=== PATIENT | female | born 1960 | race Caucasian/White ===

== ENCOUNTER 2017-01-17 21:57 | Inpatient (IN) | payer SELFPAY ==
[~2017-01-17] VITALS: Ht 152.4 cm; Wt 58.6 kg
[~2017-01-17 21:57] MED LIST: ANTIVERT PO; CARAFATE1 GM PO; K-TAB20 MEQ PO; MUSCLE RELAXANT; NAPROXEN250 MG PO; OMEPRAZOLE20 M2 PO; ONDANSETRON4 MG PO; PERCOCET 5/325M1 TAB PO; REMERON SOLTAB15 MG PO; SEROQUEL25 MG PO; ZOFRAN ODT4 MG PO
[2017-01-17 23:32] LABS: HEMATOCRIT 41.2 % (37.0-47.0); IMMATURE GRANULOCYTES 0.4 % (0.0-1.0); MEAN CORPUSCULAR HGB 27.8 pG CALC (26.0-32.0); MEAN CORPUSCULAR HGB CONC 31.6 g/L CALC (32.0-36.0); NEUT# 6.9 thou/uL (2.00-7.15); RED BLOOD COUNT 4.68 mill/uL (4.20-5.60); RED CELL DISTRI WIDTH 17.8 % (11.5-15.5)
[2017-01-17 23:33] LABS: URINE BLOOD DIPSTICK MODERATE (NEGATIVE); URINE CLARITY SLIGHT CLOUDY; URINE COLOR YELLOW; URINE GLUCOSE - DIPSTICK NEGATIVE (NEGATIVE); URINE KETONE 15 mg/dL (NEGATIVE); URINE NITRITE - DIPSTICK NEGATIVE (Negative); URINE PH 5.5 (4.5-8.0); URINE PROTEIN - DIPSTICK TRACE mg/dL (NEG-TRACE); URINE SPECIFIC GRAVITY >=1.030; URINE UROBILINOGEN - DIPSTICK 0.2 E.U./dL (0.2)
[2017-01-17 23:40] LABS: URINE BILIRUBIN - DIPSTICK NEGATIVE (NEGATIVE); URINE LEUK ESTERASE SMALL (NEGATIVE)
[2017-01-17 23:49] LABS: URINE BACTERIA FEW hpf; URINE SQUAMOUS EPITHELIAL CELL RARE EPI/hpf (0-FEW); URINE WBC 50-100 WBC/hpf (0-5)
[2017-01-17 23:51] LABS: ALKALINE PHOSPHATASE 116 u/l (38-126); AMYLASE 128 u/l (30-110); ANION GAP 32 (6-22 (CALC)); BILIRUBIN, TOTAL 0.4 mg/dL (0.0-1.4); BUN 21 mg/dL (7-17); BUN/CREATININE RATIO 24 (12-20 (CALC)); CALCIUM 9.2 mg/dL (8.4-10.2); CARBON DIOXIDE 18 mmol/l (22-30); CHLORIDE 98 mmol/l (95-108); CREATININE 0.9 mg/dL (0.5-1.0); GFR > 60 ML/MIN (>=60 (CALC)); GFR FOR AFR.AMER. > 60 ML/MIN (>=60 (CALC)); GLUCOSE 76 mg/dL (65-105); LIPASE 86 u/l (23-300); POTASSIUM 4.2 mmol/l (3.5-5.1); SGOT/AST 94 u/l (14-36); SGPT/ALT 46 u/l (9-52); SODIUM 144 mmol/l (137-146); TOTAL PROTEIN 8.2 g/dL (6.3-8.2)
[2017-01-18 04:46] LABS: BARBITURATES NEGATIVE (NEGATIVE); COCAINE NEGATIVE (NEGATIVE); METHADONE NEGATIVE (NEGATIVE); OXCYCODONE NEGATIVE (NEGATIVE); TETRAHYDROCANNABIONOL NEGATIVE (NEGATIVE); TRICYLIC ANTIDEPRESSANTS NEGATIVE (NEGATIVE)
[2017-01-18 05:41] LABS: MYOGLOBIN 284 ng/mL (0 - 62)
[2017-01-18 06:30] VITALS: BP 125/53
[2017-01-18 09:26] VITALS: BP 113/58
[2017-01-18 13:30] VITALS: BP 102/55
[2017-01-18 16:20] VITALS: BP 108/66
[2017-01-18 22:06] VITALS: BP 117/75
[2017-01-19] VITALS (7 sets, daily range): BP systolic 105–119; BP diastolic 64–81
[2017-01-19 05:50] LABS: HEMATOCRIT 31.6 % (37.0-47.0); HEMOGLOBIN 9.8 g/dl (12.0-16.0); IMMATURE GRANULOCYTES 0.2 % (0.0-1.0); MEAN CELL VOLUME 91.3 fL CALC (80.0-100.0); MEAN CORPUSCULAR HGB 28.3 pG CALC (26.0-32.0); NEUT# 2.96 thou/uL (2.00-7.15); RED BLOOD COUNT 3.46 mill/uL (4.20-5.60); RED CELL DISTRI WIDTH 18.4 % (11.5-15.5)
[2017-01-19 06:05] LABS: ALBUMIN 3.2 g/dL (3.2-5.0); ALKALINE PHOSPHATASE 68 u/l (38-126); ANION GAP 17 (6-22 (CALC)); BILIRUBIN, TOTAL 0.6 mg/dL (0.0-1.4); BUN 6 mg/dL (7-17); BUN/CREATININE RATIO 10 (12-20 (CALC)); CALCIUM 7.5 mg/dL (8.4-10.2); CARBON DIOXIDE 20 mmol/l (22-30); CHLORIDE 105 mmol/l (95-108); CREATININE 0.6 mg/dL (0.5-1.0); GFR > 60 ML/MIN (>=60 (CALC)); GFR FOR AFR.AMER. > 60 ML/MIN (>=60 (CALC)); GLUCOSE 64 mg/dL (65-105); POTASSIUM 3.3 mmol/l (3.5-5.1); SGOT/AST 60 u/l (14-36); SGPT/ALT 34 u/l (9-52); SODIUM 139 mmol/l (137-146); TOTAL PROTEIN 5.8 g/dL (6.3-8.2)
[2017-01-19] MEDS ORDERED: LIBRIUM25 M1 PO (12:32)
[2017-01-19] MEDS ORDERED: KEFLEX500 MG PO (12:32)
[2017-01-19 14:50] LABS: C. DIFFICILE TOXIN A&B NEGATIVE (NEGATIVE)
[2017-01-20] VITALS (7 sets, daily range): BP systolic 113–130; BP diastolic 48–86
[2017-01-20 05:49] LABS: HEMATOCRIT 32.5 % (37.0-47.0); HEMOGLOBIN 10.2 g/dl (12.0-16.0); IMMATURE GRANULOCYTES 0.3 % (0.0-1.0); MEAN CELL VOLUME 90.5 fL CALC (80.0-100.0); MEAN CORPUSCULAR HGB 28.4 pG CALC (26.0-32.0); MEAN CORPUSCULAR HGB CONC 31.4 g/L CALC (32.0-36.0); NEUT# 4.08 thou/uL (2.00-7.15); RED BLOOD COUNT 3.59 mill/uL (4.20-5.60); RED CELL DISTRI WIDTH 17.4 % (11.5-15.5)
[2017-01-20 06:08] LABS: ALBUMIN 3.5 g/dL (3.2-5.0); ALKALINE PHOSPHATASE 76 u/l (38-126); ANION GAP 14 (6-22 (CALC)); BILIRUBIN, TOTAL 0.4 mg/dL (0.0-1.4); BUN 2 mg/dL (7-17); BUN/CREATININE RATIO 5 (12-20 (CALC)); CALCIUM 8.6 mg/dL (8.4-10.2); CARBON DIOXIDE 23 mmol/l (22-30); CHLORIDE 106 mmol/l (95-108); CREATININE 0.5 mg/dL (0.5-1.0); GFR > 60 ML/MIN (>=60 (CALC)); GFR FOR AFR.AMER. > 60 ML/MIN (>=60 (CALC)); GLUCOSE 86 mg/dL (65-105); MAGNESIUM 1.5 mg/dL (1.6-2.3); POTASSIUM 3.7 mmol/l (3.5-5.1); SGOT/AST 63 u/l (14-36); SGPT/ALT 39 u/l (9-52); SODIUM 140 mmol/l (137-146); TOTAL PROTEIN 6.3 g/dL (6.3-8.2)
[2017-01-21 00:11] VITALS: BP 113/73
[2017-01-21 04:23] VITALS: BP 119/81
[2017-01-21 07:23] LABS: HEMOGLOBIN 10.9 g/dl (12.0-16.0); IMMATURE GRANULOCYTES 0.2 % (0.0-1.0); MEAN CELL VOLUME 90.7 fL CALC (80.0-100.0); MEAN CORPUSCULAR HGB 28.2 pG CALC (26.0-32.0); MEAN CORPUSCULAR HGB CONC 31.1 g/L CALC (32.0-36.0); NEUT# 2.62 thou/uL (2.00-7.15); RED BLOOD COUNT 3.86 mill/uL (4.20-5.60); RED CELL DISTRI WIDTH 17.1 % (11.5-15.5)
[2017-01-21 07:46] LABS: ANION GAP 12 (6-22 (CALC)); BUN < 2 mg/dL (7-17); CARBON DIOXIDE 26 mmol/l (22-30); CHLORIDE 106 mmol/l (95-108); CREATININE 0.5 mg/dL (0.5-1.0); GFR > 60 ML/MIN (>=60 (CALC)); GFR FOR AFR.AMER. > 60 ML/MIN (>=60 (CALC)); GLUCOSE 78 mg/dL (65-105); POTASSIUM 2.8 mmol/l (3.5-5.1); SODIUM 141 mmol/l (137-146)
[2017-01-21 08:54] VITALS: BP 120/73
[2017-01-21 11:35] VITALS: BP 102/67
[2017-01-21 15:34] VITALS: BP 114/60
[2017-01-21 20:11] VITALS: BP 90/58
[2017-01-22] VITALS (7 sets, daily range): BP systolic 104–117; BP diastolic 64–78
[2017-01-22 05:57] LABS: HEMATOCRIT 33.2 % (37.0-47.0); HEMOGLOBIN 10.3 g/dl (12.0-16.0); IMMATURE GRANULOCYTES 0.2 % (0.0-1.0); MEAN CORPUSCULAR HGB 28.2 pG CALC (26.0-32.0); NEUT# 1.59 thou/uL (2.00-7.15); RED BLOOD COUNT 3.65 mill/uL (4.20-5.60); RED CELL DISTRI WIDTH 17.2 % (11.5-15.5)
[2017-01-22 06:10] LABS: ANION GAP 10 (6-22 (CALC)); BUN < 2 mg/dL (7-17); CALCIUM 7.8 mg/dL (8.4-10.2); CARBON DIOXIDE 25 mmol/l (22-30); CHLORIDE 109 mmol/l (95-108); CREATININE 0.5 mg/dL (0.5-1.0); GFR > 60 ML/MIN (>=60 (CALC)); GFR FOR AFR.AMER. > 60 ML/MIN (>=60 (CALC)); GLUCOSE 88 mg/dL (65-105); MAGNESIUM 1.9 mg/dL (1.6-2.3); POTASSIUM 2.9 mmol/l (3.5-5.1); SODIUM 141 mmol/l (137-146)
[2017-01-23 04:40] VITALS: BP 112/77
[2017-01-23 07:25] VITALS: BP 118/76
[2017-01-23 08:31] LABS: HEMATOCRIT 34.5 % (37.0-47.0); HEMOGLOBIN 10.7 g/dl (12.0-16.0); IMMATURE GRANULOCYTES 0.6 % (0.0-1.0); MEAN CELL VOLUME 93.2 fL CALC (80.0-100.0); MEAN CORPUSCULAR HGB 28.9 pG CALC (26.0-32.0); NEUT# 1.76 thou/uL (2.00-7.15); RED BLOOD COUNT 3.7 mill/uL (4.20-5.60); RED CELL DISTRI WIDTH 17.2 % (11.5-15.5)
[2017-01-23 09:14] LABS: ALBUMIN 3.2 g/dL (3.2-5.0); ALKALINE PHOSPHATASE 48 u/l (38-126); ANION GAP 13 (6-22 (CALC)); BILIRUBIN, TOTAL 0.2 mg/dL (0.0-1.4); BUN 2 mg/dL (7-17); BUN/CREATININE RATIO 4 (12-20 (CALC)); CALCIUM 8.7 mg/dL (8.4-10.2); CARBON DIOXIDE 23 mmol/l (22-30); CHLORIDE 109 mmol/l (95-108); CREATININE 0.5 mg/dL (0.5-1.0); GFR > 60 ML/MIN (>=60 (CALC)); GFR FOR AFR.AMER. > 60 ML/MIN (>=60 (CALC)); GLUCOSE 135 mg/dL (65-105); POTASSIUM 4.2 mmol/l (3.5-5.1); SGOT/AST 41 u/l (14-36); SGPT/ALT 32 u/l (9-52); SODIUM 140 mmol/l (137-146); TOTAL PROTEIN 5.9 g/dL (6.3-8.2)
[2017-01-23] MEDS ORDERED: ESCITALOPRAM OX10 MG PO (11:05)
[2017-01-23 11:16] VITALS: BP 108/78
== END 2017-01-23 12:02 | disposition home or self-care (01) | DRG 897 ==
LOC: ENPENDDIS → ED 21:57 → ED-I 01-18 05:46 → ED 01-18 06:01 → MS2 01-18 06:02
PROVIDERS: Emergency Medicine; Internal Medicine; ADMIT Internal Medicine; ATTEND Internal Medicine
DX: F10.232 Alcohol dependence with withdrawal with perceptual disturbance (principal); F10.231 Alcohol dependence with withdrawal delirium; N39.0 Urinary tract infection, site not specified; K70.0 Alcoholic fatty liver; Y90.7 Blood alcohol level of 200-239 mg/100 ml; E86.0 Dehydration; B96.20 Unspecified Escherichia coli [E. coli] as the cause of diseases classified elsewhere; E87.6 Hypokalemia; F32.9 Major depressive disorder, single episode, unspecified
CPT/HCPCS: J2060

== ENCOUNTER 2017-03-25 09:52 | Emergency (ER) | payer SELFPAY ==
[~2017-03-25] VITALS: Ht 152.4 cm; Wt 69.0 kg
[~2017-03-25 09:52] MED LIST changes: +ESCITALOPRAM OX10 MG PO; +KEFLEX500 MG PO; +LIBRIUM25 M1 PO
[2017-03-25 10:37] LABS: HEMATOCRIT 38.5 % (37.0-47.0); HEMOGLOBIN 12.3 g/dl (12.0-16.0); IMMATURE GRANULOCYTES 0.3 % (0.0-1.0); MEAN CELL VOLUME 89.3 fL CALC (80.0-100.0); MEAN CORPUSCULAR HGB 28.5 pG CALC (26.0-32.0); MEAN CORPUSCULAR HGB CONC 31.9 g/L CALC (32.0-36.0); NEUT# 7.39 thou/uL (2.00-7.15); RED BLOOD COUNT 4.31 mill/uL (4.20-5.60); RED CELL DISTRI WIDTH 14.8 % (11.5-15.5)
[2017-03-25] MEDS ORDERED: DULOXETINE HCL30 MG (10:42)
[2017-03-25] MEDS ORDERED: GABAPENTIN100 MG PO (10:44)
[2017-03-25] MEDS ORDERED: MIRTAZAPINE15 MG PO (10:44)
[2017-03-25 10:57] LABS: ALBUMIN 4.2 g/dL (3.2-5.0); ALKALINE PHOSPHATASE 96 u/l (38-126); AMYLASE 92 u/l (30-110); ANION GAP 22 (6-22 (CALC)); BILIRUBIN, TOTAL 0.6 mg/dL (0.0-1.4); BUN 10 mg/dL (7-17); BUN/CREATININE RATIO 16 (12-20 (CALC)); CALCIUM 8.7 mg/dL (8.4-10.2); CARBON DIOXIDE 20 mmol/l (22-30); CHLORIDE 105 mmol/l (95-108); CREATININE 0.6 mg/dL (0.5-1.0); ETHYL ALCOHOL 27 mg/dl (0-30); GFR > 60 ML/MIN (>=60 (CALC)); GFR FOR AFR.AMER. > 60 ML/MIN (>=60 (CALC)); GLUCOSE 99 mg/dL (65-105); LIPASE 49 u/l (23-300); POTASSIUM 3.5 mmol/l (3.5-5.1); SGOT/AST 36 u/l (14-36); SGPT/ALT 31 u/l (9-52); SODIUM 143 mmol/l (137-146); TOTAL PROTEIN 7.6 g/dL (6.3-8.2)
[2017-03-25 11:09] LABS: MYOGLOBIN 27 ng/mL (0 - 62)
[2017-03-25 11:12] LABS: URINE BILIRUBIN - DIPSTICK NEGATIVE (NEGATIVE); URINE BLOOD DIPSTICK SMALL (NEGATIVE); URINE COLOR YELLOW; URINE GLUCOSE - DIPSTICK NEGATIVE (NEGATIVE); URINE KETONE 15 mg/dL (NEGATIVE); URINE LEUK ESTERASE SMALL (NEGATIVE); URINE NITRITE - DIPSTICK NEGATIVE (Negative); URINE PROTEIN - DIPSTICK TRACE mg/dL (NEG-TRACE); URINE SPECIFIC GRAVITY >=1.030; URINE UROBILINOGEN - DIPSTICK 0.2 E.U./dL (0.2)
[2017-03-25 11:13] LABS: URINE CLARITY CLOUDY
[2017-03-25 11:15] LABS: BARBITURATES NEGATIVE (NEGATIVE); COCAINE NEGATIVE (NEGATIVE); METHADONE NEGATIVE (NEGATIVE); OXCYCODONE NEGATIVE (NEGATIVE); TETRAHYDROCANNABIONOL NEGATIVE (NEGATIVE); TRICYLIC ANTIDEPRESSANTS NEGATIVE (NEGATIVE)
[2017-03-25 11:23] LABS: URINE BACTERIA MODERATE hpf; URINE SQUAMOUS EPITHELIAL CELL FEW EPI/hpf (0-FEW)
[2017-03-25 11:27] LABS: TSH, 3RD GENERATION 0.99 uIU/mL (0.47 - 4.68)
[2017-03-25] MEDS ORDERED: CEPHALEXIN500 MG PO (12:24)
[2017-03-25] MEDS ORDERED: LIBRIUM25 M1 PO (12:24)
[2017-03-25 12:54] VITALS: BP 117/64
== END 2017-03-25 13:18 | disposition home or self-care (01) | DRG 309 ==
LOC: ED 09:52
PROVIDERS: Emergency Medicine
DX: R00.2 Palpitations (principal); N39.0 Urinary tract infection, site not specified; F10.10 Alcohol abuse, uncomplicated; B96.20 Unspecified Escherichia coli [E. coli] as the cause of diseases classified elsewhere; F41.9 Anxiety disorder, unspecified; Z90.49 Acquired absence of other specified parts of digestive tract
CPT/HCPCS: J2060

== ENCOUNTER 2017-04-22 12:37 | Observation (INO) | payer SELFPAY ==
[~2017-04-22] VITALS: Ht 152.4 cm; Wt 53.1 kg
[~2017-04-22 12:37] MED LIST changes: +CEPHALEXIN500 MG PO; +DULOXETINE HCL30 MG; +GABAPENTIN100 MG PO; +MIRTAZAPINE15 MG PO
[2017-04-22 14:34] LABS: HEMATOCRIT 40.7 % (37.0-47.0); HEMOGLOBIN 13.1 g/dl (12.0-16.0); IMMATURE GRANULOCYTES 0.5 % (0.0-1.0); MEAN CELL VOLUME 92.1 fL CALC (80.0-100.0); MEAN CORPUSCULAR HGB 29.6 pG CALC (26.0-32.0); MEAN CORPUSCULAR HGB CONC 32.2 g/L CALC (32.0-36.0); NEUT# 11.58 thou/uL (2.00-7.15); RED BLOOD COUNT 4.42 mill/uL (4.20-5.60); RED CELL DISTRI WIDTH 17.9 % (11.5-15.5)
[2017-04-22 14:35] LABS: URINE BLOOD DIPSTICK MODERATE (NEGATIVE); URINE COLOR YELLOW; URINE GLUCOSE - DIPSTICK NEGATIVE (NEGATIVE); URINE KETONE >=80 mg/dL (NEGATIVE); URINE LEUK ESTERASE NEGATIVE (NEGATIVE); URINE NITRITE - DIPSTICK NEGATIVE (Negative); URINE PH 5.5 (4.5-8.0); URINE PROTEIN - DIPSTICK 30 mg/dL (NEG-TRACE); URINE SPECIFIC GRAVITY >=1.030; URINE UROBILINOGEN - DIPSTICK 0.2 E.U./dL (0.2)
[2017-04-22 14:40] LABS: URINE BILIRUBIN - DIPSTICK MODERATE (NEGATIVE)
[2017-04-22 14:41] LABS: URINE CLARITY TURBID
[2017-04-22 14:48] LABS: ALBUMIN 5.2 g/dL (3.2-5.0); ALKALINE PHOSPHATASE 115 u/l (38-126); ANION GAP 38 (6-22 (CALC)); BILIRUBIN, TOTAL 1.3 mg/dL (0.0-1.4); BUN 13 mg/dL (7-17); BUN/CREATININE RATIO 13 (12-20 (CALC)); CARBON DIOXIDE 10 mmol/l (22-30); CHLORIDE 96 mmol/l (95-108); GFR 58 ML/MIN (>=60 (CALC)); GFR FOR AFR.AMER. > 60 ML/MIN (>=60 (CALC)); GLUCOSE 139 mg/dL (65-105); LIPASE 127 u/l (23-300); POTASSIUM 4.2 mmol/l (3.5-5.1); SGOT/AST 103 u/l (14-36); SGPT/ALT 54 u/l (9-52); SODIUM 140 mmol/l (137-146); TOTAL PROTEIN 8.9 g/dL (6.3-8.2); URINE AMORPH SEDIMENT MODERATE hpf (NONE-FEW); URINE SQUAMOUS EPITHELIAL CELL FEW EPI/hpf (0-FEW)
[2017-04-22 19:40] VITALS: BP 121/63
[2017-04-23 04:30] VITALS: BP 115/48
[2017-04-23 07:10] VITALS: BP 121/58
[2017-04-23 11:11] LABS: HEMATOCRIT 30.8 % (37.0-47.0); HEMOGLOBIN 10.2 g/dl (12.0-16.0); IMMATURE GRANULOCYTES 0.3 % (0.0-1.0); MEAN CELL VOLUME 90.6 fL CALC (80.0-100.0); MEAN CORPUSCULAR HGB CONC 33.1 g/L CALC (32.0-36.0); RED CELL DISTRI WIDTH 18.2 % (11.5-15.5)
[2017-04-23 11:31] LABS: MANUAL DIFFERENTIAL YES; PLATELET COUNT 170 thou/uL (130-400)
[2017-04-23 11:32] LABS: BAND 11 % (0-8)
[2017-04-23 11:47] LABS: ALBUMIN 3.4 g/dL (3.2-5.0); ALKALINE PHOSPHATASE 76 u/l (38-126); BILIRUBIN, TOTAL 0.8 mg/dL (0.0-1.4); BUN 6 mg/dL (7-17); BUN/CREATININE RATIO 11 (12-20 (CALC)); CALCIUM 7.9 mg/dL (8.4-10.2); CARBON DIOXIDE 17 mmol/l (22-30); CREATININE 0.5 mg/dL (0.5-1.0); GFR > 60 ML/MIN (>=60 (CALC)); GFR FOR AFR.AMER. > 60 ML/MIN (>=60 (CALC)); GLUCOSE 82 mg/dL (65-105); POTASSIUM 3.4 mmol/l (3.5-5.1); SGOT/AST 55 u/l (14-36); SGPT/ALT 42 u/l (9-52); SODIUM 141 mmol/l (137-146); TOTAL PROTEIN 6.4 g/dL (6.3-8.2)
[2017-04-23 11:52] LABS: ANION GAP 21 (6-22 (CALC)); CHLORIDE 106 mmol/l (95-108)
[2017-04-23] MEDS ORDERED: KEFLEX500 M1 PO (12:20)
[2017-04-23] MEDS ORDERED: CHLORASEPTIC SO1 LOZ MT (12:21)
[2017-04-23] MEDS ORDERED: ROBITUSSIN200 MG/10 PO (12:21)
[2017-04-23] MEDS ORDERED: ZOFRAN ODT4 MG PO (12:28)
[2017-04-23] MEDS ORDERED: OMEPRAZOLE20 M2 PO (12:28)
[2017-04-23] MEDS ORDERED: METRONIDAZOL500 MG PO (12:36)
== END 2017-04-23 13:50 | disposition home or self-care (01) | DRG 392 ==
LOC: ED 12:37 → ED-I 18:34 → ED 18:47 → MS2 18:48
PROVIDERS: Family Medicine; ADMIT Internal Medicine; ATTEND Internal Medicine
DX: R11.2 Nausea with vomiting, unspecified (principal); N17.9 Acute kidney failure, unspecified; E87.2 Acidosis; N39.0 Urinary tract infection, site not specified; E86.0 Dehydration; E87.6 Hypokalemia; F10.20 Alcohol dependence, uncomplicated
CPT/HCPCS: G0378; S0164

== ENCOUNTER 2017-06-16 04:42 | Inpatient (IN) | payer SELFPAY ==
[~2017-06-16] VITALS: Ht 152.4 cm; Wt 53.1 kg
[~2017-06-16 04:42] MED LIST changes: +CHLORASEPTIC SO1 LOZ MT; +KEFLEX500 M1 PO; +METRONIDAZOL500 MG PO; +ROBITUSSIN200 MG/10 PO
[2017-06-16 05:31] LABS: HEMATOCRIT 42.3 % (37.0-47.0); IMMATURE GRANULOCYTES 0.4 % (0.0-1.0); MEAN CELL VOLUME 94.6 fL CALC (80.0-100.0); MEAN CORPUSCULAR HGB 31.3 pG CALC (26.0-32.0); MEAN CORPUSCULAR HGB CONC 33.1 g/L CALC (32.0-36.0); NEUT# 5.69 thou/uL (2.00-7.15); RED BLOOD COUNT 4.47 mill/uL (4.20-5.60); RED CELL DISTRI WIDTH 15.8 % (11.5-15.5)
[2017-06-16 06:32] LABS: ALBUMIN 4.7 g/dL (3.2-5.0); ALKALINE PHOSPHATASE 84 u/l (38-126); ANION GAP 37 (6-22 (CALC)); BILIRUBIN, TOTAL 0.6 mg/dL (0.0-1.4); BUN 11 mg/dL (7-17); BUN/CREATININE RATIO 14 (12-20 (CALC)); CALCIUM 8.8 mg/dL (8.4-10.2); CHLORIDE 102 mmol/l (95-108); CREATININE 0.8 mg/dL (0.5-1.0); GFR > 60 ML/MIN (>=60 (CALC)); GFR FOR AFR.AMER. > 60 ML/MIN (>=60 (CALC)); GLUCOSE 67 mg/dL (65-105); POTASSIUM 3.9 mmol/l (3.5-5.1); SGOT/AST 101 u/l (14-36); SGPT/ALT 50 u/l (9-52); SODIUM 143 mmol/l (137-146)
[2017-06-16 06:35] LABS: ACT PARTIAL THROMBO TIME 24.7 SECONDS (20.0-32.5); INTERNATIONAL NORMALIZED RATIO 0.9 RATIO (0.7-1.3); PROTHROMBIN TIME 10.2 SECONDS (9.0-12.5)
[2017-06-16 06:37] LABS: CARBON DIOXIDE 8 mmol/l (22-30)
[2017-06-16 06:45] LABS: MYOGLOBIN 291 ng/mL (0 - 62)
[2017-06-16 07:01] LABS: ETHYL ALCOHOL 124 mg/dl (0-30)
[2017-06-16 09:54] LABS: URINE BILIRUBIN - DIPSTICK NEGATIVE (NEGATIVE); URINE BLOOD DIPSTICK LARGE (NEGATIVE); URINE COLOR YELLOW; URINE GLUCOSE - DIPSTICK NEGATIVE (NEGATIVE); URINE KETONE >=80 mg/dL (NEGATIVE); URINE LEUK ESTERASE TRACE (NEGATIVE); URINE NITRITE - DIPSTICK NEGATIVE (Negative); URINE PROTEIN - DIPSTICK TRACE mg/dL (NEG-TRACE); URINE SPECIFIC GRAVITY >=1.030; URINE UROBILINOGEN - DIPSTICK 0.2 E.U./dL (0.2)
[2017-06-16 09:58] VITALS: BP 139/84
[2017-06-16 10:00] LABS: URINE CLARITY SL CLOUDY
[2017-06-16 10:01] LABS: URINE BACTERIA FEW hpf; URINE EPITHELIAL CELLS MODERATE EPI/hpf (0-FEW); URINE WBC 0-2 WBC/hpf (0-5)
[2017-06-16 10:02] LABS: BARBITURATES NEGATIVE (NEGATIVE); COCAINE NEGATIVE (NEGATIVE); METHADONE NEGATIVE (NEGATIVE); TETRAHYDROCANNABIONOL NEGATIVE (NEGATIVE); TRICYLIC ANTIDEPRESSANTS NEGATIVE (NEGATIVE)
[2017-06-16 10:03] LABS: OXCYCODONE NEGATIVE (NEGATIVE)
[2017-06-16 15:12] VITALS: BP 125/66
[2017-06-16 20:01] VITALS: BP 120/70
[2017-06-17 00:35] VITALS: BP 102/66
[2017-06-17 05:20] VITALS: BP 117/75
[2017-06-17 06:28] LABS: ANION GAP 12 (6-22 (CALC)); BUN 6 mg/dL (7-17); BUN/CREATININE RATIO 11 (12-20 (CALC)); CALCIUM 7.9 mg/dL (8.4-10.2); CARBON DIOXIDE 25 mmol/l (22-30); CHLORIDE 104 mmol/l (95-108); CREATININE 0.6 mg/dL (0.5-1.0); GFR > 60 ML/MIN (>=60 (CALC)); GFR FOR AFR.AMER. > 60 ML/MIN (>=60 (CALC)); GLUCOSE 114 mg/dL (65-105); MAGNESIUM 2.1 mg/dL (1.6-2.3); POTASSIUM 3.7 mmol/l (3.5-5.1); SODIUM 137 mmol/l (137-146)
[2017-06-17 07:50] VITALS: BP 139/84
[2017-06-17 12:00] VITALS: BP 137/81
[2017-06-17] MEDS ORDERED: ANTABUSE500 MG PO (12:20)
[2017-06-17] MEDS ORDERED: LIBRIUM25 M1 PO (12:26)
== END 2017-06-17 13:23 | disposition home or self-care (01) | DRG 897 ==
LOC: ED 04:42 → ED-I 08:12 → ED 08:25 → MS2 08:26
PROVIDERS: Emergency Medicine; Internal Medicine; ADMIT Internal Medicine; ATTEND Internal Medicine
DX: F10.232 Alcohol dependence with withdrawal with perceptual disturbance (principal); F10.229 Alcohol dependence with intoxication, unspecified; E87.2 Acidosis; E83.42 Hypomagnesemia; E86.0 Dehydration; Y90.6 Blood alcohol level of 120-199 mg/100 ml; F32.9 Major depressive disorder, single episode, unspecified; F41.9 Anxiety disorder, unspecified; Z90.49 Acquired absence of other specified parts of digestive tract
CPT/HCPCS: J2060; S0164

== ENCOUNTER 2017-12-12 09:47 | Emergency (ER) | payer OTHER ==
[~2017-12-12] VITALS: Ht 152.4 cm; Wt 68.0 kg
[~2017-12-12 09:47] MED LIST changes: +ANTABUSE500 MG PO; -DULOXETINE HCL30 MG; +DULOXETINE HCL30 MG PO
[2017-12-12 10:24] LABS: IMMATURE GRANULOCYTES 0.2 % (0.0-1.0); MEAN CELL VOLUME 91.4 fL CALC (80.0-100.0); MEAN CORPUSCULAR HGB 30.1 pG CALC (26.0-32.0); MEAN CORPUSCULAR HGB CONC 32.9 g/L CALC (32.0-36.0); NEUT# 7.2 thou/uL (2.00-7.15); RED BLOOD COUNT 3.96 mill/uL (4.20-5.60); RED CELL DISTRI WIDTH 13.7 % (11.5-15.5)
[2017-12-12 10:29] LABS: HEMATOCRIT 36.2 % (37.0-47.0); HEMOGLOBIN 11.9 g/dl (12.0-16.0)
[2017-12-12 10:43] LABS: ANION GAP 19 (6-22 (CALC)); BUN 11 mg/dL (7-17); BUN/CREATININE RATIO 21 (12-20 (CALC)); CARBON DIOXIDE 20 mmol/l (22-30); CHLORIDE 104 mmol/l (95-108); CPK 116 u/l (30-165); CREATININE 0.5 mg/dL (0.5-1.0); ETHYL ALCOHOL 28 mg/dl (0-30); GFR > 60 ML/MIN (>=60 (CALC)); GFR FOR AFR.AMER. > 60 ML/MIN (>=60 (CALC)); LIPASE 90 u/l (23-300); POTASSIUM 3.8 mmol/l (3.5-5.1); SODIUM 139 mmol/l (137-146)
[2017-12-12 11:20] LABS: BARBITURATES NEGATIVE (NEGATIVE); COCAINE NEGATIVE (NEGATIVE); METHADONE NEGATIVE (NEGATIVE); OXCYCODONE NEGATIVE (NEGATIVE); TETRAHYDROCANNABIONOL NEGATIVE (NEGATIVE); TRICYLIC ANTIDEPRESSANTS NEGATIVE (NEGATIVE)
[2017-12-12] MEDS ORDERED: VISTARIL 50MG C50 M1 PO (12:46)
[2017-12-12 13:01] VITALS: BP 104/67
== END 2017-12-12 13:14 | disposition home or self-care (01) | DRG 880 ==
LOC: ED 09:47
PROVIDERS: Family Medicine
DX: F41.9 Anxiety disorder, unspecified (principal); F32.9 Major depressive disorder, single episode, unspecified; R11.0 Nausea; R06.02 Shortness of breath; R53.1 Weakness
CPT/HCPCS: J2060; Q9967

== ENCOUNTER 2018-01-14 18:06 | Inpatient (IN) | payer OTHER ==
[~2018-01-14] VITALS: Ht 152.4 cm; Wt 52.0 kg
[2018-01-14] VITALS (7 sets, daily range): BP systolic 130–141; BP diastolic 60–80
[~2018-01-14 18:06] MED LIST changes: +VISTARIL 50MG C50 M1 PO
--- NOTE | 2018-01-14 18:15 | NUR ---
PT IMMEDIATELY TO TX ROOM. C/O NAUSEA, NO ACTIVE VOMITING
--- NOTE | 2018-01-14 19:10 | NUR ---
PT C/O VOMING 100+ TIMES TODAY. STATES SHE FELL OVER HER DOG YESTERDAY WHILE DRINKING AND HIT HER HEAD. STATES SHE CANT KEEP ANYTHING DOWN TODAY, INCLUDING ALCOHOL & HER ANXIETY MEDS. ABD SOFT & TENDER. PT DRY-HEAVING INTO EMESIS BAG. AMBULATED TO BATHROOM FOR UA SAMPLE. 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 EYES PERRLA @4. PULSES STRONG. NO EDEMA. NO NUERO ABNORMALITIY. UNABLE TO ESTABLISH IV. CHARGE NURSE TRYING.
[2018-01-14 19:38] LABS: HEMATOCRIT 38.2 % (37.0-47.0); HEMOGLOBIN 12.6 g/dl (12.0-16.0); IMMATURE GRANULOCYTES 0.3 % (0.0-1.0); MEAN CELL VOLUME 92.5 fL CALC (80.0-100.0); MEAN CORPUSCULAR HGB 30.5 pG CALC (26.0-32.0); NEUT# 6.8 thou/uL (2.00-7.15); RED BLOOD COUNT 4.13 mill/uL (4.20-5.60); RED CELL DISTRI WIDTH 14.9 % (11.5-15.5)
[2018-01-14 19:42] LABS: URINE BILIRUBIN - DIPSTICK NEGATIVE (NEGATIVE); URINE BLOOD DIPSTICK MODERATE (NEGATIVE); URINE COLOR YELLOW; URINE GLUCOSE - DIPSTICK NEGATIVE (NEGATIVE); URINE KETONE >=80 mg/dL (NEGATIVE); URINE LEUK ESTERASE NEGATIVE (NEGATIVE); URINE PROTEIN - DIPSTICK 100 mg/dL (NEG-TRACE); URINE SPECIFIC GRAVITY >=1.030; URINE UROBILINOGEN - DIPSTICK 0.2 E.U./dL (0.2)
[2018-01-14 19:46] LABS: BARBITURATES NEGATIVE (NEGATIVE); COCAINE NEGATIVE (NEGATIVE); METHADONE NEGATIVE (NEGATIVE); TETRAHYDROCANNABIONOL NEGATIVE (NEGATIVE); TRICYLIC ANTIDEPRESSANTS NEGATIVE (NEGATIVE)
[2018-01-14 19:47] LABS: OXCYCODONE NEGATIVE (NEGATIVE)
[2018-01-14 19:57] LABS: URINE CLARITY CLEAR
[2018-01-14 19:58] LABS: URINE BACTERIA MANY hpf; URINE NITRITE - DIPSTICK POSITIVE (Negative); URINE RBC 0-2 RBC/hpf (0-5); URINE SQUAMOUS EPITHELIAL CELL FEW EPI/hpf (0-FEW)
--- NOTE | 2018-01-14 20:05 | NUR ---
CALLED TO ROOM BC PT "MADE A MESS". SHEETS CHANGED AFTER PT SPILT SOME VOMIT ON BED. PT VERY SHAKY
[2018-01-14 20:10] LABS: ALBUMIN 4.5 g/dL (3.2-5.0); ALKALINE PHOSPHATASE 95 u/l (38-126); ANION GAP 31 (6-22 (CALC)); BILIRUBIN, TOTAL 0.5 mg/dL (0.0-1.4); BUN 16 mg/dL (7-17); BUN/CREATININE RATIO 24 (12-20 (CALC)); CARBON DIOXIDE 14 mmol/l (22-30); CHLORIDE 104 mmol/l (95-108); CREATININE 0.7 mg/dL (0.5-1.0); ETHYL ALCOHOL 111 mg/dl (0-30); GFR > 60 ML/MIN (>=60 (CALC)); GFR FOR AFR.AMER. > 60 ML/MIN (>=60 (CALC)); LIPASE 57 u/l (23-300); POTASSIUM 3.7 mmol/l (3.5-5.1); SGOT/AST 81 u/l (14-36); SGPT/ALT 43 u/l (9-52); SODIUM 145 mmol/l (137-146); TOTAL PROTEIN 7.8 g/dL (6.3-8.2)
[2018-01-14] MEDS ORDERED: MELOXICAM15 MG PO (20:39)
[2018-01-14] MEDS ORDERED: GABAPENTIN300 M2 (20:39)
--- NOTE | 2018-01-14 21:04 | NUR ---
BOYFRIEND WEARING A HOSPITAL AUXILLARY BADGE, CONTINUES TO BADGE HIMSELF INTO ER WITHOUT GOING THROUGH REGISTRATION. PT RESTING IN BED. PT STILL DRY HEAVING & SHAKING. PT ON MONITORS.
--- NOTE | 2018-01-14 21:43 | NUR ---
PTS "BASICALLY BOYFRIEND" STEPPED OUT INTO THE [facility] TO ASK ME QUESTIONS ABOUT THE PTS REASONS FOR ADMISSION BC HE IS WORRIED ABOUT HAVING A SEXUALLY TRANSMITTED DISEASE. BOYFRIEND IS A HOSPITAL VOLUNTEER. EXPLAINED TO BOYFRIEND THAT WE CAN NOT DISCUSS PTS VISIT UNLESS PT GIVES US PERMISSION. BOYFRIEND STATES HE DOESNT WANT TO LET PT KNOW HE IS ASKING. CHARGE NURSE CALLED OVER TO HELP EXPLAIN HIPAA TO HOSPITAL AUXILLARY MEMBER.
--- NOTE | 2018-01-14 22:04 | NUR ---
Admission Note Report Given to: CHERYL Transported by: Wheelchair X Stretcher Transported with: X Nurse Transporter X Patent IV O2 X Windows Infrastructure Engineer ER CHARGE NURSE WILL GET MAG FROM [facility] TO TAKE TO ICU. NO MAG IN ER OR ICU PYXIS.
--- NOTE | 2018-01-14 22:16 | NUR ---
BOYFRIEND FOLLOWED ME OUT TO [facility] AFTER LEAVING PTS ROOM TO INFORM ME THAT HE IS WORRIED THAT SHE IS GOING TO BC SHE IS A REALLY HEAVY DRINKER.
--- NOTE | 2018-01-14 22:23 | NUR ---
PT TRANSFERED TO ICU BY STRETCHER WITH IVF & TELE IN STABLE CONDITION.
--- NOTE | 2018-01-14 22:25 | NUR ---
PT. ARRIVES FROM ER VIA STRETCHER. PT. HIGHLY UNSTEADY AND TREMULOUS. 2 NURSE ASSIST FROM ER STRETCHER TO ICU BED #1. AWAKE, ALERT, ORIENTED X 3. SKIN WARM AND DRY. LISET. AFEBRILE AT 99.3. UPON ARRIVAL, PT. ASSISTED TO BEDSIDE COMMODE. PT. WITH APPROX 200 CC URINE AND SMALL BM OUT AT THIS TIME. ASSISTED BACK TO BED AND GOWN CHANGED AT THIS TIME. PT. PLACED ON MONITOR AT THIS TIME. BP SLIGHTLY ELEVATED AT 141/60. NAUSEATED WITH SCANT LIQUID EMESIS AT THIS TIME. CLEAR/FROTHY. REPOSITIONED FOR COMFORT. RESPS EVEN, TACHYPNEIC. SPO2 STABLE AT 98% ON RA. CALL LIGHT WITHIN REACH AND EXPLAINED ON USE. IV FLUIDS AT BOLUS INFUSING AND BANANA BAG INFUSING ORDERED. WILL CONTINUE TO MONITOR.
--- NOTE | 2018-01-14 23:52 | NUR ---
PT. REMAINS WITH INTERMITTENT NAUSEA AND DRY HEAVES. BANANA BAG AND MAGNESIUM SULFATE DRIP INFUSING ORDERED. WILL CONTINUE TO MONITOR AND MEDICATE NEEDED.
[2018-01-15] VITALS (16 sets, daily range): BP systolic 116–133; BP diastolic 63–98
--- NOTE | 2018-01-15 00:44 | NUR ---
PT. RESTFUL AT THIS TIME. STATED WITH IMPROVEMENT IN NAUSEA. MAGNESIUM SULF DRIP CONTINUES TO INFUSE ALONG WITH BANANA BAG. REMAINS SINUS TACH. BP STABLE. REMAINS AFEBRILE.
--- NOTE | 2018-01-15 01:20 | NUR ---
PT. CONTINUES TO REST WITH EYES CLOSED IN NO DISTRESS. REMAINS TACHYCARDIC AT THIS TIME SINUS AT 112. BP AND RESPS STABLE. CALL LIGHT REMAINS WITHIN REACH. IV FLUIDS CONTINUE TO INFUSE.
--- NOTE | 2018-01-15 02:30 | NUR ---
PT. ASSISTED TO BSC. REMAINS HIGHLY TREMULOUS AND UNSTEADY. PT. INCONTINENT OF STOOL AT THIS TIME. ASSISTED TO BSC. GOWN AND LINENS CHANGED AT THIS TIME. ASSISTED BACK TO BED.
--- NOTE | 2018-01-15 03:18 | NUR ---
PT. BACK TO BSC. REMAINS VERY TREMULOUS. AGAIN INCONTINENT OF STOOL AT THIS TIME. GREEN DIARRHEA MIXED WITH URINE OUT AT THIS TIME.
--- NOTE | 2018-01-15 04:50 | NUR ---
PT. RESTING IN BED WITH EYES CLOSED. NO DISTRESS. RESPS EVEN AND UNLABORED. CALL LIGHT REMAINS WITHIN REACH. WILL CONTINUE TO MONITOR.
--- NOTE | 2018-01-15 06:07 | NUR ---
PT. MEDICATED FOR TREMORS AND NAUSEA A THIS TIME. IV FLUIDS CONTINUED. RESTING IN BED. REMAINS AWAKE. REMAINS SINUS TACH AT THIS TIME. RESPS EVEN AND UNLABORED. BP STABLE. CONTINUES TO TAKE SMALL AMOUNTS OF ICE CHIPS. WILL CONTINUE TO MONITOR.
[2018-01-15 06:51] LABS: IMMATURE GRANULOCYTES 0.2 % (0.0-1.0); MEAN CELL VOLUME 92.8 fL CALC (80.0-100.0); MEAN CORPUSCULAR HGB 30.8 pG CALC (26.0-32.0); MEAN CORPUSCULAR HGB CONC 33.2 g/L CALC (32.0-36.0); NEUT# 4.19 thou/uL (2.00-7.15); RED BLOOD COUNT 3.21 mill/uL (4.20-5.60); RED CELL DISTRI WIDTH 15.1 % (11.5-15.5)
[2018-01-15 06:52] LABS: HEMATOCRIT 29.8 % (37.0-47.0); HEMOGLOBIN 9.9 g/dl (12.0-16.0)
--- NOTE | 2018-01-15 07:25 | NUR ---
pt awake in bed; no distress noted; assessment completed at this time; pt alert and oriented; admits to pain to upper abd rating 5/10; no n/v noted; resp even and unlabored; lungs clear bilat; skin color wnl; ra; hr reg; strong pulses; no edema noted; st on monitor; bilat knee high serafin hose intact; abd soft/tender on palpation with bs present; pt admits to freq loose stools/ last bm this am; admits to voiding without pain or burning; no urine to inspect at this time; bsc; #22 in rh patent with ivf infusing without complication; no redness or edema noted at site; general bruising noted throughout body; pt noted with tremors and appears very anxious; pt admits to "withdraw" feeling when questioned per fha underwriter; prn meds/ plan of care explained; call light within reach; will continue to monitor
--- NOTE | 2018-01-15 08:15 | NUR ---
awake in bed; no distress noted; tremors continue; iv patent; fluids infusing without complication; no redness or edema noted at site; st on monitor; offers no complaints of pain at this time; call light within reach; will continue to monitor
--- NOTE | 2018-01-15 08:40 | NUR ---
Dr Trimble at bedside to assess pt and discuss plan of care
--- NOTE | 2018-01-15 09:00 | NUR ---
awake; medication explained and administered; pt offers no complaints; call light within reach; will continue to monitor
--- NOTE | 2018-01-15 10:04 | NUR ---
resting in bed with eyes closed; no distress noted; st on monitor; iv patent; no redness or edema noted at site; call light within reach; will continue to monitor
--- NOTE | 2018-01-15 12:04 | NUR ---
awake in bed eating lunch; no distress noted; pt offers no complaits; resp even and unlabored; generalized tremors noted; prev medicated with ativan; iv patent; no redness or edema noted at site; st on monitor; call light within reach; will continue to monitor
--- NOTE | 2018-01-15 14:00 | NUR ---
pt "significant other" at nursing station inquiring about pt status/ condition; visitor excorted to pt's room where permission was obtained to speak to s/o about information/labs/condition; pt agree; s/o updated on admission diagnosis and current condition; s/o has asked serval times about labs results and infection; with pt permission, s/o informed of UTI; s/o follows this ticket writer out to nursing station to inquire about sexual transmitted diseases and AIDS; s/o informed of HIPPA law; will continue to monitor pt closely
--- NOTE | 2018-01-15 16:10 | NUR ---
resting in bed with eyes closed but appears very restless; iv patent; fluids infusing without complication; no redness or edema noted at site; st on monitor; call light within reach; will continue to monitor
--- NOTE | 2018-01-15 18:08 | NUR ---
awake in bed; offers no complaints; denies pain; iv patent; fluids infusing without complication; no redness or edema noted at site; st on monitor; continue with generalized tremors; bed in lowest position; side rails elevated; call light within reach
--- NOTE | 2018-01-15 18:50 | NUR ---
REPORT FROM Keara CORNELIUS RN. ASSUMED PT. CARE.
--- NOTE | 2018-01-15 19:15 | NUR ---
PT. FOUND AWAKE, ALERT, WATCHING TELEVISION AT THIS TIME. PT. PROVIDED WITH HER PURSE AT THIS TIME PER HER REQUEST TO OBTAIN HER PHONE. PT. APPEARS CALM. MILD-MODERATE TREMORS REMAIN AT THIS TIME. PT. INTERMITTENT WILL TALK OUT WHEN NO ONE IS IN THE ROOM. RESPS EVEN AND UNLABORED. REMAINS SINUS TACH AT THIS TIME IN THE 110-120 RANGE. BP/HR STABLE. BANANA BAG INFUSING AT THIS TIME PER ORDERS. PT. OFFERED ATIVAN AT THIS TIME AND STATES SHE DOES BELIEVE SHE NEEDS IT. REMAINS ORIENTED X 3. CHANG. LISET. AFEBRILE. CALL LIGHT REMAINS WITHIN REACH. WILL CONTINUE TO MONITOR.
--- NOTE | 2018-01-15 21:00 | NUR ---
PT. TO BEDSIDE COMMODE AT THIS TIME. URINE AND DIARRHEAL BM OUT AT THIS TIME. PT. WEARING SUNGLASSES IN THE ROOM WITH LIGHTS OFF AT THIS TIME. TREMORS APPEAR LESS AT THIS TIME. CALL LIGHT REMAINS WITHIN REACH. WILL CONTINUE TO ASSESS.
--- NOTE | 2018-01-15 21:24 | NUR ---
BACK TO BEDSIDE COMMODE AT THIS TIME. REMAINS IN SUNGLASSES.
--- NOTE | 2018-01-15 21:57 | NUR ---
PT. CALLED ON LIGHT, STATING "I GUESS HES NOT GOING TO PICK ME UP". ASSEMBLY LINE WORKER REORIENTED PATIENT TO SITUATION AND TIME.
--- NOTE | 2018-01-15 23:30 | NUR ---
PT. FOUND UP TO BEDSIDE COMMODE. STOOL NOTED ALL OVER THE TOILET SEAT AND PT. HANDS. CLEANSED OF STOOL ALL LINENS CHANGED AT THIS TIME. ALL TELEMETRY LEADS REPLACED. PT. HALLUCINATING AT THIS TIME. STATING "THE DOGS CAN COME INSIDE".
[2018-01-16] VITALS (49 sets, daily range): BP systolic 73–141; BP diastolic 58–84
--- NOTE | 2018-01-16 00:06 | NUR ---
MD MADE AWARE OF INCREASING HALLUCINATION AND ANXIOUS BEHAVIOR PULLING OFF LEADS AND AT LINES. WILL CONTINUE TO CLOSELY MONITOR. NEW ORDERS RECEIVED. WILL MEDICATE.
--- NOTE | 2018-01-16 00:30 | NUR ---
PT. ORIENTED TO PERSON AND PLACE. STATES JFJanis IS THE PRESIDENT. ATTEMPTS TO REORIENT PATIENT TO SITUATION ARE UNSUCCESSFUL.
--- NOTE | 2018-01-16 00:30 | NUR ---
PT. CONTINUALLY ATTEMPTING TO CLIMB OUT OF BED. PULLING AT LINES/TUBES. MADE AWARE. NEW ORDERS RECEIVED FOR RESTRAINTS AND ADMINISTRATION OF ATIVAN. WILL MEDICATE ORDERED WHEN CARDINAL VERIFIES ORDER.
--- NOTE | 2018-01-16 01:25 | NUR ---
ALL LINENS CHANGED AND PERICARE PROVIDED PT. INCONTINENT OF URINE AND STOOL.
--- NOTE | 2018-01-16 02:40 | NUR ---
PT. INCONTINENT OF STOOL. PT. CLEANSED AND LINENS CHANGED. REMAINS HALLUCINATING AND PULLING AT LINES/TUBES. WILL CONTINUE TO MONITOR. IV FLUIDS CONTINUE TO INFUSE WITHOUT SX OF INFILTRATION.
--- NOTE | 2018-01-16 03:56 | NUR ---
PT. ORIENTED TO PERSON ONLY AT THIS TIME. REMAINS AGGITATED ATTEMPTING TO CLIMB OUT OF BED AND PULLING AT LINES. WHEN ASKED IF SHE KNOWS WHERE SHE IS AT SHE STATES "I THINK I AM IN [facility]". PT. STATES SHE DOES NOT KNOW THE YEAR. REORIENTED TO SITUATION AND SHE ASKS "IS IT 2 10'S AND 2 20'S FOR A SODA FROM THE VENDING MACHINE RIGHT THERE?" PT. INFORMED THERE IS NO VENDING MACHINE AND THAT SHE IS HALLUCINATING FROM ALCOHOL WITHDRAWL.
--- NOTE | 2018-01-16 04:31 | NUR ---
PT. REPOSITIONED AT THIS TIME. PLACED ON BEDPAN SHE STATES SHE NEEDED TO HAVE A BM, BUT NO BM AT THIS TIME. REMAINS ORIENTED TO PERSON ONLY. CONTINUES TO HALLUCINATE AND TALK TO PEOPLE IN THE ROOM THAT ARENT THERE. PT. IS INSISTING THAT BIB CRUISE IS AT THE END OF THE BED. UPDATED AND ATTEMPT TO REORIENT PATIENT REMAINS UNSUCCESSFUL. REMAINS SINUS TACH ON THE MONITOR.
[2018-01-16 05:34] LABS: HEMATOCRIT 31.3 % (37.0-47.0); HEMOGLOBIN 10.4 g/dl (12.0-16.0); MEAN CELL VOLUME 92.6 fL CALC (80.0-100.0); MEAN CORPUSCULAR HGB 30.8 pG CALC (26.0-32.0); MEAN CORPUSCULAR HGB CONC 33.2 g/L CALC (32.0-36.0); RED BLOOD COUNT 3.38 mill/uL (4.20-5.60); RED CELL DISTRI WIDTH 14.9 % (11.5-15.5)
[2018-01-16 05:49] LABS: BUN 3 mg/dL (7-17); BUN/CREATININE RATIO 6 (12-20 (CALC)); CHLORIDE 107 mmol/l (95-108); CREATININE 0.5 mg/dL (0.5-1.0); GFR > 60 ML/MIN (>=60 (CALC)); GFR FOR AFR.AMER. > 60 ML/MIN (>=60 (CALC)); POTASSIUM 3.3 mmol/l (3.5-5.1); SODIUM 140 mmol/l (137-146)
--- NOTE | 2018-01-16 05:51 | NUR ---
REMAINS RESTLESS, HALLUCINATING. CONTINUALLY ATTEMPTING TO CLIMB OUT OF BED. REMAINS RESTRAINED AT THIS TIME. IV FLUIDS CONTINUE TO INFUSE WITHOUT SX OF INFILTRATION OR EXTRAVASATION.
[2018-01-16 06:04] LABS: ANION GAP 11 (6-22 (CALC)); CARBON DIOXIDE 25 mmol/l (22-30); MAGNESIUM 1.4 mg/dL (1.6-2.3)
--- NOTE | 2018-01-16 07:45 | NUR ---
pt awake in bed; severely anxious/agitated; assessment completed at this time; pt alert to person, month and year; denies pain; no n/v noted; generalized tremors noted throughout body; diaphoresis noted; resp even and unlabored; lungs clear throughout; skin color wnl; ra; hr reg; strong pulses; no edema noted; st 140s-150s with agitation; abd soft with bs present; no bm noted per contract writer; magaña to gravity draining clear yellow urine; cath monique device intact; #22 in lat rfa patent with ivf infusing without complication; no redness or edema noted at site; bruising noted to knees; side rails padded at this time/seizure precautions; visual and auditory hallucinations noted; restraints released for nursing care/ repositioning/rom/breakfast; pt continue to state "the floor is slippery"; states we are on an ice skating rank; staff at bedside for pt safety; call light within reach; will continue to monitor
--- NOTE | 2018-01-16 08:30 | NUR ---
Dr Trimble present at bedside; pt severely anxious/agitated; previously medicated with atiivan and ineffective; o2 per nc applied; resp labored/ tachypneic d/t agitation; st 140-160s on monitor; multiple staff at beside for pt safety; will continue to monitor
--- NOTE | 2018-01-16 08:44 | NUR ---
verbal order received from Dr Trimble for additional 2mg ativan ivp stat; given; order to be placed
--- NOTE | 2018-01-16 09:00 | NUR ---
pt continues with anxiety/agitation/hallucinations; restraints intact; staff at bedside; iv patent; fluids infusing without complication; no redness noted edema noted at site; diaphoresis and generalized tremors noted throughout; reorientation unsuccessful; #20 started in rh x1 attempt per Fab Leung RN; Dr Trimble and ronnell Castillo at bedside; side rails padded for seizure precautions; will continue to monitor closely
--- NOTE | 2018-01-16 09:05 | NUR ---
Kwame Castillo, anesth and Dr Trimble at bedside; versed 4mg ivp given as per orders; iv patent; st on monitor; o2 per nc; remains in restraints; magaña to gravity; staff remains at bedside; will continue to monitor
--- NOTE | 2018-01-16 10:05 | NUR ---
ativan gtt placed on hold (ineffective); preparing pt for intubation; multiple staff including MD remains at bedside
--- NOTE | 2018-01-16 10:10 | NUR ---
Dr Trimble and Kwame Castillo, anesth at bedside; pt remains severely anxious/ agitiated; st 160s on monitor; resp labored/tachypneic; pt unable to follow instructions; calming methods/ medications ineffective; pt intubated by Kwame Castillo with 7.0 Fr ETT, secured at the 22cm lip line; xray at bedside to comfim placement; RT at bedside for vent settings/management; st on monitor; will continue to monitor closely
--- NOTE | 2018-01-16 10:26 | NUR ---
16 Fr OG tube placed per Fab stinson RN; placement confirmed by residential mortgage underwriter via air insertion/ascultation; oral suction for large amount of sputum; og to lis; will continue to monitor
--- NOTE | 2018-01-16 11:00 | NUR ---
sbp 80s; ns bolus initiated at this time; st on monitor; diprivan gtt continues as per protocol
--- NOTE | 2018-01-16 11:35 | NUR ---
resting with eyes closed; continues with agitation/anxious; restraints released and reapplied for nursing care/ repositioning; iv patent; propofol gtt per protocol; ivf/bolus infusing; continues with tremors to upper extremites; magaña to gtavity; st on monitor; sbp 108; oral care/ suctioning per staff; will continue to monitor closely
--- NOTE | 2018-01-16 12:00 | NUR ---
resting with eyes closed/sedated; no distress noted; vent maintained; iv patent; no redness or edema noted at site; diprivan gtt at 45mcg/kg/min; sr 90s on monitor; og intact; repositioned for comfort; magaña to gravity; iv bolus completed; sbp 116; will continue to monitor closely
--- NOTE | 2018-01-16 12:06 | NUR ---
Dr Trimble at bedside to assess pt
--- NOTE | 2018-01-16 12:29 | NUR ---
RT at bedside for abg
--- NOTE | 2018-01-16 13:05 | NUR ---
visitor/boyfriend at bedside; visitor encouraged to NOT use auxiliary badge to let himself in when visiting pt; updated on pt care; boyfriend requesting engineering writer to call sister in [place] and explained situation; HIPPA explained to boyfriend; boyfriend requesting staff get together to tell pt her sevice dog was killed last night after "getting out looking for her"; sedation explained to boyfriend; pt noted agitation/anxious when speaking in room; engineering writer request for visitor to visit only for a short period; boyfriend departed;
--- NOTE | 2018-01-16 13:11 | NUR ---
restless/anxious; tremors noted to upper extremities; eyes open when spoken to; st on monitor; vent alarming; diprivan gtt titrated to 50mcg/kg/min; restraints continue; oral suctioning; repositioned; will continue to monitor
--- NOTE | 2018-01-16 14:01 | NUR ---
resting in bed with eyes closed; continues with restlessness and intermittent tremors/anxiety; sr on monitor; vent maintained with 35% FiO2; magaña to gravity; repositioned; oral care; diprivan gtt at 60 mcg/kg/min; will continue to monitor
--- NOTE | 2018-01-16 15:00 | NUR ---
complete bed bath given; small incontinence of loose brown stool; catheter care given; repositioned to right side; restraints released and reapplied for nursing care/ repositioning; sr-st on monitor; vent maintained; iv patent; no redness or edema noted at site; diprivan gtt continues at 60mcg/kg/min; oral care given; lip balm applied; feel elevated; scd's applied; will continue to monitor
--- NOTE | 2018-01-16 16:04 | NUR ---
resting calmly at this time; resp even and unlabored; vent maintained with 35% FiO2; st on monitor; magaña to gravity; will continue to monitor closely
--- NOTE | 2018-01-16 16:54 | NUR ---
sign other Eric at bedside; Eric observed with pt's cell phone; admits to looking for Darlyn's (sister) phone number; upon leaving, cell phone is not in pt's room;
--- NOTE | 2018-01-16 17:14 | NUR ---
donet removed from room and sent to safe
--- NOTE | 2018-01-16 17:24 | NUR ---
s/o Eric Himelright called per Fab Khan LPN; s/o admits to taking cell phone with him;
--- NOTE | 2018-01-16 17:48 | NUR ---
resting in bed with eyes closed; no distress noted; resp even and unlabored; iv patent; diprivan gtt infusing at 60 mcg/kg/min; no redness or edema noted at sites; sr on monitor; repositioned; magaña to gravity; vent maintained and patent with 35% FiO2; bed in lowest position; side rails elevated; bilat wrist restraints continue;
--- NOTE | 2018-01-16 18:05 | NUR ---
cell phone returned to unit and sent to safe
--- NOTE | 2018-01-16 19:30 | NUR ---
ORAL CARE AND SUCTIONING PROVIDED AT THIS TIME. PT. AGGITATED WITH ORAL CARE. BEOMES TACHYCARDIC TO 130. FIGHTING VENT AND NOW ATTEMPTING TO PULL AT LINES/TUBES. MD MADE AWARE OF AGGITATION AND ASKS THAT ATIVAN DRIP BE INITIATED. BP STABLE. PROPOFOL DRIP INCREASED TO 65 MCG/KG/MIN AT THIS TIME.
--- NOTE | 2018-01-16 21:16 | NUR ---
NS INFUSING AT 125 CC/HR. ATIVAN DRIP INFUSING AT 0.5 MG/HR, PROPOFOL DRIP CONTINUES AT 65 MCG/KG/MIN FOR SEDATION. PT. STABLE ON THE VENT. LESS AGGITATION AT THIS TIME. CALL LIGHT REMAINS WITHIN REACH. WILL CONTINUE TO ASSESS.
--- NOTE | 2018-01-16 22:35 | NUR ---
ATIVAN DRIP INFUSING AT 1 MG/HR AT THIS TIME. PROPOFOL DRIP DECREASED TO 65 MCG/KG/MIN AT THIS TIME. BP AND HR STABLE. CALL LIGHT REMAINS WITHIN REACH. STABLE ON THE VENT. SOFT WRIST RESTRAINTS REMAIN IN PLACE AT THIS TIME.
[2018-01-17] VITALS (16 sets, daily range): BP systolic 82–121; BP diastolic 53–80
--- NOTE | 2018-01-17 00:10 | NUR ---
PT. TOLERATED TURNING AND ORAL CARE MUCH BETTER THIS TIME. REMAINS ON PROPOFOL DRIP AT 65 MCG/KG/MIN, ATIVAN DRIP AT 1 MG/HR, AND IV FLUIDS INFUSING AT 125 CC/HR. HR REMAINS STABLE/SINUS AT 90 AT THIS TIME. CALL LIGHT REMAINS WITHIN REACH. REPOSITIONED FOR COMFORT. VENT SETTINGS REMAIN UNCHANGED.
--- NOTE | 2018-01-17 02:05 | NUR ---
PT. REMAINS ROUSABLE TO TOUCH. WITHDRAWS FROM PAINFUL STIMULI. PT. DOES BECOME AGGITATED WITH ORAL CARE AND SUCTIONING. PT. REPOSITIONED AT THIS TIME. VSS. REMAINS SINUS ON THE MONITOR. IN THE 80-90'S. REMAINS AFEBRILE. BP STABLE. PROPOFOL DRIP CONTINUES TO INFUSE AT 65 MCG/KG/MIN, ATIVAN DRIP INFUSING AT 1 MG/HR, AND IV FLUIDS INFUSING AT 125CC/HR. NO INFILTRATION, OR EXTRAVASATION NOTED. REMAINS WITH SOFT WRIST RESTRAINS AT THIS TIME. WILL CONTINUE TO CLOSELY MONITOR.
--- NOTE | 2018-01-17 03:15 | NUR ---
PT. RESTING COMFORTABLY WITH EYES CLOSED. REMAINS STABLE ON THE VENT. BP/HR STABLE. REMAINS RESTRAINED. WILL CONTINUE TO MONITOR.
--- NOTE | 2018-01-17 04:15 | NUR ---
PARTIAL BED BATH AND JASEN-CARE GIVEN. LINENS AND GOWN CHANGED AT THIS TIME. PT. TOELRATED WELL. REMAINS RESTRAINED. STABLE ON THE VENT. BP/HR/SPO2 STABLE.
--- NOTE | 2018-01-17 04:55 | NUR ---
LAB AT BEDSIDE TO DRAW PT.
--- NOTE | 2018-01-17 05:11 | NUR ---
RT AT BEDSIDE TO PERFOR ABG.
--- NOTE | 2018-01-17 05:13 | NUR ---
PT. SITTING UP AT THIS TIME. REMAINS RESTRAINED. ORIENTED TO SITUATION. PROPOFOL DRIP INCREASED TO 70 MCG/KG/MIN. ATIVAN DRIP INCREASED TO 2 MG/HR. WILL CONTINUE TO ASSESS FOR SATISFACTORY SEDATION.
--- NOTE | 2018-01-17 05:20 | NUR ---
PROPOROL DRIP INCREASED TO 75 MCG/KG/MIN. ATIVAN DRIP INCREASED TO 3 MG/HR. PT. REMAINS AWAKE, EYES OPEN. WILL CONTINUE TO ASSESS FOR SEDATION. HR REMAINS SLIGHTLY ELEVATED AT 115. CALL LIGHT REMAINS WITHIN REACH.
[2018-01-17 05:25] LABS: HEMATOCRIT 34.8 % (37.0-47.0); HEMOGLOBIN 11.5 g/dl (12.0-16.0); MEAN CELL VOLUME 91.8 fL CALC (80.0-100.0); MEAN CORPUSCULAR HGB 30.3 pG CALC (26.0-32.0); RED BLOOD COUNT 3.79 mill/uL (4.20-5.60); RED CELL DISTRI WIDTH 14.6 % (11.5-15.5)
[2018-01-17 05:41] LABS: ALBUMIN 3.2 g/dL (3.2-5.0); ALKALINE PHOSPHATASE 74 u/l (38-126); ANION GAP 11 (6-22 (CALC)); BILIRUBIN, TOTAL 0.5 mg/dL (0.0-1.4); CARBON DIOXIDE 25 mmol/l (22-30); CHLORIDE 108 mmol/l (95-108); CREATININE 0.4 mg/dL (0.5-1.0); GFR > 60 ML/MIN (>=60 (CALC)); GFR FOR AFR.AMER. > 60 ML/MIN (>=60 (CALC)); MAGNESIUM 1.7 mg/dL (1.6-2.3); POTASSIUM 2.8 mmol/l (3.5-5.1); SGOT/AST 52 u/l (14-36); SGPT/ALT 36 u/l (9-52); SODIUM 141 mmol/l (137-146)
[2018-01-17 05:46] LABS: BUN < 2 mg/dL (7-17); BUN/CREATININE RATIO < 5 (12-20 (CALC))
--- NOTE | 2018-01-17 09:00 | NUR ---
PT SEEN INTUBATED, SEDATED, RESTING QUIETLY IN THE BED. PT IS ON DIPRIVAN DRIP AND ATIVAN DRIP, WELL IVF AND ELECTROLYTES. LUNGS CLEAR. NO AGITATION NOTED. CONDITION STABLE.
--- NOTE | 2018-01-17 12:02 | NUR ---
PT CONTINUES BEFORE, TURNED TO ALTERNATE SIDE EVERY 2 HOURS. NO EVIDENCE OF DISTRESS, NO VITAL SIGN INSTABILITY.
--- NOTE | 2018-01-17 15:11 | NUR ---
DIPRIVAN AT 75 MCG/KG/MIN WEANED DOWN TO 70. ATIVAN HAS BEEN WEANED DOWN FROM 3 MG HOUR TO 2 MG HOUR AT NOON. PT REMAINS SEDATED, VERY SLIGHT MUSCLE MOVEMENT OCCASIONALLY. SKIN INTACT. RESTRAINTS RELEASED FOR RANGE OF MOTION, RETIED.
--- NOTE | 2018-01-17 18:12 | NUR ---
PT TURNED TO LEFT SIDE AT THIS TIME, LOTION APPLIED TO BACK. PT CONTINUES UNRESPONSIVE TO THAT STIMULUS. DIPRIVAN DOWN TO 60 MCG/KG/MIN AND ATIVAN CONTINUES AT 2 MG/HR. NO DISTRESS, VSS.
--- NOTE | 2018-01-17 18:50 | NUR ---
REPORT FROM MELO LOVE. ASSUMED PT. CARE.
--- NOTE | 2018-01-17 19:54 | NUR ---
PT. REMAINS RESTRAINED AT THIS TIME. OG TUBE CHANGED. REPLACED WITH 16 F OG. PRIOR TUBE WAS PLACED IN OPEN AREA OF COMMERCIAL TUBE SECURE DEVICE, SO IT WAS CHANGED. + GASTRIC SOUNDS UPON AIR INJECTION FOR TUBE PLACEMENT. IV FLUIDS INFUSING @ 125 CC/HR. PROPOFOL DRIP INFUSING AT 60 MCG/KG/MIN. ATIVAN DRIP INFUSING AT 2 MG/HR. SATISFACTORY SEDATION NOTED AT THIS TIME. BROWNISH DRAINAGE NOTED FROM 0G TUBE AT THIS TIME. MD MADE AWARE, NEW ORDERS RECEIVED FOR PROTONIX. WILL MEDICATE ORDERED. LISET. GOOD BOWEL SOUNDS THROUGHTOUT. PT. REPOSITIONED FOR COMFORT. LUNGS CTA. NO LOWER EXT EDEMA NOTED. GOOD DISTIL CAP REFILL AND DISTIL PULSES INTACT. SCD IN PLACE AT THIS TIME. EXTENSIVE ORAL CARE PERFORMED AT THIS TIME. TEETH BRUSHED WHILE ET TUBE SECURED BY Xiao GOEL RN. 7.0 ET TUBE REMAINS IN PLACE, 22 CM AT THE LIP LINE. LIP CONDITIIONER APPLIED AT THIS TIME. PT. REMAINS STABLE SPO2 100 ON THE VENT. SEE VENT SETTINGS IN ASSESSMENT. GOLDBERG CATHETER PATENT AND INTACT. GREEN URINE NOTED TO GOLDBERG BAG AT THIS TIME.
--- NOTE | 2018-01-17 20:52 | NUR ---
PT. RESTING ON VENT WITH EYES CLOSED IN NO DISTRESS. CALL LIGHT REMAINS WITHIN REACH. STABLE AT THIS TIME. VSS. REMAINS SINUS ON THE MONITOR. PT. SATISFACTORILY SEDATED AT THIS TIME. WILL CONTINUE TO ASSESS CLOSELY.
--- NOTE | 2018-01-17 22:02 | NUR ---
PROPOFOL DRIP DECREASED TO 55 MCG/KG/MIN AT THIS TIME. PT. REMAINS WITH STATISFACTORY SEDATION AT THIS TIME. WILL CONTINUE TO ASSESS AND TITRATE NEEDED.
--- NOTE | 2018-01-17 22:05 | NUR ---
PT. REPOSITIONED TO SUPIN AT THIS TIME. ORAL CARE PROVIDED. WILL CONTINUE TO ASSESS.
--- NOTE | 2018-01-17 22:31 | NUR ---
ATIVAN DRIP DECREASED TO 1.5 MG/HR AT THIS TIME. BP SLIGHTLY LOW. PT. REMAINS SATISFACTORILY SEDATED. BP 81/57.
--- NOTE | 2018-01-17 23:50 | NUR ---
PT. REPOSITIONED FOR COMFORT. ORAL CARE, TRACHEAL AND DEEP SUCTIONING PERFORMED AT THIS TIME. IV FLUIDS, PROPOFOL AND ATIVAN DRIPS CONTINUE TO INFUSE. BP IMPROVING AT THIS TIME. PT. HR REMAINS SINUS IN THE 70'S. FACIAL GRIMMACE NOTED WITH ORAL CARE AND SUCTINING. TOLERATED WELL.
[2018-01-18] VITALS (17 sets, daily range): BP systolic 95–154; BP diastolic 59–88
--- NOTE | 2018-01-18 01:30 | NUR ---
PT. REMAINS STABLE ON THE MONITOR. VSS. BP SLIGHTLY LOW BUT STABLE. IV FLUIDS, PROPOFOL, AND ATIVAN INFUSING AT THIS TIME WITHOUT SX OF INFILTRATION OR EXTRAVASATION. CALL LIGHT REMAINS WITHIN REACH. REMAINS AFEBRILE. SINUS RHYTHM. WILL CONTINUE TO ASSESS.
--- NOTE | 2018-01-18 03:35 | NUR ---
NO CHANGE TO PATIENT STATUS. BP/HR/SPO2 REMAIN STABLE. PT. REMAINS WITH SATISFACTORY SEDATION AT THIS TIME. PROPOFOL DRIP DECREASED TO 50 MCG/KG/MIN. WILL CONTINUE TO ASSESS.
--- NOTE | 2018-01-18 04:45 | NUR ---
LAB AT BEDSIDE TO DRAW PT.
--- NOTE | 2018-01-18 05:12 | NUR ---
RT AT BEDSIDE TO PERFORM ABG.
[2018-01-18 05:13] LABS: HEMATOCRIT 31.8 % (37.0-47.0); HEMOGLOBIN 10.5 g/dl (12.0-16.0); MEAN CELL VOLUME 93.8 fL CALC (80.0-100.0); RED BLOOD COUNT 3.39 mill/uL (4.20-5.60); RED CELL DISTRI WIDTH 14.8 % (11.5-15.5)
[2018-01-18 05:14] LABS: ALBUMIN 2.6 g/dL (3.2-5.0); ALKALINE PHOSPHATASE 67 u/l (38-126); ANION GAP 10 (6-22 (CALC)); BILIRUBIN, TOTAL 0.3 mg/dL (0.0-1.4); BUN 4 mg/dL (7-17); BUN/CREATININE RATIO 10 (12-20 (CALC)); CARBON DIOXIDE 20 mmol/l (22-30); CHLORIDE 116 mmol/l (95-108); CREATININE 0.4 mg/dL (0.5-1.0); GFR > 60 ML/MIN (>=60 (CALC)); GFR FOR AFR.AMER. > 60 ML/MIN (>=60 (CALC)); MAGNESIUM 1.8 mg/dL (1.6-2.3); SGOT/AST 31 u/l (14-36); SGPT/ALT 31 u/l (9-52); SODIUM 142 mmol/l (137-146); TOTAL PROTEIN 5.3 g/dL (6.3-8.2)
--- NOTE | 2018-01-18 05:54 | NUR ---
PT. TOLERATED BED BATH AND LINEN CHANGE WELL. PROPOFOL DRIP DECREASED TO 45 MCG/KG/MIN AT THIS TIME. JASEN AND ORAL CARE PROVIDED AT THIS TIME. REPOSITIONED TO RT. SIDE FOR COMFORT. BP/HR REMAINS STABLE AT THIS TIME. VENT SETTINGS REMAIN UNCHANGED.
--- NOTE | 2018-01-18 06:20 | NUR ---
PT. REMAINS SATISFACTORILY SEDATED. PROPOFOL DRIP DECREASED TO 40 MCG/KG/MIN.
--- NOTE | 2018-01-18 06:33 | NUR ---
PORTABLE CHEST IN PROGRESS AT THIS TIME.
--- NOTE | 2018-01-18 07:00 | NUR ---
RECIEVED REPORT FROM MELO LUNA. ASSUMED PT CARE.
--- NOTE | 2018-01-18 07:30 | NUR ---
PT REMAIN RESTRAINED, DISTAL PULSES + AND CAP REFILL<3 SEC. 16FR OG TUBE INTACT,PLACEMENT VERIFIED VIA AUSCULTATION WITH BROWNISH DRAINAGE NOTED. 20G LH HAS NS INFUSING @125ML/HR & PROPOFOL INFUSING @ 35MCG/KG/MIN, 22G TO RFA ATIVAN INFUSING 1.5MG/HR, 22G TO ADAM IS SL. ALL SITES HAVE NO S/S OF REDNESS OR INFILTRATION NOTED AT THIS TIME. PT REMAINS SATISFACTORILY SEDATED. PERRL, NO SEIZURE ACTIVITY OR TREMORS NOTED, BS X4 ACTIVE, LS CLEAR THROUGHOUT, 70 ET TUBE REMAINS, 22CM AT LIPS. ORAL CARE PROVIDED.SEE RT VENT SETTINGS.16FR GOLDBERG CATHETER IN PLACE WITH BSD, GREENISH/YELLOW URINE NOTED. SCD'S TO BLE IN PLACE. PT REPOSITIONED FOR COMFORT AND GOLDBERG CARE PROVIDED. NO S/S OF PAIN OR DISTRESS NOTED AT THIS TIME. WILL MONITOR.
--- NOTE | 2018-01-18 08:00 | NUR ---
PHARMACY NOTIFIED FOR K+ AND BANANA BAG TO BE DELIVERED
--- NOTE | 2018-01-18 08:20 | NUR ---
PHARMACY DELIVERED MEDS
--- NOTE | 2018-01-18 09:20 | NUR ---
TITRATED PROPOFOL FROM 35MCG/KG/MIN TO 30MCG/KG/MIN. WILL MONITOR.
--- NOTE | 2018-01-18 09:40 | NUR ---
TITRATED PROPOFOL FROM 30MCG/KG/MIN TO 25 MCG/KG/MIN PT TOLERATING WELL. WILL MONITOR.
--- NOTE | 2018-01-18 09:46 | NUR ---
TITRATED ATIVAN FROM 1.5MG/HR TO 1.0 MG/HR, UNABLE TO FOLLOW VERBAL COMMANDS, WITH MONITOR.
--- NOTE | 2018-01-18 09:50 | NUR ---
ANTHONY VERA AT BEDSIDE FOR ASSESSMENT AND TO GO OVER PLAN OF CARE. PT SUCTIONED, MOUTH CARE GIVEN, GEL PLACED ON LIPS, PT TOLERATED WELL, NO DRAINAGE FROM SUCTIONING. PT REPOSTIONED FOR COMFORT, RH CONTINUES WITH SOME DEPENDENT EDEMA, ELEVATED ON PILLOW. BILAT WRIST RESTRAINTS INTACT, DISTAL PULSES STRONG WITH CAP REFILL <3SEC. NO SEIZURE ACTIVITY OR TREMORS NOTED AT THIS TIME. WILL MONITOR.
--- NOTE | 2018-01-18 09:55 | NUR ---
TITRATED PROPOFOL FROM 25MCG/KG/MIN TO 20MCG/KG/MIN, WILL MONITOR
--- NOTE | 2018-01-18 10:20 | NUR ---
TITRATED PROPOFOL FROM 20MCG/KG/IMN TO 15MCG/KG/MIN. PT ABLE TO BRIEFLY OPEN EYES AND OPEN HANDS, DOES NOT HOLD OUT 2 FINGERS LIKE INSTRUCTED. PT TOLERATING TITRATION WELL. WILL CONTINUE TO MONITOR.
--- NOTE | 2018-01-18 11:00 | NUR ---
DR. LINDER AT BEDSIDE WITH ANTHONY VERA FOR BEDSIDE ASSESSMENT AND TO DISCUSS PLAN OF CARE. PT ABLE TO OPEN EYES AND FOLLOW SIMPLE COMMANDS. WILL MONITOR.
--- NOTE | 2018-01-18 11:51 | NUR ---
PT REMAINS VENTED AND IN BILAT SOFT WRIST RESTRAINTS. PT AROUSES TO VERBAL STIMULI, ABLE TO FOLLOW COMMANDS. MOUTH CARE GIVEN, SUCTIONING PERFORMED, NO DRAINAGE NOTED. PT REPOSITIONED FOR COMFORT, DISTAL PULSES STRONG, CAP REFILL <3SEC. NO SEIZURE ACTIVITY OR TREMORS NOTED AT THIS TIME. WILL MONITOR.
--- NOTE | 2018-01-18 12:20 | NUR ---
PT FRIEND DONALD AT BS, UPDATE GIVEN AFTER CODE PROVIDED.
--- NOTE | 2018-01-18 12:30 | NUR ---
PT SISTER JONATHON CALLED, UPDATE GIVEN AFTER CODE RECIEVED.
--- NOTE | 2018-01-18 12:32 | NUR ---
RT AT BEDSIDE FOR CPAP TRIAL TEST. TITRATED PROPOFOL FROM 15MCG/KG/MIN TO 10MCG/KG/MIN. PT CONTINUES TO RESPOND/FOLLOW COMMANDS. PT TOLERATING WELL, WILL MONITOR.
--- NOTE | 2018-01-18 12:38 | NUR ---
PT FRIEND STEPHANIA AT BEDSIDE FOR VISIT.
--- NOTE | 2018-01-18 12:40 | NUR ---
TITRATED PROPOFOL FROM 10MCG/KG/MIN TO 5 MCG/KG/MIN. RT CONTINUES AT THE BEDSIDE MONITORING PROGRESS. PT TOLERATING WELL, WILL MONITOR
--- NOTE | 2018-01-18 12:45 | NUR ---
TITRATED PROPOFOL FROM 5MCG/KG/MNI TO 0MCG/KG/MIN. RT CONTINUES AT BEDSIDE. WILL MONITOR.
--- NOTE | 2018-01-18 13:06 | NUR ---
PT. EXTUBATED AND PLACED ON 2L NC
--- NOTE | 2018-01-18 13:06 | NUR ---
PT EXTUBATED BY RT, DR. LINDER AT BEDSIDE. PT PLACED ON 02@2LPM VIA NC. OJ TUBE DISCONTINUED. PT TOLERATED WELL, MOUTH CARE & LIP CARE PROVIDED. PT ABLE TO FOLLOW VERBAL COMMANDS. SA02 96%. WILL CONTINUE TO MONITOR.
--- NOTE | 2018-01-18 13:45 | NUR ---
PT FRIEND DONALD HERE FOR VISIT.
--- NOTE | 2018-01-18 14:20 | NUR ---
PT REPOSITIONED, MOUTHCARE GIVEN. PT TOLERATED WELL. NO SEIZURE ACTIVITY OR TREMORS NOTED AT THIS TIME. WILL MONITOR.
--- NOTE | 2018-01-18 14:40 | NUR ---
NOTIFIED DR. LINDER, PT STATES PAIN "10" ON 1-10 SCALE AT NECK. N.O RECIEVED.
--- NOTE | 2018-01-18 16:05 | NUR ---
PT REPOSITIONED, MOUTH CARE GIVEN. PT FRIEND DONALD AT BEDSIDE. PT RESTING WITH EYES CLOSED, NO SEIZURE ACTIVITY OR TREMORS NOTED AT THIS TIME. RESTRAINT OFF FOR TRIAL. PT REMAINS CALM AT THIS TIME. ATIVAN 1MG/HR CONTINUES INFUSING, BANANA BAG 100ML/HR CONTINUES AND NS @ 25ML/HR CONTINUES. ALL SITES CDI, NO S/S OF REDNESS OR INFILTRATION NOTED AT THIS TIME. BED IN LOWEST POSITION. WILL MONITOR.
--- NOTE | 2018-01-18 16:45 | NUR ---
TESTED PT FOR GAG REFLEX. PT HAS NONE AT THIS TIME. ANTHONY VERA NOTIFIED. WILL TRY TITRATING ATIVAN THEN TEST GAG REFLEX AGAIN. PT TOLERATED WELL. MOUTHCARE/LIP CARE DONE. WILL MONITOR.
--- NOTE | 2018-01-18 17:43 | NUR ---
TITRATED ATIVAN FROM 0.75MG/HR TO 0.50MG/HR. PT RESTING WITH EYES CLOSED. NO SEIZURE ACTIVITY NOTED. RESTRAINTS REMAIN OF FOR TRIAL PERIOD, PT OCCASIONALL REACHING FOR NC, REDIRECTS EASY. PT DENIES SOB, OR DISTRESS AT THIS TIME. DR. LINDER AT BEDSIDE FOR ASSESSMENT. GOLDBERG PATENT DRAIN DARK YELLOW URINE TO BSD. WILL MONITOR.
--- NOTE | 2018-01-18 18:21 | NUR ---
MOUTH CARE/LIP CARE GIVEN, PT REPOSITIONED FOR COMFORT. NO COMPLAINTS OF DISTRESS AT THIS TIME. WILL MONITOR.
--- NOTE | 2018-01-18 18:55 | NUR ---
REPORT FROM Kris CARUSO RN. ASSUMED PT. CARE.
--- NOTE | 2018-01-18 19:35 | NUR ---
PT. FOUND RESTING WITH EYES CLOSED. AROUSABLE TO LIGHT VERBAL/TACTILE STIMULI. PT. CONFUSED. ORIENTED TO PERSON. WHEN ASKING PATIENT QUESTIONS SHE MERELY REPEATEDLY ANSWERS "YES". WHEN ASKED IF SHE KNOWS WHERE SHE IS SHE STATES "YES", WHEN ASKED WHERE WE ARE SHE ALSO STATES "YES". RESPS ARE EVEN AND UNLABORED. FOLLOWS COMMANDS. SINUS TACH ON THE MONITOR IN THE 110'S. LUNGS CLEAR AND EQUAL TO AUSC. SKIN WARM AND DRY. AFEBRILE. LISET. CHANG. RESTRAINS OFF AT THIS TIME PT. FOLLOWING COMMANDS AND CALM/RESTFUL. IV SCANT EDEMA (NON-PITTING) NOTED TO RT. ARM, NO OTHER AREAS OF EDEMA NOTED. SCD'S IN PLACE. DISTIL PULSES INTACT. BOWEL SOUNDS ACTIVE. PT. STATES THAT SHE HAD A BM TODAY. IV FLUIDS INFUSING AT 125 CC/HR AT THIS TIME ORDERED. GOLDBERG REMAINS IN PLACE AND DRAINING. URINE DARK YELLOW AT THIS TIME. ATIVAN DRIP TURNED OFF AT THIS TIME TO ASSESS FOR LATER IMPROVEMENT IN ORIENTATION. CALL LIGHT REMAINS WITHIN REACH. WILL CONTINUE TO CLOSELY MONITOR.
--- NOTE | 2018-01-18 21:16 | NUR ---
PT. REMAINS ROUSABLE TO LIGHT VERBAL STIMULI. ORIENTED TO PESON ONLY. REORIENTED TO SITUATION. VSS. CALL LIGHT REMAINS WITHIN REACH. INSTRUCTED TO CALL FOR ANY ASSISTANCE. SWALLOWED HS PILLS WITH NO PROBLEMS. REMAINS DROWSY. COMPLAINS OF SOME THROAT PAIN.
--- NOTE | 2018-01-18 22:35 | NUR ---
PT. RESTING IN BED WITH EYES CLOSED. PROVIDED WITH WATER PER HER REQUEST. PT. GIVEN CHLORASEPTIC DROP PER MD ORDERS. WILL CONTINUE TO ASSESS FOR SORENESS TO THROAT. RESPS REMAIN EVEN AND UNLABORED.
[2018-01-19] VITALS (12 sets, daily range): BP systolic 110–147; BP diastolic 56–93
--- NOTE | 2018-01-19 00:12 | NUR ---
PT AWAKE. RESPOSITIONS ON OWN. GIVEN SIP OF WATER. LIGHTS DIMMED.
--- NOTE | 2018-01-19 00:14 | NUR ---
PT PULLED OFF LEADS/REPLACED AND PT RE-ORIENTED TO SITUATION.
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
--- NOTE | 2018-01-19 02:46 | NUR ---
PT ATTEMPTED TO DEFECATE ON BEDPAN WITHOUT RESULTS. PT REPOSITIONED WITH ASSIST TO LEFT SIDE.
--- NOTE | 2018-01-19 04:19 | NUR ---
PT. SITTING UP IN BED DRINKING WATER FROM HER PITCHER AT THIS TIME. HR SINUS RHYTHM. LESS AGGITATED AT THIS TIME. VSS. CALL LIGHT REMAINS WITHIN REACH. ORIENTED TO PERSON AND PLACE AT THIS TIME. WILL CONTINUE TO REORIENT NEEDED.
--- NOTE | 2018-01-19 04:52 | NUR ---
PT RESTING AT INTERVALS. CONTINUES TO SIT UP TALKING QUIETLY NOW LIES BACK DOWN AND RESTS. APPEARS TO BE SLEEP TALKING.
--- NOTE | 2018-01-19 05:32 | NUR ---
PT ON BEDPAN WITHOUT RESULTS. GOLDBERG PATENT. EMPTIES GOLDBERG FOR 1200. PT REPOSTIONED. WANTS PURSE TO MAKE PHONE CALLS. ADVISED IT IS IN THE MIDDLE OF THE NIGHT.
[2018-01-19 05:57] LABS: HEMATOCRIT 33.1 % (37.0-47.0); HEMOGLOBIN 11.2 g/dl (12.0-16.0); IMMATURE GRANULOCYTES 0.4 % (0.0-5.0); MEAN CELL VOLUME 92.5 fL CALC (80.0-100.0); MEAN CORPUSCULAR HGB 31.3 pG CALC (26.0-32.0); MEAN CORPUSCULAR HGB CONC 33.8 g/L CALC (32.0-36.0); NEUT# 3.31 thou/uL (2.00-7.15); RED BLOOD COUNT 3.58 mill/uL (4.20-5.60); RED CELL DISTRI WIDTH 14.7 % (11.5-15.5)
--- NOTE | 2018-01-19 06:12 | NUR ---
PT UP TO BSC. ONE STOOL-BROWN. ASSISTED BACK TO BED. PT UNSTEADY. PT ORIENTED TO PERSON/PLACE. WANTS BELONGINGS OUT OF SAFE...BECAUSE THEY ARE HER'S.
[2018-01-19 06:20] LABS: ALKALINE PHOSPHATASE 77 u/l (38-126); ANION GAP 13 (6-22 (CALC)); BILIRUBIN, TOTAL 0.6 mg/dL (0.0-1.4); CARBON DIOXIDE 21 mmol/l (22-30); CHLORIDE 110 mmol/l (95-108); CREATININE 0.4 mg/dL (0.5-1.0); GFR > 60 ML/MIN (>=60 (CALC)); GFR FOR AFR.AMER. > 60 ML/MIN (>=60 (CALC)); POTASSIUM 3.3 mmol/l (3.5-5.1); SGOT/AST 36 u/l (14-36); SGPT/ALT 33 u/l (9-52); SODIUM 141 mmol/l (137-146); TOTAL PROTEIN 6.3 g/dL (6.3-8.2)
[2018-01-19 06:23] LABS: ALBUMIN 3.2 g/dL (3.2-5.0); BUN < 2 mg/dL (7-17); BUN/CREATININE RATIO < 5 (12-20 (CALC))
--- NOTE | 2018-01-19 06:45 | NUR ---
RECEIVED REPORT FROM MELO LUNA. ASSUMED CARE OF PT.
--- NOTE | 2018-01-19 07:15 | NUR ---
PT ALERT & ORIENTED X3 WITH BOUTS OF CONFUSION/PARANOIA. REDIRECTS EASILY. PT SR ON TELEMETRY, HR 88. LS CLEAR THROUGHOUT, SA02 97% ON RA. PT REPORTS BM 18, BS X 4 ACTIVE, ABDOMEN NON-TENDER. PERRL . 16FR GOLDBERG REMAINS PATENT, DRAINING CLEAR YELLOW URINE TO BSD. SKIN IS CDI WITH SOME GENERALIZED BRUISING NOTED ON BLE. DEPENDENT EDEMA, NON- PITTING NOTED AT R HAND, HAVE ELEVATED ON PILLOW. SCD'S BLE INTACT. PT ABLE TO MAKE NEEDS KNOWN. PT CONTIMNUES WITH 22G TO ADAM/SL & 22G TO RFA/SL,BOTH FLUSHED WITHOUT RESISTANCE. 20G TO RH WITH NS INFUSING @125ML/HR. NO S/S OF INFILTRATION OR INFECTION NOTED AT THIS TIME. CALL WILHELM IN REACH, WILL MONITOR.
--- NOTE | 2018-01-19 07:30 | NUR ---
PT REQUESTED TO CALL FRIENDDONALD. REQUEST GRANTED.
--- NOTE | 2018-01-19 08:00 | NUR ---
DR. LINDER AT BEDSIDE FOR ASSESSMENT AND TO DISCUSS PLAN OF CARE. NEW ORDERS RECIEVED.
--- NOTE | 2018-01-19 08:30 | NUR ---
DIETARY ON UNIT WITH FULL LIQUID DIET
--- NOTE | 2018-01-19 09:30 | NUR ---
PT ASSISTED TO BSC, LG LOOSE BM, GOLDBERG CARE AND JASEN CARE PROVIDED.
--- NOTE | 2018-01-19 10:00 | NUR ---
COMPLETE BED BATH, MOUTH CARE AND FULL LINEN CHANGE. PT TOLERATED WELL.
--- NOTE | 2018-01-19 11:01 | NUR ---
PT NOTED WITH EXPLOSIVE INCONTINENT LG LOOSE BM. PARTIAL BED BATH, JASEN-CARE, AND GOLDBERG CARE GIVEN. GOWN CHANGE AND LINEN CHANGE DONE. NO SEIZURE ACTIVITY OR TREMORS NOTED. PT ASSIST X 1 WITH WEAKNESS NOTED. CALL BED IN REACH, WILL MONITOR.
--- NOTE | 2018-01-19 11:47 | NUR ---
PT WITH SEVERAL ATTEMPTS TO GET OUT OF BED TO GET A PHONE, CHECK ON HER DOG OR HAVE A BM. PT ASSISTED TO BSC X 2 WITH X2 LOOSE BM'S . PT CONTINUES WITH IV BANANA BAG INFUSING AT 100ML/HR, & MS INFUSING AT 10ML/HR ORDERED. NO S/S OF INFILTRATION OR IRRITATION NOTED AT SITE. CALL LIGHT IN REACH, WILL MONITOR.
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
--- NOTE | 2018-01-19 13:00 | NUR ---
RADIOLOGY AT BEDSIDE FOR 1V CXR.
--- NOTE | 2018-01-19 14:16 | NUR ---
DEVONTE FROM AT BEDSIDE TO DISCLOSE THE STATUS OF PT'S DOG THONG, THE PT DOG. PT UPSET, BUT CONSOLABLE. WILL CONTINUE TO MONITOR.
--- NOTE | 2018-01-19 14:45 | NUR ---
PT FRIEND DONALD AT BEDSIDE. PT RESTING WITH EYES CLOSED.
--- NOTE | 2018-01-19 15:10 | NUR ---
PT FRIEND DONALD LEFT UNIT, PT CONTINUES RESTING WITH EYES CLOSED.
--- NOTE | 2018-01-19 16:08 | NUR ---
PT RESTING IN BED WITH EYES CLOSED, AFEBRILE. IV INFUSING BANANA BAG @ 100ML/HR TO ADAM, NO S/S OF INFILTRATION AT SITE, NS INFUSING @10ML/HR TO RH, NO S/S OF INFILTRATION AT SITE. GOLDBERG REMAINS PATENT, DRAINING CLEAR YELLOW URINE TO BSD. SCD'S REMAIN ON BLE. PT OFFERS NO COMPLAINTS AT THIS TIME, NO SEIZURE ACTIVITY OR TREMORS NOTED. CALL LIGHT IN REACH, WILL MONITOR.
--- NOTE | 2018-01-19 18:00 | NUR ---
PT RESTING IN BED, OFFERS NO COMPLAINTS AT THIS TIME. SR ON TELEMETRY.AFEBRILE. WILL MONITOR.
--- NOTE | 2018-01-19 18:50 | NUR ---
REPORT FROM Kris CARUSO RN. ASSUMED PT. CARE.
--- NOTE | 2018-01-19 19:15 | NUR ---
PT. FOUND AWAKE, ALERT, ORIENTED X 3. MAE. HUTCHINS. ASSISTED TO BSC AT THIS TIME FOR POSSIBLE BM. SCANT MUCOUSY DIARRHEAL STOOL NOTED. PT. ASSISTED TO CLEANSE SHE IS STILL UNSTEADY ON HER FEET. RESPS EVEN AND UNLABORED. SKIN WARM AND DRY. VSS. AT REST, PT. SINUS TACH AT 105. BANANA BAG INFUSING AT THIS TIME. DENIES COMPLAINTS OF PAIN. SCANT EDEMA NOTED TO RT. ARM, NON PITTING. DENIES HALLUCINATIONS AT THIS TIME. PT. SPEECH IS CLEAR AND PT. SEEMS MILDLY ANXIOUS. SHE TELLS ME SHE JUST FOUND OUT THAT HER DOG HAS THIS AFTERNOON. CALL LIGHT PLACED WITHIN REACH. WILL CONTINUE TO MONITOR.
--- NOTE | 2018-01-19 21:00 | NUR ---
PT. ASSISTED BACK TO BSC FOR REPORTED NEED FOR BM. UNSUCCESSFUL BM AT THIS TIME. PT. CONCERNED FOR HER BOWELS. INFORMED THAT SHE HAS NOT HAD SUBSTANTIVE FOOD FOR ABOUT 6 DAYS AND HAS HAD MODERATE AMOUNT OF DIARRHEA, LIKELY HAS LITTLE STOOL TO PASS. PROVIDED WITH 3 JUICES AT THIS TIME. NO DISTRESS. MEDICATED PER PHYSICIAN ORDERS. WILL CONTINUE TO ASSESS.
--- NOTE | 2018-01-19 22:24 | NUR ---
PT. RESTING WITH EYES CLOSED AT HTIS TIME. CALL LIGHT PLACED WITHIN REACH. CONTINUES SINUS/SINUS TACH. NO DISTRESS. VSS OTHER THAN SLIGHTLY ELEVATED HR.
--- NOTE | 2018-01-19 23:11 | NUR ---
PT. ASSISTED BACK TO BSC. SCANT LOOSE BROWN STOOL OUT.
[2018-01-20] VITALS (13 sets, daily range): BP systolic 107–129; BP diastolic 53–82
--- NOTE | 2018-01-20 01:00 | NUR ---
PT. RESTING IN BED IN NO DISTRESS. EYES CLOSED. RESPS EVEN AND UNLABORED. SKIN WARM AND DRY. VSS. SR AT 96. CALL LIGHT REMAINS WITHIN REACH. WILL CONTINUE TO ASSESS.
--- NOTE | 2018-01-20 02:59 | NUR ---
PT. CONTINUES TO REST WITH EYES CLOSED IN NO DISTRESS. VSS. WILL CONTINUE TO MONITOR.
--- NOTE | 2018-01-20 03:20 | NUR ---
PT. SLOPE RUNNER LIGHT. REPORTS 10/10 LOWER BACK PAIN. WILL MEDICATE ORDERED.
--- NOTE | 2018-01-20 03:43 | NUR ---
LAB AT BEDSIDE AT THIS TIME. PT. REPORTS COMPLETE RESOLVE OF LOWER BACK PAIN. WILL CONTINUE TO MONITOR.
--- NOTE | 2018-01-20 04:05 | NUR ---
PT. FOUND SITTING UP IN BED ATTEMPTING TO MAKE PHONE CALL WITH HER CELL PHONE. INQUIRED TO WHAT SHE WAS DOING AND PT. STATES "I NEED TO MAKE A PHONE CALL". PT. ORIENTED TO THE TIME BEING 0400 AND SHE STATES "OH, THANKS FOR LETTING ME KNOW" AND PLACED PHONE BACK ON BEDSIDE TRAY TABLE AND LAID BACK DOWN.
--- NOTE | 2018-01-20 05:30 | NUR ---
PT. RESTING WITH SNORING RESPIRATIONS AT THIS TIME. NO DISTRESS. VSS. REMAINS SINUS ON THE MONITOR. CALL LIGHT REMAINS WITHIN REACH. WILL CONTINUE TO MONITOR.
[2018-01-20 06:28] LABS: HEMATOCRIT 34.3 % (37.0-47.0); HEMOGLOBIN 11.2 g/dl (12.0-16.0); IMMATURE GRANULOCYTES 0.2 % (0.0-5.0); MEAN CELL VOLUME 93.7 fL CALC (80.0-100.0); MEAN CORPUSCULAR HGB 30.6 pG CALC (26.0-32.0); MEAN CORPUSCULAR HGB CONC 32.7 g/L CALC (32.0-36.0); NEUT# 2.25 thou/uL (2.00-7.15); RED BLOOD COUNT 3.66 mill/uL (4.20-5.60); RED CELL DISTRI WIDTH 14.9 % (11.5-15.5)
[2018-01-20 06:37] LABS: ALBUMIN 3.2 g/dL (3.2-5.0); ALKALINE PHOSPHATASE 66 u/l (38-126); ANION GAP 12 (6-22 (CALC)); BILIRUBIN, TOTAL 0.5 mg/dL (0.0-1.4); BUN 4 mg/dL (7-17); BUN/CREATININE RATIO 11 (12-20 (CALC)); CARBON DIOXIDE 28 mmol/l (22-30); CHLORIDE 107 mmol/l (95-108); CREATININE 0.4 mg/dL (0.5-1.0); GFR > 60 ML/MIN (>=60 (CALC)); GFR FOR AFR.AMER. > 60 ML/MIN (>=60 (CALC)); POTASSIUM 3.4 mmol/l (3.5-5.1); SGOT/AST 27 u/l (14-36); SGPT/ALT 31 u/l (9-52); SODIUM 144 mmol/l (137-146); TOTAL PROTEIN 6.4 g/dL (6.3-8.2)
--- NOTE | 2018-01-20 06:45 | NUR ---
RECIEVED REPORT FROM EMLO LUNA. ASSUMED PT CARE.
--- NOTE | 2018-01-20 07:25 | NUR ---
PT A&O X3, ABLE TO MAKE NEEDS KNOWN. SR ON TELEMETRY AT THIS TIME, HR 92. SA02@99% ON 02/2LPM VIA NC. PERRL, B/P 114/81, RR 15, T 98.1*. LS CLEAR THROUGHOUT. BSX4 ACTIVE. GOLDBERG REMAINS PATENT, DRAINING CLEAR YELLOW URINE TO BSD. NABIL'S TO BLE IN PLACE, SKIN CDI WITH RESIDUAL BRUISING NOTED AT BLE. PT CONTINUES TO BE ASSISTX1 WITH WEAKNESS NOTED. NO SEIZURE ACTIVITY OR TREMORS NOTED. 22G AT ADAM/SL & 22G AT RFA/SL FLUSHES WITHOUT RESISTANCE NOTED, NO S/S OF INFILTRATION AT THIS TIME. 20G AT RH INFUSING NS @ 20ML/HR, NO S/S OF INFILTRATION OR INFECTION AT THIS TIME. BED IN LOWEST POSITION, WILL CONTINUE TO MONITOR.
--- NOTE | 2018-01-20 07:32 | NUR ---
DIETARY ON UNIT
--- NOTE | 2018-01-20 07:35 | NUR ---
NEW ORDERS RECIEVED
--- NOTE | 2018-01-20 08:45 | NUR ---
IV site discontinued TO ADAM & RFA, cath intact. No edema , no redness, voices no discomfort.
--- NOTE | 2018-01-20 08:45 | NUR ---
BRENDA IN PHARMACY NOTIFIED TO CONFIRM IF BANANA BAG AND MG+ ARE COMPATIBLE. PHARMACY CONFIRMED IT IS.
--- NOTE | 2018-01-20 09:30 | NUR ---
ANTHONY VERA AT BEDSIDE FOR ASSESSMENT AND TO DISCUSS PLAN OF CARE.
--- NOTE | 2018-01-20 10:20 | NUR ---
PT FRIEND DONALD ARRIVED AT UNIT.
--- NOTE | 2018-01-20 11:00 | NUR ---
DR. LINDER AT BEDSIDE FOR ASSESSMENT AND TO DISCUSS PLAN OF CARE. NEW ORDERS RECIEVED. PT FRIEND DONALD CONTINUES AT BEDSIDE. PT OFFERS NO COMPLAINTS AT THIS TIME, NO SEIZURE ACTIVITY OR TREMORS NOTED AT THIS TIME. BANANA BAG & MAGNESIUM IV CONTINUES INFUSING ORDERED, NO S/S OF INFILTRATION OR INFECTION NOTED AT THIS SITE OR AT THIS TIME. CALL LIGHT IN REACH, WILL MONITOR.
--- NOTE | 2018-01-20 12:03 | NUR ---
PT RESTING IN BED WITH EYES CLOSED, AFEBRILE. ST ON TELEMETRY. NO SEIZURE ACTIVITY OR TREMORS NOTED AT THIS TIME. PT TOLERATED REGULAR DIET, ATE 25%. CALL LIGHT IN REACH, WILL MONITOR.
--- NOTE | 2018-01-20 12:30 | NUR ---
PT FRIEND STEPHANIA AT BEDSIDE TO VISIT
--- NOTE | 2018-01-20 14:00 | NUR ---
pt resting with eyes closed, sr on telemetry. afebrile. infusing banana bag as ordered, no s/s of infiltration noted at site.no seizure activity or tremors noted at this time. call light in reach, will monitor.
--- NOTE | 2018-01-20 16:00 | NUR ---
pt sitting up in bed, pt friend giselle at bedside for visit. pt offers not complaints at this time. will monitor.
--- NOTE | 2018-01-20 18:09 | NUR ---
ASSISTED PT TO BSC. PT AFEBRILE, ST ON TELEMETRY. NO SEIZURE ACTIVITY OR TREMORS NOTED AT THIS TIME. CONTINUES INFUSING BANANA BAG ORDERED, NO S/S OF INFILTRATION NOTED AT SITE. NEW ORDERS RECEIVED. PT APPETITE INCREASING AND MORE STEADY GAIT WITH TRANSFERS. CALL LIGHT IN REACH, WILL MONITOR.
--- NOTE | 2018-01-20 18:45 | NUR ---
REPORT FROM Kris CARUSO RN. ASSUMED PT. CARE.
--- NOTE | 2018-01-20 19:30 | NUR ---
PT. FOUND AWAKE, ALERT, ORIENTED X 3. SKIN WARM AND DRY. SPEECH MUCH MORE CLEAR AND FLUENT THIS EVENING. PT. DENIES COMPLAINTS OF PAIN AT THIS TIME. RESPS EVEN AND UNLABORED. MAE. HUTCHINS. PT. AFEBRILE. IV BANANA BAG COMPLETE AT THIS TIME. IV FLUIDS AT KVO PER ORDERS. LUNGS CTA. NO EDEMA NOTED. SWELLING TO RT. LOWER ARM IS IMPOROVED. BOWEL SOUNDS ACTIVE THROUGHOUT. DISTIL PULSES INTACT. PT. PROVIDED WITH COLA AT THIS TIME PER HER REQUEST.
--- NOTE | 2018-01-20 20:00 | NUR ---
PT. AMBULATORY WITH MINIMUM ASSIST TO RESTROOM AT THIS TIME FOR REPORTED NEED FOR BM. NO BM NOTED. AMBULATORY BACK TO BED WITH MINIMUM NURSE ASSIST. PLACED BACK ON MONITOR AND CALL LIGHT PLACED BACK WITHIN REACH. WILL CONTINUE TO ASSESS.
--- NOTE | 2018-01-20 21:20 | NUR ---
PT. AGAIN ASSISTED TO RESTROOM. AMBULATORY WITH MINIMUM ASSIST. NO DISTRESS.
--- NOTE | 2018-01-20 22:50 | NUR ---
PT. MEDICATED FOR REPORTED 10/10 LOWER BACK PAIN. APPEARS IN MILD DISCOMFORT. WILL CONTINUE TO MONITOR FOR PAIN RELIEF. NO DISTRESS. REMAINS SINUS TACH WITH VSS.
--- NOTE | 2018-01-20 23:45 | NUR ---
PT. RESTING IN BED WITH EYES CLOSED. RESPS EVEN AND UNLABORED. SKIN WARM AND DRY. REMAINS STABLE. VSS. WILL CONTINUE TO MONITOR.
[2018-01-21] VITALS (8 sets, daily range): BP systolic 115–134; BP diastolic 76–86
--- NOTE | 2018-01-21 01:55 | NUR ---
PT. REMAINS RESTING IN BED WITH EYES CLOSED IN ON DISTRESS. REMAINS SINUS ON THE MONITOR. CALL LIGHT REMAINS WITHIN REACH.
--- NOTE | 2018-01-21 03:45 | NUR ---
PT. RESTING IN BED WITH EYES CLOSED. RESPS REMAIN EVEN AND UNLABORED. PT. REMAINS SINUS RHYTHM IN NO DISTRESS. CALL LIGHT REMAINS WITHIN REACH. WILL CONTINUE TO ASSESS.
--- NOTE | 2018-01-21 05:20 | NUR ---
LAB AT BEDSIDE AT THIS TIME. PT. EASILY AROUSABLE TO LIGHT VERBAL STIMULI. REMAINS ORIENTED X 3. CHANG. BLOOD SAMPLES OBTINED. GOLDBERG DRAINED OF 750 CC URINE AT THIS TIME. GOLDBERG CATHETER DISCONTINUED AT THIS TIME. PT. TOLERATED WITHOUT ISSUE. PT. DENIES COMPLAINT OR NEED AT THIS TIME. WILL CONTINUE TO MONITOR.
[2018-01-21 05:29] LABS: ANION GAP 10 (6-22 (CALC)); BUN 6 mg/dL (7-17); BUN/CREATININE RATIO 15 (12-20 (CALC)); CARBON DIOXIDE 31 mmol/l (22-30); CHLORIDE 104 mmol/l (95-108); CREATININE 0.4 mg/dL (0.5-1.0); GFR > 60 ML/MIN (>=60 (CALC)); GFR FOR AFR.AMER. > 60 ML/MIN (>=60 (CALC)); SODIUM 141 mmol/l (137-146)
[2018-01-21 05:34] LABS: HEMATOCRIT 34.6 % (37.0-47.0); HEMOGLOBIN 11.3 g/dl (12.0-16.0); IMMATURE GRANULOCYTES 0.7 % (0.0-5.0); MEAN CELL VOLUME 93.5 fL CALC (80.0-100.0); MEAN CORPUSCULAR HGB 30.5 pG CALC (26.0-32.0); MEAN CORPUSCULAR HGB CONC 32.7 g/L CALC (32.0-36.0); NEUT# 1.81 thou/uL (2.00-7.15); POTASSIUM 4.2 mmol/l (3.5-5.1); RED BLOOD COUNT 3.7 mill/uL (4.20-5.60); RED CELL DISTRI WIDTH 14.6 % (11.5-15.5)
--- NOTE | 2018-01-21 06:09 | NUR ---
PT. CONTINUES TO REST WITH EYES CLOSED AT THIS TIME. VSS. SINUS TACH 100
--- NOTE | 2018-01-21 06:45 | NUR ---
RECIEVED REPORT FROM MELO LUNA. ASSUMED PT CARE.
--- NOTE | 2018-01-21 07:05 | NUR ---
PT A&0X3, ABLE TO MAKE NEEDS KNOWN. PERRL, ST ON TELEMETRY, SA02@97% ON RA. LS CLEAR THROUGHOUT, BSX4 ACTIVE. PT CONTINENT ON B&B, NABIL'S BLE INTACT, PT IS ASSISTX1. 20G TO RH/SL, FLUSHES WITHOUT DIFFICULTY NOTED. PT SITTING IN BED, CALL LIGHT IN REACH, WILL MONITOR.
--- NOTE | 2018-01-21 07:20 | NUR ---
ASSISTED PT WITH SBA TO BATHROOM, PT VOIDED 300 CLEAR YELLOW URINE. PT ASSISTED BACK TO BED, CALL LIGHT IN REACH.
--- NOTE | 2018-01-21 07:21 | NUR ---
PT REPORT ACHING LOWER BACK PAIN "8" ON 1-10 SCALE, MEDICATED WITH PRN ORDERED. PT REPOSITIONED. CALL LIGHT IN REACH, WILL MONITOR.
--- NOTE | 2018-01-21 07:30 | NUR ---
DIETARY ON UNIT, BREAKFAST TRAY SET UP
--- NOTE | 2018-01-21 07:45 | NUR ---
PHARMACY ON UNIT WITH MEDS ORDERED.
--- NOTE | 2018-01-21 09:15 | NUR ---
ASSISTED PT TO BATHROOM, SLOW STEADY GAIT WITH SBA. PT VOIDED CLEAR YELLOW URINE OP:250ML . PT ASSISTED BACK TO BED, CALL LIGHT IN REACH.
--- NOTE | 2018-01-21 10:15 | NUR ---
DR. LINDER AT BEDSIDE FOR ASSESSMENT AND TO DISCUSS PLAN OF CARE.
[2018-01-21] MEDS ORDERED: FOLIC ACID1 M1 PO (10:29)
[2018-01-21] MEDS ORDERED: THIAMINE HCL100 MG PO (10:29)
[2018-01-21] MEDS ORDERED: MAG OXIDE400 MG PO (10:32)
--- NOTE | 2018-01-21 10:46 | NUR ---
ASSISTED PT TO BATHROOM, THEN BACK TO BED, CALL LIGHT IN REACH. VOIDED 150ML CLEAR PALE URINE, CALL LIGHT IN REACH. WILL MONITOR.
--- NOTE | 2018-01-21 11:23 | NUR ---
DIETARY ON UNIT, LUNCH TRAY SET UP.
--- NOTE | 2018-01-21 12:00 | NUR ---
PT RESTING IN BED, ST ON TELEMETRY, AFEBRILE. NO SEIZURE ACTIVITY OR TREMORS AT THIS TIME. PT OFFERS NO COMPLAINTS AT THIS TIME. CALL LIGHT IN REACH.
--- NOTE | 2018-01-21 13:15 | NUR ---
SBA TO BATHROOM, PT VOIDED 200ML CLEAR/YELLOW URINE. CALL LIGHT IN REACH, WILL MONITOR.
--- NOTE | 2018-01-21 14:02 | NUR ---
PT OFFERS NO COMPLAINTS AT THIS TIME. AFEBRILE. ST ON TELEMETRY. CALL LIGHT IN REACH. WILL MONITOR.
--- NOTE | 2018-01-21 14:05 | NUR ---
IV site TO RH discontinued, cath intact. No edema , no redness, voices no discomfort.
--- NOTE | 2018-01-21 14:40 | NUR ---
Discharge instructions given. Patient verbalizes understanding of same. Discharged in stable condition via Wheelchair to Home with friend. All belongings sent with pt.PAPER PRESCRIPTIONS FOR FOLIC ACID, MAGNESIUM OXIDE, AND THIAMINE WERE SENT HOME WITH PT.
== END 2018-01-21 14:40 | disposition home or self-care (01) | DRG 641 ==
LOC: ED 18:06 → ED-I 20:00 → ED 21:15 → ICU 21:16
PROVIDERS: Emergency Medicine; Internal Medicine; Nurse Practitioner Family; ADMIT Internal Medicine; ATTEND Internal Medicine
PROC: 0BH17EZ Insertion of Endotracheal Airway into Trachea, Via Natural or Artificial Opening (ICD-10-PCS; principal; 2018-01-16)
PROC: 5A1945Z Respiratory Ventilation, 24-96 Consecutive Hours (ICD-10-PCS; 2018-01-16)
PROC: 0T9B70Z Drainage of Bladder with Drainage Device, Via Natural or Artificial Opening (ICD-10-PCS; 2018-01-16)
DX: E87.2 Acidosis (principal); N39.0 Urinary tract infection, site not specified; F10.231 Alcohol dependence with withdrawal delirium; F10.229 Alcohol dependence with intoxication, unspecified; F32.9 Major depressive disorder, single episode, unspecified; F41.9 Anxiety disorder, unspecified; E83.42 Hypomagnesemia; E87.6 Hypokalemia; R26.89 Other abnormalities of gait and mobility; B96.20 Unspecified Escherichia coli [E. coli] as the cause of diseases classified elsewhere; Y90.5 Blood alcohol level of 100-119 mg/100 ml; Z78.1 Physical restraint status
CPT/HCPCS: J2060; J3475; S0164

== ENCOUNTER 2018-04-04 19:45 | Inpatient (IN) | payer OTHER ==
[~2018-04-04] VITALS: Ht 152.4 cm; Wt 51.8 kg
[~2018-04-04 19:45] MED LIST changes: +CIPROFLOXACN500 MG PO; +COLACE100 MG PO; +DICLOFENAC SODI75 MG PO; +FOLIC ACID1 M1 PO; +GABAPENTIN300 M2; +MAG OXIDE400 MG PO; +MAGNESIUM OXID400 M1 PO; +MELOXICAM15 MG PO; +THIAMINE HCL100 MG PO; +VISTARIL25 MG PO; +VITAMIN B-1100 M1 PO; +VITAMIN B-625 MG PO
--- NOTE | 2018-04-04 19:56 | NUR ---
IMMEDIATELY TO ROOM 10 VIA W/C
--- NOTE | 2018-04-04 20:33 | NUR ---
MEDS AND IV FLUIDS PROVIDED. SITE HEALTHY. COMFORT MEASURES PROVIDED.
[2018-04-04 20:39] LABS: HEMATOCRIT 35.5 % (37.0-47.0); IMMATURE GRANULOCYTES 0.2 % (0.0-5.0); MEAN CORPUSCULAR HGB 31.1 pG CALC (26.0-32.0); MEAN CORPUSCULAR HGB CONC 33.8 g/L CALC (32.0-36.0); NEUT# 2.64 thou/uL (2.00-7.15); RED BLOOD COUNT 3.86 mill/uL (4.20-5.60); RED CELL DISTRI WIDTH 14.3 % (11.5-15.5)
[2018-04-04 20:49] LABS: ALBUMIN 4.3 g/dL (3.2-5.0); ALKALINE PHOSPHATASE 98 u/l (38-126); ANION GAP 18 (6-22 (CALC)); BILIRUBIN, TOTAL 0.7 mg/dL (0.0-1.4); BUN 3 mg/dL (7-17); BUN/CREATININE RATIO 5 (12-20 (CALC)); CARBON DIOXIDE 26 mmol/l (22-30); CHLORIDE 98 mmol/l (95-108); CREATININE 0.6 mg/dL (0.5-1.0); ETHYL ALCOHOL 0 mg/dl (0-30); GFR > 60 ML/MIN (>=60 (CALC)); GFR FOR AFR.AMER. > 60 ML/MIN (>=60 (CALC)); MAGNESIUM 1.7 mg/dL (1.6-2.3); POTASSIUM 3.2 mmol/l (3.5-5.1); SGOT/AST 41 u/l (14-36); SODIUM 139 mmol/l (137-146); TOTAL PROTEIN 7.9 g/dL (6.3-8.2)
[2018-04-04 21:00] LABS: MYOGLOBIN 35 ng/mL (0 - 62)
--- NOTE | 2018-04-04 21:33 | NUR ---
PT RESTING ON STRETCHER W/EYES CLOSED. APPEARS CALM, NO LONGER SHAKING.SPOUSE AT BEDSIDE.
--- NOTE | 2018-04-04 22:44 | NUR ---
REPORT CALLED TO DIONICIO NURSE IN ICU
--- NOTE | 2018-04-04 23:15 | NUR ---
PT VOIDED 650 CC ON BEDPAN. OVERFLOWED ONTO STRETCHER. SHEETS CHANGED. PT TO ICU VIA STRETCHER WITH MONITOR AND PUMP. . S.O. HOME. JAYDENBLES BAGGED AND WITH PT. NAD. RAI WATSON
--- NOTE | 2018-04-04 23:17 | NUR ---
57 yr old white female admitted icu8 per stretcher from er. awake & alert. admits she "quit drinking 2 days ago." slight tremors. transferred self to bed. bed weight obtained. compliance monitor shows sinus tach hr 101. #22 lt hand. ns bolus conts. history obtained per pt & er record. oriented to room. fall precautions cont.
[2018-04-04 23:30] VITALS: BP 119/76
[2018-04-04 23:45] VITALS: BP 112/67
[2018-04-05] VITALS (15 sets, daily range): BP systolic 107–137; BP diastolic 50–91
--- NOTE | 2018-04-05 01:14 | NUR ---
up to [facility]. voided well. urine clear yellow. urine spec sent to lab.
[2018-04-05 01:29] LABS: BARBITURATES NEGATIVE (NEGATIVE); COCAINE NEGATIVE (NEGATIVE); METHADONE NEGATIVE (NEGATIVE); OXCYCODONE NEGATIVE (NEGATIVE); TETRAHYDROCANNABIONOL NEGATIVE (NEGATIVE); TRICYLIC ANTIDEPRESSANTS NEGATIVE (NEGATIVE)
--- NOTE | 2018-04-05 01:50 | NUR ---
c/o "upset stomach." zofran 4mg ivp given.
--- NOTE | 2018-04-05 04:15 | NUR ---
up to [facility]. voided well. kalpana well.
--- NOTE | 2018-04-05 05:00 | NUR ---
slight tremors cont. c/o h/a. ativan 1mg ivp given.
--- NOTE | 2018-04-05 05:15 | NUR ---
eyes closed. no distress.
--- NOTE | 2018-04-05 06:45 | NUR ---
RECIEVED REPORT FROM ERROL GREENBERG. ASSUMED PT CARE.
--- NOTE | 2018-04-05 07:30 | NUR ---
PT A&OX3 ABLE TO MAKE NEEDS KNOWN. 3MM,PERRL. PT WITH GENERALIZED TREMORS AT REST. SR ON TELEMETRY, HR 92, B/P-119/74, T-97.6, RR-11, SA02@99%RA. PT DENIES CHEST PAIN, SOB, OR DISTRESS AT THIS TIME. PT DENIES TACTILE, AUDITORY, OR VISUAL HALLUCINATIONS. LS CLEAR THROUGHOUT, RESPIRATION EVEN/UNLABORED. ABDOMEN SOFT/NON-TENDER. BS X4 ACTIVE. PT ASSISTED UP TO BSC, 450OP ON YELLOW CLEAR URINE & LG BROWN BM. PT ASSISTED BACK TO BED. PT TOLERATED TRANSFER OK, TREMORS INCREASING WITH MOVEMENT.22G TO L HAND, INFUSING NS @125ML/HR, NO S/S OF INFILTRATION NOTED. BED IN LOWEST POSITION. CALL LIGHT IN REACH, WILL MONITOR.
--- NOTE | 2018-04-05 07:55 | NUR ---
DR. LINDER NOTIFIED, IN REGARDS TO INCREASED TREMORS. NEW ORDERS RECIEVED.
--- NOTE | 2018-04-05 08:00 | NUR ---
DIETARY ON UNIT, BREAKFAST TRAY SET UP
--- NOTE | 2018-04-05 09:00 | NUR ---
PT HAD EXPLOSIVE DIARRHEA, COMPLETE BATH, LINEN CHANGE AND PERICARE.
[2018-04-05 10:00] LABS: HEMATOCRIT 34.7 % (37.0-47.0); HEMOGLOBIN 11.2 g/dl (12.0-16.0); MEAN CELL VOLUME 94.6 fL CALC (80.0-100.0); MEAN CORPUSCULAR HGB 30.5 pG CALC (26.0-32.0); MEAN CORPUSCULAR HGB CONC 32.3 g/L CALC (32.0-36.0); RED BLOOD COUNT 3.67 mill/uL (4.20-5.60); RED CELL DISTRI WIDTH 14.4 % (11.5-15.5)
--- NOTE | 2018-04-05 10:00 | NUR ---
ANTHONY VERA AT BEDSIDE FOR ASSESSMENT AND TO DISCUSS PLAN OF CARE, NEW ORDERS RECIEVED.
[2018-04-05 10:34] LABS: ANION GAP 9 (6-22 (CALC)); BUN 3 mg/dL (7-17); BUN/CREATININE RATIO 4 (12-20 (CALC)); CARBON DIOXIDE 26 mmol/l (22-30); CHLORIDE 109 mmol/l (95-108); CREATININE 0.6 mg/dL (0.5-1.0); GFR > 60 ML/MIN (>=60 (CALC)); GFR FOR AFR.AMER. > 60 ML/MIN (>=60 (CALC)); POTASSIUM 3.5 mmol/l (3.5-5.1); SODIUM 141 mmol/l (137-146)
--- NOTE | 2018-04-05 11:30 | NUR ---
DIETARY ON UNIT, LUNCH TRAY SET UP.
--- NOTE | 2018-04-05 12:00 | NUR ---
PT ASSISTED TO BSC, VOID 450 OF CLEAR YELLOW URINE. ASSISTED BACK TO BED, CALL LIGHT IN REACH.
--- NOTE | 2018-04-05 12:53 | NUR ---
PT NOTED WITH INCREASED TREMORS, NO SEIZURE ACTIVITY NOTED. PT DENIES ANY HALLUCINATIONS. MEDICATED WITH LIBRIUM AND ATIVAN PER ORDERS, BED IN LOWEST POSITION, CALL LIGHT IN REACH. WILL MONITOR.
--- NOTE | 2018-04-05 13:45 | NUR ---
IV site discontinued, cath intact. No edema , no redness, voices no discomfort.
--- NOTE | 2018-04-05 13:50 | NUR ---
Peripheral IV started. IV access obtained with #22 AutoGuard at Left Forearm with 1 IV stick attempts. Flushes easily with good blood return.
--- NOTE | 2018-04-05 14:30 | NUR ---
PT RESTING IN BED WITH EYES CLOSED, TREMORS AT REST. NO SEIZURE ACTIVITY NOTED. IV TO LFA CONTINUES INFUSING AT 100ML/HR, NO INFILTRATION NOTED AT THIS TIME. CALL LIGHT IN REACH, WILL MONITOR.
--- NOTE | 2018-04-05 15:40 | NUR ---
PT ASSISTED TO BSC, SM BM LOOSE/LIQUID. PERICARE PROVIDED. PT ASSISTED BACK TO BED. CALL LIGHT IN REACH. NO SEIZURE ACTIVITY, AFEBRILE. WILL MONITOR.
--- NOTE | 2018-04-05 16:27 | NUR ---
PT ASSISTED TO BSC, VOIDED 350 CLEAR YELLOW URINE. ASSISTED BACK TO BED, TREMORS AT REST CONTINUES, NO SEIZURE ACTIVITY NOTED. CALL LIGHT IN REACH, WILL MONITOR.
--- NOTE | 2018-04-05 17:00 | NUR ---
PT CONTINUES WITH TREMORS AT REST, INCREASING ANXIETY. PT MEDICATED WITH PRN LIBRIUM AND ATIVAN PER ORDERS. NO SEIZURE ACTIVITY NOTED. BANANA BAG CONTINUES INFUSING TO LFA, NO S/S OF INFILTRATION NOTED AT SITE. CALL LIGHT IN REACH, WILL MONITOR.
--- NOTE | 2018-04-05 18:00 | NUR ---
pt resting in bed, offers no complaints. pt friend at bedside for visit. call light in reach, will monitor.
--- NOTE | 2018-04-05 19:00 | NUR ---
awake. oriented to name only. tremors cont. giselle(male friend) @ bedside. hall monitor shows sinus tach. #22 lfa ns infusing @ 125cchr. po fluids taken well. eating yogurt @ present. voids per bsc. siezure & fall precautions cont.
--- NOTE | 2018-04-05 20:00 | NUR ---
bed alarm activated.
--- NOTE | 2018-04-05 20:15 | NUR ---
bed alarm sounding. pt standing @ side of bed yelling out "where's gwen." instructed pt gwen wasn't here. pt disoriented. unable to reorient. pt admits "i'm not in the hospital. i'm not in dt's." assisted back to bed. bed alarm activated.
--- NOTE | 2018-04-05 20:30 | NUR ---
out of bed multiple times. ativan 1mg iv given. pt refused libruim.
--- NOTE | 2018-04-05 20:45 | NUR ---
giselle here. asked this medical writer "was there an incident that happened?" admitted pt called him. instructed giselle about confusion, alcohol withdrawal & dt's. giselle admitted "watch gwen if he comes. he may bring alcohol in here." giselle visited pt for short while then left.
[2018-04-05 20:46] LABS: URINE BILIRUBIN - DIPSTICK NEGATIVE (NEGATIVE); URINE BLOOD DIPSTICK NEGATIVE (NEGATIVE); URINE COLOR YELLOW; URINE GLUCOSE - DIPSTICK NEGATIVE (NEGATIVE); URINE KETONE NEGATIVE (NEGATIVE); URINE LEUK ESTERASE TRACE (NEGATIVE); URINE NITRITE - DIPSTICK NEGATIVE (Negative); URINE PROTEIN - DIPSTICK NEGATIVE (NEG-TRACE); URINE UROBILINOGEN - DIPSTICK 0.2 E.U./dL (0.2)
[2018-04-05 20:47] LABS: URINE CLARITY CLEAR
--- NOTE | 2018-04-05 22:15 | NUR ---
#22 restarted rt hand x1 attempt. ivf resumed. librium 50mg po given. bed alarm cont.
--- NOTE | 2018-04-05 22:15 | NUR ---
pt sitting on side of bed. remains confused but cooperative. iv out. blood on gown, bed linen & floor. linens changed.
--- NOTE | 2018-04-05 23:00 | NUR ---
pt pulled iv out. #22 restarted rt thumb x1 attempt.
--- NOTE | 2018-04-05 23:40 | NUR ---
remains very confused. uncoop. out of bed numerous times. requires constant supervision. tremors cont. ativan 1mg iv given.
[2018-04-06] VITALS (13 sets, daily range): BP systolic 103–140; BP diastolic 65–95
--- NOTE | 2018-04-06 00:10 | NUR ---
bed alarm sounding. pt out of. remains confused & uncoop. admits "want to go to the [facility] dr linares notified. orders rec'd. bilat soft wrist restraints applied.
--- NOTE | 2018-04-06 00:50 | NUR ---
pt bite j loop in half. blood on bed & floor. j loop replaced. ivf resumed.
--- NOTE | 2018-04-06 02:00 | NUR ---
eyes closed. no distress.
--- NOTE | 2018-04-06 03:00 | NUR ---
awake. tremors & cunfusion conts.
--- NOTE | 2018-04-06 03:30 | NUR ---
remains anxious & restless. ativan 1mg ivp & libruim 50mg po given.
--- NOTE | 2018-04-06 04:00 | NUR ---
awake. remains confused. telemetry monitor shoes sinus tach.
--- NOTE | 2018-04-06 05:00 | NUR ---
bath & linen change per lace sewer. kalpana well.
--- NOTE | 2018-04-06 05:38 | NUR ---
lab here. blood drawn.
--- NOTE | 2018-04-06 06:00 | NUR ---
remains confused. tremors cont. no seizure activity this shift. bed alarm conts.
[2018-04-06 06:23] LABS: HEMATOCRIT 32.6 % (37.0-47.0); HEMOGLOBIN 10.6 g/dl (12.0-16.0); IMMATURE GRANULOCYTES 0.2 % (0.0-5.0); MEAN CELL VOLUME 94.2 fL CALC (80.0-100.0); MEAN CORPUSCULAR HGB 30.6 pG CALC (26.0-32.0); MEAN CORPUSCULAR HGB CONC 32.5 g/L CALC (32.0-36.0); NEUT# 2.83 thou/uL (2.00-7.15); RED BLOOD COUNT 3.46 mill/uL (4.20-5.60)
[2018-04-06 07:08] LABS: ANION GAP 13 (6-22 (CALC)); BUN 4 mg/dL (7-17); BUN/CREATININE RATIO 6 (12-20 (CALC)); CARBON DIOXIDE 24 mmol/l (22-30); CHLORIDE 110 mmol/l (95-108); CREATININE 0.6 mg/dL (0.5-1.0); GFR > 60 ML/MIN (>=60 (CALC)); GFR FOR AFR.AMER. > 60 ML/MIN (>=60 (CALC)); POTASSIUM 4.1 mmol/l (3.5-5.1); SODIUM 142 mmol/l (137-146)
--- NOTE | 2018-04-06 07:25 | NUR ---
PT ALERT ORIENT X2; RESP EVEN & UNLABORED; PUPILS REACTIVE; LUNGS ARE CLEARED; ABD SOFT NON DISTENED; RADIAL AND PEDAL PULSES STRONG; NO TREMORS NOTED; REMAIN SOMEWHAT CONFUSED; BILAT HANDS REMAIN RESTRAINED, R HAND IN A MITTEN TO PEVENT REMOVING IV; #22 IN RA PATENT, NS INFUSING @125ML/HR; BED RAILES PADDED FOR SEIZURE PRECAUTION; BED ALARM IN ACTIVE; BED IN LOW LOCKED POSITION. CALL LIGHT IN REACH. WILL CONTINUE TO MONITOR.
--- NOTE | 2018-04-06 08:31 | NUR ---
DR LOCKHART & ANTHONY VERA AT BED SIDE TO KIMBERLEE LOO.
--- NOTE | 2018-04-06 09:27 | NUR ---
pt more anxious/very anxious; tremors noted to bue; pt continues to sould bed alarm/ attempting to climb out of bed; medicated with librium and ativan as per orders
--- NOTE | 2018-04-06 10:00 | NUR ---
PT UP TO BSC WITH ASSIST, NEW IV #22 ADAM, INFUSING WELL; RESP EVEN AND UNLABORED; TREMORS NOTED, RESTRAINS IN PLACE, BED ALARM ACTIVE; WILL CONTINUE TO MONITOR.
--- NOTE | 2018-04-06 11:41 | NUR ---
ASSISTED PT TO BSC AND BACK TO BED, PT TRF WITH UNSTEADY GAIT, PT VOIDED WITH 200CC CLEAR, YELLOW URINE. PT NOW SITTING UP IN BED EATING LUNCH; RESP EVEN AND UNLABORED. WILL CONTINUE TO MONITOR.
--- NOTE | 2018-04-06 13:49 | NUR ---
PT SITTING UP IN BED VISITING WITH A MALE VISITOR; RESP EVEN AND UNLABORED; IV INFUSING WELL; BED ALARM ACTIVE, BED IN LOW LOCKED POSITION; WILL CONTINUE TO MONITOR.
--- NOTE | 2018-04-06 15:52 | NUR ---
PT RESTING IN SEMI FOWLERS POSITION WITH EYES CLOSED, RESP EVEN & UNLABORED; NO SS OF DISTRESS NOTED; IV PATENT, BANANA BAG INFUSING 100ML/HR; BED ALARM IN ACTIVE; WILL CONTINUE TO MONITOR.
--- NOTE | 2018-04-06 18:03 | NUR ---
PT TRIED SEVERAL TIMES TO GET OUT OF BED; MILD TREMORS; REMAIN CONFUSED BUT COOPERATIVE; MEDICATED WITH LIBRIUM & ATIVAN @1728; IV PATENT; BED ALARM ACTIVE; CALL WILHELM IN PLACE, WILL CONTINUE TO MONITOR.
--- NOTE | 2018-04-06 19:00 | NUR ---
awake. remains confused. tremors cont. quality assurance monitor body shows sinus tach. #22 manisha banana bag infusing @ 100cchr. po fluids taken well. fall & siezure precautions cont. bed alarm on.
--- NOTE | 2018-04-06 19:30 | NUR ---
confused. tremors cont. has papers in her hand she took out of her purse. admits she needs them in order to "have my surgery today." instructed pt reason for her admission to this hosp & that she's not having surgery today. pt yells out "i'm not in dt's." pt reassured.
--- NOTE | 2018-04-06 20:00 | NUR ---
awake. remains confused. using cell phone when giselle arrived. no acute distress.
--- NOTE | 2018-04-06 20:15 | NUR ---
giselle(male friend) @ bedside. requests to "stay the night." request permitted.
--- NOTE | 2018-04-06 22:00 | NUR ---
awake. confused. has been assisted back to bed multiple times this shift. libruim 50mg po & ativan 2mg ivp given. giselle @ bedside in recliner.
--- NOTE | 2018-04-06 22:10 | NUR ---
awake. dry heaving. very dramatic. admits "i'm gonna ." zofran 4mg ivp given. staff & giselle reassured pt." instructed not to get or drink anything.
[2018-04-07] VITALS (14 sets, daily range): BP systolic 94–131; BP diastolic 54–83
--- NOTE | 2018-04-07 00:05 | NUR ---
awake. confused but coop. restraints removed.
--- NOTE | 2018-04-07 00:20 | NUR ---
awake. iv pulled out. #22 restarted lt hand x1 attempt. ivf resumed. bed alarm cont. giselle in recliner @ bedside.
--- NOTE | 2018-04-07 01:00 | NUR ---
awake. eating jolly ranchers. no distress. giselle asleep in recliner @ bedside.
--- NOTE | 2018-04-07 02:00 | NUR ---
eyes closed. no distress. cardiac technician shows sinus rhythm.
--- NOTE | 2018-04-07 04:00 | NUR ---
resting quietly. resps even & unlabored. no apparent distress.
--- NOTE | 2018-04-07 05:00 | NUR ---
lab here. blood drawn.
[2018-04-07 05:22] LABS: HEMATOCRIT 31.3 % (37.0-47.0); HEMOGLOBIN 10.2 g/dl (12.0-16.0); MEAN CELL VOLUME 93.7 fL CALC (80.0-100.0); MEAN CORPUSCULAR HGB 30.5 pG CALC (26.0-32.0); MEAN CORPUSCULAR HGB CONC 32.6 g/L CALC (32.0-36.0); RED BLOOD COUNT 3.34 mill/uL (4.20-5.60); RED CELL DISTRI WIDTH 13.6 % (11.5-15.5)
[2018-04-07 05:44] LABS: ANION GAP 12 (6-22 (CALC)); BUN 3 mg/dL (7-17); BUN/CREATININE RATIO 5 (12-20 (CALC)); CARBON DIOXIDE 24 mmol/l (22-30); CHLORIDE 109 mmol/l (95-108); CREATININE 0.5 mg/dL (0.5-1.0); GFR > 60 ML/MIN (>=60 (CALC)); GFR FOR AFR.AMER. > 60 ML/MIN (>=60 (CALC)); POTASSIUM 3.3 mmol/l (3.5-5.1); SODIUM 141 mmol/l (137-146)
--- NOTE | 2018-04-07 06:00 | NUR ---
eyes closed. no distress. no siezure activity. giselle @ bedside.
--- NOTE | 2018-04-07 07:44 | NUR ---
PT SEEN AWAKE, INTERACTIVE, TREMULOUS, IMPULSIVE. PT ASSISTED TO BSC, HAVING LOOSE STOOLS. LUNGS CLEAR, RA. NO RESTRAINTS NEEDED AT THIS TIME. VISITOR HAS GONE HOME.
--- NOTE | 2018-04-07 10:19 | NUR ---
PT SEEN BY DR WILKINS THIS MORNING, SEEN ABLE TO EXPRESS HERSELF WELL. PT ASSISTED OOB TO CHAIR. PT BEING ASSISTED TO BATHE AT THIS TIME.
--- NOTE | 2018-04-07 12:45 | NUR ---
PT REMAINS PLEASANT BUT CONFUSED, NO TRYING TO GET OOB ON HER OWN. PT DID CALL 911 THINKING THAT SHE WAS BEING HELD AGAINST HER WILL. PT IS ASKING APPROPRIATE QUESTIONS ABOUT HOW SHE GOT HERE AND WHY PHONE CALLS ARE NOT BEING ANSWERED BY YULIA.
--- NOTE | 2018-04-07 12:50 | NUR ---
PT PROVIDED LIBRIUM AT THIS TIME. PT HAS DENIED NEED FOR LIBRIUM OR ATIVAN TO THIS POINT. PT PROVIDED VERBAL REASSURANCE THAT SHE IS SAFE, HOW SHE ARRIVED HERE, ANTICIPATED DISPOSITION.
--- NOTE | 2018-04-07 14:14 | NUR ---
VISITOR PRISCILA AT BEDSIDE NOW, AIDS IN REORIENTATION. PT REMAINS CALM WITH SLIGHT TREMORS, APPEARS CONFUSED AT TIMES.
--- NOTE | 2018-04-07 17:28 | NUR ---
PT OOB TO CHAIR FOR SUPPER, SEEN BY ACCESS LIAISON AT THIS TIME. PT AND VISITOR AWARE OF NEED TO STAY ANOTHER NIGHT. PT REMAINS SLIGHTLY CONFUSED, TREMULOUS.
--- NOTE | 2018-04-07 19:00 | NUR ---
PT USING CALL LIGHT FOR ASSISTANCE, OOB TO BSC WITH MINIMAL ASSISTANCE, UNSTEADY GAIT, VOIDING CLEAR YELLOW URINE THEN BACK TO BED. A/O X3, RESPIRATIONS EVEN AND UNLABORED ON RA. NS INFUSING TO LH AT 125CC/HR. SLIGHT TREMORS NOTICED TO HANDS, DENIES HALLUCINATIONS, DENIES ANXIETY. BED RAILS PADDED DUE TO SEIZURE PRECAUTIONS. PO FLUIDS IN REACH. SR 90'S ON HEART MONITOR. CALL LIGHT IN REACH.
--- NOTE | 2018-04-07 20:57 | NUR ---
ATIVAN 1MG IV PROVIDED PER MAR PER PT REQUEST, ADMITS TO FEELING "A LITTLE ANXIOUS" AND WANTS TO SLEEPT. SR 95, B/P 118/81. CALL LIGHT IN REACH.
--- NOTE | 2018-04-07 23:12 | NUR ---
USING CALL LIGHT FOR ASSISTNACE, OOB TO BSC WITH DILEEP CARRINGTONNACE, WEAK GAIT. VOIDING 600ML OF CLEAR YELLOW URINE, THEN BACK TO BED, PT THEN HAD AN INCONTINENCE OF SMALL AMOUNT LOOSE BROWN BM, BACK TO BSC, ASSISTED WITH WASHING UP, CLEAN GOWN AND CHUCKS PROVIDED, BACK TO BED, PT IS A/O TO SELF, PLACE AND TIME, LIBRIUM PROVIDED AT THIS TIME PER PT REQUEST. CALL LIGHT IN REACH. WILL CONTINUE TO MONITOR.
[2018-04-08] VITALS (10 sets, daily range): BP systolic 96–120; BP diastolic 58–89
--- NOTE | 2018-04-08 01:05 | NUR ---
PT RESTING WITH EYES CLOSED, RESPIRATIONS EVEN AND UNLABORED ON RA. PT TALKING IN HER SLEEP. B/P 96/58, HR 80'S. CALL LIGHT IN REACH.
--- NOTE | 2018-04-08 01:50 | NUR ---
OOB TO BSC VOIDING 400ML OF CLEAR YELLOW URINE AND SCANT AMOUNT LOOSE LIGHT BROWN BM, PROVIDING OWN JASEN CARE, BACK TO BED. CALL LIGHT IN REACH.
--- NOTE | 2018-04-08 03:50 | NUR ---
USING CALL LIGHT FOR ASSISTANCE, OOB TO BSC, WAS NOT ABLE TO MAKE IT, INCONTINENT OF MODERATE AMOUNT LOOSE BROWN BM, ASSISTED WITH COMPLET BATH AT THIS TIME, CLEAN LINEN AND CLEAN GOWN PROVIDED, BACK TO BED. CALL LIGHT IN REACH.
--- NOTE | 2018-04-08 04:07 | NUR ---
PT CALLING FOR ASSISTNACE, INCONTINENT OF SCANT AMOUNT LOOSE LIGHT BROWN BM, PROVIND OWN JASEN CARE, ADULT BREAF APPLIED PER PT REQUEST, CLEAN GOWN AND GINA PROVIDED. LIBRIUM ALSO PROVIDED AT THIS TIME PER PT REQUEST. CALL LIGHT IN REACH, PO FLUIDS AT BED SIDE. IV FLUIDS INFUSING TO LH WITH NO COMPLICATIONS.
--- NOTE | 2018-04-08 05:00 | NUR ---
MORNING LABS DRAWN BY MARKETING CO OP, TOLERATED WELL.
[2018-04-08 05:24] LABS: HEMOGLOBIN 11.7 g/dl (12.0-16.0); IMMATURE GRANULOCYTES 0.2 % (0.0-5.0); MEAN CELL VOLUME 95.9 fL CALC (80.0-100.0); MEAN CORPUSCULAR HGB 30.3 pG CALC (26.0-32.0); MEAN CORPUSCULAR HGB CONC 31.6 g/L CALC (32.0-36.0); NEUT# 2.01 thou/uL (2.00-7.15); RED BLOOD COUNT 3.86 mill/uL (4.20-5.60); RED CELL DISTRI WIDTH 13.6 % (11.5-15.5)
[2018-04-08 05:44] LABS: BUN 3 mg/dL (7-17); BUN/CREATININE RATIO 5 (12-20 (CALC)); CARBON DIOXIDE 21 mmol/l (22-30); CHLORIDE 115 mmol/l (95-108); CREATININE 0.5 mg/dL (0.5-1.0); GFR > 60 ML/MIN (>=60 (CALC)); GFR FOR AFR.AMER. > 60 ML/MIN (>=60 (CALC)); SODIUM 142 mmol/l (137-146)
[2018-04-08 05:45] LABS: ANION GAP 10 (6-22 (CALC)); POTASSIUM 4.2 mmol/l (3.5-5.1)
--- NOTE | 2018-04-08 08:15 | NUR ---
PT SEEN AWAKE, ALERT, ORIENTED X 3 THIS MORNING. TREMORS ARE MINIMAL, PT IS MORE AWAKE THAN YESTERDAY, INTERACTIVE. NO SEIZURE ACTIVITY. PT HOPES FOR DISCHARGE TO HOME TODAY.
--- NOTE | 2018-04-08 10:03 | NUR ---
PT CALLED APPROPRIATELY TO USE BSC, PROVIDED STANDBY ASSIST. PT USING ADULT DIAPERS, SEEN TO HAVE CHRONIC WATERY STOOL, STATES THAT SHE NORMALLY TAKES AN IMODIUM EVERY DAY.
--- NOTE | 2018-04-08 12:14 | NUR ---
PT SEEN BY DR WILKINS AND CHUY CRUZ, PROBABLE DISCHARGE HOME TODAY. PT CONTINUES TO USE BSC FOR WATERY STOOLS, CALLS WHEN HELP IS NEEDED. VISITOR PRISCILA HAS BEEN AT BEDSIDE, NOW AT LUNCH.
[2018-04-08] MEDS ORDERED: LIBRIUM25 M1 PO (12:19)
--- NOTE | 2018-04-08 12:41 | NUR ---
DISCHARGE ORDERS RECEIVED, WAITING FOR PRISCILA TO RETURN.
--- NOTE | 2018-04-08 13:12 | NUR ---
PT VERBALIZED UNDERSTANDING OF DC INSTRUCTIONS, TAKEN BY WHEELCHAIR TO VEHICLE.
== END 2018-04-08 13:05 | disposition home or self-care (01) | DRG 897 ==
LOC: ED 19:45 → ED-I 21:30 → ED 22:39 → ICU 22:40
PROVIDERS: Emergency Medicine; Nurse Practitioner Family; ADMIT Internal Medicine; ATTEND Internal Medicine
DX: F10.231 Alcohol dependence with withdrawal delirium (principal); E87.6 Hypokalemia; E83.42 Hypomagnesemia; E56.9 Vitamin deficiency, unspecified; F32.9 Major depressive disorder, single episode, unspecified; F41.9 Anxiety disorder, unspecified; K62.3 Rectal prolapse; R15.9 Full incontinence of feces; Z78.1 Physical restraint status; Z90.49 Acquired absence of other specified parts of digestive tract
CPT/HCPCS: J2060; J3475

== ENCOUNTER 2018-05-11 14:41 | Emergency (ER) | payer OTHER ==
[~2018-05-11] VITALS: Ht 152.4 cm; Wt 53.0 kg
[2018-05-11 15:56] LABS: URINE BILIRUBIN - DIPSTICK NEGATIVE (NEGATIVE); URINE BLOOD DIPSTICK NEGATIVE (NEGATIVE); URINE COLOR YELLOW; URINE GLUCOSE - DIPSTICK NEGATIVE (NEGATIVE); URINE KETONE NEGATIVE (NEGATIVE); URINE LEUK ESTERASE TRACE (NEGATIVE); URINE NITRITE - DIPSTICK NEGATIVE (Negative); URINE PROTEIN - DIPSTICK NEGATIVE (NEG-TRACE); URINE SPECIFIC GRAVITY <=1.005; URINE UROBILINOGEN - DIPSTICK 0.2 E.U./dL (0.2)
[2018-05-11 16:04] LABS: URINE CLARITY CLEAR
[2018-05-11 16:05] LABS: HEMOGLOBIN 11.2 g/dl (12.0-16.0); IMMATURE GRANULOCYTES 0.1 % (0.0-5.0); MEAN CELL VOLUME 90.9 fL CALC (80.0-100.0); MEAN CORPUSCULAR HGB 29.9 pG CALC (26.0-32.0); MEAN CORPUSCULAR HGB CONC 32.9 g/L CALC (32.0-36.0); NEUT# 4.87 thou/uL (2.00-7.15); RED BLOOD COUNT 3.74 mill/uL (4.20-5.60); RED CELL DISTRI WIDTH 13.4 % (11.5-15.5)
[2018-05-11] MEDS ORDERED: IBUPROFEN200 MG PO (16:09)
[2018-05-11] MEDS ORDERED: ACAMPROSATE CA333 MG PO (16:11)
[2018-05-11 16:13] LABS: PROTHROMBIN TIME 10.2 SECONDS (9.0-12.5)
[2018-05-11 16:16] LABS: ALKALINE PHOSPHATASE 76 u/l (38-126); AMYLASE 60 u/l (30-110); BILIRUBIN, TOTAL 0.5 mg/dL (0.0-1.4); BUN 5 mg/dL (7-17); BUN/CREATININE RATIO 7 (12-20 (CALC)); CARBON DIOXIDE 25 mmol/l (22-30); CREATININE 0.7 mg/dL (0.5-1.0); GFR > 60 ML/MIN (>=60 (CALC)); GFR FOR AFR.AMER. > 60 ML/MIN (>=60 (CALC)); LIPASE 57 u/l (23-300); SGOT/AST 23 u/l (14-36); SODIUM 138 mmol/l (137-146); TOTAL PROTEIN 7.5 g/dL (6.3-8.2)
[2018-05-11 16:19] LABS: ANION GAP 16 (6-22 (CALC)); CHLORIDE 100 mmol/l (95-108); POTASSIUM 3.3 mmol/l (3.5-5.1)
[2018-05-11] MEDS ORDERED: PREVACID30 M3 PO (17:14)
[2018-05-11 18:10] VITALS: BP 132/71
== END 2018-05-11 18:10 | disposition home or self-care (01) ==
LOC: ED 14:41
PROVIDERS: Emergency Medicine
DX: R19.5 Other fecal abnormalities (principal); R10.9 Unspecified abdominal pain; F32.9 Major depressive disorder, single episode, unspecified; F41.9 Anxiety disorder, unspecified
CPT/HCPCS: Q9967; S0164

== ENCOUNTER 2018-09-06 09:26 | Emergency (ER) | payer OTHER ==
[~2018-09-06] VITALS: Ht 152.4 cm; Wt 50.0 kg
[~2018-09-06 09:26] MED LIST changes: +ACAMPROSATE CA333 MG PO; +IBUPROFEN200 MG PO; +PREVACID30 M3 PO
[2018-09-06 10:13] LABS: HEMATOCRIT 34.9 % (37.0-47.0); HEMOGLOBIN 11.5 g/dl (12.0-16.0); IMMATURE GRANULOCYTES 0.4 % (0.0-5.0); MEAN CELL VOLUME 96.1 fL CALC (80.0-100.0); MEAN CORPUSCULAR HGB 31.7 pG CALC (26.0-32.0); NEUT# 3.93 thou/uL (2.00-7.15); RED BLOOD COUNT 3.63 mill/uL (4.20-5.60); RED CELL DISTRI WIDTH 14.3 % (11.5-15.5)
[2018-09-06 10:38] LABS: ALKALINE PHOSPHATASE 91 u/l (38-126); ANION GAP 17 (6-22 (CALC)); BILIRUBIN, TOTAL 0.7 mg/dL (0.0-1.4); BUN 12 mg/dL (7-17); BUN/CREATININE RATIO 22 (12-20 (CALC)); CARBON DIOXIDE 20 mmol/l (22-30); CHLORIDE 109 mmol/l (95-108); CREATININE 0.6 mg/dL (0.5-1.0); ETHYL ALCOHOL 86 mg/dl (0-30); GFR > 60 ML/MIN (>=60 (CALC)); GFR FOR AFR.AMER. > 60 ML/MIN (>=60 (CALC)); LIPASE 79 u/l (23-300); POTASSIUM 3.8 mmol/l (3.5-5.1); SGOT/AST 81 u/l (14-36); SODIUM 142 mmol/l (137-146); TOTAL PROTEIN 7.6 g/dL (6.3-8.2)
[2018-09-06 13:02] VITALS: BP 112/61
[2018-09-06 14:07] LABS: BARBITURATES NEGATIVE (NEGATIVE); COCAINE NEGATIVE (NEGATIVE); METHADONE NEGATIVE (NEGATIVE); OXCYCODONE NEGATIVE (NEGATIVE); TETRAHYDROCANNABIONOL NEGATIVE (NEGATIVE); TRICYLIC ANTIDEPRESSANTS NEGATIVE (NEGATIVE)
[2018-09-06] MEDS ORDERED: DULOXETINE HCL30 MG PO (14:38)
[2018-09-06] MEDS ORDERED: VISTARIL25 MG PO (14:38)
[2018-09-06] MEDS ORDERED: GABAPENTIN100 MG PO (14:38)
[2018-09-06] MEDS ORDERED: MIRTAZAPINE ODT15 MG PO (14:38)
== END 2018-09-06 16:55 | disposition home or self-care (01) ==
LOC: ED 09:26
PROVIDERS: Emergency Medicine
DX: F41.9 Anxiety disorder, unspecified (principal); Z91.14 Patient's other noncompliance with medication regimen; R25.9 Unspecified abnormal involuntary movements; R11.2 Nausea with vomiting, unspecified
CPT/HCPCS: J2060

== ENCOUNTER 2019-03-13 21:55 | Observation (INO) | payer OTHER ==
[~2019-03-13] VITALS: Ht 152.4 cm; Wt 36.0 kg
[~2019-03-13 21:55] MED LIST changes: +MIRTAZAPINE ODT15 MG PO
[2019-03-13 22:17] LABS: IMMATURE GRANULOCYTES 0.5 % (0.0-5.0); MEAN CORPUSCULAR HGB 25.8 pG CALC (26.0-32.0); MEAN CORPUSCULAR HGB CONC 30.4 g/L CALC (32.0-36.0); NEUT# 4.57 thou/uL (2.00-7.15); RED BLOOD COUNT 3.26 mill/uL (4.20-5.60); RED CELL DISTRI WIDTH 17.3 % (11.5-15.5)
[2019-03-13 22:18] LABS: HEMATOCRIT 27.6 % (37.0-47.0); HEMOGLOBIN 8.4 g/dl (12.0-16.0); MEAN CELL VOLUME 84.7 fL CALC (80.0-100.0)
[2019-03-13 22:34] LABS: ALBUMIN 4.4 g/dL (3.2-5.0); ALKALINE PHOSPHATASE 77 u/l (38-126); ANION GAP 20 (6-22 (CALC)); BUN 26 mg/dL (7-17); BUN/CREATININE RATIO 23 (12-20 (CALC)); CARBON DIOXIDE 19 mmol/l (22-30); CHLORIDE 111 mmol/l (95-108); CREATININE 1.1 mg/dL (0.5-1.0); GFR 51 ML/MIN (>=60 (CALC)); GFR FOR AFR.AMER. > 60 ML/MIN (>=60 (CALC)); POTASSIUM 3.6 mmol/l (3.5-5.1); SGOT/AST 33 u/l (14-36); SODIUM 146 mmol/l (137-146); TOTAL PROTEIN 8.1 g/dL (6.3-8.2)
[2019-03-13 22:42] LABS: BILIRUBIN, TOTAL 0.2 mg/dL (0.0-1.4)
[2019-03-13 22:48] LABS: ETHYL ALCOHOL 307 mg/dl (0-30)
[2019-03-13 23:38] LABS: URINE BILIRUBIN - DIPSTICK NEGATIVE (NEGATIVE); URINE BLOOD DIPSTICK TRACE-LYSED (NEGATIVE); URINE COLOR YELLOW; URINE GLUCOSE - DIPSTICK NEGATIVE (NEGATIVE); URINE KETONE NEGATIVE (NEGATIVE); URINE LEUK ESTERASE TRACE (NEGATIVE); URINE NITRITE - DIPSTICK POSITIVE (Negative); URINE PH 6.5 (4.5-8.0); URINE PROTEIN - DIPSTICK TRACE mg/dL (NEG-TRACE); URINE UROBILINOGEN - DIPSTICK 0.2 E.U./dL (0.2)
[2019-03-13 23:40] LABS: BARBITURATES NEGATIVE (NEGATIVE); COCAINE NEGATIVE (NEGATIVE); METHADONE NEGATIVE (NEGATIVE); OXCYCODONE NEGATIVE (NEGATIVE); TETRAHYDROCANNABIONOL NEGATIVE (NEGATIVE); TRICYLIC ANTIDEPRESSANTS NEGATIVE (NEGATIVE)
[2019-03-13 23:57] LABS: URINE BACTERIA MANY hpf; URINE SQUAMOUS EPITHELIAL CELL FEW EPI/hpf (0-FEW)
[2019-03-14] VITALS (19 sets, daily range): BP systolic 97–133; BP diastolic 55–72
[2019-03-14 07:57] LABS: HEMATOCRIT 26.8 % (37.0-47.0); MEAN CELL VOLUME 86.7 fL CALC (80.0-100.0); MEAN CORPUSCULAR HGB 25.9 pG CALC (26.0-32.0); MEAN CORPUSCULAR HGB CONC 29.9 g/L CALC (32.0-36.0); RED BLOOD COUNT 3.09 mill/uL (4.20-5.60); RED CELL DISTRI WIDTH 17.5 % (11.5-15.5)
[2019-03-14 08:14] LABS: ANION GAP 15 (6-22 (CALC)); BUN 20 mg/dL (7-17); BUN/CREATININE RATIO 28 (12-20 (CALC)); CARBON DIOXIDE 20 mmol/l (22-30); CHLORIDE 115 mmol/l (95-108); CREATININE 0.7 mg/dL (0.5-1.0); GFR > 60 ML/MIN (>=60 (CALC)); GFR FOR AFR.AMER. > 60 ML/MIN (>=60 (CALC)); POTASSIUM 3.6 mmol/l (3.5-5.1); SODIUM 146 mmol/l (137-146)
[2019-03-14] MEDS ORDERED: REMERON15 MG PO (08:44)
[2019-03-14] MEDS ORDERED: CYMBALTA30 MG PO (08:44)
[2019-03-14] MEDS ORDERED: NEURONTIN100 MG PO (08:45)
[2019-03-14] MEDS ORDERED: VISTARIL25 MG PO (08:48)
[2019-03-14] MEDS ORDERED: FOLIC ACID1 M1 PO (08:49)
[2019-03-14] MEDS ORDERED: CALCIUM600 M1 PO (08:49)
[2019-03-14] MEDS ORDERED: MOTRIN800 MG PO (08:49)
[2019-03-14] MEDS ORDERED: MULTI FOR HER PO (08:50)
[2019-03-15 01:01] VITALS: BP 107/64
[2019-03-15 03:10] VITALS: BP 117/58
[2019-03-15 05:10] VITALS: BP 124/75
[2019-03-15 05:17] LABS: HEMATOCRIT 28.5 % (37.0-47.0); HEMOGLOBIN 8.3 g/dl (12.0-16.0); MEAN CELL VOLUME 88.5 fL CALC (80.0-100.0); MEAN CORPUSCULAR HGB 25.8 pG CALC (26.0-32.0); MEAN CORPUSCULAR HGB CONC 29.1 g/L CALC (32.0-36.0); RED BLOOD COUNT 3.22 mill/uL (4.20-5.60); RED CELL DISTRI WIDTH 17.6 % (11.5-15.5)
[2019-03-15 05:34] LABS: ANION GAP 13 (6-22 (CALC)); BUN 16 mg/dL (7-17); BUN/CREATININE RATIO 30 (12-20 (CALC)); CARBON DIOXIDE 17 mmol/l (22-30); CHLORIDE 115 mmol/l (95-108); CREATININE 0.5 mg/dL (0.5-1.0); GFR > 60 ML/MIN (>=60 (CALC)); GFR FOR AFR.AMER. > 60 ML/MIN (>=60 (CALC)); SODIUM 141 mmol/l (137-146)
[2019-03-15 07:44] VITALS: BP 114/56
[2019-03-15 12:00] VITALS: BP 113/84
[2019-03-15] MEDS ORDERED: LIBRIUM25 M1 PO (12:50)
[2019-03-15] MEDS ORDERED: LEVAQUIN750 MG PO (12:50)
[2019-03-15 13:00] VITALS: BP 118/68
== END 2019-03-15 13:45 | DRG 199 ==
LOC: ED 21:55 → ED-I 23:30 → ED 23:44 → ICU 23:45
PROVIDERS: Family Medicine; Internal Medicine; ADMIT Internal Medicine; ATTEND Internal Medicine
DX: S27.0XXA Traumatic pneumothorax, initial encounter (principal); J18.9 Pneumonia, unspecified organism; N17.9 Acute kidney failure, unspecified; F10.239 Alcohol dependence with withdrawal, unspecified; N39.0 Urinary tract infection, site not specified; F10.229 Alcohol dependence with intoxication, unspecified; S20.212A Contusion of left front wall of thorax, initial encounter; S20.211A Contusion of right front wall of thorax, initial encounter; D50.9 Iron deficiency anemia, unspecified; D63.8 Anemia in other chronic diseases classified elsewhere; F41.8 Other specified anxiety disorders; Y90.8 Blood alcohol level of 240 mg/100 ml or more; Y04.2XXA Assault by strike against or bumped into by another person, initial encounter; Y92.009 Unspecified place in unspecified non-institutional (private) residence as the place of occurrence of the external cause
CPT/HCPCS: J1650; J2060

== ENCOUNTER 2019-09-12 | Emergency (ER) | payer OTHER ==
[~2019-09-12] MED LIST changes: +CALCIUM600 M1 PO; +CYMBALTA30 MG PO; +LEVAQUIN750 MG PO; +MOTRIN800 MG PO; +MULTI FOR HER PO; +NEURONTIN100 MG PO; +REMERON15 MG PO
[2019-09-12 09:19] LABS: IMMATURE GRANULOCYTES 0.3 % (0.0-5.0); MEAN CELL VOLUME 86.8 fL CALC (80.0-100.0); MEAN CORPUSCULAR HGB CONC 32.2 g/L CALC (32.0-36.0); NEUT# 3.13 thou/uL (2.00-7.15); RED BLOOD COUNT 4.25 mill/uL (4.20-5.60); RED CELL DISTRI WIDTH 14.9 % (11.5-15.5)
[2019-09-12 09:30] LABS: HEMATOCRIT 36.9 % (37.0-47.0); HEMOGLOBIN 11.9 g/dl (12.0-16.0)
[2019-09-12 09:46] LABS: ALBUMIN 4.4 g/dL (3.2-5.0); ALKALINE PHOSPHATASE 93 u/l (38-126); BUN 9 mg/dL (7-17); BUN/CREATININE RATIO 15 (12-20 (CALC)); CHLORIDE 109 mmol/l (95-108); CREATININE 0.6 mg/dL (0.5-1.0); ETHYL ALCOHOL 299 mg/dl (0-30); GFR > 60 ML/MIN (>=60 (CALC)); GFR FOR AFR.AMER. > 60 ML/MIN (>=60 (CALC)); LIPASE 134 u/l (23-300); POTASSIUM 3.6 mmol/l (3.5-5.1); SGOT/AST 55 u/l (14-36); SODIUM 144 mmol/l (137-146); TOTAL PROTEIN 7.7 g/dL (6.3-8.2)
[2019-09-12 09:47] LABS: ANION GAP 18 (6-22 (CALC)); BILIRUBIN, TOTAL 0.6 mg/dL (0.0-1.4); CARBON DIOXIDE 21 mmol/l (22-30)
[2019-09-13] MEDS ORDERED: LIBRIUM25 M1 PO (14:07)
== END 2019-09-12 17:44 | disposition home or self-care (01) ==
PROVIDERS: Family Medicine
DX: F10.20 Alcohol dependence, uncomplicated (principal); Y90.8 Blood alcohol level of 240 mg/100 ml or more

== ENCOUNTER 2019-09-12 22:36 | Observation (INO) | payer OTHER ==
[~2019-09-12] VITALS: Ht 152.4 cm; Wt 49.0 kg
--- NOTE | 2019-09-12 22:37 | NUR ---
TO ROOM 9 VIA W/C
--- NOTE | 2019-09-12 23:05 | NUR ---
GINGER STARTED THU TO DRAW 8LOOD. LA8 IN.
[2019-09-12 23:25] LABS: URINE BILIRUBIN - DIPSTICK NEGATIVE (NEGATIVE); URINE BLOOD DIPSTICK TRACE-INTACT (NEGATIVE); URINE COLOR YELLOW; URINE GLUCOSE - DIPSTICK NEGATIVE (NEGATIVE); URINE KETONE 15 mg/dL (NEGATIVE); URINE PH 6.5 (4.5-8.0); URINE PROTEIN - DIPSTICK 30 mg/dL (NEG-TRACE)
[2019-09-12 23:26] LABS: HEMATOCRIT 32.4 % (37.0-47.0); HEMOGLOBIN 10.4 g/dl (12.0-16.0); IMMATURE GRANULOCYTES 0.2 % (0.0-5.0); MEAN CELL VOLUME 87.1 fL CALC (80.0-100.0); MEAN CORPUSCULAR HGB CONC 32.1 g/L CALC (32.0-36.0); NEUT# 5.72 thou/uL (2.00-7.15); RED BLOOD COUNT 3.72 mill/uL (4.20-5.60); RED CELL DISTRI WIDTH 14.6 % (11.5-15.5)
[2019-09-12 23:32] LABS: URINE LEUK ESTERASE MODERATE (NEGATIVE); URINE NITRITE - DIPSTICK POSITIVE (Negative)
[2019-09-12 23:40] LABS: BARBITURATES NEGATIVE (NEGATIVE); COCAINE NEGATIVE (NEGATIVE); METHADONE NEGATIVE (NEGATIVE); OXCYCODONE NEGATIVE (NEGATIVE); TETRAHYDROCANNABIONOL NEGATIVE (NEGATIVE); TRICYLIC ANTIDEPRESSANTS NEGATIVE (NEGATIVE)
[2019-09-12 23:43] LABS: URINE BACTERIA MANY hpf; URINE SQUAMOUS EPITHELIAL CELL FEW EPI/hpf (0-FEW); URINE WBC TNTC WBC/hpf (0-5)
[2019-09-12 23:45] LABS: ALBUMIN 3.8 g/dL (3.2-5.0); ALKALINE PHOSPHATASE 77 u/l (38-126); ANION GAP 13 (6-22 (CALC)); BUN 7 mg/dL (7-17); BUN/CREATININE RATIO 13 (12-20 (CALC)); CARBON DIOXIDE 23 mmol/l (22-30); CHLORIDE 105 mmol/l (95-108); CREATININE 0.6 mg/dL (0.5-1.0); ETHYL ALCOHOL 0 mg/dl (0-30); GFR > 60 ML/MIN (>=60 (CALC)); GFR FOR AFR.AMER. > 60 ML/MIN (>=60 (CALC)); POTASSIUM 3.1 mmol/l (3.5-5.1); SGOT/AST 43 u/l (14-36); SODIUM 137 mmol/l (137-146); TOTAL PROTEIN 6.9 g/dL (6.3-8.2)
[2019-09-12 23:48] LABS: BILIRUBIN, TOTAL 1.1 mg/dL (0.0-1.4)
[2019-09-12 23:56] LABS: MYOGLOBIN 74 ng/mL (0 - 62)
--- NOTE | 2019-09-13 | NUR ---
DR LUCIO IN TO GO OVER RESULTS AND POC
--- NOTE | 2019-09-13 00:14 | NUR ---
PT STATES NO PALPITATIONS AT THIS TIME, NO PAIN OR DISCOMFORT.
--- NOTE | 2019-09-13 00:40 | NUR ---
Admission Note Report Given to: MELO HOPE Transported by: X Wheelchair Stretcher Transported with: X Nurse Transporter X Patent IV O2 X Ux Developer Location: ICU X MS2 IV ROCEPHIN AND FLUIDS INFUSING. WENT OVER PT'S MED LIST AND PT STATES SHE HAS NOT TAKING MEDICATION FOR A FEW DAYS.
[2019-09-13 00:50] VITALS: BP 124/81
[2019-09-13 04:38] VITALS: BP 115/63
--- NOTE | 2019-09-13 04:58 | NUR ---
PT SLEEPING, APPEARS COMFORTABLE AND IN NO DISTRESS. RESP REG & UNLABORED. SITTER REMAINS AT BEDSIDE.
--- NOTE | 2019-09-13 07:15 | NUR ---
REPORT RECEIVED FROM MELO HOPE. PT RESTING IN BED WITH EYES CLOSED; AWAKENS SPONTANEOUSLY. SITS UP FOR ASSESSMENT; ALERT AND ORIENTED X 3. DENIES CHEST PAIN. RESPIRATIONS EVEN AND UNLABORED ON ROOM AIR. PLAN OF CARE REVIEWED. PT ENCOURAGED TO VERBALIZE CONCERNS. STATES UNDERSTANDING. SAFETY MEASURES IN PLACE. CALL LIGHT WITHIN REACH.
[2019-09-13 08:00] VITALS: BP 107/59
--- NOTE | 2019-09-13 08:54 | NUR ---
LIBRIUM GIVEN WITH MORNING MEDICATIONS. SLIGHT TREMOR NOTED AND PT SEEMS SLIGHTLY ANXIOUS.
[2019-09-13 12:00] VITALS: BP 105/60
[2019-09-13 12:43] LABS: HEMATOCRIT 33.8 % (37.0-47.0); HEMOGLOBIN 10.6 g/dl (12.0-16.0); MEAN CELL VOLUME 88.9 fL CALC (80.0-100.0); MEAN CORPUSCULAR HGB 27.9 pG CALC (26.0-32.0); MEAN CORPUSCULAR HGB CONC 31.4 g/L CALC (32.0-36.0); RED BLOOD COUNT 3.8 mill/uL (4.20-5.60); RED CELL DISTRI WIDTH 14.6 % (11.5-15.5)
[2019-09-13 12:51] LABS: ALBUMIN 3.7 g/dL (3.2-5.0); ALKALINE PHOSPHATASE 79 u/l (38-126); ANION GAP 11 (6-22 (CALC)); BILIRUBIN, TOTAL 1.1 mg/dL (0.0-1.4); BUN 5 mg/dL (7-17); BUN/CREATININE RATIO 9 (12-20 (CALC)); CARBON DIOXIDE 23 mmol/l (22-30); CHLORIDE 108 mmol/l (95-108); CREATININE 0.6 mg/dL (0.5-1.0); GFR > 60 ML/MIN (>=60 (CALC)); GFR FOR AFR.AMER. > 60 ML/MIN (>=60 (CALC)); MAGNESIUM 1.6 mg/dL (1.6-2.3); POTASSIUM 3.4 mmol/l (3.5-5.1); SGOT/AST 42 u/l (14-36); SODIUM 139 mmol/l (137-146); TOTAL PROTEIN 6.9 g/dL (6.3-8.2)
--- NOTE | 2019-09-13 13:02 | NUR ---
PT SITTING UP IN BED WATCHING TV WITH NO REQUESTS OR CONCERNS. FAMILY AT BEDSIDE. CALL LIGHT WITHIN REACH.
[2019-09-13] MEDS ORDERED: LIBRIUM25 M1 PO (14:07)
--- NOTE | 2019-09-13 15:10 | NUR ---
IV site discontinued, cath intact. No edema , no redness, voices no discomfort.
--- NOTE | 2019-09-13 16:06 | NUR ---
Discharge instructions given. Patient verbalizes understanding of same. Discharged in stable condition via Ambulatory to Home with spouse. All belongings sent with pt.
== END 2019-09-13 16:03 ==
LOC: ED 22:36 → ED-I 09-13 → ED 09-13 00:08 → MS2 09-13 00:09 → ED-I 09-13 00:09 → MS2 09-13 00:21
PROVIDERS: Emergency Medicine; Nurse Practitioner Family; ADMIT Internal Medicine; ATTEND Internal Medicine
DX: R07.9 Chest pain, unspecified (principal); R00.2 Palpitations; N39.0 Urinary tract infection, site not specified; F10.10 Alcohol abuse, uncomplicated; F41.9 Anxiety disorder, unspecified; F32.9 Major depressive disorder, single episode, unspecified; B96.20 Unspecified Escherichia coli [E. coli] as the cause of diseases classified elsewhere
CPT/HCPCS: G0378

== ENCOUNTER 2019-10-08 15:11 | Inpatient (IN) | payer OTHER ==
[~2019-10-08] VITALS: Ht 152.4 cm; Wt 49.2 kg
--- NOTE | 2019-10-08 15:12 | NUR ---
PT TO ROOM VIA EMS STRETCHER FOR BEDSIDE TRIAGE, COMPLAINS OF N/V AND SHORT OF BREATH BECAUSE OF N/V. ALSO COMPLAINS OF ABD PAIN RELATED TO VOMITING. STATES HAS BEEN DRINKING FOR LAST 4 DAYS (4 BOTTLES TOTAL) AND STOPPED YESTERDAY AFTERNOON AND STARTED VOMITING YESTERDAY EVENING.ASKED SIGNIFICANT OTHER TO CALL EMS TODAY RELATED TO ABOVE LISTED COMPLAINTS
--- NOTE | 2019-10-08 16:05 | NUR ---
PT RESTING WILL ATTEMPT IV ACCESS, AND COMPLETE EKG, CALL WILHELM WITHIN REACH CONTINUES TO HAVE INTERMITTENT BOUTS OF DRY HEAVING WITH SALIVE EMESIS
[2019-10-08 16:38] LABS: HEMATOCRIT 38.4 % (37.0-47.0); HEMOGLOBIN 11.7 g/dl (12.0-16.0); IMMATURE GRANULOCYTES 0.4 % (0.0-5.0); MEAN CELL VOLUME 88.5 fL CALC (80.0-100.0); MEAN CORPUSCULAR HGB CONC 30.5 g/dL CAL (32.0-36.0); NEUT# 14.82 thou/uL (2.00-7.15); RED BLOOD COUNT 4.34 mill/uL (4.20-5.60); RED CELL DISTRI WIDTH 15.2 % (11.5-15.5)
--- NOTE | 2019-10-08 16:39 | NUR ---
PT RESTING IV ACCESS OBTAINED LABS ROHITH, MEDICATED FOR N/V, IVF IFNUSING RODERED, SMALL SCRAPES AND SCABBED AREAS NOTED TO EXTREMETIES PT STATES THEY ARE FROM HITTING THINGS AT HOME, LIKE STUBBING TOE ON CURB, OR SCRATCHING LEG ON BRANDH OUTSIDE ETC... ICE SHIPS PROVIDED FOR COMFORT.
[2019-10-08 16:50] LABS: ALKALINE PHOSPHATASE 110 u/l (38-126); BILIRUBIN, TOTAL 1.1 mg/dL (0.0-1.4); BUN 14 mg/dL (7-17); BUN/CREATININE RATIO 12 (12-20 (CALC)); CHLORIDE 104 mmol/l (95-108); CREATININE 1.2 mg/dL (0.5-1.0); GFR 46 ML/MIN (>=60 (CALC)); GFR FOR AFR.AMER. 56 ML/MIN (>=60 (CALC)); LIPASE 188 u/l (23-300); SGOT/AST 68 u/l (14-36); SODIUM 143 mmol/l (137-146)
[2019-10-08 16:57] LABS: ALBUMIN 5.3 g/dL (3.2-5.0); ANION GAP 36 (6-22 (CALC)); TOTAL PROTEIN 9.8 g/dL (6.3-8.2)
[2019-10-08 16:58] LABS: CARBON DIOXIDE 7 mmol/l (22-30)
--- NOTE | 2019-10-08 17:20 | NUR ---
PT RESTING OFFERS NO NEW COMPLAINTS, CONTINUE TO COMPLAIN OF INTERMITTENT ABD PAIN MD AWARE
[2019-10-08 17:39] LABS: MAGNESIUM 1.9 mg/dL (1.6-2.3)
--- NOTE | 2019-10-08 18:41 | NUR ---
PT RESTING CONTINUES TO HAVE OCCASIONAL DRY HEAVES, AND COMPLAIN OF ABD PAIN, INTERMITTENTLY, CALL WILHELM WITHIN REACH, AND MD AWARE.
[2019-10-08 19:33] LABS: URINE BILIRUBIN - DIPSTICK NEGATIVE (NEGATIVE); URINE BLOOD DIPSTICK MODERATE (NEGATIVE); URINE COLOR YELLOW; URINE GLUCOSE - DIPSTICK NEGATIVE (NEGATIVE); URINE KETONE >=80 mg/dL (NEGATIVE); URINE LEUK ESTERASE NEGATIVE (NEGATIVE); URINE NITRITE - DIPSTICK NEGATIVE (Negative); URINE PH 6.5 (4.5-8.0); URINE PROTEIN - DIPSTICK 100 mg/dL (NEG-TRACE); URINE UROBILINOGEN - DIPSTICK 0.2 E.U./dL (0.2)
[2019-10-08 19:37] LABS: BARBITURATES NEGATIVE (NEGATIVE); COCAINE NEGATIVE (NEGATIVE); METHADONE NEGATIVE (NEGATIVE); OXCYCODONE NEGATIVE (NEGATIVE); TETRAHYDROCANNABIONOL NEGATIVE (NEGATIVE); TRICYLIC ANTIDEPRESSANTS NEGATIVE (NEGATIVE)
--- NOTE | 2019-10-08 19:42 | NUR ---
Admission Note Report Given to: PABLOANNY Transported by: Wheelchair X Stretcher Transported with: X Nurse Transporter X Patent IV O2 X Cigar Tobacco Processing Supervisor Location: X ICU MS2
--- NOTE | 2019-10-08 19:55 | NUR ---
TO FLOOR VIA STRETCHER
[2019-10-08 20:00] VITALS: BP 151/80
--- NOTE | 2019-10-08 20:00 | NUR ---
PATIENT ARRIVES VIA STRETCHER ACCOMPANIED BY NURSE JOSELITO, ON 3L/MIN NC, BANANA BAG AND IV FLUIDS CONNECTED. PATIENT IS ABLE TO WLK TO ICU BED 5 HAS AN UNSTEADY GAIT, HAS VISIBLE TREMORS, IS ANXIOUS, REPORTS SHE IS SOB AND REPORTS IT IS NOT NEW, HE BECOMES SOB WHEN ANXIOUS. PATIENT SATS 100% ON RA, LI PLACED HER ON 2 L/MIN NC. ST ON TELEMETRY. FEBRILE 100.4. ALERT AND ORIENTED X4. NURSING ASSESSMENT PERFORMED, SEE CHARTING DOCUMENTATION. MANDI REQUESTED TO DO PT INVENTORY SHEET LATER SHE DID NOT FEEL WELL ENOUGH TO FINISH ANSWERING ALL QUESTIONS OR SIGN PAPERWORK. "BOYFRIEND" DONALD CALLED PT HAD ARRIVED, PT WAS ASKED IF HE COULD BE GIVEN INFORMATION WELL PASSCODE, PATIENT CONSENTS, HE IS ALSO LISTED PERSON TO NOTIFY. CINDY 22 G IV INTACT. BED ZEROED BEFORE WEIGHT TAKEN. POC FOR TONIGHT DISCUSSED, PATIENT UNDERSTANDS AND AGREES. CALL LIGHT WITHIN REACH. CIWA PERFORMED, PATIENT REPORTS SHE BINGE DRINKS AT TIMES AND REPORTS SHE IS AN ALCOHOLIC.
[2019-10-08 20:15] VITALS: BP 152/83
[2019-10-08 20:30] VITALS: BP 165/83
--- NOTE | 2019-10-08 20:30 | NUR ---
PATIENT GIVEN TYLEMOL FOR FEVER AND LIBRIUM FOR HER ANXIETY.
[2019-10-08 20:45] VITALS: BP 158/84
--- NOTE | 2019-10-08 20:45 | NUR ---
YPT AG EQUIPMENT FIELD SERVICE TECHNICIAN LIGHT, ASSISTED TO BSC. VOIDS YELLOW AND CLEAR URINE, NO MAL ODOR. NOW BACK IN BED. CALL LIGHT WITHIN REACH.
[2019-10-08 21:00] VITALS: BP 148/81
--- NOTE | 2019-10-08 21:18 | NUR ---
DONALD, PATIENT'S SIGNIFICANT OTHER CALLED HERE, PROVIDED THE PASSCODE AND UPDATED HIM OF PATIENT'S CURRENT STATUS. DONALD REPORTS SHE DRANK IN TOTAL ABOUT "4 PINTS OF LIQUOR THIS PAST WEEKEND," AND "DRINKS ABOUT 1 PINT PER DAY IF SHE CAN GET A HOLD OF IT."
[2019-10-08 21:28] LABS: BUN 14 mg/dL (7-17); BUN/CREATININE RATIO 15 (12-20 (CALC)); CHLORIDE 108 mmol/l (95-108); GFR 57 ML/MIN (>=60 (CALC)); GFR FOR AFR.AMER. > 60 ML/MIN (>=60 (CALC)); POTASSIUM 3.6 mmol/l (3.5-5.1); SODIUM 143 mmol/l (137-146)
[2019-10-08 21:34] LABS: ANION GAP 30 (6-22 (CALC)); CARBON DIOXIDE 9 mmol/l (22-30)
--- NOTE | 2019-10-08 21:50 | NUR ---
PATIENT MANAGER ENVIRONMENTAL LIGHT, SHE SPILLED CONTENT FROM HER EMESIS BAG ON THE BED. WHOLE BED CHANGED. WASH CLOTH PROVIDED. LET HER KNOW IF SHE IS VOMITTING SHE CANNOT DRINK ANYMORE WATER AT THIS TIME. CALL LIGHT WITHIN REACH.
[2019-10-08 22:00] VITALS: BP 149/82
--- NOTE | 2019-10-08 23:09 | NUR ---
PATIENT SITS UP IN BED, WATCHES TV, ASKS WHAT HER CURRENT VS ARE, PROVIDED. NO COMPLAINTS OF NAUSEA, NO SOB NOTED. CALL LIGHT WITHIN REACH.
--- NOTE | 2019-10-08 23:56 | NUR ---
PATIENT CONTINUES TO VOMIT. ZOFRAN IV GIVEN. TEMP IS 99.9, WET WASH CLOTH AND ICE PROVIDED PER REQUEST. PT IS AWAKE, WATCHES TV, DENIES HEADCHE. CIWA PERFROMED.
[2019-10-09] VITALS (11 sets, daily range): BP systolic 104–151; BP diastolic 54–78
--- NOTE | 2019-10-09 01:23 | NUR ---
PT ASSISTED STANDBY TO BSC. NO VOMITING AT THIS TIME. NO ACUTE DISTRESS SHOWN. NOS LAYS BACK IN BED. CALL LIGHT WITHIN REACH.
--- NOTE | 2019-10-09 04:28 | NUR ---
PT CRYPTOGRAPHER LIGHT, REQUESTS ICE AND ANOTHER ICE PACK. PROVIDED. NO ACUTE DISTRESS SHOWN. IS AWAKE, ALERT AND ORIENTED X4. NO COMPLAINTS OF PAIN. DID VOMIT 150 ML. CALL LIGHT WITHIN EACH.
--- NOTE | 2019-10-09 05:45 | NUR ---
patient assisted to bsc. no acute distress shown. no vomiting at this time. sats 99%-100% on ra, however she requests to be on nc for comfort. requests waterm i have explained to her she has been vomiting and vomited after i gave her water last night, no water at this time since she is unable to retain. call light within reach.
[2019-10-09 05:49] LABS: IMMATURE GRANULOCYTES 0.4 % (0.0-5.0); MEAN CELL VOLUME 88.5 fL CALC (80.0-100.0); MEAN CORPUSCULAR HGB 27.9 pG CALC (26.0-32.0); MEAN CORPUSCULAR HGB CONC 31.5 g/dL CAL (32.0-36.0); NEUT# 9.58 thou/uL (2.00-7.15); RED BLOOD COUNT 3.58 mill/uL (4.20-5.60); RED CELL DISTRI WIDTH 15.1 % (11.5-15.5)
[2019-10-09 06:04] LABS: ANION GAP 21 (6-22 (CALC)); BUN 13 mg/dL (7-17); BUN/CREATININE RATIO 17 (12-20 (CALC)); CHLORIDE 113 mmol/l (95-108); CREATININE 0.8 mg/dL (0.5-1.0); GFR > 60 ML/MIN (>=60 (CALC)); GFR FOR AFR.AMER. > 60 ML/MIN (>=60 (CALC)); POTASSIUM 3.5 mmol/l (3.5-5.1); SODIUM 141 mmol/l (137-146)
[2019-10-09 06:05] LABS: HEMATOCRIT 31.7 % (37.0-47.0)
[2019-10-09 06:17] LABS: CARBON DIOXIDE 11 mmol/l (22-30)
--- NOTE | 2019-10-09 08:00 | NUR ---
PT SEEN AWAKE, ALERT, ORIENTED X 3. PT IS SLIGHTLY ANXIOUS, SLIGHTLY TREMULOUS PER ETOH WITHDRAWAL. LUNGS CLEAR, 2 LPM FOR PT COMFORT. ICE BAG FILLED, PT PLACES ON HEAD. PT ADMITS TO DRINKING THREE LARGE BOTTLES SINCE THE 1ST OF THE MONTH SINCE SHE RECEIVED HER CHECK AND RECENTLY HAD A BIRTHDAY.
--- NOTE | 2019-10-09 13:11 | NUR ---
PT REMAINS BEFORE, RESTS IN THE BED IN NO ACUTE DISTRESS. PT STILL WITH TREMORS, BUT NOT WORSENED SINCE EARLIER TODAY. PT WITHOUT NAUSEA, BUT DID NOT EAT MUCH OF NOON MEAL. PT TO BSC WITH STANDBY ASSIST.
--- NOTE | 2019-10-09 15:34 | NUR ---
PT WITH SLIGHT TREMORS, PROVIDED LIBRIUM FOR SAME. PT RESTS IN BED, NO DISTRESS.
--- NOTE | 2019-10-09 19:30 | NUR ---
PATIENT IS AWAKE, ALERT AND ORIENTED X4. ON RA, SATS 100%, NO SOB NOTED, NO COMPLAINTS OF SOB, PAIN, OR NAUSEA. NURSING ASSESSMENT PERFORMED. CIWA SCORE 4 FOR TREMORS WITH ARMS EXTENDED. CINDY 22 G IV INTACT, BANANA BAG INFUSING. SR ON TELEMETRY. ATE ABOUT 25% OF HER DINNER, DRANK ALL OF HER ICED TEA. POC FOR TONIGHT DISCUSSED, PATIENT UNDERSTANDS AND AGREES. PATIENT AGREED TO WASH UP. WAS ABLE TO WASH HERSELF, APPLIED DEODORANT AND LOTION. NO ACUTE DISTRESS SHOWN. NEW GOWN PLACED. NOW LAYS IN BED. SITS UP IN BED, WATCHES TV. CALL LIGHT WITHIN REACH.
--- NOTE | 2019-10-09 21:13 | NUR ---
PT SEARCH ADVERTISING STRATEGIST LIGHT, ASSISTED TO BSC. TEMP CHECKED.
--- NOTE | 2019-10-09 21:29 | NUR ---
SUPERVISOR CLEANING AND ANNEALING IN ROOM TO GET CHEST XRAY ORDERED BY DR LINDER.
[2019-10-10] VITALS (11 sets, daily range): BP systolic 101–137; BP diastolic 60–85
--- NOTE | 2019-10-10 00:35 | NUR ---
DR GONZALEZ AT ARRIVED AT BEDSIDE TO PERFORM CENTRAL LINE PLACEMENT.
--- NOTE | 2019-10-10 01:00 | NUR ---
PATIENT RESTS WITH EYES CLOSED, TEMP CHECKED. NO ACUTE DISTRES SHOWN. CIWA 0
--- NOTE | 2019-10-10 05:00 | NUR ---
pt assisted to bsc. temp 100.2. no acute distress shown. call light within reach.
[2019-10-10 05:07] LABS: HEMATOCRIT 27.9 % (37.0-47.0); MEAN CELL VOLUME 85.6 fL CALC (80.0-100.0); MEAN CORPUSCULAR HGB 27.6 pG CALC (26.0-32.0); MEAN CORPUSCULAR HGB CONC 32.3 g/dL CAL (32.0-36.0); RED BLOOD COUNT 3.26 mill/uL (4.20-5.60); RED CELL DISTRI WIDTH 14.9 % (11.5-15.5)
[2019-10-10 05:19] LABS: ALKALINE PHOSPHATASE 62 u/l (38-126); BILIRUBIN, TOTAL 0.9 mg/dL (0.0-1.4); BUN 7 mg/dL (7-17); BUN/CREATININE RATIO 11 (12-20 (CALC)); CHLORIDE 113 mmol/l (95-108); CREATININE 0.7 mg/dL (0.5-1.0); GFR > 60 ML/MIN (>=60 (CALC)); GFR FOR AFR.AMER. > 60 ML/MIN (>=60 (CALC)); POTASSIUM 2.8 mmol/l (3.5-5.1); SGOT/AST 57 u/l (14-36); SODIUM 139 mmol/l (137-146)
[2019-10-10 05:24] LABS: ANION GAP 13 (6-22 (CALC)); CARBON DIOXIDE 16 mmol/l (22-30); TOTAL PROTEIN 6.4 g/dL (6.3-8.2)
[2019-10-10 05:25] LABS: ALBUMIN 3.3 g/dL (3.2-5.0)
--- NOTE | 2019-10-10 05:35 | NUR ---
tylenol given for temp of 100.2. patient in no acute distress.
--- NOTE | 2019-10-10 08:47 | NUR ---
DR LINDER @BEDSIDE TO EVALUATE PT. DISCUSSED FEVERS & HEARTBURN. OBSERVED PT UP TO BSC FOR URINATION WITH STEADY GAIT. WILL TRANSFER PT TO MSU.
--- NOTE | 2019-10-10 11:49 | NUR ---
PT SLEEPING IN BED, LUNCH PLACED IN ROOM. BREATHING EVEN/UNLABORED. NO S/S OF DISTRESS AT THIS TIME. WILL CONTINUE TO MONITOR.
--- NOTE | 2019-10-10 15:23 | NUR ---
REPORT GIVEN TO ERROL KEARNEY FOR CONTINUATION OF CARE ON MSU 262
--- NOTE | 2019-10-10 15:40 | NUR ---
PT ARRIVED TO MS2 VIA WHEELCHAIR ACCOMPANIED BY ICU NURSE. PT ALERT AND ORIENTED X3, ORIENTED PT TO ROOM AND CALL LIGHT, DISCUSSED POC, PT AMBULATED TO BATHROOM, CALL LIGHT IN REACH,CONTINUE TO MONITOR.
--- NOTE | 2019-10-10 21:15 | NUR ---
PHYSICAL ASSEMENT COMPLETE. VS TAKEN BY LYDIA @ 1945 ASSESSED. PLAN OF CARE REVIEWED W/ PT, DENIES QUESTIONS, VERBALIZES UNDERSTANDING. DENIES NEEDS AT THIS TIME. CALL WILHELM WITHIN REACH, AGREES TO CALL PRN. BED LOCKED IN LOW POSITION W/ BEDRAILS UP X2, ITEMS WITHIN REACH.
[2019-10-11] VITALS: BP 93/65
--- NOTE | 2019-10-11 01:06 | NUR ---
VS TAKEN BY PREVENTIVE MAINTENANCE ENGINEER @ 0000 ASSESSED. PT APPEARS TO BE SLEEPING COMFORTABLY. NO APPARENT DISTRESS. RESPIRATIONS REGULAR AND UNLABORED.CALL WILHELM REMAINS WITHIN REACH. BED REMAINS LOCKED IN LOW POSITION W/ BEDRAILS UP X2, ITEMS REMAIN WITHIN REACH.
[2019-10-11 04:14] VITALS: BP 102/68
--- NOTE | 2019-10-11 05:00 | NUR ---
VS TAKEN BY DELIVERY ROUTE DRIVER @ [id number] ASSESSED. PHYSICAL ASSESMENT REMAINS UNCHANGED. PT RESTING IN BED, APPEARS COMFORTABLE. DENIES PAIN, DENIES NEEDS @ THIS TIME. BED REMAINS LOCKED IN LOW POSITION W/ BEDRAILS UP X2, ITEMS REMAIN WITHIN REACH.
[2019-10-11 05:38] LABS: HEMATOCRIT 31.6 % (37.0-47.0); HEMOGLOBIN 10.1 g/dl (12.0-16.0); MEAN CELL VOLUME 87.1 fL CALC (80.0-100.0); MEAN CORPUSCULAR HGB 27.8 pG CALC (26.0-32.0); RED BLOOD COUNT 3.63 mill/uL (4.20-5.60); RED CELL DISTRI WIDTH 15.1 % (11.5-15.5)
[2019-10-11 06:04] LABS: BUN 9 mg/dL (7-17); BUN/CREATININE RATIO 15 (12-20 (CALC)); CHLORIDE 113 mmol/l (95-108); CREATININE 0.6 mg/dL (0.5-1.0); GFR > 60 ML/MIN (>=60 (CALC)); GFR FOR AFR.AMER. > 60 ML/MIN (>=60 (CALC)); MAGNESIUM 1.8 mg/dL (1.6-2.3); SODIUM 140 mmol/l (137-146)
[2019-10-11 06:05] LABS: ANION GAP 11 (6-22 (CALC)); CARBON DIOXIDE 20 mmol/l (22-30); POTASSIUM 3.5 mmol/l (3.5-5.1)
[2019-10-11 10:12] VITALS: BP 114/73
--- NOTE | 2019-10-11 10:12 | NUR ---
PT SITTING IN BED. A&O X3. NO DISTRESS NOTED. PER PT SHE FEELS A LITTLE BETTER TODAY. DENIES ANY PAIN AT THIS TIME. NO OTHER NEEDS. ASSESSMENT COMPLETED. DISCUSSED POC. CALL LIGHT IN REACH. CONTINUE TO MONITOR.
[2019-10-11 11:23] VITALS: BP 105/65
[2019-10-11 15:10] VITALS: BP 120/65
--- NOTE | 2019-10-11 15:10 | NUR ---
PT TEMP 100.0, TYLENOL GIVEN, BLANKETS REMOVED AND AC TURNED ON IN ROOM. EXPLAINED REASONING BEHIND INTERVENTIONS. PT VERBALIZED UNDERSTANDING. WILL REASSESS.
[2019-10-11 20:23] VITALS: BP 107/69
--- NOTE | 2019-10-11 20:30 | NUR ---
PHYSICAL ASSEMENT COMPLETE. VS TAKEN BY YLDIA @ 2022 ASSESSED. PLAN OF CARE REVIEWED W/ PT, DENIES QUESTIONS, VERBALIZES UNDERSTANDING. DENIES NEEDS AT THIS TIME. CALL WILHELM WITHIN REACH, AGREES TO CALL PRN. BED LOCKED IN LOW POSITION W/ BEDRAILS UP X2, ITEMS WITHIN REACH.
[2019-10-12 00:29] VITALS: BP 103/66
--- NOTE | 2019-10-12 00:50 | NUR ---
VS TAKEN BY LYDIA @ 0029 ASSESSED. PT APPEARS TO BE SLEEPING COMFORTABLY. NO APPARENT DISTRESS. RESPIRATIONS REGULAR AND UNLABORED.CALL WILHELM REMAINS WITHIN REACH. BED REMAINS LOCKED IN LOW POSITION W/ BEDRAILS UP X2, ITEMS REMAIN WITHIN REACH.
[2019-10-12 03:38] VITALS: BP 113/74
[2019-10-12 05:00] VITALS: BP 113/74
--- NOTE | 2019-10-12 05:39 | NUR ---
VS TAKEN BY CHEMICAL STRENGTH TESTER @ 0500 ASSESSED. PHYSICAL ASSESMENT REMAINS UNCHANGED. PT RESTING IN BED, APPEARS COMFORTABLE. DENIES PAIN, DENIES NEEDS @ THIS TIME. BED REMAINS LOCKED IN LOW POSITION W/ BEDRAILS UP X2, ITEMS REMAIN WITHIN REACH. CALL WILHLEM REMAINS WITHIN REACH, AGREES TO CALL PRN.
[2019-10-12 07:47] VITALS: BP 113/73
--- NOTE | 2019-10-12 07:47 | NUR ---
PT SITTING IN BED. A&O X3. NO DISTRESS NOTED. PT REPORTS TO BE FEELING BETTER AND WOULD LIKE TO GO HOME. CIWA ASSESSMENT NEGATIVE. DENIES ANY N&V NO OTHER NEEDS AT THIS TIME. ASSESSMENT COMPLETED. DISCUSED POC. CALL LIGHT IN REACH. CONTINUE TO MONITOR.
[2019-10-12] MEDS ORDERED: AMOX/K CLAV875 M1 PO (09:57)
[2019-10-12] MEDS ORDERED: PANTOPRAZOLE SO40 M1 PO (09:58)
[2019-10-12] MEDS ORDERED: LIBRIUM25 M1 PO (09:58)
[2019-10-12 11:12] VITALS: BP 102/65
[2019-10-12 11:31] LABS: ANION GAP 11 (6-22 (CALC)); BUN 9 mg/dL (7-17); BUN/CREATININE RATIO 15 (12-20 (CALC)); CARBON DIOXIDE 20 mmol/l (22-30); CHLORIDE 112 mmol/l (95-108); CREATININE 0.6 mg/dL (0.5-1.0); GFR > 60 ML/MIN (>=60 (CALC)); GFR FOR AFR.AMER. > 60 ML/MIN (>=60 (CALC)); POTASSIUM 3.5 mmol/l (3.5-5.1); SODIUM 140 mmol/l (137-146)
--- NOTE | 2019-10-12 14:20 | NUR ---
PER PT WAITING FOR HER RIDE HOME TO BECOME AVAILABLE TO GO HOME.
--- NOTE | 2019-10-12 14:40 | NUR ---
D/C INSTRUCTIONS GIVEN TO PATIENT, PT VERBALIZED UNDERSTANDING. IV REMOVED, INTACT UPON REMOVAL. CURRENTLY WAITING FOR RIDE
--- NOTE | 2019-10-12 15:19 | NUR ---
Discharge instructions given. Patient verbalizes understanding of same. Discharged in stable condition via weelchair to home accompanied by Gadiel FREEMAN All belongings sent with pt.
== END 2019-10-12 15:19 | disposition home or self-care (01) | DRG 640 ==
LOC: ED 15:11 → ED-I 18:30 → ED 18:51 → ICU 18:52 → MS2 10-09 11:12 → ICU 10-09 11:12 → MS2 10-10 15:40
PROVIDERS: Family Medicine; ADMIT Internal Medicine; ATTEND Internal Medicine
DX: E87.2 Acidosis (principal); J69.0 Pneumonitis due to inhalation of food and vomit; N17.9 Acute kidney failure, unspecified; F10.10 Alcohol abuse, uncomplicated; F32.9 Major depressive disorder, single episode, unspecified; F41.9 Anxiety disorder, unspecified; G62.9 Polyneuropathy, unspecified; E87.1 Hypo-osmolality and hyponatremia; E83.41 Hypermagnesemia
CPT/HCPCS: J3475; Q9967

== ENCOUNTER 2019-11-19 08:54 | Emergency (ER) | payer OTHER ==
[~2019-11-19 08:54] MED LIST changes: +AMOX/K CLAV875 M1 PO; +PANTOPRAZOLE SO40 M1 PO
[2019-11-19 10:08] LABS: HEMATOCRIT 35.8 % (37.0-47.0); HEMOGLOBIN 11.6 g/dl (12.0-16.0); IMMATURE GRANULOCYTES 0.4 % (0.0-5.0); MEAN CORPUSCULAR HGB 26.4 pG CALC (26.0-32.0); MEAN CORPUSCULAR HGB CONC 32.4 g/dL CAL (32.0-36.0); NEUT# 16.22 thou/uL (2.00-7.15); RED BLOOD COUNT 4.4 mill/uL (4.20-5.60); RED CELL DISTRI WIDTH 16.1 % (11.5-15.5)
[2019-11-19 10:12] LABS: BILIRUBIN, TOTAL 1.1 mg/dL (0.0-1.4); BUN 24 mg/dL (7-17); BUN/CREATININE RATIO 24 (12-20 (CALC)); GFR 57 ML/MIN (>=60 (CALC)); GFR FOR AFR.AMER. > 60 ML/MIN (>=60 (CALC)); LIPASE 402 u/l (23-300); MEAN CELL VOLUME 81.4 fL CALC (80.0-100.0); POTASSIUM 2.8 mmol/l (3.5-5.1); SODIUM 136 mmol/l (137-146)
[2019-11-19 10:13] LABS: CHLORIDE 94 mmol/l (95-108)
[2019-11-19 10:14] LABS: ALKALINE PHOSPHATASE 132 u/l (38-126); ANION GAP 31 (6-22 (CALC)); CARBON DIOXIDE 14 mmol/l (22-30); SGOT/AST 102 u/l (14-36); TOTAL PROTEIN 9.1 g/dL (6.3-8.2)
[2019-11-19 11:56] LABS: PROTHROMBIN TIME 10.4 SECONDS (9.0-12.5)
[2019-11-19 12:00] LABS: URINE BLOOD DIPSTICK LARGE (NEGATIVE); URINE GLUCOSE - DIPSTICK NEGATIVE (NEGATIVE); URINE KETONE >=80 mg/dL (NEGATIVE); URINE LEUK ESTERASE TRACE (NEGATIVE); URINE NITRITE - DIPSTICK NEGATIVE (Negative); URINE PROTEIN - DIPSTICK 100 mg/dL (NEG-TRACE); URINE SPECIFIC GRAVITY 1.025; URINE UROBILINOGEN - DIPSTICK 0.2 E.U./dL (0.2)
[2019-11-19 12:07] LABS: BARBITURATES NEGATIVE (NEGATIVE); COCAINE NEGATIVE (NEGATIVE); METHADONE NEGATIVE (NEGATIVE); OXCYCODONE NEGATIVE (NEGATIVE); TETRAHYDROCANNABIONOL NEGATIVE (NEGATIVE); TRICYLIC ANTIDEPRESSANTS NEGATIVE (NEGATIVE)
[2019-11-19 12:09] LABS: HEMATOCRIT 28.8 % (37.0-47.0); HEMOGLOBIN 9.4 g/dl (12.0-16.0)
[2019-11-19 12:33] LABS: URINE BILIRUBIN - DIPSTICK SMALL (NEGATIVE); URINE COLOR YELLOW
[2019-11-19 12:37] LABS: URINE BACTERIA FEW hpf; URINE EPITHELIAL CELLS FEW EPI/hpf (0-FEW); URINE MUCUS FEW hpf (NONE-FEW)
[2019-11-19 14:12] LABS: HEMOGLOBIN 9.7 g/dl (12.0-16.0)
[2019-11-19 18:15] VITALS: BP 141/84
== END 2019-11-19 18:15 | disposition short-term general hospital (02) ==
LOC: ED 08:54
PROVIDERS: Family Medicine
DX: A41.9 Sepsis, unspecified organism (principal); R79.89 Other specified abnormal findings of blood chemistry; R10.84 Generalized abdominal pain; R11.2 Nausea with vomiting, unspecified; R53.1 Weakness; Z20.828 Contact with and (suspected) exposure to other viral communicable diseases
CPT/HCPCS: J3475; Q9967

== ENCOUNTER 2019-12-15 18:48 | Inpatient (IN) | payer OTHER ==
[~2019-12-15] VITALS: Ht 152.4 cm; Wt 48.3 kg
--- NOTE | 2019-12-15 18:48 | NUR ---
PT. ARRIVED EMS TO ROOM 6 AWAKE ALERT AND ORIENTED. PT. STES SHE HAS NOT HAD A DRINK SINCE LAST NIGHT AND NOW SHE IS HAVING CHEST PAIN.
--- NOTE | 2019-12-15 19:00 | NUR ---
PT HAVING A SEIZURE MD AWARE. O2 3 LIT. PER MD ORDER.
--- NOTE | 2019-12-15 19:08 | NUR ---
VERBAL ORDER FOR ATIVAN 1 MG ATTEMPTED TO GIVE AND MEDICATION LEAKED OUT OV IV ACCESS, WASTED IN PYXIS AND WILL REATTEMPT IV ACCESS FOR DOSE ORDERED.
--- NOTE | 2019-12-15 19:20 | NUR ---
DR GONZALEZ IN ROOM PT. THRASHING UPON BED. ORDERED 2 MG ATIVAN IVP. AND GIVEN.
--- NOTE | 2019-12-15 19:50 | NUR ---
PT. ST. CATHED FRO UA SAMPLE PT. TOLERATED WELL.
--- NOTE | 2019-12-15 20:07 | NUR ---
MVI IVF STARTED PER MD ORDER.
[2019-12-15 20:08] LABS: URINE BILIRUBIN - DIPSTICK NEGATIVE (NEGATIVE); URINE BLOOD DIPSTICK NEGATIVE (NEGATIVE); URINE COLOR YELLOW; URINE GLUCOSE - DIPSTICK NEGATIVE (NEGATIVE); URINE KETONE NEGATIVE (NEGATIVE); URINE LEUK ESTERASE NEGATIVE (NEGATIVE); URINE NITRITE - DIPSTICK NEGATIVE (Negative); URINE PROTEIN - DIPSTICK NEGATIVE (NEG-TRACE); URINE UROBILINOGEN - DIPSTICK 0.2 E.U./dL (0.2)
[2019-12-15 20:28] LABS: HEMATOCRIT 33.6 % (37.0-47.0); HEMOGLOBIN 10.2 g/dl (12.0-16.0); IMMATURE GRANULOCYTES 0.2 % (0.0-5.0); MEAN CELL VOLUME 85.5 fL CALC (80.0-100.0); MEAN CORPUSCULAR HGB CONC 30.4 g/dL CAL (32.0-36.0); NEUT# 3.08 thou/uL (2.00-7.15); RED BLOOD COUNT 3.93 mill/uL (4.20-5.60); RED CELL DISTRI WIDTH 18.6 % (11.5-15.5)
[2019-12-15 20:35] LABS: ACT PARTIAL THROMBO TIME 24.5 SECONDS (20.0-32.5); PROTHROMBIN TIME 10.2 SECONDS (9.0-12.5)
[2019-12-15 20:43] LABS: ALKALINE PHOSPHATASE 128 u/l (38-126); AMYLASE 98 u/l (30-110); BUN 7 mg/dL (7-17); BUN/CREATININE RATIO 9 (12-20 (CALC)); CREATININE 0.8 mg/dL (0.5-1.0); ETHYL ALCOHOL 46 mg/dl (0-30); GFR > 60 ML/MIN (>=60 (CALC)); GFR FOR AFR.AMER. > 60 ML/MIN (>=60 (CALC)); LIPASE 105 u/l (23-300); MAGNESIUM 2.1 mg/dL (1.6-2.3); PHENYTOIN (DILANTIN) < 3 ug/mL (10 - 20); SGOT/AST 44 u/l (14-36); SODIUM 137 mmol/l (137-146); TOTAL PROTEIN 7.7 g/dL (6.3-8.2)
[2019-12-15 20:53] LABS: ANION GAP 14 (6-22 (CALC)); BILIRUBIN, TOTAL 0.3 mg/dL (0.0-1.4); CARBON DIOXIDE 21 mmol/l (22-30); CHLORIDE 106 mmol/l (95-108); POTASSIUM 3.5 mmol/l (3.5-5.1)
[2019-12-15 20:55] LABS: MYOGLOBIN 58 ng/mL (0 - 62)
--- NOTE | 2019-12-15 21:08 | NUR ---
RESTING ON STRETCHER, WILL AWAKEN AND ANSWER QUSTIONS, THEN RETURNS TO SLEEP. NO ACUTE DISTRESS NOTED.
--- NOTE | 2019-12-15 22:07 | NUR ---
NITRO PASTE GIVEN PER MD ORDER.
--- NOTE | 2019-12-15 22:17 | NUR ---
ASA SUPP. GIVEN PER MD ORDER.
--- NOTE | 2019-12-15 23:29 | NUR ---
Admission Note Report Given to: SHEA ALEJO Transported by: Wheelchair X Stretcher Transported with: X Nurse Transporter X Patent IV X O2 X Commissioning Manager Location: X ICU MS2
--- NOTE | 2019-12-15 23:35 | NUR ---
PT. TAKEN TO [facility] VIA STRETCHER, NO C/O AT THIS TIME. V/S STABLE. PT. IS AWAKE AND ALERT ORIENTED X 3.
--- NOTE | 2019-12-15 23:40 | NUR ---
RECEIVED PT TO RM 8. TRANSFERRED TO BED WITHOUT INCIDENT. PT AWAKE AND ALERT.
[2019-12-15 23:45] VITALS: BP 131/81
[2019-12-16] VITALS (15 sets, daily range): BP systolic 99–141; BP diastolic 57–90
--- NOTE | 2019-12-16 00:15 | NUR ---
PT AWAKE AND ALERT. SPEECH PRESSURED, PT MOVEMENTS ARE JITTERY. REVIEWED ROOM SAFETY, VERBALIZED UNDERSTANDING. CALL WILHELM IN REACH.
--- NOTE | 2019-12-16 00:20 | NUR ---
PT STATED SHE HAS NKDA. SHE IS NOT ALLERGIC TO MORPHINE.
--- NOTE | 2019-12-16 02:00 | NUR ---
PT ANXIOUS, JITTERY. MEDICATED PER AUG.
--- NOTE | 2019-12-16 03:40 | NUR ---
PT WITH LIQUID BM. CLEANED PT AND CHANGED LINENS NEEDED.
--- NOTE | 2019-12-16 04:57 | NUR ---
ASSISTED PT TO BEDPAN, VOIDED 250CC DARK URINE. BLOOD DRAWN FOR AM CMP. WATER PROVIDED TO PT. CALL WILHELM IN REACH.
[2019-12-16 05:14] LABS: ALKALINE PHOSPHATASE 121 u/l (38-126); ANION GAP 7 (6-22 (CALC)); BUN 7 mg/dL (7-17); BUN/CREATININE RATIO 10 (12-20 (CALC)); CARBON DIOXIDE 24 mmol/l (22-30); CHLORIDE 109 mmol/l (95-108); CREATININE 0.6 mg/dL (0.5-1.0); GFR > 60 ML/MIN (>=60 (CALC)); GFR FOR AFR.AMER. > 60 ML/MIN (>=60 (CALC)); POTASSIUM 3.5 mmol/l (3.5-5.1); SGOT/AST 25 u/l (14-36); SODIUM 137 mmol/l (137-146); TOTAL PROTEIN 6.2 g/dL (6.3-8.2)
[2019-12-16 05:15] LABS: BILIRUBIN, TOTAL 0.6 mg/dL (0.0-1.4)
--- NOTE | 2019-12-16 06:00 | NUR ---
ASSISTED PT TO BEDPAN. 300CC LIQUID BROWN STOOL. PT CLEANED, LINEN CHANGED NEEDED. CALL WILHELM IN REACH.
--- NOTE | 2019-12-16 06:45 | NUR ---
REPORT FROM SHEA ALEJO. CARE ASSUMED.
--- NOTE | 2019-12-16 06:45 | NUR ---
REPORT TO ALFRED ALEJO.
--- NOTE | 2019-12-16 07:00 | NUR ---
PT AWAKE IN BED REQUESTING BED JIMENEZ. PT ASSISTED UP TO BSC. PT IS ALERT AND ORIENTED X3. SHIFT ASSESSMENT COMPLETED AT THIS TIME. IV PATENT X2. PT ASSISTED BACK TO BED. PT NOTED TO HAVE THE SHAKES. PT MEDICATED WITH ATIVAN PER AUG. CALL LIGHT IN REACH. WILL CONTINUE TO MONITOR.
--- NOTE | 2019-12-16 08:55 | NUR ---
IV site discontinued, cath intact. No edema , no redness, voices no discomfort.
--- NOTE | 2019-12-16 09:20 | NUR ---
DR LINDER AT BEDSIDE AT THIS TIME.
--- NOTE | 2019-12-16 09:45 | NUR ---
PT HAD LARGE STOOL INCONTINENCE. PT ASSISTED TO BSC. PT THEN CLEANSED AND LINENS CHANGED AND ASSISTED BACK TO BED.
--- NOTE | 2019-12-16 10:55 | NUR ---
TROPONIN OBTAINED AT THIS TIME.
--- NOTE | 2019-12-16 11:48 | NUR ---
PT SET UP FOR NOON MEAL AT THIS TIME.
--- NOTE | 2019-12-16 12:20 | NUR ---
PT ASSISTED UP TO BSC TO VOID. PT STATES THAT IV SITE IS PAINFUL. IV DC'D AT THIS TIME. #22 STARTED IN RIGHT WRIST. ATIVAN GIVEN PER AUG. TEMP CHECKED 100.4. Fab CHAU LICENSED PSYCHOLOGIST NOTIFIED. NEW ORDERS RECEIVED.
--- NOTE | 2019-12-16 14:00 | NUR ---
PT RESTING IN BED AWAKE. RESP ARE EVEN AND UNLABORED. NO DISTRESS NOTED. CALL LIGHT IN REACH. WILL CONTINUE TO MONITOR.
[2019-12-16] MEDS ORDERED: MOTRIN800 MG PO (15:11)
[2019-12-16] MEDS ORDERED: FAMOTIDINE20 M1 PO (15:12)
[2019-12-16] MEDS ORDERED: CYMBALTA60 MG PO (15:12)
[2019-12-16] MEDS ORDERED: LOPRESSOR25 MG PO (15:12)
[2019-12-16] MEDS ORDERED: FOLIC ACID1 MG PO (15:13)
[2019-12-16] MEDS ORDERED: NEURONTIN300 MG PO (15:14)
[2019-12-16] MEDS ORDERED: HYDROXYZ HCL50 MG PO (15:15)
[2019-12-16] MEDS ORDERED: MIRTAZAPINE30 M1 PO (15:16)
--- NOTE | 2019-12-16 17:43 | NUR ---
PT SET UP FOR PM MEAL. PT STATES THAT SHE IS READY TO BE DISCHARGED. EXPLAINED THAT THE DOCTOR HAD NOT DISCHARGED HER OF YET. PT VERBALIZED UNDERSTANDING.
--- NOTE | 2019-12-16 18:30 | NUR ---
pt up to bsc at this time. pt then back to bed. call light in reach. will continue to monitor.
--- NOTE | 2019-12-16 19:15 | NUR ---
awake. has obvious tremors. tie cutter shows sinus tach hr 120. #22 rt wrist banana bag infusing @ 125cchr. po fluids taken well. voids per bsc. gets oob without assist. instructed pt to call for assistance. fall precautions cont.
--- NOTE | 2019-12-16 20:00 | NUR ---
up per self to bsc. becomes tangled in iv tubing, school lunch monitor & bp cuff. instructed again to call for assistance.
--- NOTE | 2019-12-16 20:30 | NUR ---
librium 25mg po given for alcohol withdrawal.
--- NOTE | 2019-12-16 22:00 | NUR ---
awake. tremors cont. no sz activity.
[2019-12-17] VITALS (25 sets, daily range): BP systolic 91–189; BP diastolic 48–148
--- NOTE | 2019-12-17 01:00 | NUR ---
iv pulled out. #22 restarted lfa x1 attempt. ativan 2mg ivp given.
--- NOTE | 2019-12-17 01:30 | NUR ---
oob. dressed in street clothes. assisted into gown then back to bed. librium 25mg po given.
--- NOTE | 2019-12-17 01:30 | NUR ---
street clothes removed from room.
--- NOTE | 2019-12-17 02:00 | NUR ---
confused. walking around in room. pt removed cardiac technician, bp cuff, & pulse ox-replaced. after a few minutes pt has removed them again.
--- NOTE | 2019-12-17 04:00 | NUR ---
awake. confused. walking about in room. no acute distress.
--- NOTE | 2019-12-17 05:00 | NUR ---
in out. #22 restarted lfa x1 attempt. blood drawn & sent to lab. ativan 2mg ivp given.
[2019-12-17 05:52] LABS: HEMATOCRIT 29.1 % (37.0-47.0); HEMOGLOBIN 8.9 g/dl (12.0-16.0); MEAN CELL VOLUME 86.1 fL CALC (80.0-100.0); MEAN CORPUSCULAR HGB 26.3 pG CALC (26.0-32.0); MEAN CORPUSCULAR HGB CONC 30.6 g/dL CAL (32.0-36.0); RED BLOOD COUNT 3.38 mill/uL (4.20-5.60); RED CELL DISTRI WIDTH 18.8 % (11.5-15.5)
--- NOTE | 2019-12-17 06:00 | NUR ---
has been awake all night. confused. will not keep ekg monitor, pulse ox or bp cuff on.
[2019-12-17 06:19] LABS: ALBUMIN 3.1 g/dL (3.2-5.0); ALKALINE PHOSPHATASE 101 u/l (38-126); BILIRUBIN, TOTAL 0.8 mg/dL (0.0-1.4); BUN 6 mg/dL (7-17); BUN/CREATININE RATIO 10 (12-20 (CALC)); CARBON DIOXIDE 22 mmol/l (22-30); CHLORIDE 107 mmol/l (95-108); CREATININE 0.6 mg/dL (0.5-1.0); GFR > 60 ML/MIN (>=60 (CALC)); GFR FOR AFR.AMER. > 60 ML/MIN (>=60 (CALC)); SGOT/AST 42 u/l (14-36); SODIUM 132 mmol/l (137-146); TOTAL PROTEIN 6.4 g/dL (6.3-8.2)
[2019-12-17 06:20] LABS: ANION GAP 7 (6-22 (CALC))
[2019-12-17 06:22] LABS: POTASSIUM 4.4 mmol/l (3.5-5.1)
--- NOTE | 2019-12-17 06:45 | NUR ---
RECEIVED REPORT FROM DIONICIO NORTON. CARE ASSUMED.
--- NOTE | 2019-12-17 06:50 | NUR ---
PT NOTED TO BED PACING IN ROOM. PT TAKING SHEETS OFF OF BED. PT UNPLUGGING BED. PT MOVING BED AROUND IN ROOM. PT REMOVING PARTS OF BED. PT UNPLUGGING SOFT CRAB SHEDDER. THIS NURSE INTO ROOM. PT ORIENTED TO SELF ONLY. THIS NURSE NOTIFIED DR LINDER. ORDERS RECEIVED FOR ADDITIONAL DOSE OF ATIVAN 2MG IV.
--- NOTE | 2019-12-17 07:05 | NUR ---
THIS NURSE INTO ROOM TO GIVE ATIVAN ORDERED PT REFUSED. LINENS PLACED ON BED. PT REFUSED TO GET BACK IN BED. THEN ATTEMPTED TO STRIKE OUT AT NURSE. PT BEGAN CURSING AT NURSE. PT CONTINUES TO ERATICALLY PACE IN ROOM. ASKED ED ALEJO TO CALL DR LINDER FOR FURTHER ORDERS. ORDERS RECEIVED FOR BILATERAL SOFT WRIST RESTRAINTS. PT ASSISTED BACK TO BED BY THIS METAL FABRICATOR APPRENTICE JEAN. PT PLACED IN BILATERAL SOFT WRIST RESTRAINTS. PT THEN GIVEN ATIVAN PER MD ORDERS. REORIENTATION CONTINUES TO BE UNSUCCESSFUL. PT CONTINUES TO TALK ALOUD TO OTHERS SHE CLAIMS THAT ARE IN THE ROOM. ATTEMPTED TO REORIENT THAT DONALD (PT SIGNIFICANT OTHER) AND PTS DAUGHTER ARE NOT IN THE ROOM WITH US. PT CONTINUES TO ARGUE. PT PLACED BACK ON STUDIO COUCH FRAME BUILDER. CALL LIGHT IN REACH. WILL CONTINUE TO CLOSELY MONITOR.
--- NOTE | 2019-12-17 07:35 | NUR ---
BIOASSAYIST AND FAMILY MADE AWARE OF PATIENT BEING PLACED IN BILATERAL SOFT WRIST RESTRAINTS. FAMILY OK WITH RESTRAINTS FOR PT AND STAFF SAFETY.
--- NOTE | 2019-12-17 08:10 | NUR ---
PT STANDING UP ON SIDE OF BED WITH ONE ARM UNRESTRAINED AND ONE ARM RESTRAINED. PT ASSISTED BACK TO BED AND PLACED BACK ON KOSHER INSPECTOR. PT REMAINS CONFUSED. WILL CONTINUE TO MONITOR CLOSELY.
--- NOTE | 2019-12-17 09:01 | NUR ---
PT REFUSED TO TAKE PO MEDICATION WILL OFFER AGAIN LATER.
--- NOTE | 2019-12-17 09:36 | NUR ---
PT AT END OF BED WITH ARMS RESTRAINED. ATEEMPTED TO ASSIST PATIENT BACK UP TO BED. PATIENT BEGAN KICKING THIS NURSE AND SWEARING AT THIS NURSE. THIS NURSE ASSISTED PATIENT BACK UP TO HOB.
--- NOTE | 2019-12-17 09:55 | NUR ---
PT AT FOOT OF BED PULLING AT BILATERAL WRIST RESTRAINTS. THIS NURSE AND ED ALEJO ASSISTED PT BACK TO HOB. ZYPREXA GIVEN PER MD ORDERS. WILL CONTINUE TO CLOELY MONITOR.
--- NOTE | 2019-12-17 10:06 | NUR ---
DR LINDER AT BEDSIDE AT THIS TIME
--- NOTE | 2019-12-17 10:30 | NUR ---
PT HAD LARGE URINARY AND STOOL INCONTINENCE. PT CLEANSED. LINENS AND GOWN CHANGED. PT CONTINUES TO CURSE STAFF. WILL CONTINUE TO CLOSELY MONITOR
--- NOTE | 2019-12-17 11:36 | NUR ---
DR LINDER NOTIFIED OF CONTINUED AND INCREASED AGITATIONOF PATIENT.
--- NOTE | 2019-12-17 12:09 | NUR ---
THIS NURSE AT BEDSIDE TO GIVE ATIVAN ORDERED BY . PT STATES THAT SHE IS GOING TO BURY AN ANIMAL. PT KICKED THIS NURSE. PT INSTRUCTED TO NOT STRIKE STAFF. PT CONTINUES TO KICK AT STAFF. PT HAS LEGS OVER BED. ARMS RESTRAINED BILATERALLY WITH SOFT WRIST RESTRAINTS. WILL CONTINUE TO CLOSELY MONITOR.
--- NOTE | 2019-12-17 13:30 | NUR ---
PT CONMTINUES WITH HALLUCINATIONS AND TREMORS AND FIGHTING AND PULLING RESTRAINTS. PT REORIENTED. REORIENTATION UNSUCCESSFUL. PT GIVEN IV PHENOBARBITAL PER MD ORDERS.
--- NOTE | 2019-12-17 14:00 | NUR ---
PT CONTINUES TO BE ABLE TO FIGHT RESTRAINTS AND KICK FEET BUSINESS CONSULT J VEST ON ICU UNIT AND NOTIFIED. RECEIVED ORDERS FOR KATIANA VEST RESTRAINT FOR PATIENT SAFETY AND DUE TO SEVERAL UNSUCCESSFUL ATTEMPTS OF REORIENTING PATIENT. WILL CONTIENUT TO MONITOR.
--- NOTE | 2019-12-17 14:30 | NUR ---
KATIANA VEST PLACED ON PATIENT AT THIS TIME IN ADDITION TO BILATERAL SOFT WRIST RESTRAINTS. WILL CONTINUE TO CLOSELY MONITOR.
--- NOTE | 2019-12-17 15:20 | NUR ---
DR LINDER NOTIFIED OF CONTINUED AGITATION AND THAT PATIENT CONTINUES TO TRY AND GET OUT OF BED DESPITE RESTRAINTS. PT CONTINUES TO HALLUCINATE. PT CONTINUES TO STRIKE OUT AT STAFF WHEN STAFF IN ROOM. NEW ORDERS RECEIVED.
--- NOTE | 2019-12-17 15:45 | NUR ---
PT MEDICATED WITH ZYPREXA 10MG PER MD ORDERS AND MAR. PT HAD LARGE URINARY INCONTINENCE. PT CLENASED. LINENS CHANGED. PT REPOSITIONED IN BED. WILL CONTINUE TO CLOSELY MONITOR.
--- NOTE | 2019-12-17 16:46 | NUR ---
NEXT OF KIN DONALD PHONED FOR UPDATE AND QUESTIONING TO COME AND VISIT. EXPLAINED IN DETAIL THAT SHE WAS NOT ALLOWED VISITORS AT THIS TIME DUE TO ISOLATION PRECUATIONS. THEN QUESTIONED IF PATIENT HAD BEEN GIVEN SEDATIVES. EXPLAINED IN DETAIL ALL MEDICATIONS THAT HAD BEEN GIVEN. THEN DONALD QUESTIONED IF HE COULD TALK TO PATIENT ON PHONE IF SHE WAS COHEREENT. EXPLAINED THAT SHE WAS HAVING ERATIC BEHAVIORS AND HALLUCINATING.
--- NOTE | 2019-12-17 17:00 | NUR ---
DR LINDER NOTIFIED OF SUSTAINED HEART RATE 150-160 WITH CONTINUED AGITATION. ORDERS RECEIVED TO INTUBATE AND SEDATE.
--- NOTE | 2019-12-17 17:43 | NUR ---
DR WINKLER AT BEDSIDE, MARCI RT AT BEDSIDE, ED RN AT BEDSIDE FOR INTUBATION FOLLOWS 174- 20MG ETOMIDATE IVP AND 100MG SUCCINYCHOLINE IVP GIVEN BY DR WINKLER 174-INTUBATED 7.0 23 LIP LINE POSITIVE CO2 COLOR CHANGE AND VERIFIED WITH AUSCULTATION VENT SETTINGS AC 16 TV 450 PEEP 5.0 175- OG INSERTED LIS LIGHT BROWN. VERIFIED WITH AUSCULTATION 175- PROPOFOL STARTED AT 5MCG/KG AT 53KG 175- DR WINKLER PLACED A RIGHT FEMORAL TLC USING STERILE TECHNIQUE 175-VERSED 4MG IVP 180-RADIOLOGY AT BEDSIDE FOR VERIFICATION OF ALL TUBE PLACEMENTS 181- 16FR GOLDBERG PLACED USING STERILE TECHNIQUE WITH IMMEADIATE RETURN OF CLEAR YELLOW URINE. 182- NEXT OF KIN DONALD NOTIFIED OF INTUBATION
--- NOTE | 2019-12-17 18:12 | NUR ---
PT INTUBATED BY DR. WINKLER AT 15:45. ET TUBE 7.0 SECURED 23 @ LIP. PT PLACED ON ORDERED SETTINGS. TOLERATING WELL. MELO SIMON AT BEDSIDE.
--- NOTE | 2019-12-17 19:15 | NUR ---
sedated. vent cont assisted by pt. hob remains up. digital marketing lead shows sinus rhythm hr 88. banana bag infusing @ 125cchr, diprovan infusing @ 60mcg/kg/min per rt fem site. og in place. lis conts. magaña cath in place. urine clear yellow. bilat wrist restraints, scds & fall precautions cont. turned & repositioned.
--- NOTE | 2019-12-17 22:00 | NUR ---
eyes closed. no distress. surveillance system monitor shows sinus rhythm hr 76.
[2019-12-18] VITALS (13 sets, daily range): BP systolic 116–158; BP diastolic 57–94
--- NOTE | 2019-12-18 00:01 | NUR ---
melissa donald assisted by pt. nad. magaña draining well.
--- NOTE | 2019-12-18 02:00 | NUR ---
vent cont assisted by pt. hall monitor shows sinus rhythm hr 78.
--- NOTE | 2019-12-18 04:00 | NUR ---
vent cont assisted by pt. cardenas. nurse sitter shows sinus rhythm hr 80.
--- NOTE | 2019-12-18 05:00 | NUR ---
blood drawn & sent to lab.
--- NOTE | 2019-12-18 05:00 | NUR ---
bath & linen change x2 assist.
[2019-12-18 05:32] LABS: HEMATOCRIT 26.1 % (37.0-47.0); MEAN CELL VOLUME 85.9 fL CALC (80.0-100.0); MEAN CORPUSCULAR HGB 26.3 pG CALC (26.0-32.0); MEAN CORPUSCULAR HGB CONC 30.7 g/dL CAL (32.0-36.0); RED BLOOD COUNT 3.04 mill/uL (4.20-5.60); RED CELL DISTRI WIDTH 18.6 % (11.5-15.5)
[2019-12-18 05:50] LABS: ALBUMIN 2.5 g/dL (3.2-5.0); ALKALINE PHOSPHATASE 91 u/l (38-126); BUN 2 mg/dL (7-17); BUN/CREATININE RATIO 5 (12-20 (CALC)); CARBON DIOXIDE 19 mmol/l (22-30); CHLORIDE 113 mmol/l (95-108); CREATININE 0.5 mg/dL (0.5-1.0); GFR > 60 ML/MIN (>=60 (CALC)); GFR FOR AFR.AMER. > 60 ML/MIN (>=60 (CALC)); SGOT/AST 27 u/l (14-36); TOTAL PROTEIN 5.3 g/dL (6.3-8.2)
--- NOTE | 2019-12-18 05:50 | NUR ---
rt here. abgs drawn.
[2019-12-18 05:59] LABS: ANION GAP 10 (6-22 (CALC)); BILIRUBIN, TOTAL 0.4 mg/dL (0.0-1.4); POTASSIUM 3.2 mmol/l (3.5-5.1); SODIUM 139 mmol/l (137-146)
--- NOTE | 2019-12-18 08:00 | NUR ---
PT IS SEDATED, INTUBATED, RESTS IN THE BED IN NO DISTRESS. PT DOES MOVE SLIGHTLY WITH AM ASSESSMENT. WRIST RESTRAINTS IN PLACE FOR TUBE PROTECTION. PT WITH SLIGHT TREMORS NOTED OCCASIONALLY, NO OVERT SEIZURE ACTIVITY NOTED.
--- NOTE | 2019-12-18 11:48 | NUR ---
FIO2 DECREASED TO 30% PER PROTOCOL.
--- NOTE | 2019-12-18 16:39 | NUR ---
PT REPOSITIONED IN BED. PT SEEN TREMULOUS, PROVIDED ATIVAN ORDERED. OG TUBE ADVANCED 10 CM PER RADIOLOGY READING SUGGESTION.
--- NOTE | 2019-12-18 19:45 | NUR ---
PATIENT IS SEDATED AND ON VENTILATOR. -3 FOR RASS SCALE. PT DOES WITHDRAWAL WITH PAINFUL STIMULI. VENT SETTINGS AT THIS TIME: TIDAL VOLUME 450, FIO2 30%, PEEP 5, RATE 16. 21 CM AT THE LIP, ETT SIXE 7. SATS 98%-100%. NURSING ASSESSMENT PERFORMED. ETT AND MOUTH SUCTIONED, SCANT AMOUNT OF PHLEGM/SALIVA. OG TUBE INTACT, GREEN DRAINAGE NOTED, SCANT AMOUNT. REPOSITIONED, RESTRAINTS RELEASED AT THAT MOMENT. R- FEMORAL TRIPLE LUMEN INTACT, ALL LUMENS FLUSH, BLUE LUMEN DOES NOT RETURN BLOOD. IV FLUIDS INFUSING PROPERLY. SCD'S TAKEN OFF FOR ASSESSMENT, PLACED BACK ON. GOLDBERG CATHETER INTACT, DRAINS TO GRAVITY, GREEN/YELLOW URINE OBSERVED, CLEAR. HOB 30 DEGREES. SR ON TELEMETRY, BP 140'S SYTOLIC. LFA 22 G IV INTACT, FLUSHES PROPERLY, SALINE LOCKED. CALL LIGHT WITHIN REACH.
--- NOTE | 2019-12-18 21:07 | NUR ---
ATIVAN IV GIVEN AT THIS TIME, PT STARTS TO PULL ON THINGS, RESTLESS.
--- NOTE | 2019-12-18 22:00 | NUR ---
PATIENT REPOSITIONED. SUCTIONED ORAL CAVITY, ETT. CLEANED MOUTH.
[2019-12-19] VITALS (19 sets, daily range): BP systolic 105–171; BP diastolic 61–100
--- NOTE | 2019-12-19 | NUR ---
PATIENT REPOSITIONED, SUCTIONED. HEART RATE INCREASES TO 100 BPM WHEN REPOSITIONING. O2 SAT 100%, VENT SETTINGS UNCHANGED. AFEBRILE. BP 130'S SYSTOLIC.
--- NOTE | 2019-12-19 05:13 | NUR ---
PT'S O2 ROPPED TO 83%, PT TENSED UP, SHE WAS SHAKING AND HER HANDS CLENCHED INTO A PROJECT SURVEYOR. WHILE THIS WAS HAPPENNG HER BLOOD PRESSURE READ 171/85 MHG. THIS LASTED ABOUT 2 MINUTES. PT WAS JUST GIVEN ATIVAN IV. O2 NOW READS 100%, VENT SETTINGS UNCHANGED.
[2019-12-19 05:42] LABS: HEMATOCRIT 26.3 % (37.0-47.0); HEMOGLOBIN 8.1 g/dl (12.0-16.0); MEAN CELL VOLUME 85.4 fL CALC (80.0-100.0); MEAN CORPUSCULAR HGB 26.3 pG CALC (26.0-32.0); MEAN CORPUSCULAR HGB CONC 30.8 g/dL CAL (32.0-36.0); RED BLOOD COUNT 3.08 mill/uL (4.20-5.60); RED CELL DISTRI WIDTH 18.7 % (11.5-15.5)
[2019-12-19 06:06] LABS: ALBUMIN 2.2 g/dL (3.2-5.0); ALKALINE PHOSPHATASE 76 u/l (38-126); ANION GAP 10 (6-22 (CALC)); BUN < 2 mg/dL (7-17); CARBON DIOXIDE 17 mmol/l (22-30); CHLORIDE 113 mmol/l (95-108); CREATININE 0.5 mg/dL (0.5-1.0); GFR > 60 ML/MIN (>=60 (CALC)); GFR FOR AFR.AMER. > 60 ML/MIN (>=60 (CALC)); POTASSIUM 2.9 mmol/l (3.5-5.1); SGOT/AST 25 u/l (14-36); SODIUM 137 mmol/l (137-146)
[2019-12-19 06:13] LABS: BILIRUBIN, TOTAL 0.2 mg/dL (0.0-1.4); MAGNESIUM 1.2 mg/dL (1.6-2.3)
--- NOTE | 2019-12-19 07:55 | NUR ---
RESTRAINT ORDER RENEWED BY DR LINDER. HARD COPY IN PT CHART.
--- NOTE | 2019-12-19 08:00 | NUR ---
PT IN BED, INTUBATED AND SEDATED WITH TREMBLING UPON STIMULATION, SUCH TURNING AND SUCTIONING. DR LINDER NOTIFIED.
--- NOTE | 2019-12-19 10:00 | NUR ---
PT RESTING IN BED, BITE BLOCK IN PLACE DUE TO BITING AT ETT.
--- NOTE | 2019-12-19 10:49 | NUR ---
ATIVAN GTT STARTED AT 5ML HOUR/ 2MG HOUR PER DR KAILASH FIELDS.
--- NOTE | 2019-12-19 11:30 | NUR ---
PT ATIVAN GTT BAG SPIKED AND AT BEDSIDE, NOT STARTED DUE TO CALL FROM BED 7. WHEN I RETURNED TO ROOM, HALF OF BAG WAS ON THE FLOOR. VANGIE RN WITNESS TO SPILL, WELL CLEAN UP HELPER BANQUET AND PHARMACIST, SUSAN NOTIFIED.
--- NOTE | 2019-12-19 12:00 | NUR ---
PT IN BED INTUBATED AND SEDATED, SENSITIVE TO TOUCH AND REPOSITIONING WITH INCREASE IN BLOOD PRESSURE.
--- NOTE | 2019-12-19 14:00 | NUR ---
PT VENTED AND SEDATED, ATIVAN GTT INCREASED TO 10ML/HOUR DUE TO AGGITATION AND BITING AT ETT. ALL VSS, WILL CONTINUE TO MONITOR.
--- NOTE | 2019-12-19 16:54 | NUR ---
PT COMPLETE BED BATH. PT HAD A LOOSE BM, GOLDBERG CATHETER CLEANED WITH HIBICLENSE. PT TURNED AND REPOSITIONED.
--- NOTE | 2019-12-19 19:53 | NUR ---
PT VENTED AND SEDATED, NO CHANGE IN ASSESSMENT AT THIS TIME.
--- NOTE | 2019-12-19 20:33 | NUR ---
TITRATING PROPOFOL. VITALS Q5M. PATIENT DOES RESPOND TO PAINFUL STIMULI BY FACIAL EXPRESSIONS AND MOVING HER FEET.
[2019-12-20] VITALS (28 sets, daily range): BP systolic 120–156; BP diastolic 44–91
[2019-12-20 05:59] LABS: HEMATOCRIT 31.4 % (37.0-47.0); HEMOGLOBIN 9.5 g/dl (12.0-16.0); MEAN CELL VOLUME 87.2 fL CALC (80.0-100.0); MEAN CORPUSCULAR HGB 26.4 pG CALC (26.0-32.0); MEAN CORPUSCULAR HGB CONC 30.3 g/dL CAL (32.0-36.0); RED BLOOD COUNT 3.6 mill/uL (4.20-5.60); RED CELL DISTRI WIDTH 19.2 % (11.5-15.5)
[2019-12-20 06:11] LABS: ALBUMIN 2.7 g/dL (3.2-5.0); ALKALINE PHOSPHATASE 95 u/l (38-126); ANION GAP 17 (6-22 (CALC)); BILIRUBIN, TOTAL 0.3 mg/dL (0.0-1.4); BUN < 2 mg/dL (7-17); CARBON DIOXIDE 11 mmol/l (22-30); CHLORIDE 111 mmol/l (95-108); CREATININE 0.5 mg/dL (0.5-1.0); GFR > 60 ML/MIN (>=60 (CALC)); GFR FOR AFR.AMER. > 60 ML/MIN (>=60 (CALC)); MAGNESIUM 1.5 mg/dL (1.6-2.3); POTASSIUM 3.1 mmol/l (3.5-5.1); SGOT/AST 22 u/l (14-36); SODIUM 136 mmol/l (137-146); TOTAL PROTEIN 5.8 g/dL (6.3-8.2)
--- NOTE | 2019-12-20 06:34 | NUR ---
CALLED AND SPOKE TO DR WILKINS, REGARDING PATIENT'S ABG'S THIS AM. NEW ORDERS RECEIVED.
--- NOTE | 2019-12-20 06:45 | NUR ---
REPORT RECEIVED FROM SAADIA ALEJO. CARE ASSUMED AT THIS TIME.
--- NOTE | 2019-12-20 07:20 | NUR ---
PT RESTING IN BED INTUBATED AND SEDATED AT THIS TIME. VSS ON MONITOR. BICARB DRIP INFUSING. IVF INFUSING. ATIVAN GTT INFUSING. PROPOFOL GTT INFUSING. MAGNESIUM 2G STARTED. POTASSIUM 20MEQ STARTED. PT RESPOSITIONED. ORAL CARE PROVIDED. WILL CONTINUE TO CLOSELY MONITOR.
--- NOTE | 2019-12-20 08:20 | NUR ---
DR LINDER AT BEDSIDE
--- NOTE | 2019-12-20 09:32 | NUR ---
RT AT BEDSIDE FOR ABG
--- NOTE | 2019-12-20 09:55 | NUR ---
DR LINDER NOTIFIED OF ABG RESULTS AND INCREASE OF FIO2.
--- NOTE | 2019-12-20 11:30 | NUR ---
AWAKENING TRIAL STARTED AT THIS TIME. SEE TITRATION CHARTING INTERVENTIONS.
--- NOTE | 2019-12-20 12:15 | NUR ---
AWAKENING TRIAL COMPLETE. MEDICATIONS RESUMED. SEE TITRATION CHARTING. PT TOLERATED WELL.
--- NOTE | 2019-12-20 12:59 | NUR ---
RT AT BEDSIDE FOR ABG AT THIS TIME.
--- NOTE | 2019-12-20 13:23 | NUR ---
DR LINDER UPDATED ON ABG RESULTS AND DECREASE OF FIO2.
--- NOTE | 2019-12-20 14:30 | NUR ---
BED BATH AND LINEN CBE PROVIDED. SMALL LIQUID BM NOTED. PT TOLERATED WELL. CALL LIGHT IN REACH. WILL CONTINUE TO MONITOR.
--- NOTE | 2019-12-20 16:00 | NUR ---
PT RESTING IN BED INTUBATED AND SEDATED. VSS ON MONITOR. WILL CONTINUE TO MONITOR.
--- NOTE | 2019-12-20 18:00 | NUR ---
PT RESTING IN BED INTUBATED AND SEDATED. VSS ON MONITOR. WILL CONTINUE TO MONIOTR.
--- NOTE | 2019-12-20 19:00 | NUR ---
remains sedated. vent cont assisted by pt. og cont to lis draining green. typists supervisor shows sinus tach hr 117. banana bag infusing @ 125cchr, bicarb gtt infusing @ 75cchr, ativan gtt infusing @ 2mghr per rt fem tlc. magaña cath in place. urine clear yellow. bilat scds, bilat wrist restraints & fall precautions cont. turned & repositioned. requires total care for all needs.
--- NOTE | 2019-12-20 22:00 | NUR ---
vent cont assisted by pt. no distress. magaña draining well. no sz activity.
[2019-12-21] VITALS (32 sets, daily range): BP systolic 93–151; BP diastolic 58–89
--- NOTE | 2019-12-21 00:01 | NUR ---
eyes closed. no distress. hall monitor shows sinus rhythm hr 90.
--- NOTE | 2019-12-21 02:00 | NUR ---
resting quietly. no apparent distress. hob remains elevated.
--- NOTE | 2019-12-21 04:10 | NUR ---
blood drawn & ent to lab.
--- NOTE | 2019-12-21 05:06 | NUR ---
rt here. abgs drawn.
--- NOTE | 2019-12-21 05:26 | NUR ---
xray here. pcxr obtained. bath given. linen changed.
--- NOTE | 2019-12-21 06:45 | NUR ---
REPORT RECEIVED FROM DIONICIO NORTON. CARE ASSUMED.
--- NOTE | 2019-12-21 07:00 | NUR ---
PT RESTING IN BED INTUBATED AND SEDATED. SHIFT ASSESSMENT COMPLETED AT THIS TIME. DIPROVAN WEANING BEGUN FOR AWAKENING TRIAL. VSS ON MONITOR. WILL CONTINUE TO CLOSELY MONITOR.
--- NOTE | 2019-12-21 09:20 | NUR ---
DR WILKINS AT BEDSIDE AT THIS TIME. ORDERS RECEIVED TO ATTEMPT EXTUBATION.
[2019-12-21 09:31] LABS: HEMATOCRIT 28.4 % (37.0-47.0); HEMOGLOBIN 8.9 g/dl (12.0-16.0); MEAN CELL VOLUME 83.3 fL CALC (80.0-100.0); MEAN CORPUSCULAR HGB 26.1 pG CALC (26.0-32.0); MEAN CORPUSCULAR HGB CONC 31.3 g/dL CAL (32.0-36.0); RED BLOOD COUNT 3.41 mill/uL (4.20-5.60)
[2019-12-21 09:42] LABS: ALBUMIN 2.4 g/dL (3.2-5.0); ALKALINE PHOSPHATASE 84 u/l (38-126); BILIRUBIN, TOTAL 0.3 mg/dL (0.0-1.4); CHLORIDE 104 mmol/l (95-108); CREATININE 0.5 mg/dL (0.5-1.0); GFR > 60 ML/MIN (>=60 (CALC)); GFR FOR AFR.AMER. > 60 ML/MIN (>=60 (CALC)); MAGNESIUM 1.4 mg/dL (1.6-2.3); SGOT/AST 15 u/l (14-36); SODIUM 136 mmol/l (137-146); TOTAL PROTEIN 5.4 g/dL (6.3-8.2)
[2019-12-21 09:43] LABS: ANION GAP 13 (6-22 (CALC)); CARBON DIOXIDE 21 mmol/l (22-30); POTASSIUM 2.3 mmol/l (3.5-5.1)
[2019-12-21 09:44] LABS: BUN 2 mg/dL (7-17); BUN/CREATININE RATIO 4 (12-20 (CALC))
--- NOTE | 2019-12-21 10:15 | NUR ---
PT RESTING IN BED INTUBATED AND SEDATED. CONTINUING TO WEAN PER TITRATION CHARTING. RT AT BEDSIDE. WILL CONTINUE TO CLOSELY MONITOR.
--- NOTE | 2019-12-21 11:00 | NUR ---
PT CONTINUES TO SLOWLY WAKE UP FROM SEDATION. ABLE TO FOLLOW SIMPLE COMMANDS.
--- NOTE | 2019-12-21 11:15 | NUR ---
PT ABLE TO LIFT HEAD OFF OF PILLOW. EVER PREPARE FOR INTUBATION.
--- NOTE | 2019-12-21 11:30 | NUR ---
PT EXTUBATED AT THIS TIME AND PLACED ON O2 4L NC. PT TOLERATED EXTUBATION WELL. OG REMOVED AT THIS TIME WELL.
--- NOTE | 2019-12-21 12:04 | NUR ---
PT RESTING IN BED AWAKE. PT REMAINS NON VERBAL AT THIS TIME. PT A BIT COMBATIVE AND PULLS AWAY WITH NURSING CARE. REORIENTATION UNSUCCESSFUL. DR WILKINS NOTIFIED. CALL LIGHT IN REACH. WILL CONTINUE TO MONITOR.
--- NOTE | 2019-12-21 13:00 | NUR ---
PT RESTING IN BED AWAKE AT THIS TIME. PT TAKING SIPS OF WATER WITHOUT DIFFICULTY. PT FOLLOWS SIMPLE COMMANDS. WILL UNRESTRAIN ON HAND AT THIS TIME AND MONITOR. CALL LIGHT IN REACH. WILL CONTINUE TO MONITOR.
--- NOTE | 2019-12-21 14:00 | NUR ---
RESTRAINTS RELEASED AT THIS TIME. CALL LIGHT IN REACH. WILL CONTINUE TO MONITOR
--- NOTE | 2019-12-21 15:13 | NUR ---
DONALD CALLED FOR UPDATE. REQUESTED VISIT. UPDATE PROVIDED. DECLINED VISIT. EXPLAIEND THAT PATIENT NEEDED TO REST TODAY AND GAIN SOME STRENGTH BACK. DONALD AGREEABLE AND QUESTIONED TO COMING MONDAY INSTRUCTED TO CALL BEFORE COMING.
--- NOTE | 2019-12-21 15:35 | NUR ---
STOOL INCONTINENCE NOTED. PT CLEANSED. PT NOTED TO BE MORE EXCORIATED IN JASEN AREA AND BUTTOCKS. DR WILKINS NOTIFIED. ORDERS RECEIVED FOR PLACEMENT OF RECTAL TUBE.
--- NOTE | 2019-12-21 16:10 | NUR ---
RECTAL TUBE PLACED WITHOUT DIFFICULTY. PT TOLERATED WELL. RECTAL TUBE DRAINING LIQUID STOOL. WILL CONTINUE TO MONITOR.
--- NOTE | 2019-12-21 17:30 | NUR ---
PT SET UP AND ASSISTED WITH DINNER. PT ABLE TO TAKE SMALL SIPS OF CLEAR LIQUID DIET. WILL CONTINUE TO ENCOURAGE TO EAT.
--- NOTE | 2019-12-21 19:20 | NUR ---
drowsy when awakened then returns to sleep. speaks in low tones. admits to being in "[place]." o2 conts per nc. potline monitor shows sinus tach hr 110. rt fem tlc in place. banana bag infusing @ 125cchr. refuses po fluids. [place] cath in place. urine clear yellow. rectal tube in place draining dk green liquid. bilat scds & fall precautions cont.
--- NOTE | 2019-12-21 22:00 | NUR ---
drowsy when awake. no distress. oriented to name. no sz activity.
[2019-12-22] VITALS (11 sets, daily range): BP systolic 107–148; BP diastolic 61–92
--- NOTE | 2019-12-22 00:01 | NUR ---
eyes closed. no distress. secured entrance monitor shows sinus rhythm hr 88.
--- NOTE | 2019-12-22 02:00 | NUR ---
resting quietly. resps even & unlabored. no apparent distress.
--- NOTE | 2019-12-22 04:00 | NUR ---
blood drawn & sent to lab.
[2019-12-22 05:28] LABS: ANION GAP 10 (6-22 (CALC)); CARBON DIOXIDE 23 mmol/l (22-30); CHLORIDE 109 mmol/l (95-108); CREATININE 0.4 mg/dL (0.5-1.0); GFR > 60 ML/MIN (>=60 (CALC)); GFR FOR AFR.AMER. > 60 ML/MIN (>=60 (CALC)); SODIUM 139 mmol/l (137-146)
[2019-12-22 05:29] LABS: BUN 2 mg/dL (7-17); BUN/CREATININE RATIO 5 (12-20 (CALC)); POTASSIUM 3.2 mmol/l (3.5-5.1)
--- NOTE | 2019-12-22 06:00 | NUR ---
awake. confused. no distress. 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
--- NOTE | 2019-12-22 07:10 | NUR ---
PT THROWING HER LEGS OVER BED, REPOSITIONED AND REORIENTED PT TO SURROUNDINGS. PT CONFUSED AT THIS TIME, WILL CONTINUE TO MONITOR.
--- NOTE | 2019-12-22 07:40 | NUR ---
PT REORIENTED TO SELF AND SITUATION, INCREASED ATIVAN GTT TO 5ML/HR= 1MG/HR
--- NOTE | 2019-12-22 09:20 | NUR ---
PT FOUND ON THE FLOOR, RECTAL TUBE OUT, PT CONFUSED. MELO WARD AND LYDIA GONZALEZ, ASSISTED ME WITH GETTING PT BACK INTO BED, PT ABLE TO STAND AND GET BACK INTO BED. PT ASSESSED- SKIN INTACT, NO BLEEDING PRESENT, DENIES PAIN OR DISCOMFORT AT THIS TIME, PT REORIENTED TO SITUATION AND REMINDED NOT TO GET OUT OF BED.
--- NOTE | 2019-12-22 09:30 | NUR ---
LEASE ADMINISTRATOR AND DR WILKINS MADE AWARE OF PT FALL.
--- NOTE | 2019-12-22 10:15 | NUR ---
PT HAD A LOOSE STOOL, IS STILL CONFUSED, REORIENTED TO PLACE AND SITUATION. PT GIVEN FULL BATH/SHEETS CHANGED/ REPOSITIONED. PT IS RESTLESS AND CONTINUES TO THROW HER LEGS OVER BED, BED ALARM ON.
--- NOTE | 2019-12-22 10:16 | NUR ---
ATIVAN GTT INCREASED TO 15ML/HR=3MG/HR
--- NOTE | 2019-12-22 11:00 | NUR ---
ATIVAN GTT INCREASED TO 20ML/HR=4MG/HR
--- NOTE | 2019-12-22 11:10 | NUR ---
PT BM X1 LOOSE STOOL, RECTAL TUBE REAPPLIED TO PT. PARTIAL BATH AND REPOSITIONED IN BED.
--- NOTE | 2019-12-22 11:30 | NUR ---
ATIVAN GTT INCREASED TO 25ML/HR=5MG HR
--- NOTE | 2019-12-22 12:00 | NUR ---
PT IN BED, ANXIOUS/RESTLESS/CONFUSED, REORIENTED TO PLACE SITUATION. ATIVAN GTT AT 5MG/HR, PT ALERT, AFEBRILE, MOVES ALL EXTREMITIES. LYDIA GONZALEZ STATIONED BY DOOR TO MONITOR MORE CLOSELY. SEE PROCESS INTERVENTIONS FOR FULL ASSESSMENT.
--- NOTE | 2019-12-22 14:00 | NUR ---
PT RESTING IN BED, RESTLESS, STIVSN GTT AT 5MG/HR. ALL VSS PER MONITOR.
--- NOTE | 2019-12-22 16:00 | NUR ---
PT IN BED, PULLED RECTAL TUBE OUT. CLEANED PT, PARTIAL BATH, REAPPLIED RECTAL TUBE. PT CONFUSED, ATIVAN GTT AT 5MG/HR. PT RESTLESS/LEGS FLAILING IN THE AIR. REPOSITIONED IN BED. WILL CONTINUE TO MONITOR.
--- NOTE | 2019-12-22 18:00 | NUR ---
PT ATIVAN GTT BAG CHANGED, PT RESTING IN BED WITH EYES OPEN, DENIES PAIN OR DISCOMFORT AT THIS TIME.
--- NOTE | 2019-12-22 20:00 | NUR ---
PATIENT SEDATED ON ATIVAN GTT. AROUSES TO NAME AND TACTILE STIMULI. DROWSY AND CONFUSED. QUICKLY BACK TO SLEEP. RESP NON-LABORED. O2 ON AT 4 L NC. LUNGS CLEAR. DIGISHIELD IN PLACE DRAINING GREEN COLORED LIQUID STOOL. GOLDBERG DRAINS YELLOW URINE WITH GREEN-BLUE HUE. SCD'S ON. RFTLC IN PLACE DSG CDI. SHIFT ASSESSMENT COMPLETED. ATIVAN GTT DECREASED FROM 5 MG/HR TO 4 MG/HR. DAIRY FARM SUPERVISOR SHOWS SR. CALL WILHELM IN REACH. RECEVED ORDERS FRO DR WILKINS FOR POTASSIUM AND MAGNESIUM REPLACEMENT.
--- NOTE | 2019-12-22 21:05 | NUR ---
POTASSIUM 20 MEQ/100 ML NS STARTED AT 50 ML/HR AND MAGNESIUM 4 GM/100 ML NS STARTED AD 25 ML/HR PER ELECTROLYTE REPLACEMENT PROTOCOL FOR MG LEVEL OF 1.4 AND K LEVEL OF 3.2.
--- NOTE | 2019-12-22 21:58 | NUR ---
DIYA OUT, NONE AVAILABLE AT THIS TIME. INCONTINENT OF LIQUID STOOL. SKIN CARE PROVIDED. BARRIER OINTMENT APPLIED TO EXCORIATED JASEN-RECTAL AREA. CHUX AND TOP LINENS CHANGED. VSS. PATIENT COOPERATIVE WITH CARE.
[2019-12-23] VITALS (49 sets, daily range): BP systolic 93–161; BP diastolic 64–93
--- NOTE | 2019-12-23 00:05 | NUR ---
NO CHANGES TO REPORT. AROUSE TO NAME. HAS BEEN CALM AND COOPERATIVE REMAINS ON ATIVAN.
--- NOTE | 2019-12-23 02:00 | NUR ---
SLEEPS UNLESS DISTURBED. OPENS EYES TO NAME. VSS.
--- NOTE | 2019-12-23 04:00 | NUR ---
NO CHANGES TO REPORT. ATIVAN GTT AT 3 MG/HR. GOOD URINE OUTPUT PER GOLDBERG CATHETER. SR ON MONITOR. VSS.
[2019-12-23 05:12] LABS: ANION GAP 6 (6-22 (CALC)); CARBON DIOXIDE 27 mmol/l (22-30); CHLORIDE 108 mmol/l (95-108); CREATININE 0.4 mg/dL (0.5-1.0); GFR > 60 ML/MIN (>=60 (CALC)); GFR FOR AFR.AMER. > 60 ML/MIN (>=60 (CALC)); SODIUM 138 mmol/l (137-146)
[2019-12-23 05:16] LABS: BUN 2 mg/dL (7-17); BUN/CREATININE RATIO 5 (12-20 (CALC)); MAGNESIUM 2.2 mg/dL (1.6-2.3)
--- NOTE | 2019-12-23 06:45 | NUR ---
REPORT RECEIVED FROM JONATHON ALEJO. CARE ASSUMED.
--- NOTE | 2019-12-23 07:00 | NUR ---
PT RESTING IN BED WITH EYES CLOSED. PT AROUSES TO PAINFUL STIMULI. SPEECH IS GARBLED. UNABLE TO STATE NAME. ATIVAN DRIP TITRATED PER TITRATION CHARTING. SHIFT ASSESSMENT COMPLETED AT THIS TIME. IV PATENT X1. CALL LIGHT IN REACH. WILL CONTINUE TO MONITOR.
--- NOTE | 2019-12-23 07:30 | NUR ---
O2 DECREASED TO 2LNC. SATS REMAIN 97%
--- NOTE | 2019-12-23 09:34 | NUR ---
O2 DECREASED TO 1L NC O2 SATS 100%
--- NOTE | 2019-12-23 10:00 | NUR ---
PT AROUSABLE AT THIS TIME. PT ABLE TO STATE NAME. SPEECH IS GARBLED. CALL LIGHT IN REACH. BED ALARM SET FOR PT SAFETY. WILL CONTINUE TO MONITOR.
--- NOTE | 2019-12-23 10:15 | NUR ---
DR LINDER AT BEDSIDE AT THIS TIME.
--- NOTE | 2019-12-23 11:30 | NUR ---
RESERVOIR ENGINEER ASSISTED PT WITH CLEAR LIQUID DIET. PT ATE MINIMAL AT THIS TIME.
--- NOTE | 2019-12-23 12:00 | NUR ---
PT RESTING IN BED AWAKE. PT IS ALERT AND ORIENTED TO SELF ONLY. REORIENTATION UNSUCCESSFUL. BED ALARM CONTINUES TO BE IN PLACE FOR PATIENT SAFETY. CALL LIGHT IN REACH. WILL CONTINUE TO MONITOR.
--- NOTE | 2019-12-23 14:15 | NUR ---
PT CLEANSED OF BM. GOLDBERG CARE PROVIDED. ZINC OXIDE PASTE PROVIDED TO JASEN AREA AND BUTTOCKS PER MD ORDER. CALL LIGHT IN REACH. BED ALARM CONTINUES TO BE IN PLACE FOR PATIENT SAFETY. WILL CONTINUE TO MONITOR.
--- NOTE | 2019-12-23 14:40 | NUR ---
PT ATTEMPTING TO GET OUT OF BED BY PUTTING LEGS OVER SIDE RAILS. PT REORIENTED MULTIPLE TIMES WITHOUT SUCCESS. BED ALARM CONTINUES TO BE IN PLACE FOR PT SAFETY. WILL CONTINUE TO MONITOR CLOSELY.
--- NOTE | 2019-12-23 15:00 | NUR ---
PT CONTINUES TO MAKE MULTIPLE ATTEMPTS TO GET OUT OF BED. REORIENTATION CONTINUES TO BE UNSUCCESSFUL. BED ALARM IN PLACE. WILL NOTIFY DR LINDER.
--- NOTE | 2019-12-23 15:20 | NUR ---
RECEIVED VERBAL ORDER FROM DR LINDER FOR SITTER AT BEDSIDE. SITTER AT BEDSIDE FOR PT SAFETY AT THIS TIME.
--- NOTE | 2019-12-23 16:00 | NUR ---
PT PULLED OUT RECTAL TUBE. RECTAL TUBE REPLACED. PT HAVE CONTINUOUS LIQUID STOOLS. PT CLEANSED. ZINC OXIDE OINTMENT REAPPLIED. CALL LIGHT IN REACH. SITTER REMAINS AT BEDSIDE. WILL CONTINUE TO CLOSELY MONITOR.
--- NOTE | 2019-12-23 17:30 | NUR ---
PT ASSISTED WITH FEEDING UP PM MEAL BY SHOW HOST OR HOSTESS. PT ATE ABOUT 50% OF CLEAR LIQUID DIET. SITTER REMAINS AT BEDSIDE FOR PT SAFETY. REORIENTATION CONTINUES TO BE UNSUCESSFUL. WILL CONTINUE TO MONITOR CLOSLEY.
--- NOTE | 2019-12-23 20:30 | NUR ---
PATIENT RESTING QUIETLY AT THIS TIME. SITTER AT BEDSIDE WITH PATIENT. RESP NON-LABORED. LUNGS CLEAR. ABD SOFT WITH BOWEL SOUNDS. DIGNISHIELD RECTAL TUBE IN PLACE DRAINING GREEN LIQUID STOOL. RIGHT FEMORAL TLC IN PLACE, DSG SOILED WITH DRIED OLD BLOOD UNDER DSG. TLC DSG CHANGED PER PROTOCOL, INSERTION SITE BENIGN. BANANA BAG INFUSING AT THIS TIME. TOOK PM MEDS WITH APPLE JUICE, NO DIFFICULTY SWALLOWING. SHIFT ASSESSMENT COMPLETED. CALL WILHELM IN REACH.
--- NOTE | 2019-12-23 22:05 | NUR ---
PATIENT DOZES ON AND OFF. WHEN AWAKE SOMEWHAT FIDEGTY. NEEDS FREQ REMINDERS TO LAY DOWN AND KEEP HER LEGS IN THE BED. VSS.
[2019-12-24] VITALS (12 sets, daily range): BP systolic 111–165; BP diastolic 61–84
--- NOTE | 2019-12-24 00:20 | NUR ---
CONTINUES TO NAP ON AND OFF. RESP NON-LABORED. VSS. IV INFUSING WITHOUT INCIDENT. SITTER AT BEDSIDE.
--- NOTE | 2019-12-24 01:30 | NUR ---
PATIENT RESTLESS TRYING TO GET OOB, THROW LEGS OVER SIDE RAILS. CONFUSED, UNABLE TO REORIENT. SITTER AT BEDSIDE. ATIVAN 4MG IVP FORRESTLESSNESS AND AGITATION.
--- NOTE | 2019-12-24 02:00 | NUR ---
CALMER AT THIS TIME.
--- NOTE | 2019-12-24 03:00 | NUR ---
CLOSES EYES FOR SHORT INTERVALS.
--- NOTE | 2019-12-24 04:00 | NUR ---
AWAKE AND RESTLESSS AGAIN. REPOSITIONED WITH 2 ASSISTS. SR ON MONITOR. VSS.
--- NOTE | 2019-12-24 05:00 | NUR ---
BLOOD DRAWN FOR LABS ORDERED. REPOSITIONED IN BED.
[2019-12-24 05:20] LABS: HEMOGLOBIN 8.8 g/dl (12.0-16.0); MEAN CELL VOLUME 82.1 fL CALC (80.0-100.0); MEAN CORPUSCULAR HGB 25.8 pG CALC (26.0-32.0); MEAN CORPUSCULAR HGB CONC 31.4 g/dL CAL (32.0-36.0); RED BLOOD COUNT 3.41 mill/uL (4.20-5.60); RED CELL DISTRI WIDTH 18.5 % (11.5-15.5)
[2019-12-24 05:50] LABS: ALBUMIN 2.7 g/dL (3.2-5.0); ALKALINE PHOSPHATASE 77 u/l (38-126); ANION GAP 6 (6-22 (CALC)); BILIRUBIN, TOTAL 0.3 mg/dL (0.0-1.4); CARBON DIOXIDE 28 mmol/l (22-30); CHLORIDE 106 mmol/l (95-108); CREATININE 0.4 mg/dL (0.5-1.0); GFR > 60 ML/MIN (>=60 (CALC)); GFR FOR AFR.AMER. > 60 ML/MIN (>=60 (CALC)); SODIUM 136 mmol/l (137-146); TOTAL PROTEIN 5.8 g/dL (6.3-8.2)
[2019-12-24 05:52] LABS: BUN 2 mg/dL (7-17); BUN/CREATININE RATIO 5 (12-20 (CALC)); MAGNESIUM 1.4 mg/dL (1.6-2.3); SGOT/AST 30 u/l (14-36)
--- NOTE | 2019-12-24 06:00 | NUR ---
COMPLETE BED BATH GIVEN AND LINENS CHANGED. VSS. RESP NON-LABORED. SCD'S CHANGED TO KNEE HIGH NABIL HOSE.
--- NOTE | 2019-12-24 06:45 | NUR ---
REPORT RECEIVED FROM JONATHON ALEJO. CARE ASSUMED.
--- NOTE | 2019-12-24 07:00 | NUR ---
PT RESTING IN BED AWAKE. SPEECH IS GARBLED. PT APPEARS CONFUSED. INAPPRORITATE WORDS TO QUESTIONS ASKED. SHIFT ASSESSMENT COMPLETED AT THIS TIME. IV PATENT X1.SITTER AT BEDSIDE. WILL CONTINUE TO MONITOR.
--- NOTE | 2019-12-24 07:30 | NUR ---
PT MEDICATED EARLY DUE TO ELEVATED BLOOD PRESSURE AND INCEASED AGITATION. SITTER REMIANS AT BEDSIDE. WILL CONTINUE TO MONITOR.
--- NOTE | 2019-12-24 07:50 | NUR ---
SET FOR AM MEAL. SITTER AT BEDSIDE TO ASSIST WILL CONTINUE TO MONITOR.
--- NOTE | 2019-12-24 09:20 | NUR ---
PT PULLED OUT RECTAL TUBE. PT INCONTINENT OF BM. PT CLEANSED. ZINC OXIDE CREAM APPLIED TO JASEN AREA AND BUTTOCKS. WILL LEAVE RECTAL TUBE OUT AT THIS TIME SITTER REMAINS AT BEDSIDE.
--- NOTE | 2019-12-24 10:00 | NUR ---
DR LINDER AT BEDSIDE AT THIS TIME
--- NOTE | 2019-12-24 11:20 | NUR ---
PT SET UP FOR NOON MEAL AND ASSISTED WITH FEEDING. PT HAS TO BE CUED TO EAT AND FED. PT ATE MINIMAL FOOD. PT DRANK WELL. WILL ADD ENSURE TO DIET THREE TIMES A DAY FOR NUTRITION AND CALORIES. SITTER REMAINS AT BEDSIDE.
--- NOTE | 2019-12-24 11:49 | NUR ---
PT REQUESTED BED JIMENEZ FOR BM. PT PLACED ON BED JIMENEZ AT THIS TIME. SITTER AT BEDSIDE.
--- NOTE | 2019-12-24 12:09 | NUR ---
PT OFF BED JIMENEZ. PT CLEANSED OF SMALL LIQUID BM. PT TOLERATED WELL. WILL CONTINUE TO MONITPR
--- NOTE | 2019-12-24 14:07 | NUR ---
PT RESTING IN BED WITH EYES CLOSED. RESP ARE EVEN AND UNLABORED. NO DISTRESS NOTED. VSS ON MONITOR. SITTER AT BEDSIDE. WILL CONTINUE TO MONITOR.
--- NOTE | 2019-12-24 15:37 | NUR ---
SIGNIFICANT OTHER DONALD AT BEDSIDE FOR VISIT AT THIS TIME. SITTER AT BEDSIDE WELL. WILL CONTINUE TO MONITOR
--- NOTE | 2019-12-24 16:00 | NUR ---
PHYSICAL THERAPY INTO SEE PATIENT. PATIENT ASSITED UP TO WALK THEN ASSITED UP TO RECLINER. PT SEATED IN RECLINER AT BEDSIDE.
--- NOTE | 2019-12-24 17:39 | NUR ---
PT SET UP FOR PM MEAL. PT IS ALERT AND ORIENTED X3. PT ABLE TO STATE NAMD AND . PT STATES THAT WE ARE IN A HOSPITAL HOWEVER DOES STATE SHE IS [place]. PT STATES THAT THE YEAR IS 2019. REORIENTED THAT WE ARE IN [place], [place]. SITTER AT BEDSIDE.
--- NOTE | 2019-12-24 19:30 | NUR ---
SITTING UP IN RECLINER. SITTER AT BEDSIDE. PATIENT IS MUCH MORE ALERT TONIGHT, ORIENTED TO PERSON AND PLACE, STATES "HOSPITAL." CALMER AND COOPERATIVE. RESP NON-LABORD. LUNGS CLEAR THROUGHOUT. USED BSC WITH ASSIST FOR SMALL LIQUID GREEN STOOL. GOLDBERG REMAINS IN PLACE. RIGHT FEMORAL TLC IN PLACE, DSG CDI, BANANA BAG INFUSING AT 125 ML/HR. ENVIRONMENTAL SCIENCE INSTRUCTOR SHOWS SR. EXPLAINED PLAN OF CARE. REINFORCE PRN. CALL WILHELM IN REACH.
--- NOTE | 2019-12-24 21:00 | NUR ---
RETURNED TO BED WITH ASSIST OF ONE. TOOK PM MEDS WITH APPLE JUICE.
--- NOTE | 2019-12-24 22:00 | NUR ---
DOZES ON AND OFF. NO COMPLAINTS VOICED.
--- NOTE | 2019-12-24 23:50 | NUR ---
SLEEPING. RESP NON-LABORED. VSS. SR ON MONITOR.
[2019-12-25] VITALS (9 sets, daily range): BP systolic 103–128; BP diastolic 62–81
--- NOTE | 2019-12-25 02:06 | NUR ---
SITTER IN CONSTANT TTENDANCE. PATIENT RESTING WITH EYES CLOSED FOR LONG INTERVALS. PAITENT HAS BEEN CALM AND COOPERATIVE WHEN AWAKE. VSS.
--- NOTE | 2019-12-25 04:00 | NUR ---
NO CHANGES TO REPORT.
--- NOTE | 2019-12-25 06:10 | NUR ---
PATIENT HAS SLEPT FOR LONG INTERVALS TONIGHT. ORIENTED TO PERSONA AND PLACE WHEN AWAKE. INCONTINENT X1 OF MODERATE LIQUID GREEN STOOL, SKIN CARE PROVIDED. BUTT PASTE TO PER-ANAL AREA FOR BREAKDOWN. COOPERATIVE AND PLEASANT.
--- NOTE | 2019-12-25 06:45 | NUR ---
REPORT RECEIVED FROM OUTGOING NURSE.
[2019-12-25 07:03] LABS: ANION GAP 8 (6-22 (CALC)); BUN 5 mg/dL (7-17); BUN/CREATININE RATIO 12 (12-20 (CALC)); CARBON DIOXIDE 26 mmol/l (22-30); CHLORIDE 108 mmol/l (95-108); CREATININE 0.5 mg/dL (0.5-1.0); GFR > 60 ML/MIN (>=60 (CALC)); GFR FOR AFR.AMER. > 60 ML/MIN (>=60 (CALC)); MAGNESIUM 1.5 mg/dL (1.6-2.3); POTASSIUM 3.5 mmol/l (3.5-5.1); SODIUM 139 mmol/l (137-146)
--- NOTE | 2019-12-25 08:00 | NUR ---
PT RESTING IN BED- ALERT TO SELF, STILL CONFUSED. MOVES ALL EXTREMITIES, REFUSED BREAKFAST THIS MORNING. DENIES PAIN OR DISCOMFORT AT THIS TIME.
--- NOTE | 2019-12-25 08:38 | NUR ---
DR LINDER AT BEDSIDE ASSESSING PT.
--- NOTE | 2019-12-25 10:00 | NUR ---
PT RESTING IN BED, CALM AT THIS TIME. SITTER AT BEDSIDE.
--- NOTE | 2019-12-25 11:52 | NUR ---
DR LINDER ORDER TO TRANSFER PT TO MED SURG.
--- NOTE | 2019-12-25 11:58 | NUR ---
WAITING ON BED FROM MED SURG TO TRANSFER.
--- NOTE | 2019-12-25 12:00 | NUR ---
PT RESTING IN BED WATCHING TV, ALERT AND ORIENTED TO SURROUNDING. MOVES ALL EXTREMITIES, AFEBRILE, DENIES PAIN OR DISCOMFORT AT THIS TIME. SEE PROCESS INTERVENTIONS FOR FULL ASSESSMENT.
--- NOTE | 2019-12-25 12:15 | NUR ---
PT GOING TO BED 271 MED [facility]G.
--- NOTE | 2019-12-25 12:35 | NUR ---
PT TRANSFERRED TO MED SURG BED 271 VIA WHEELCHAIR. MELO SIMON TAKING PT.
--- NOTE | 2019-12-25 13:10 | NUR ---
PT TO ROOM 271 VIA WHEELCHAIR ACCOMPANIED BY MANAGER CLINICAL PHARMACY/SITTER. PHONED ICU FOR REPORT AT THIS TIME. REPORT RECEIVED FROM SHEELA ALEJO. PT IS ASSISTED TO BED. PT IS ALERT AND OREITNED X3. RESP ARE EVEN AND UNLABORED. NO DISTRESS NOTED. CALL LIGHT IN REACH. SITTER REMAINS AT BEDSIDE. CALL LIGHT IN REACH. WILL CONTINUE TO MONITOR.
--- NOTE | 2019-12-25 13:59 | NUR ---
PT RESTING IN BED WATCHING TV AND PICKING AT LUNCH, ALERT AND ORIENTED TO SELF AND SURROUNDINGS. MOVES ALL EXTREMITIES, AFEBRILE. SEE PROCESS INTERVENTIONS FOR FULL ASSESSMENT.
--- NOTE | 2019-12-25 15:31 | NUR ---
PHYSICAL THERAPY AT BEDSIDE AMBULATING PATIENT IN ROOM.
--- NOTE | 2019-12-25 15:50 | NUR ---
GOLDBERG REMOVED AT THIS TIME. PT TOLERATED WELL.
--- NOTE | 2019-12-25 16:03 | NUR ---
PT WAS SEEN FOR FUNCTIONAL ACTIVITY AND GT. SHE WAS INDEP ON SUPINE<>SIT, ROLLING AND SCOOTING. HER IMMEDIATE STANDING BALANCE WAS MILDLY IMPAIRED WITH NOTICEABLE GEN. TREMORS. AMB W/O AD WAS ATTEMPTED HOWEVER FOUND UNSAFE. SHE AMB IN THE HALLWAY WHILE HOLDING ONTO IV POLE, THERAPIST OFFERED CGA W/ GAIT BELT AND CONSTANT VERBAL CUEING ON LONGER STRIDES. NOTED SHUFFLING, SHORT STRIDE AND MILD TO MODERATE INSTABILITY ON AMBULATION AND LACK OF SAFETY AWARENESS. ON A FUNCTIONAL STANDPOINT, PT WILL BE INDEP ON SELF-CARE AND WILL BE SAFE TO BE DISCHARGED HOME WITH A QUAD CANE AND HOME HEALTH P.T. FOR GEN. STRENGTHENING, GAIT AND BALANCE TRAINING. AMPAC SCORE: 15 POINTS
--- NOTE | 2019-12-25 19:55 | NUR ---
ASSISTED PT TO RESTROOM AND BACK TO THE BED. 3L TO R.FEM IV ACCESS SITE APPEARS HEALTHY AND BANANA BAG RUNNING TO SITE @125. SMALL BROWN STOOL AND YELLOW URINE OUTPUT AT THIS TIME. PT APPEARS LOC, BUT BED ALARM KEPT ON AT THIS TIME FOR SAFETY PRECAUTIONS AND PT REMINDED TO USE BED ALARM. PT DID CALL FOR ASSISTANCE TO AND FROM RESTROOM.
--- NOTE | 2019-12-25 22:06 | NUR ---
PT MEDICATED ORDERS PROVIDE. NO S/O DISTRESS, MEDICATED FOR HEADACHE AT THIS TIME.
--- NOTE | 2019-12-26 00:04 | NUR ---
PT LOCX5 AT THIS TIME. BED ALARM ON FOR PRECAUTIONARY MEASURES. IVF REPLENISHED AT THIS TIME, PT THANKED ME FOR THE TYLENOL STATING SHE FELT BETTER. PT IS LOC TO SELF, LOCATION AND CIRCUMSTANCE.
[2019-12-26 00:12] VITALS: BP 137/76
[2019-12-26 03:50] VITALS: BP 139/83
--- NOTE | 2019-12-26 04:51 | NUR ---
DOOR FOUND CLOSED, LAB HAD JUST LEFT. PT STATED "HE CLOSED THE DOOR." BED ALARM IS ON AND PT DOOR IS OPEN AT THIS TIME. PT WAS AWAKE AND DENIES ANY NEEDS AT THIS TIME.
[2019-12-26 06:24] LABS: BUN 7 mg/dL (7-17); BUN/CREATININE RATIO 16 (12-20 (CALC)); CARBON DIOXIDE 26 mmol/l (22-30); CHLORIDE 106 mmol/l (95-108); CREATININE 0.4 mg/dL (0.5-1.0); GFR > 60 ML/MIN (>=60 (CALC)); GFR FOR AFR.AMER. > 60 ML/MIN (>=60 (CALC)); MAGNESIUM 1.5 mg/dL (1.6-2.3); SODIUM 138 mmol/l (137-146)
[2019-12-26 06:26] LABS: ANION GAP 9 (6-22 (CALC)); POTASSIUM 3.4 mmol/l (3.5-5.1)
[2019-12-26 08:00] VITALS: BP 118/65
--- NOTE | 2019-12-26 08:00 | NUR ---
ASSESSMENT IS COMPLETED: IV SITE IS FREE FROM REDNESS OR EDEMA. HR IS REG,PULSES ARE STRONG X4, ABD IS SOFT WITH ACTIVE BS. BREATH SOUNDS ARE CLEAR BILATERALLY, CONTINEU TO OSBERVE AND MONITOR.
--- NOTE | 2019-12-26 12:00 | NUR ---
ampac =15 Pt was supine in bed upon arrival. She refused to transfer from supine to sit reporting she felt very dizzy. She did perform SAQ 3x10 and ankle pumps 3x10. Upon second attempt by therapist to assist patient OOB for gait training she stated she still felt dizzy and did not wish to sit up or ambulate at this time. Patient reported she sat upright in chair for a while this morning.
--- NOTE | 2019-12-26 12:30 | NUR ---
PT IS RELAXING IN BED WITH NO DISTRESS NOTED. IV SITE IS FREE FROM REDNESS OR EDEMA. CONTINUE TO OSBERVE AND MONITR
--- NOTE | 2019-12-26 12:30 | NUR ---
SPOKE WITH PT RE: DIZZINESS. WILL CONTINUE TO WATCH PT AND MAKE SURE EVERYTHING IS OK.
[2019-12-26 16:01] VITALS: BP 112/68
--- NOTE | 2019-12-26 16:30 | NUR ---
PT IS RELAXING, IV SITE IS FREE FROM REDNESS OR EDEMA. CONTINUE TO OSBERVE AND MONITOR.
--- NOTE | 2019-12-26 16:40 | NUR ---
PT SPOUSE CALLED AND INQUIRED WHEN SHE CAN BE DISCHARGED. INFORMED WILL HAVE HER READY AFTER WORK.,
--- NOTE | 2019-12-26 18:56 | NUR ---
TRIPLE LUMEN IN FEMORAL WAS TAKEN OUT BY ANDIE ALEJO PT TOLERATED WELL. CATHETER INTACT. COVERED WITH 4X4 AND OPSITE. CONTINUE TO OSBERVE AND MONITOR. DISCHARGE INSTRUCTION HAVE BEEN TYPED UP AND WAITING FOR SPOUSE TO COME.
[2019-12-26 19:36] VITALS: BP 112/75
--- NOTE | 2019-12-26 19:55 | NUR ---
CALLED AND PT TAKEN DOWN VIA WC ACCOMPANIED BY LYDIA FROM MED SURG. PT APPEARED TO BE IN STABLE CONDITION. FEMERAL CDI/NO S/O BLEEDING. PT INSTRUCTED NOT TO SHOWER FOR 24HRS/VERBALIZED UNDERSTANDING. DC ORDERS REVIEWED W/PT/VERBALIZED UNDERSTANDING. PT DID REPORT LOOSING BLACK SPARKLY SLIPPERS SHE THINKS "IN ED" I CALLED ER AND ICU IN AN ATTEMPT TO LOCATE. WE WILL CALL PT IS THEY ARE FOUND. PT STATED, "THAT'S OKAY." I REASSURED PT THAT WE WILL CALL IF THEY ARE LOCATED. ALL DEPT'S ARE CHECKING LOST AND FOUND FOR THEIR DEPT.
== END 2019-12-26 20:50 | disposition home or self-care (01) | DRG 897 ==
LOC: ED 18:48 → ED-I 21:09 → ED 21:28 → ICU 21:29 → MS2 12-25 13:15
PROVIDERS: Internal Medicine; ADMIT Internal Medicine; ATTEND Internal Medicine
PROC: 06HY33Z Insertion of Infusion Device into Lower Vein, Percutaneous Approach (ICD-10-PCS; principal; 2019-12-17)
PROC: 0BH17EZ Insertion of Endotracheal Airway into Trachea, Via Natural or Artificial Opening (ICD-10-PCS; 2019-12-17)
PROC: 5A1945Z Respiratory Ventilation, 24-96 Consecutive Hours (ICD-10-PCS; 2019-12-17)
DX: F10.231 Alcohol dependence with withdrawal delirium (principal); E87.2 Acidosis; G31.2 Degeneration of nervous system due to alcohol; R56.9 Unspecified convulsions; E87.6 Hypokalemia; E83.42 Hypomagnesemia; R07.9 Chest pain, unspecified; F41.9 Anxiety disorder, unspecified; Y90.2 Blood alcohol level of 40-59 mg/100 ml; Z98.1 Arthrodesis status; Z78.1 Physical restraint status; Z86.19 Personal history of other infectious and parasitic diseases; Z20.828 Contact with and (suspected) exposure to other viral communicable diseases
CPT/HCPCS: J1650; J2060; J3475; S0164; S0166

== ENCOUNTER 2020-01-11 13:39 | Emergency (ER) | payer OTHER ==
[~2020-01-11] VITALS: Ht 152.4 cm; Wt 55.0 kg
[~2020-01-11 13:39] MED LIST changes: +CYMBALTA60 MG PO; +FAMOTIDINE20 M1 PO; +FOLIC ACID1 MG PO; +HYDROXYZ HCL50 MG PO; +LOPRESSOR25 MG PO; +MIRTAZAPINE30 M1 PO; +NEURONTIN300 MG PO
[2020-01-11] MEDS ORDERED: DOXYCYCL HYC100 MG PO (14:13)
[2020-01-11 14:30] VITALS: BP 123/71
== END 2020-01-11 14:37 | disposition home or self-care (01) ==
LOC: ED 13:39
DX: Z00.8 Encounter for other general examination (principal); F32.9 Major depressive disorder, single episode, unspecified; F41.9 Anxiety disorder, unspecified; F10.10 Alcohol abuse, uncomplicated

== ENCOUNTER 2020-02-06 06:29 | Emergency (ER) | payer OTHER ==
[~2020-02-06] VITALS: Ht 152.4 cm; Wt 50.9 kg
[~2020-02-06 06:29] MED LIST changes: +DOXYCYCL HYC100 MG PO
[2020-02-06] MEDS ORDERED: DULOXETINE HCL60 MG (06:45)
[2020-02-06] MEDS ORDERED: LOPRESSOR25 M1 PO (06:45)
[2020-02-06 08:20] LABS: HEMOGLOBIN 10.7 g/dl (12.0-16.0); IMMATURE GRANULOCYTES 0.6 % (0.0-5.0); MEAN CELL VOLUME 82.1 fL CALC (80.0-100.0); MEAN CORPUSCULAR HGB 25.2 pG CALC (26.0-32.0); MEAN CORPUSCULAR HGB CONC 30.7 g/dL CAL (32.0-36.0); NEUT# 9.42 thou/uL (2.00-7.15); RED BLOOD COUNT 4.25 mill/uL (4.20-5.60); RED CELL DISTRI WIDTH 16.7 % (11.5-15.5)
[2020-02-06 08:22] LABS: HEMATOCRIT 34.9 % (37.0-47.0)
[2020-02-06 08:39] LABS: POTASSIUM 2.9 mmol/l (3.5-5.1)
[2020-02-06 08:50] LABS: ALBUMIN 4.9 g/dL (3.2-5.0); BILIRUBIN, TOTAL 0.5 mg/dL (0.0-1.4); CREATININE 1.6 mg/dL (0.5-1.0); TOTAL PROTEIN 8.4 g/dL (6.3-8.2)
[2020-02-06 09:16] LABS: URINE BLOOD DIPSTICK MODERATE (NEGATIVE); URINE COLOR YELLOW; URINE GLUCOSE - DIPSTICK NEGATIVE (NEGATIVE); URINE KETONE 40 mg/dL (NEGATIVE); URINE LEUK ESTERASE TRACE (NEGATIVE); URINE NITRITE - DIPSTICK NEGATIVE (Negative); URINE PROTEIN - DIPSTICK 100 mg/dL (NEG-TRACE); URINE SPECIFIC GRAVITY 1.025; URINE UROBILINOGEN - DIPSTICK 0.2 E.U./dL (0.2)
[2020-02-06 09:18] LABS: URINE BILIRUBIN - DIPSTICK SMALL (NEGATIVE)
[2020-02-06 09:22] LABS: URINE BACTERIA FEW hpf; URINE EPITHELIAL CELLS MODERATE EPI/hpf (0-FEW); URINE WBC 0-2 WBC/hpf (0-5)
[2020-02-06] MEDS ORDERED: POT CHLORIDE20 ME3 PO (09:28)
[2020-02-06 10:40] VITALS: BP 118/69
== END 2020-02-06 10:40 | disposition home or self-care (01) ==
LOC: ED 06:29
PROVIDERS: Student in an Organized Health Care Education/Training Program
DX: F10.129 Alcohol abuse with intoxication, unspecified (principal); E87.6 Hypokalemia

== ENCOUNTER 2020-02-06 18:13 | Observation (INO) | payer OTHER ==
[~2020-02-06] VITALS: Ht 152.4 cm; Wt 47.0 kg
[~2020-02-06 18:13] MED LIST changes: +DULOXETINE HCL60 MG; +LOPRESSOR25 M1 PO; +POT CHLORIDE20 ME3 PO
[2020-02-06 19:13] LABS: HEMATOCRIT 33.3 % (37.0-47.0); HEMOGLOBIN 10.2 g/dl (12.0-16.0); IMMATURE GRANULOCYTES 0.3 % (0.0-5.0); MEAN CORPUSCULAR HGB 24.8 pG CALC (26.0-32.0); MEAN CORPUSCULAR HGB CONC 30.6 g/dL CAL (32.0-36.0); NEUT# 8.37 thou/uL (2.00-7.15); RED BLOOD COUNT 4.11 mill/uL (4.20-5.60); RED CELL DISTRI WIDTH 16.6 % (11.5-15.5)
[2020-02-06 19:29] LABS: ALBUMIN 5.1 g/dL (3.2-5.0); AMYLASE 316 u/l (30-110); CREATININE 1.3 mg/dL (0.5-1.0); LIPASE 339 u/l (23-300); TOTAL PROTEIN 8.6 g/dL (6.3-8.2)
[2020-02-07] VITALS (7 sets, daily range): BP systolic 89–112; BP diastolic 51–66
[2020-02-07 13:46] LABS: ANION GAP 16 (6-22 (CALC)); BUN 15 mg/dL (7-17); BUN/CREATININE RATIO 17 (12-20 (CALC)); CARBON DIOXIDE 16 mmol/l (22-30); CREATININE 0.9 mg/dL (0.5-1.0); GFR > 60 ML/MIN (>=60 (CALC)); GFR FOR AFR.AMER. > 60 ML/MIN (>=60 (CALC)); POTASSIUM 2.9 mmol/l (3.5-5.1); SODIUM 135 mmol/l (137-146)
[2020-02-07 13:47] LABS: CHLORIDE 106 mmol/l (95-108)
[2020-02-08 00:03] VITALS: BP 116/60
[2020-02-08 04:15] VITALS: BP 114/70
[2020-02-08 11:30] VITALS: BP 102/62
[2020-02-08 15:17] LABS: ALKALINE PHOSPHATASE 65 u/l (38-126); ANION GAP 11 (6-22 (CALC)); BUN 7 mg/dL (7-17); BUN/CREATININE RATIO 11 (12-20 (CALC)); CARBON DIOXIDE 14 mmol/l (22-30); CHLORIDE 118 mmol/l (95-108); CREATININE 0.6 mg/dL (0.5-1.0); GFR > 60 ML/MIN (>=60 (CALC)); GFR FOR AFR.AMER. > 60 ML/MIN (>=60 (CALC)); POTASSIUM 3.2 mmol/l (3.5-5.1); SGOT/AST 60 u/l (14-36); SODIUM 139 mmol/l (137-146)
[2020-02-08 15:19] LABS: BILIRUBIN, TOTAL 0.3 mg/dL (0.0-1.4); TOTAL PROTEIN 5.9 g/dL (6.3-8.2)
[2020-02-08 15:30] VITALS: BP 100/62
[2020-02-08 19:11] VITALS: BP 106/65
[2020-02-09 00:19] VITALS: BP 131/75
[2020-02-09 04:20] VITALS: BP 127/68
[2020-02-09 05:25] LABS: HEMOGLOBIN 8.7 g/dl (12.0-16.0); MEAN CELL VOLUME 82.8 fL CALC (80.0-100.0); MEAN CORPUSCULAR HGB 25.7 pG CALC (26.0-32.0); MEAN CORPUSCULAR HGB CONC 31.1 g/dL CAL (32.0-36.0); RED BLOOD COUNT 3.38 mill/uL (4.20-5.60); RED CELL DISTRI WIDTH 17.2 % (11.5-15.5)
[2020-02-09 05:47] LABS: ALBUMIN 3.2 g/dL (3.2-5.0); ALKALINE PHOSPHATASE 72 u/l (38-126); ANION GAP 8 (6-22 (CALC)); BILIRUBIN, TOTAL 0.3 mg/dL (0.0-1.4); BUN 7 mg/dL (7-17); BUN/CREATININE RATIO 12 (12-20 (CALC)); CARBON DIOXIDE 18 mmol/l (22-30); CHLORIDE 118 mmol/l (95-108); CREATININE 0.6 mg/dL (0.5-1.0); GFR > 60 ML/MIN (>=60 (CALC)); GFR FOR AFR.AMER. > 60 ML/MIN (>=60 (CALC)); MAGNESIUM 1.5 mg/dL (1.6-2.3); POTASSIUM 3.3 mmol/l (3.5-5.1); SGOT/AST 44 u/l (14-36); SODIUM 141 mmol/l (137-146); TOTAL PROTEIN 6.2 g/dL (6.3-8.2)
[2020-02-09 11:00] VITALS: BP 119/69
[2020-02-09] MEDS ORDERED: ZOFRAN4 MG/TAB PO (11:57)
[2020-02-09 16:15] VITALS: BP 110/73
== END 2020-02-09 17:58 | disposition home or self-care (01) ==
LOC: ED 18:13 → ED-I 21:37 → ED 22:10 → ED-I 22:11 → MS2 23:36
PROVIDERS: Internal Medicine; Nurse Practitioner Family; Student in an Organized Health Care Education/Training Program; ADMIT Internal Medicine; ATTEND Internal Medicine
DX: F10.239 Alcohol dependence with withdrawal, unspecified (principal); F10.229 Alcohol dependence with intoxication, unspecified; E87.6 Hypokalemia; F32.9 Major depressive disorder, single episode, unspecified; F41.9 Anxiety disorder, unspecified; I10 Essential (primary) hypertension; Z90.49 Acquired absence of other specified parts of digestive tract; Z20.828 Contact with and (suspected) exposure to other viral communicable diseases; R11.10 Vomiting, unspecified; R11.2 Nausea with vomiting, unspecified; R19.7 Diarrhea, unspecified; F10.129 Alcohol abuse with intoxication, unspecified
CPT/HCPCS: G0378; J3475; Q9967; S0164

== ENCOUNTER 2020-02-24 18:46 | Emergency (ER) | payer OTHER ==
[~2020-02-24] VITALS: Ht 152.4 cm; Wt 50.0 kg
[~2020-02-24 18:46] MED LIST changes: +ZOFRAN4 MG/TAB PO
[2020-02-24 19:56] LABS: HEMOGLOBIN 8.6 g/dl (12.0-16.0); IMMATURE GRANULOCYTES 0.3 % (0.0-5.0); MEAN CELL VOLUME 84.8 fL CALC (80.0-100.0); MEAN CORPUSCULAR HGB 26.1 pG CALC (26.0-32.0); MEAN CORPUSCULAR HGB CONC 30.7 g/dL CAL (32.0-36.0); NEUT# 7.19 thou/uL (2.00-7.15); RED BLOOD COUNT 3.3 mill/uL (4.20-5.60); RED CELL DISTRI WIDTH 18.6 % (11.5-15.5)
[2020-02-24 20:09] LABS: ALBUMIN 3.7 g/dL (3.2-5.0); ANION GAP 17 (6-22 (CALC)); BILIRUBIN, TOTAL 0.3 mg/dL (0.0-1.4); BUN 11 mg/dL (7-17); BUN/CREATININE RATIO 12 (12-20 (CALC)); CARBON DIOXIDE 18 mmol/l (22-30); CHLORIDE 110 mmol/l (95-108); CREATININE 0.9 mg/dL (0.5-1.0); GFR > 60 ML/MIN (>=60 (CALC)); GFR FOR AFR.AMER. > 60 ML/MIN (>=60 (CALC)); LIPASE 84 u/l (23-300); POTASSIUM 3.2 mmol/l (3.5-5.1); SGOT/AST 32 u/l (14-36); SODIUM 143 mmol/l (137-146)
[2020-02-24 20:10] LABS: ALKALINE PHOSPHATASE 118 u/l (38-126)
[2020-02-24 20:13] LABS: PROTHROMBIN TIME 9.9 SECONDS (9.0-12.5)
[2020-02-24 20:45] VITALS: BP 135/72
[2020-02-24 21:03] VITALS: BP 135/72
== END 2020-02-24 21:07 | disposition short-term general hospital (02) ==
LOC: ED 18:46
PROVIDERS: Emergency Medicine; Family Medicine
DX: K92.0 Hematemesis (principal); D64.9 Anemia, unspecified; F10.129 Alcohol abuse with intoxication, unspecified
CPT/HCPCS: J2354; P9016; S0164

== ENCOUNTER 2020-04-11 09:18 | Inpatient (IN) | payer OTHER ==
[2020-04-11] VITALS (16 sets, daily range): BP systolic 115–137; BP diastolic 68–82
[~2020-04-11] VITALS: Ht 152.4 cm; Wt 45.0 kg
--- NOTE | 2020-04-11 09:20 | NUR ---
[facility].
--- NOTE | 2020-04-11 09:25 | NUR ---
PATIENT TO ROOM VIA WHEELCHAIR AND PHYSICIAN NOTIFIED OF PATIENT STATUS
--- NOTE | 2020-04-11 09:40 | NUR ---
PATIENT MEDICATED WITH 4 MG OF ZOFRAN FOR NAUSEA, IV FLUIDS INFUSING.
--- NOTE | 2020-04-11 09:45 | NUR ---
PT STATES SHE IS NAUSEATED, NOTIFIED, WAITING FOR NEW ORDER
[2020-04-11 10:00] LABS: HEMATOCRIT 30.5 % (37.0-47.0); HEMOGLOBIN 9.4 g/dl (12.0-16.0); IMMATURE GRANULOCYTES 0.3 % (0.0-5.0); MEAN CELL VOLUME 81.8 fL CALC (80.0-100.0); MEAN CORPUSCULAR HGB 25.2 pG CALC (26.0-32.0); MEAN CORPUSCULAR HGB CONC 30.8 g/dL CAL (32.0-36.0); NEUT# 9.84 thou/uL (2.00-7.15); RED BLOOD COUNT 3.73 mill/uL (4.20-5.60); RED CELL DISTRI WIDTH 17.7 % (11.5-15.5)
--- NOTE | 2020-04-11 10:05 | NUR ---
PT BEGAN SEIZING, NOTIFIED, ATIVAN GIVEN PER ORDER. SEIZURE PADS PLACED. SSEIZURE LASTING APPROXIMATELY 2 MIN.
--- NOTE | 2020-04-11 10:12 | NUR ---
O2 PLACED PER PROTOCOL.
--- NOTE | 2020-04-11 10:13 | NUR ---
NASAL TRUMPET PLACED IN LEFT NARE, NO SHAKING AT THIS TIME, HEART RATE DECREASING
--- NOTE | 2020-04-11 10:16 | NUR ---
PT BEGAN SHAKING AGAIN, BUT CAN ANSWER QUESTIONS, NEW ORDER GIVEN, TRAVIS ALEJO PULLED MED AND MED WAS GIVEN
[2020-04-11 10:17] LABS: ALBUMIN 4.3 g/dL (3.2-5.0); ALKALINE PHOSPHATASE 91 u/l (38-126); AMYLASE 123 u/l (30-110); ANION GAP 20 (6-22 (CALC)); BILIRUBIN, TOTAL 0.3 mg/dL (0.0-1.4); BUN 9 mg/dL (7-17); BUN/CREATININE RATIO 14 (12-20 (CALC)); CARBON DIOXIDE 18 mmol/l (22-30); CHLORIDE 106 mmol/l (95-108); CREATININE 0.7 mg/dL (0.5-1.0); ETHYL ALCOHOL 120 mg/dl (0-30); GFR > 60 ML/MIN (>=60 (CALC)); GFR FOR AFR.AMER. > 60 ML/MIN (>=60 (CALC)); LIPASE 92 u/l (23-300); POTASSIUM 3.7 mmol/l (3.5-5.1); SGOT/AST 36 u/l (14-36); SODIUM 141 mmol/l (137-146); TOTAL PROTEIN 8.2 g/dL (6.3-8.2)
[2020-04-11 10:29] LABS: MYOGLOBIN 29 ng/mL (0 - 62)
--- NOTE | 2020-04-11 10:31 | NUR ---
NOTIFIED OF LACTIC ACID, AT THIS TIME NO BLOOD CULTURES TO BE DRAWN. PT RESTING QUIETLY ON STRETCHER, NO SEIZURE ACTIVITY AT THIS TIME
--- NOTE | 2020-04-11 10:45 | NUR ---
[facility] CT [facility]
--- NOTE | 2020-04-11 10:56 | NUR ---
HEART RATE REMAINS IN THE 140'2 2ND EKG OBTAINED SHOWING SINUS TACH
--- NOTE | 2020-04-11 11:00 | NUR ---
PT ALERT/ORIENTED X3, A LITTLE DROWSY FROM VALIUM AND ATIVAN, BUT AWAKENS WITH VERBAL
[2020-04-11 11:12] LABS: URINE BILIRUBIN - DIPSTICK NEGATIVE (NEGATIVE); URINE BLOOD DIPSTICK NEGATIVE (NEGATIVE); URINE COLOR YELLOW; URINE GLUCOSE - DIPSTICK NEGATIVE (NEGATIVE); URINE KETONE NEGATIVE (NEGATIVE); URINE LEUK ESTERASE NEGATIVE (NEGATIVE); URINE NITRITE - DIPSTICK NEGATIVE (Negative); URINE PROTEIN - DIPSTICK TRACE mg/dL (NEG-TRACE); URINE UROBILINOGEN - DIPSTICK 0.2 E.U./dL (0.2)
--- NOTE | 2020-04-11 11:25 | NUR ---
NO SEIZURE ACTIVITY NOTED AT THIS TIME. HEART RATE REMAINS IN THE 140'S, NOTIFIED. NO NEW ORDERS AT THIS TIME.
--- NOTE | 2020-04-11 11:44 | NUR ---
HEART RATE DROPPED TO 130'S, BLOOD PRESSURE STABLE AT THIS TIME. PT REQUESTING WARM BLANKETS, CALL LIGHT WITHIN REACH
--- NOTE | 2020-04-11 12:19 | NUR ---
PT RESTING QUIETLY, ADVISED OF ADMISSION FOR OBS. VOICES UNDERSTANDING. NO SEIZURE ACTIVITY AT THIS TIME. PT ALERT/ORIENTED X3.
--- NOTE | 2020-04-11 12:29 | NUR ---
PT IS GETTING RESTLESS AT THIS TIME, MOVING ALL AROUND ON BED, NO SEIZURE ACTIVITY
[2020-04-11] MEDS ORDERED: METOPROL TAR25 MG PO (12:30)
[2020-04-11] MEDS ORDERED: DULOXETINE HCL60 MG PO (12:31)
--- NOTE | 2020-04-11 12:32 | NUR ---
TRIED TO CALL REPORT TO ICU, NURSING STAFF WAS BUSY WILL RETURN CALL SOON POSSIBLE
--- NOTE | 2020-04-11 12:44 | NUR ---
PT APPEARS TO BECOMING AGITATED AGAIN, STATES THIS IS WHAT HAPPENS WHEN SHE TRIES TO QUIT DRINKING. STATES SHE HAS RESTLESS LEG SYNDROME.
--- NOTE | 2020-04-11 12:55 | NUR ---
PT STATESSHE IS NAUSEATED. DR. LUCIO WROTE ORDER FOR 4 MG. ZOFRAN
--- NOTE | 2020-04-11 13:10 | NUR ---
SPOKE TO DR. WILKINS FOR A VERBAL ORDER FOR ICU OF VALIUM 10 MG. FOR SEIZURE NEEDED. FAXED ORDER TO PHARMACY
--- NOTE | 2020-04-11 13:26 | NUR ---
NEW ORDER RECEIVED FOR KEPPRA TO BE GIVEN NOW
--- NOTE | 2020-04-11 14:05 | NUR ---
PT RESTING QUIETLY AT THIS TIME, KEYARA INFUSED, CALL LIGHT WITHIN REACH
--- NOTE | 2020-04-11 14:18 | NUR ---
PT VERY RESTLESS, MOVING LEGS ALL OVER, APPEARS TO BE VERY ANXIOUS, WILL START TAKING RAPID BREATHS BUT IF YOU GO IN AND TALK TO HER AND TELL HER TO TAKE SLOW DEEP BREATHS SHE WILL RELAX. STATES THIS ALWAYS HAPPENS WHEN SHE TRIES TO QUIT DRINKING. HEART RATE REMAINS IN THE 110-120, DENIES ANY CHEST PAIN, PT A/O X3, WATCHING TV
--- NOTE | 2020-04-11 14:32 | NUR ---
REPORT GIVEN TO ICU NURSE AND WILL TAKE PT TO FLOOR PER STRETCHER AND CARDIAC MONITER
--- NOTE | 2020-04-11 14:40 | NUR ---
PT ARRIVED TO ICU BED 4 IN STABLE CONDITION VIA STRETCHER ACCOMPANIED BY MELO ALVARADO;PT ASSISTED TO HOSPITAL BED WITH MINIMAL ASSISTANCE;PT A&O X3, ORIENTED TO ROOM AND CALL LIGHY SYSTEM;PT REPORTS BINGE DRINKING SINCE Monday04/07/20;PT DENIES ANY CURRENT PAIN OR DISCOMFORTS,PAIN SCALE AND REPORTING EDUCATED;VISABLE TREMORS NOTED THROUGHOUT;RESPIRATIONS SHALLOW ON O2 @ 2L VIA NC,CLEAR LUNG SOUNDS;NON-PRODUCTIVE COUGH NOTED AT TIMES;ABDOMEN SOFT ON PALPATION AND ACTIVE IN ALL 4 QUADRANTS,LAST BM 04/11/20;STRONG PEDAL PULSES;SKIN INTACT;#20G TO RFA FLUSHED AND PATENT,NS STARTED @ 150ML/HR PER ORDER;#22G TO LFA ALSO FLUSHED AND PATENT,SITE APPEARS HEALTHY;CARDIAC MONITORING PLACED ON PT READING ST 100-110;ALLERGY AND FALL BAND NOTED TO CINDY;PT DENIES ANY ADDITIONAL NEEDS AT THIS TIME AND IS ENCOURAGED TO CALL FOR ASSISTANCE IF NEEDED;FALL AND SEIZURE PRECAUTIONS IN PLACE WITH BED IN THE LOWEST POSITION AND CALL LIGHT IN REACH;WILL CONTINUE TO MONITOR
--- NOTE | 2020-04-11 14:45 | NUR ---
PT. TAKEN TO ICU PER STRETCHER/CARDIAC MONITER
--- NOTE | 2020-04-11 16:50 | NUR ---
PT APPEARS TO BE SLEEPING IN SEMI FOWLERS POSITION;RESPIRATIONS EVEN AND UNLABORED ON O2 @ 2L VIA NC;NO S/S OF DISTRESS NOTED;CARDIAC MONITORING IN PLACE;IV FLUIDS INFUSING WITH EASE PER ORDER;ASSESSMENT REMAINS UNCHANGED AT THIS TIME;FALL AND SEIZURE PRECAUTIONS REMAIN IN PLACE WITH CALL LIGHT IN REACH;WILL CONTINUE TO MONITOR
--- NOTE | 2020-04-11 18:10 | NUR ---
PT ASSISTED TO BEDSIDE COMMODE WITH WEAK GAIT AND X1 PERSON ASSIST;RESPIRATIONS REMAIN EVEN AND UNLABORED ON O2 @ 2L VIA NC;PT DENIES ANY CURRENT PAIN OR DISCOMFORTS;TREMORS STILL NOTED THROUGHOUT BODY BUT PT SEEMS TO BE CALMER AT THIS TIME;ENCOURAGED TO CALL FOR ASSISTANCE IF NEEDED;FALL AND SEIZURE PRECAUTIONS REMAIN IN PLACE;CALL LIGHT IN REACH;WILL CONTINUE TO MONITOR
--- NOTE | 2020-04-11 19:15 | NUR ---
awake. tremors cont. no sz activity. o2 cont per nc. book coverer shows sinus tach hr 118. #22 lfa saline lock. #20 rfa ns infusing @ [id number]. po fluids taken well. voids per bsc. fall, sz & air/contact precautions cont.
--- NOTE | 2020-04-11 22:00 | NUR ---
eyes closed. no distress. dental therapist shows sinus tach hr 110.
[2020-04-12] VITALS (7 sets, daily range): BP systolic 119–141; BP diastolic 57–84
--- NOTE | 2020-04-12 00:01 | NUR ---
eyes closed. no distress. ivf infusing well.
--- NOTE | 2020-04-12 02:00 | NUR ---
resting quietly. resps even & unlabored. no apparent distress.
--- NOTE | 2020-04-12 03:00 | NUR ---
up to [facility]. [place] well. tremors cont.
--- NOTE | 2020-04-12 06:00 | NUR ---
eyes closed. no distress. no sz activity this shift.
--- NOTE | 2020-04-12 06:50 | NUR ---
REPORT RECEIVED FROM TISSUE PACKER. PT RESTING QUIETLY, VITAL SIGNS STABLE
--- NOTE | 2020-04-12 08:51 | NUR ---
PT APPEARS CALMER TODAY THEN YESTERDAY AT THIS TIME. RESTING WATCHING TV, LEGS REMAIN IN CONSTANT MOTION, SHE STATES SHE THINKS SHE HAS RESTLESS LEG SYNDROME BUT NEVER GONE TO DOCTOR FOR A CONFIRMATIVE
--- NOTE | 2020-04-12 09:22 | NUR ---
PT UP TO BATHROOM, SMALL BM NOTED. PT DID OWN PERICARE, PLACED BACK IN BED, STATES SHE JUST WANTS TO GO TO SLEEP NOW, VITAL SIGNS STABLE. CALM/NON AGITATED AT THIS TIME
--- NOTE | 2020-04-12 10:38 | NUR ---
DR. WILKINS SPEAKING WITH PT. IS GIVING HER AN OPTION TO EITHER GO HOME IF SHE FEELS COMFORTABLE TODAY OR STAY ONE MORE NIGHT, SHE STATES SHE MIGHT STAY ONE MORE NIGHT WILL DECIDED LATER. DR. WILKINS NOTIFIED. STATES HE WILL WRITE UP THE ORDERS AND SHE CAN MAKE THE DECISION.
--- NOTE | 2020-04-12 10:42 | NUR ---
PT RESTING QUIETLY ON BED, NO SEIZURE ACTIVITY AT THIS TIME, IS CALM AND COOPERATIVE.
[2020-04-12 10:53] LABS: HEMATOCRIT 26.6 % (37.0-47.0); HEMOGLOBIN 8.1 g/dl (12.0-16.0); IMMATURE GRANULOCYTES 0.4 % (0.0-5.0); MEAN CELL VOLUME 83.6 fL CALC (80.0-100.0); MEAN CORPUSCULAR HGB 25.5 pG CALC (26.0-32.0); MEAN CORPUSCULAR HGB CONC 30.5 g/dL CAL (32.0-36.0); NEUT# 3.08 thou/uL (2.00-7.15); RED BLOOD COUNT 3.18 mill/uL (4.20-5.60); RED CELL DISTRI WIDTH 17.5 % (11.5-15.5)
[2020-04-12 11:12] LABS: BUN 6 mg/dL (7-17); BUN/CREATININE RATIO 9 (12-20 (CALC)); CHLORIDE 109 mmol/l (95-108); CREATININE 0.7 mg/dL (0.5-1.0); GFR > 60 ML/MIN (>=60 (CALC)); GFR FOR AFR.AMER. > 60 ML/MIN (>=60 (CALC)); POTASSIUM 3.3 mmol/l (3.5-5.1); SODIUM 137 mmol/l (137-146)
[2020-04-12 11:14] LABS: ANION GAP 8 (6-22 (CALC)); CARBON DIOXIDE 23 mmol/l (22-30)
--- NOTE | 2020-04-12 11:39 | NUR ---
PT REMAINS CALM/ORIENTED X3, TRAY TAKEN IN FOR LUNCH, VITAL SIGNS STABLE
--- NOTE | 2020-04-12 12:12 | NUR ---
PT SITTING UP IN BED WATCHING TV, NO COMPLAINTS AT THIS TIME
--- NOTE | 2020-04-12 12:45 | NUR ---
PT UP TO BATHROOM WITH LARGE AMOUNT OF DIARRHEA . PT STATES FEELS MUCH BETTER.
--- NOTE | 2020-04-12 13:14 | NUR ---
NO CHANGE IN CONDITION, CONTINUES TO WATCH TV, APPEARS TO BE CALM EXCEPT FOR RESTLESS LEGS,
--- NOTE | 2020-04-12 16:22 | NUR ---
NO CHANGE TO PT STATUS, VITAL SIGNS REMAIN STABLE. DENIES ANY PAIN, STATES SHE HAS NOT CHANGED HER MIND ABOUT WANTING TO GO HOME TONIGHT, CALL LIGHT WITHIN REACH, PT REMAINS CALM AND POLITE AT THIS TIME
--- NOTE | 2020-04-12 17:44 | NUR ---
PT SITTING UP ON BED EATING DINNER MEAL, WATCHING TV
--- NOTE | 2020-04-12 19:10 | NUR ---
awake. no sz activity. up to bsc per request then back to bed. pt cont to have tremors but denies distress. quality assurance monitor final shows sinus rhythm hr 96. iv rfa red & d/c'd. #22 lfa ns infusing @ [id number]. po fluids taken well. fall, sz & air/contact precautions cont.
--- NOTE | 2020-04-12 20:40 | NUR ---
vistaril 50mg po per request for anxiety.
[2020-04-13 00:01] VITALS: BP 133/74
--- NOTE | 2020-04-13 00:01 | NUR ---
eyes closed. no distress. laboratory monitor shows sinus rhythm rhythm hr 84.
--- NOTE | 2020-04-13 02:00 | NUR ---
resting quietly. resps even & unlabored.
[2020-04-13 03:00] VITALS: BP 106/57
--- NOTE | 2020-04-13 04:00 | NUR ---
awake. no c/o voiced. ivf infusing well.
--- NOTE | 2020-04-13 04:50 | NUR ---
lab here. blood drawn.
[2020-04-13 05:00] VITALS: BP 127/75
[2020-04-13 05:06] LABS: HEMATOCRIT 25.5 % (37.0-47.0); HEMOGLOBIN 7.5 g/dl (12.0-16.0); IMMATURE GRANULOCYTES 0.2 % (0.0-5.0); MEAN CELL VOLUME 85.6 fL CALC (80.0-100.0); MEAN CORPUSCULAR HGB 25.2 pG CALC (26.0-32.0); MEAN CORPUSCULAR HGB CONC 29.4 g/dL CAL (32.0-36.0); NEUT# 1.84 thou/uL (2.00-7.15); RED BLOOD COUNT 2.98 mill/uL (4.20-5.60); RED CELL DISTRI WIDTH 17.2 % (11.5-15.5)
[2020-04-13 05:33] LABS: ANION GAP 7 (6-22 (CALC)); BUN 5 mg/dL (7-17); BUN/CREATININE RATIO 8 (12-20 (CALC)); CARBON DIOXIDE 21 mmol/l (22-30); CHLORIDE 116 mmol/l (95-108); CREATININE 0.6 mg/dL (0.5-1.0); GFR > 60 ML/MIN (>=60 (CALC)); GFR FOR AFR.AMER. > 60 ML/MIN (>=60 (CALC)); POTASSIUM 3.8 mmol/l (3.5-5.1); SODIUM 140 mmol/l (137-146)
--- NOTE | 2020-04-13 06:00 | NUR ---
no sz activity this shift.
--- NOTE | 2020-04-13 06:45 | NUR ---
RECIEVED REPORT FROM ERROL GREENBERG. ASSUMED PT CARE.
[2020-04-13 07:29] VITALS: BP 135/73
--- NOTE | 2020-04-13 07:30 | NUR ---
PT RESTING IN BED, A&OX4, ABLE TO MAKE NEEDS KNOWN. PT VERY ACTIVE WITH MOVEMENT, HYPER. SR ON TELEMETRY, HR 88. PT DENIES CP, SOB OR DISTRESS AT THIS TIME. RESPIRATIONS EVEN/UNLABORED, SA02@98%RA, LS CLEAR THROUGHOUT. ABDOMEN SOFT, NON-TENDER. BSX4 ACTIVE. LBM 04-12-20. PT STATED SHE IS GOING HOME TODAY. CALL LIGHT IN REACH. WILL MONITOR.
--- NOTE | 2020-04-13 08:00 | NUR ---
DR. RUBIO & ANTHONY Crystal AT [facility] FOR ASSESSMENT AND TO DISCUSS PLAN OF CARE, NEW ORDERS RECIEVED.
--- NOTE | 2020-04-13 08:15 | NUR ---
IV site discontinued, cath intact. No edema , no redness, voices no discomfort.
[2020-04-13 08:58] VITALS: BP 140/67
--- NOTE | 2020-04-13 09:35 | NUR ---
Discharge instructions given. Patient verbalizes understanding of same. Discharged in stable condition via Wheelchair to Home with family. All belongings sent with pt.
== END 2020-04-13 09:35 | disposition home or self-care (01) | DRG 918 ==
LOC: ED 09:18 → ED-I 11:30 → ED 11:43 → ICU 11:44
PROVIDERS: Emergency Medicine; ADMIT Internal Medicine; ATTEND Internal Medicine
DX: T51.0X1A Toxic effect of ethanol, accidental (unintentional), initial encounter (principal); E87.2 Acidosis; F10.229 Alcohol dependence with intoxication, unspecified; G40.409 Other generalized epilepsy and epileptic syndromes, not intractable, without status epilepticus; F32.9 Major depressive disorder, single episode, unspecified; F41.9 Anxiety disorder, unspecified; J38.00 Paralysis of vocal cords and larynx, unspecified; Z20.828 Contact with and (suspected) exposure to other viral communicable diseases
CPT/HCPCS: J1953; J2060; J3360

== ENCOUNTER 2020-05-06 04:32 | Observation (INO) | payer OTHER ==
[~2020-05-06] VITALS: Ht 152.4 cm; Wt 57.3 kg
[~2020-05-06 04:32] MED LIST changes: +DULOXETINE HCL60 MG PO; +METOPROL TAR25 MG PO
[2020-05-06 05:26] LABS: HEMATOCRIT 32.6 % (37.0-47.0); HEMOGLOBIN 9.7 g/dl (12.0-16.0); IMMATURE GRANULOCYTES 0.2 % (0.0-5.0); MEAN CELL VOLUME 80.5 fL CALC (80.0-100.0); MEAN CORPUSCULAR HGB CONC 29.8 g/dL CAL (32.0-36.0); NEUT# 7.78 thou/uL (2.00-7.15); RED BLOOD COUNT 4.05 mill/uL (4.20-5.60); RED CELL DISTRI WIDTH 17.8 % (11.5-15.5)
[2020-05-06 05:40] LABS: ALBUMIN 4.5 g/dL (3.2-5.0); ALKALINE PHOSPHATASE 100 u/l (38-126); AMYLASE 93 u/l (30-110); BILIRUBIN, TOTAL 0.2 mg/dL (0.0-1.4); BUN 9 mg/dL (7-17); BUN/CREATININE RATIO 12 (12-20 (CALC)); CHLORIDE 110 mmol/l (95-108); CREATININE 0.7 mg/dL (0.5-1.0); ETHYL ALCOHOL 127 mg/dl (0-30); GFR > 60 ML/MIN (>=60 (CALC)); GFR FOR AFR.AMER. > 60 ML/MIN (>=60 (CALC)); LIPASE 100 u/l (23-300); POTASSIUM 3.3 mmol/l (3.5-5.1); SGOT/AST 34 u/l (14-36); SODIUM 146 mmol/l (137-146); TOTAL PROTEIN 8.1 g/dL (6.3-8.2)
[2020-05-06 05:43] LABS: ANION GAP 23 (6-22 (CALC)); CARBON DIOXIDE 16 mmol/l (22-30)
[2020-05-06 09:00] VITALS: BP 126/72
[2020-05-06 09:20] VITALS: BP 158/77
[2020-05-06 10:21] LABS: URINE BILIRUBIN - DIPSTICK NEGATIVE (NEGATIVE); URINE BLOOD DIPSTICK TRACE-INTACT (NEGATIVE); URINE COLOR YELLOW; URINE GLUCOSE - DIPSTICK NEGATIVE (NEGATIVE); URINE KETONE TRACE mg/dL (NEGATIVE); URINE LEUK ESTERASE NEGATIVE (NEGATIVE); URINE NITRITE - DIPSTICK NEGATIVE (Negative); URINE PROTEIN - DIPSTICK TRACE mg/dL (NEG-TRACE); URINE SPECIFIC GRAVITY 1.015; URINE UROBILINOGEN - DIPSTICK 0.2 E.U./dL (0.2)
[2020-05-06 12:00] VITALS: BP 123/73
[2020-05-06 15:00] VITALS: BP 113/66
[2020-05-06 18:30] VITALS: BP 112/69
[2020-05-07 00:10] VITALS: BP 94/54
[2020-05-07 01:12] VITALS: BP 111/61
[2020-05-07 03:43] VITALS: BP 98/57
[2020-05-07 05:18] LABS: HEMOGLOBIN 7.8 g/dl (12.0-16.0); MEAN CELL VOLUME 81.4 fL CALC (80.0-100.0); MEAN CORPUSCULAR HGB 24.5 pG CALC (26.0-32.0); MEAN CORPUSCULAR HGB CONC 30.1 g/dL CAL (32.0-36.0); RED BLOOD COUNT 3.18 mill/uL (4.20-5.60); RED CELL DISTRI WIDTH 17.7 % (11.5-15.5)
[2020-05-07 05:32] LABS: HEMATOCRIT 25.9 % (37.0-47.0)
[2020-05-07 05:41] LABS: ANION GAP 10 (6-22 (CALC)); BUN 7 mg/dL (7-17); BUN/CREATININE RATIO 8 (12-20 (CALC)); CARBON DIOXIDE 21 mmol/l (22-30); CHLORIDE 115 mmol/l (95-108); CREATININE 0.8 mg/dL (0.5-1.0); GFR > 60 ML/MIN (>=60 (CALC)); GFR FOR AFR.AMER. > 60 ML/MIN (>=60 (CALC)); SODIUM 143 mmol/l (137-146)
[2020-05-07 07:22] VITALS: BP 108/71
[2020-05-07] MEDS ORDERED: LIBRIUM10 M1 PO (09:49)
[2020-05-07] MEDS ORDERED: ZOFRAN4 MG/TAB PO (10:05)
[2020-05-07 11:44] VITALS: BP 114/62
[2020-05-07 14:20] VITALS: BP 114/62
== END 2020-05-07 14:43 | disposition home or self-care (01) ==
LOC: ED 04:32 → ED-I 06:40 → ED 06:53 → MS2 06:54
PROVIDERS: Nurse Practitioner; ADMIT Internal Medicine; ATTEND Internal Medicine
DX: F10.239 Alcohol dependence with withdrawal, unspecified (principal); G40.89 Other seizures; E87.6 Hypokalemia; F41.9 Anxiety disorder, unspecified; F32.9 Major depressive disorder, single episode, unspecified; I10 Essential (primary) hypertension; M79.672 Pain in left foot
CPT/HCPCS: G0378; J2060; Q9967; S0164

== ENCOUNTER 2020-08-18 06:37 | Inpatient (IN) | payer OTHER ==
[~2020-08-18] VITALS: Ht 152.4 cm; Wt 60.0 kg
[~2020-08-18 06:37] MED LIST changes: +LIBRIUM10 M1 PO
[2020-08-18 07:45] LABS: HEMOGLOBIN 9.7 g/dl (12.0-16.0); IMMATURE GRANULOCYTES 0.5 % (0.0-5.0); MEAN CORPUSCULAR HGB 22.5 pG CALC (26.0-32.0); MEAN CORPUSCULAR HGB CONC 29.7 g/dL CAL (32.0-36.0); NEUT# 11.27 thou/uL (2.00-7.15); RED BLOOD COUNT 4.32 mill/uL (4.20-5.60); RED CELL DISTRI WIDTH 21.6 % (11.5-15.5)
[2020-08-18 07:47] LABS: HEMATOCRIT 32.7 % (37.0-47.0); MEAN CELL VOLUME 75.7 fL CALC (80.0-100.0)
[2020-08-18 08:04] LABS: ALBUMIN 4.9 g/dL (3.2-5.0); ALKALINE PHOSPHATASE 111 u/l (38-126); AMYLASE 113 u/l (30-110); BUN 18 mg/dL (7-17); BUN/CREATININE RATIO 22 (12-20 (CALC)); CHLORIDE 106 mmol/l (95-108); CREATININE 0.8 mg/dL (0.5-1.0); ETHYL ALCOHOL 0 mg/dl (0-30); GFR > 60 ML/MIN (>=60 (CALC)); GFR FOR AFR.AMER. > 60 ML/MIN (>=60 (CALC)); LIPASE 87 u/l (23-300); MAGNESIUM 2.1 mg/dL (1.6-2.3); SGOT/AST 52 u/l (14-36); SODIUM 142 mmol/l (137-146); TOTAL PROTEIN 8.5 g/dL (6.3-8.2)
[2020-08-18 08:07] LABS: ACT PARTIAL THROMBO TIME 19.7 SECONDS (20.0-32.5); PROTHROMBIN TIME 9.5 SECONDS (9.0-12.5)
[2020-08-18 08:12] LABS: ANION GAP 28 (6-22 (CALC)); BILIRUBIN, TOTAL 0.9 mg/dL (0.0-1.4); CARBON DIOXIDE 12 mmol/l (22-30); POTASSIUM 3.8 mmol/l (3.5-5.1)
[2020-08-18 10:25] LABS: URINE BILIRUBIN - DIPSTICK NEGATIVE (NEGATIVE); URINE BLOOD DIPSTICK TRACE-LYSED (NEGATIVE); URINE COLOR YELLOW; URINE GLUCOSE - DIPSTICK NEGATIVE (NEGATIVE); URINE KETONE 40 mg/dL (NEGATIVE); URINE LEUK ESTERASE TRACE (NEGATIVE); URINE NITRITE - DIPSTICK NEGATIVE (Negative); URINE PH 6.5 (4.5-8.0); URINE PROTEIN - DIPSTICK 30 mg/dL (NEG-TRACE); URINE SPECIFIC GRAVITY 1.025; URINE UROBILINOGEN - DIPSTICK 0.2 E.U./dL (0.2)
[2020-08-18 10:32] LABS: URINE BACTERIA FEW hpf; URINE EPITHELIAL CELLS MODERATE EPI/hpf (0-FEW); URINE RBC 0-2 RBC/hpf (0-5)
[2020-08-18 13:54] VITALS: BP 147/75
[2020-08-18 16:18] VITALS: BP 128/66
[2020-08-18 18:00] VITALS: BP 142/67
[2020-08-18 20:00] VITALS: BP 125/69
[2020-08-18 22:00] VITALS: BP 128/76
[2020-08-19] VITALS (8 sets, daily range): BP systolic 97–125; BP diastolic 53–74
[2020-08-19 06:14] LABS: HEMOGLOBIN 8.1 g/dl (12.0-16.0); IMMATURE GRANULOCYTES 0.2 % (0.0-5.0); MEAN CORPUSCULAR HGB 22.6 pG CALC (26.0-32.0); MEAN CORPUSCULAR HGB CONC 28.9 g/dL CAL (32.0-36.0); NEUT# 3.11 thou/uL (2.00-7.15); RED BLOOD COUNT 3.59 mill/uL (4.20-5.60); RED CELL DISTRI WIDTH 21.6 % (11.5-15.5)
[2020-08-19 06:36] LABS: ALKALINE PHOSPHATASE 66 u/l (38-126); BILIRUBIN, TOTAL 0.7 mg/dL (0.0-1.4); BUN 12 mg/dL (7-17); BUN/CREATININE RATIO 17 (12-20 (CALC)); CALCULATED LDLCHOLESTEROL 34 mg/dL (62-129 (CALC)); CHLORIDE 112 mmol/l (95-108); CHOLESTEROL HDL RATIO 1.6 (<4.4 (CALC)); CREATININE 0.7 mg/dL (0.5-1.0); GFR > 60 ML/MIN (>=60 (CALC)); GFR FOR AFR.AMER. > 60 ML/MIN (>=60 (CALC)); HDL CHOLESTEROL 107 mg/dL (>=40); MAGNESIUM 1.8 mg/dL (1.6-2.3); SGOT/AST 40 u/l (14-36); SODIUM 137 mmol/l (137-146); TOTAL CHOLESTEROL 169 mg/dl (0-199); TOTAL TRIGLYCERIDES 143 mg/dl (30-149); VLDL CHOLESTROL 29 mg/dl (2-49 (CALC))
[2020-08-19 06:40] LABS: ALBUMIN 2.9 g/dL (3.2-5.0); ANION GAP 11 (6-22 (CALC)); CARBON DIOXIDE 17 mmol/l (22-30); TOTAL PROTEIN 5.9 g/dL (6.3-8.2)
[2020-08-20 00:24] VITALS: BP 90/48
[2020-08-20 00:32] VITALS: BP 108/68
[2020-08-20 04:00] VITALS: BP 107/65
[2020-08-20 05:14] LABS: HEMATOCRIT 29.2 % (37.0-47.0); HEMOGLOBIN 8.5 g/dl (12.0-16.0); MEAN CELL VOLUME 78.5 fL CALC (80.0-100.0); MEAN CORPUSCULAR HGB 22.8 pG CALC (26.0-32.0); MEAN CORPUSCULAR HGB CONC 29.1 g/dL CAL (32.0-36.0); RED BLOOD COUNT 3.72 mill/uL (4.20-5.60); RED CELL DISTRI WIDTH 21.8 % (11.5-15.5)
[2020-08-20 05:50] LABS: ANION GAP 7 (6-22 (CALC)); BUN 5 mg/dL (7-17); BUN/CREATININE RATIO 7 (12-20 (CALC)); CARBON DIOXIDE 20 mmol/l (22-30); CHLORIDE 115 mmol/l (95-108); CREATININE 0.7 mg/dL (0.5-1.0); GFR > 60 ML/MIN (>=60 (CALC)); GFR FOR AFR.AMER. > 60 ML/MIN (>=60 (CALC)); MAGNESIUM 1.7 mg/dL (1.6-2.3); POTASSIUM 3.5 mmol/l (3.5-5.1); SODIUM 138 mmol/l (137-146)
[2020-08-20] MEDS ORDERED: PANTOPRAZOLE SO40 M1 PO (09:18)
[2020-08-20] MEDS ORDERED: LIBRIUM25 M1 PO (09:19)
[2020-08-20 10:30] VITALS: BP 125/80
== END 2020-08-20 11:15 | disposition home or self-care (01) | DRG 897 ==
LOC: ED 06:37 → ED-I 09:50 → ED 10:06 → ED-I 10:07 → MS2 10:07 → ICU 10:07 → MS2 08-19 11:02
PROVIDERS: Nurse Practitioner; ADMIT Internal Medicine; ATTEND Internal Medicine
DX: F10.131 Alcohol abuse with withdrawal delirium (principal); E87.6 Hypokalemia; E83.42 Hypomagnesemia; I10 Essential (primary) hypertension; D64.9 Anemia, unspecified; G40.909 Epilepsy, unspecified, not intractable, without status epilepticus; F32.9 Major depressive disorder, single episode, unspecified; F41.9 Anxiety disorder, unspecified; Y90.0 Blood alcohol level of less than 20 mg/100 ml; Z20.822 Contact with and (suspected) exposure to COVID-19
CPT/HCPCS: J1650; J1756; J2060; J3475; S0164

== ENCOUNTER 2020-09-05 22:34 | Inpatient (IN) | payer OTHER ==
[~2020-09-05] VITALS: Ht 152.4 cm; Wt 62.0 kg
[2020-09-05 23:54] LABS: HEMATOCRIT 38.7 % (37.0-47.0); HEMOGLOBIN 11.6 g/dl (12.0-16.0); IMMATURE GRANULOCYTES 0.3 % (0.0-5.0); MEAN CELL VOLUME 80.6 fL CALC (80.0-100.0); MEAN CORPUSCULAR HGB 24.2 pG CALC (26.0-32.0); NEUT# 12.15 thou/uL (2.00-7.15); RED BLOOD COUNT 4.8 mill/uL (4.20-5.60); RED CELL DISTRI WIDTH 24.6 % (11.5-15.5)
[2020-09-06 00:02] LABS: AMYLASE 103 u/l (30-110); BILIRUBIN, TOTAL 0.7 mg/dL (0.0-1.4); BUN 9 mg/dL (7-17); BUN/CREATININE RATIO 14 (12-20 (CALC)); CREATININE 0.7 mg/dL (0.5-1.0); ETHYL ALCOHOL 39 mg/dl (0-30); GFR > 60 ML/MIN (>=60 (CALC)); GFR FOR AFR.AMER. > 60 ML/MIN (>=60 (CALC)); LIPASE 49 u/l (23-300); POTASSIUM 2.8 mmol/l (3.5-5.1); SGOT/AST 67 u/l (14-36); SODIUM 140 mmol/l (137-146)
[2020-09-06 00:03] LABS: ALKALINE PHOSPHATASE 148 u/l (38-126); ANION GAP 17 (6-22 (CALC)); CARBON DIOXIDE 25 mmol/l (22-30); CHLORIDE 101 mmol/l (95-108); TOTAL PROTEIN 7.6 g/dL (6.3-8.2)
[2020-09-06] MEDS ORDERED: COLACE100 MG PO ×2 (02:10→03:06)
[2020-09-06 08:39] LABS: HEMATOCRIT 32.9 % (37.0-47.0); IMMATURE GRANULOCYTES 0.3 % (0.0-5.0); MEAN CORPUSCULAR HGB 24.1 pG CALC (26.0-32.0); NEUT# 7.13 thou/uL (2.00-7.15); RED BLOOD COUNT 3.81 mill/uL (4.20-5.60)
[2020-09-06 08:40] LABS: HEMOGLOBIN 9.2 g/dl (12.0-16.0); MEAN CELL VOLUME 86.4 fL CALC (80.0-100.0)
[2020-09-06 08:57] VITALS: BP 138/76
[2020-09-06 08:57] LABS: ANION GAP 9 (6-22 (CALC)); BUN 10 mg/dL (7-17); BUN/CREATININE RATIO 19 (12-20 (CALC)); CARBON DIOXIDE 22 mmol/l (22-30); CHLORIDE 108 mmol/l (95-108); CREATININE 0.5 mg/dL (0.5-1.0); GFR > 60 ML/MIN (>=60 (CALC)); GFR FOR AFR.AMER. > 60 ML/MIN (>=60 (CALC)); POTASSIUM 3.2 mmol/l (3.5-5.1); SODIUM 136 mmol/l (137-146)
[2020-09-06 10:20] VITALS: BP 124/52
[2020-09-06 13:16] LABS: URINE BILIRUBIN - DIPSTICK NEGATIVE (NEGATIVE); URINE BLOOD DIPSTICK TRACE-INTACT (NEGATIVE); URINE COLOR YELLOW; URINE GLUCOSE - DIPSTICK NEGATIVE (NEGATIVE); URINE KETONE NEGATIVE (NEGATIVE); URINE NITRITE - DIPSTICK NEGATIVE (Negative); URINE PROTEIN - DIPSTICK NEGATIVE (NEG-TRACE); URINE SPECIFIC GRAVITY 1.015; URINE UROBILINOGEN - DIPSTICK 0.2 E.U./dL (0.2)
[2020-09-06 13:17] LABS: URINE EPITHELIAL CELLS MODERATE EPI/hpf (0-FEW); URINE LEUK ESTERASE MODERATE (NEGATIVE); URINE RBC 0-2 RBC/hpf (0-5); URINE WBC 20-50 WBC/hpf (0-5)
[2020-09-06 13:18] LABS: URINE BACTERIA FEW hpf
[2020-09-06 15:04] VITALS: BP 116/67
[2020-09-06 19:38] VITALS: BP 127/64
[2020-09-07 00:53] VITALS: BP 131/76
[2020-09-07 04:00] VITALS: BP 123/82
[2020-09-07 05:23] LABS: HEMATOCRIT 31.7 % (37.0-47.0); HEMOGLOBIN 9.2 g/dl (12.0-16.0); MEAN CELL VOLUME 83.6 fL CALC (80.0-100.0); MEAN CORPUSCULAR HGB 24.3 pG CALC (26.0-32.0); RED BLOOD COUNT 3.79 mill/uL (4.20-5.60); RED CELL DISTRI WIDTH 24.3 % (11.5-15.5)
[2020-09-07 06:10] LABS: ANION GAP 8 (6-22 (CALC)); BUN 3 mg/dL (7-17); BUN/CREATININE RATIO 5 (12-20 (CALC)); CARBON DIOXIDE 22 mmol/l (22-30); CHLORIDE 112 mmol/l (95-108); CREATININE 0.6 mg/dL (0.5-1.0); GFR > 60 ML/MIN (>=60 (CALC)); GFR FOR AFR.AMER. > 60 ML/MIN (>=60 (CALC)); MAGNESIUM 1.7 mg/dL (1.6-2.3); POTASSIUM 3.5 mmol/l (3.5-5.1); SODIUM 138 mmol/l (137-146)
[2020-09-07 07:35] VITALS: BP 121/80
[2020-09-07 11:00] VITALS: BP 124/76
[2020-09-07 15:10] VITALS: BP 125/77
[2020-09-07 19:00] VITALS: BP 139/77
[2020-09-08] VITALS: BP 124/76
[2020-09-08 03:55] VITALS: BP 101/64
[2020-09-08 07:51] VITALS: BP 111/62
[2020-09-08 08:47] LABS: HEMATOCRIT 34.2 % (37.0-47.0); HEMOGLOBIN 10.1 g/dl (12.0-16.0); IMMATURE GRANULOCYTES 0.5 % (0.0-5.0); MEAN CELL VOLUME 82.4 fL CALC (80.0-100.0); MEAN CORPUSCULAR HGB 24.3 pG CALC (26.0-32.0); MEAN CORPUSCULAR HGB CONC 29.5 g/dL CAL (32.0-36.0); NEUT# 3.82 thou/uL (2.00-7.15); RED BLOOD COUNT 4.15 mill/uL (4.20-5.60); RED CELL DISTRI WIDTH 23.8 % (11.5-15.5)
[2020-09-08 09:07] LABS: ANION GAP 12 (6-22 (CALC)); BUN < 2 mg/dL (7-17); CARBON DIOXIDE 22 mmol/l (22-30); CHLORIDE 106 mmol/l (95-108); CREATININE 0.6 mg/dL (0.5-1.0); GFR > 60 ML/MIN (>=60 (CALC)); GFR FOR AFR.AMER. > 60 ML/MIN (>=60 (CALC)); POTASSIUM 3.5 mmol/l (3.5-5.1); SODIUM 137 mmol/l (137-146)
[2020-09-08 10:45] VITALS: BP 126/78
[2020-09-08] MEDS ORDERED: POLYETHYLENE GL17 GM PO (11:14)
[2020-09-08] MEDS ORDERED: LIBRIUM25 M1 PO (11:14)
[2020-09-08] MEDS ORDERED: ANUCORT-HC25 M1 PR (11:14)
[2020-09-08] MEDS ORDERED: ZOFRAN4 MG/TAB PO (11:27)
== END 2020-09-08 13:31 | disposition home or self-care (01) | DRG 897 ==
LOC: ED 22:34 → ED-I 09-06 06:14 → ED 09-06 06:30 → MS2 09-06 06:31
PROVIDERS: Emergency Medicine; Nurse Practitioner; ADMIT Internal Medicine; ATTEND Internal Medicine
DX: F10.239 Alcohol dependence with withdrawal, unspecified (principal); F10.229 Alcohol dependence with intoxication, unspecified; E87.6 Hypokalemia; K59.00 Constipation, unspecified; I10 Essential (primary) hypertension; F32.9 Major depressive disorder, single episode, unspecified; F41.9 Anxiety disorder, unspecified; J38.00 Paralysis of vocal cords and larynx, unspecified; K64.4 Residual hemorrhoidal skin tags; R82.71 Bacteriuria; Y90.1 Blood alcohol level of 20-39 mg/100 ml; Z90.49 Acquired absence of other specified parts of digestive tract; Z86.16 Personal history of COVID-19; Z20.822 Contact with and (suspected) exposure to COVID-19
CPT/HCPCS: J1650; J2060; S0164

== ENCOUNTER 2020-10-15 01:25 | Observation (INO) | payer OTHER ==
[~2020-10-15] VITALS: Ht 152.4 cm; Wt 57.0 kg
[~2020-10-15 01:25] MED LIST changes: +ANUCORT-HC25 M1 PR; +POLYETHYLENE GL17 GM PO
--- NOTE | 2020-10-15 01:25 | NUR ---
PT ARRIVED VIA EMS...WRETCHING/VOMITING. IVF INFUSING LEFT HAND BY EMS. TRIAGED AT BEDSIDE.
--- NOTE | 2020-10-15 01:25 | NUR ---
PRT ARRIVED PER EMS WITH NS INFUSING LH WITH 400CC INFUSED BY ARRIVAL TIME
--- NOTE | 2020-10-15 02:03 | NUR ---
PT HAVING DRY HEAVES MEDICATED.W/D SKIN
[2020-10-15 02:09] LABS: IMMATURE GRANULOCYTES 0.2 % (0.0-5.0); MEAN CELL VOLUME 85.3 fL CALC (80.0-100.0); MEAN CORPUSCULAR HGB 26.3 pG CALC (26.0-32.0); MEAN CORPUSCULAR HGB CONC 30.8 g/dL CAL (32.0-36.0); NEUT# 7.33 thou/uL (2.00-7.15); RED BLOOD COUNT 4.83 mill/uL (4.20-5.60)
[2020-10-15 02:10] LABS: HEMATOCRIT 41.2 % (37.0-47.0); HEMOGLOBIN 12.7 g/dl (12.0-16.0)
[2020-10-15 02:27] LABS: ALBUMIN 4.7 g/dL (3.2-5.0); ALKALINE PHOSPHATASE 124 u/l (38-126); AMYLASE 191 u/l (30-110); BILIRUBIN, TOTAL 0.9 mg/dL (0.0-1.4); BUN 15 mg/dL (7-17); BUN/CREATININE RATIO 14 (12-20 (CALC)); CREATININE 1.1 mg/dL (0.5-1.0); GFR 51 ML/MIN (>=60 (CALC)); GFR FOR AFR.AMER. > 60 ML/MIN (>=60 (CALC)); LIPASE 66 u/l (23-300); POTASSIUM 3.1 mmol/l (3.5-5.1); SGOT/AST 87 u/l (14-36); SODIUM 139 mmol/l (137-146); TOTAL PROTEIN 8.8 g/dL (6.3-8.2)
[2020-10-15 02:32] LABS: ANION GAP 27 (6-22 (CALC)); CARBON DIOXIDE 27 mmol/l (22-30); CHLORIDE 88 mmol/l (95-108)
[2020-10-15 02:38] LABS: MYOGLOBIN 98 ng/mL (0 - 62)
--- NOTE | 2020-10-15 03:20 | NUR ---
NO FURTHER N/V WARM BLANKET APPLIED W/D SKIN
--- NOTE | 2020-10-15 03:45 | NUR ---
PHONE REPORT TO EMANUEL ANTOINE ON MS
[2020-10-15 03:50] VITALS: BP 113/73
--- NOTE | 2020-10-15 03:50 | NUR ---
PT ARRIVED TO MED SURG UNIT VIA STRETCHER ACCOMPANIED BY ED NURSE. PT APPEARS TO BE IN STABLE CONDITION AT THIS TIME. PT APPEARS TO HAVE TRIMMERS. UPON RECIEVING REPORT I ASKED IF ED NURSE IF PHYSICIAN WANTED BANANA BAG OR LIBRIUM, THEY STATED NO, BUT THAT HE WAS ORDERING POTASSIUM IV. WILL AWAIT ORDERS. PT VOMITED SMALL AMOUNT OF BROWN EMISIS IN EMESIS BAG. REPORTS FEELING BETTER SINCE RECIEVING NAUSEA MEDICATION IN ED. IV NS BOLUS X2 AT THIS TIME TO BE CONTINUED NOW ON MED SURG.
--- NOTE | 2020-10-15 03:50 | NUR ---
PT TRANSPORTED TO [facility] [address] VIA TELE STRETCHER IN STABLE CONDITION
--- NOTE | 2020-10-15 03:50 | NUR ---
LAB CALLED TO REPORT 2ND LACTIC ACID 3.8, DOWN FROM 6.0 ED PHYSICIAN WAS NOTIFIED, NO NEW ORDERS RECEIVED AT THIS TIME. CIWA 12, VERY VISUAL TREMORS.
--- NOTE | 2020-10-15 04:18 | NUR ---
PT PLACED ON BSC TO SIT AND TRY AND URINATE. STATES SHE IS HAVING DIFFICULTY AT THIS TIME. CALL LIGHT LEFT W/IN REACH.
--- NOTE | 2020-10-15 05:41 | NUR ---
PT CALLED TO ASK FOR ADDITIONAL WATER. 1000CC OF PO WATER TAKEN IN SO FAR.
[2020-10-15 05:49] LABS: URINE BLOOD DIPSTICK TRACE-LYSED (NEGATIVE); URINE COLOR YELLOW; URINE KETONE 40 mg/dL (NEGATIVE); URINE PH 7.5 (4.5-8.0); URINE PROTEIN - DIPSTICK 100 mg/dL (NEG-TRACE)
[2020-10-15 05:59] LABS: URINE BILIRUBIN - DIPSTICK SMALL (NEGATIVE); URINE LEUK ESTERASE SMALL (NEGATIVE); URINE NITRITE - DIPSTICK NEGATIVE (Negative)
[2020-10-15 06:01] LABS: URINE GLUCOSE - DIPSTICK NEGATIVE (NEGATIVE)
[2020-10-15 06:02] LABS: URINE BACTERIA MANY hpf; URINE EPITHELIAL CELLS FEW EPI/hpf (0-FEW)
[2020-10-15 06:39] VITALS: BP 110/78
[2020-10-15 07:32] VITALS: BP 110/66
--- NOTE | 2020-10-15 08:00 | NUR ---
PT VOMITING GREEN BILE. AXOX3. IV INFUSING. NOTED PT SHAKING. CHERYL ALERTED TO SITUATION MEDS ORDERED. MEDICATED FOR NAUSEA. REPOSITIONED FOR COMFORT, SIDE RAILS UP CALL LIGHT IN REACH BED LOCKED IN LOW POSITION, ALL SAFTY MEASURES IN PLACE. WILL CONTINUE TO MONIOTR THE PATIENT.
[2020-10-15 08:58] LABS: ANION GAP 23 (6-22 (CALC)); BUN 15 mg/dL (7-17); BUN/CREATININE RATIO 18 (12-20 (CALC)); CARBON DIOXIDE 23 mmol/l (22-30); CHLORIDE 93 mmol/l (95-108); CREATININE 0.8 mg/dL (0.5-1.0); GFR > 60 ML/MIN (>=60 (CALC)); GFR FOR AFR.AMER. > 60 ML/MIN (>=60 (CALC)); POTASSIUM 3.4 mmol/l (3.5-5.1); SODIUM 135 mmol/l (137-146)
--- NOTE | 2020-10-15 09:17 | NUR ---
PT HAD A LARGE BLACK STOOL. PT VOIDED YELLOW URINE. BACK INTO BED. PT STATES SHE IS FEELING BETTER TODAY THAN YESTERDAY. WILL CONTINUE TO MONIOTR THE PATIENT.
--- NOTE | 2020-10-15 10:00 | NUR ---
PT MED FOR NAUSEA , ABLE TO TAKE AM MEDS. NO DISTRESS NOTED AT THIS TIME.
--- NOTE | 2020-10-15 11:00 | NUR ---
IV INFULTRATE NOTED. IV REMOVED. USING THE IV IN LEFT WRIST. COMPRESS APPLIED TO THE INFULTRATE.
--- NOTE | 2020-10-15 11:24 | NUR ---
PT HOME MEDS SENT TO THE PHARMACY.
--- NOTE | 2020-10-15 11:40 | NUR ---
PT RESTING COMFORTABLE NO DISTRESS NOTED AT THIS TIME.
[2020-10-15 11:44] VITALS: BP 115/73
--- NOTE | 2020-10-15 12:44 | NUR ---
PT HAD 6 BEETS OF V-TACH, REPORTED TO CHERYL CRUZ.
--- NOTE | 2020-10-15 13:41 | NUR ---
NOTED , NO SWELLING TO THE LEFT HAND /WRIST AREA.
[2020-10-15 15:13] VITALS: BP 107/66
--- NOTE | 2020-10-15 16:00 | NUR ---
PT IS RELAXING IN BED WITH NO DISTRESS NOTED. IV SITE IS FREE FROM REDNESS OR EDMA.
--- NOTE | 2020-10-15 17:19 | NUR ---
JESSIE CHOI RN CONFIRMED THAT SHE WITNESSED Kyle PARRA RN PULL AND WASTE ATIVAN 1 MG IV AT APPROX. 0200 ON 10/15/20.
--- NOTE | 2020-10-15 18:06 | NUR ---
PT'S BOYFRIEND CALLING AND INQUIRING HOW PT IS DOING. PT IS RELAXING AT THIS TIME. INQUIRED ABOUT A FORGING DIES FINAL FINISHER. INFORMED ABOUT THE CASE MANAGEMENT CAN ONLY RECOMMEND THE AA MEETINGS.
[2020-10-15 19:00] VITALS: BP 103/65
--- NOTE | 2020-10-15 19:35 | NUR ---
ASSISTED PT TO BSC, CALL LIGHT W/IN REACH. PT ASKED FOR A FEW MINUTES TO SIT.
--- NOTE | 2020-10-15 19:57 | NUR ---
PT MEDICATED ORDERS PROVIDE. PT DENIES ANY OTHER NEEDS. VERY MILD TREMORS WHEN HANDS ARE EXTENDED. PT DENIES ANY AUDITORY OR VISUAL DISTURBANCES, DENIES NAUSEA AT THIS TIME, ABLE TO COUNT BACKWARDS QUICKLY AND LOCX4.
--- NOTE | 2020-10-15 23:00 | NUR ---
PT CALLED TO C/O PRESSURE IN EPI-GASTRIC AND UPPER ABD AREA. PT DOES NOT APPEAR TO BE DISTENDED OR TENDER TO PALPATION, BUT REPORTS THAT SHE FEELS LIKE SHE NEEDS TO HAVE BM. SHE REPORTS ONLY HAVING SMALL RUNNY STOOL OUTPUT EARLIER IN THE DAY AND STATES "I WONDER IF I HAVE A BLOCKAGE." SHE STATES THAT SHE KEEPS PUSHING AND STRAINING TRYING TO HAVE BM. I ENCOURAGED HER NOT TO STRAIN SO HARD BECAUSE SHE MAY BE STRAINING MUSCLES.
--- NOTE | 2020-10-15 23:51 | NUR ---
PT MEDICATED WITH MILK OF MAG AND PRUNE JUICE WARMED. FOR C/O UPPER ABD PRESSURE AND DISCOMFORT. SHE IS C/O FEELING LIKE SHE NEEDS TO HAVE A BOWEL MOVEMENT, BUT IS UNABLE. PT KEEPS GETTING TO BSC AND PUSHING AND STRAINING, I TALKED WITH HER ABOUT STRAINING TOO MUCH THAT SHE MAY BE CAUSING MUSCLE STRAIN. PT UNINTERESTED IN BEING EDUCATED.
[2020-10-16] VITALS: BP 109/72
--- NOTE | 2020-10-16 03:40 | NUR ---
PT WAS ASSISTED UP TO BSC AND BACK TO BED. TRACE AMOUNT OF LIQUID STOOL OUTPUT AT THIS TIME. PT ASSISTED WITH MESH PANTIES AND PAD. PT DENIES ANY OTHER NEEDS AT THIS TIME.
[2020-10-16 04:00] VITALS: BP 123/78
[2020-10-16 07:21] VITALS: BP 110/68
--- NOTE | 2020-10-16 07:44 | NUR ---
SHIFT CHANGE REPORT, PT SLEEPING IN LEFT SIDE-LYING POSITION, AWAKENED TO VERBAL STIMULI, ORIENTED, C/O MILD DISCOMFORT TO ANAL REGION STATING ITS FORM HER HAVING DIARRHEA ALL NIGHT. TELE MONITOR IN PLACE, IVF INFUSING AND CALL WILHELM IN REACH.
--- NOTE | 2020-10-16 08:02 | NUR ---
NO LAB RESULT AVAILABLE YET FOR PTZANDRA IN LAB NOTIFIED AND SAID WILL SEND TECH TO COLLECT SPECIMENS.
[2020-10-16 08:40] LABS: HEMATOCRIT 35.8 % (37.0-47.0); MEAN CORPUSCULAR HGB 27.1 pG CALC (26.0-32.0); MEAN CORPUSCULAR HGB CONC 29.6 g/dL CAL (32.0-36.0); RED BLOOD COUNT 3.91 mill/uL (4.20-5.60); RED CELL DISTRI WIDTH 20.7 % (11.5-15.5)
[2020-10-16 08:42] LABS: HEMOGLOBIN 10.6 g/dl (12.0-16.0); MEAN CELL VOLUME 91.6 fL CALC (80.0-100.0)
[2020-10-16 08:57] LABS: ANION GAP 12 (6-22 (CALC)); BUN 10 mg/dL (7-17); BUN/CREATININE RATIO 17 (12-20 (CALC)); CARBON DIOXIDE 23 mmol/l (22-30); CHLORIDE 103 mmol/l (95-108); CREATININE 0.6 mg/dL (0.5-1.0); GFR > 60 ML/MIN (>=60 (CALC)); GFR FOR AFR.AMER. > 60 ML/MIN (>=60 (CALC)); MAGNESIUM 1.4 mg/dL (1.6-2.3); SODIUM 133 mmol/l (137-146)
[2020-10-16 11:30] VITALS: BP 108/63
--- NOTE | 2020-10-16 12:00 | NUR ---
SITTING UP IN BED AT THIS TIME HAVING REGULAR MEAL AND PLEASED TO HAVE THIS ADVANCE, ALL NEEDS MET/ADDRESSED,CALL WILHELM IN REACH.
[2020-10-16 15:01] VITALS: BP 111/69
--- NOTE | 2020-10-16 16:04 | NUR ---
RELAXING IN ROOM CONVERSING WITH FRIEND, STATES SHE FEELS MUCH BETTER, TOLERATING REGULAR MEALS, ALL NEEDS ADDRESSED.
[2020-10-16 19:50] VITALS: BP 102/66
--- NOTE | 2020-10-16 20:00 | NUR ---
PT ALERT AND ORIENTED LAYING IN BED. NO COMPLAINT OF PAIN AT THIS TIME. CIWA COMPLETE AND NEGATIVE. TELE RUNNING ST. ASSESSMENT COMPLETE. BANANA BAG COMTINUES RUNNING AT 125ML/HR. PT SAID STOOL HAS STOPPED EPISODES ARE NOT BAD LAST NIGHT. SHE HAS BEEN ADVANCED TO REGULAR DIET. PT WAS INFORMED IF SHE WAS ABLE TO KEEP FOOD DOWN SHE WILL BE ABLE TO GO TO GO HOME IN THE MORNING. CALL LIGHT AND TABLE WITHIN RANGE WILL CONTINUE TO MONITOR
[2020-10-17] VITALS: BP 103/72
--- NOTE | 2020-10-17 | NUR ---
PT IN BED RESTING AT THIS TIME. NO COMPLAINT OF PAIN. CALL LIGHT AND TABLE WITHIN RANGE. WILL BANANA BAG COMPLETE WILL CONTINUE TO MONITOR
[2020-10-17 04:00] VITALS: BP 106/67
--- NOTE | 2020-10-17 04:00 | NUR ---
PT SLEEPING PEACEFULLY. NO SIGN OF TREMORS OR ANYTHING. NO COMPLAINT OF PAIN. CALL LIGHT AND TABLE WITHIN REACH
[2020-10-17 05:38] LABS: HEMATOCRIT 31.9 % (37.0-47.0); HEMOGLOBIN 9.6 g/dl (12.0-16.0); MEAN CELL VOLUME 89.9 fL CALC (80.0-100.0); MEAN CORPUSCULAR HGB CONC 30.1 g/dL CAL (32.0-36.0); RED BLOOD COUNT 3.55 mill/uL (4.20-5.60); RED CELL DISTRI WIDTH 19.9 % (11.5-15.5)
[2020-10-17 05:43] LABS: BUN 5 mg/dL (7-17); BUN/CREATININE RATIO 10 (12-20 (CALC)); CARBON DIOXIDE 25 mmol/l (22-30); CHLORIDE 106 mmol/l (95-108); CREATININE 0.5 mg/dL (0.5-1.0); GFR > 60 ML/MIN (>=60 (CALC)); GFR FOR AFR.AMER. > 60 ML/MIN (>=60 (CALC)); SODIUM 135 mmol/l (137-146)
[2020-10-17 05:44] LABS: ANION GAP 7 (6-22 (CALC)); POTASSIUM 3.2 mmol/l (3.5-5.1)
[2020-10-17 05:45] LABS: MAGNESIUM 2.1 mg/dL (1.6-2.3)
[2020-10-17 08:00] VITALS: BP 115/77
--- NOTE | 2020-10-17 09:00 | NUR ---
PT SEEN WIDE AWAKE, ALERT, ORIENTED THIS MORNING. PT HOPES FOR DISCHARGE TO HOME TODAY. NO DISTRESS NOTED.
[2020-10-17 11:00] VITALS: BP 112/75
[2020-10-17] MEDS ORDERED: LIBRIUM25 MG PO (11:15)
--- NOTE | 2020-10-17 13:38 | NUR ---
PT HAS BEEN DISCHARGED TO HOME. PT VERBALIZED UNDERSTANDING OF DC INSTRUCTIONS, TAKEN BY WHEELCHAIR TO BENCH OUTSIDE. PT LEAVES IN STABLE CONDITION.
[2020-10-17] MEDS ORDERED: CIPROFLOXACN500 MG PO (14:03)
== END 2020-10-17 13:30 | disposition home or self-care (01) ==
LOC: ED 01:25 → ED-I 02:53 → ED 03:05 → MS2 03:06
PROVIDERS: Emergency Medicine; Nurse Practitioner; ADMIT Internal Medicine; ATTEND Internal Medicine
DX: F10.239 Alcohol dependence with withdrawal, unspecified (principal); E87.6 Hypokalemia; E87.2 Acidosis; N39.0 Urinary tract infection, site not specified; E83.42 Hypomagnesemia; I10 Essential (primary) hypertension; G40.909 Epilepsy, unspecified, not intractable, without status epilepticus; I48.91 Unspecified atrial fibrillation; F32.9 Major depressive disorder, single episode, unspecified; F41.9 Anxiety disorder, unspecified; Y90.6 Blood alcohol level of 120-199 mg/100 ml; Z86.16 Personal history of COVID-19; Z20.822 Contact with and (suspected) exposure to COVID-19
CPT/HCPCS: G0378; J1650; J2060; J3475; S0164

== ENCOUNTER 2020-11-02 16:37 | Inpatient (IN) | payer OTHER ==
[~2020-11-02] VITALS: Ht 152.4 cm; Wt 57.0 kg
[~2020-11-02 16:37] MED LIST changes: +LIBRIUM25 MG PO
--- NOTE | 2020-11-02 16:38 | NUR ---
TO ROOM VIA STRETCHER VIA EMS
[2020-11-02 18:20] LABS: IMMATURE GRANULOCYTES 0.3 % (0.0-5.0); MEAN CELL VOLUME 88.3 fL CALC (80.0-100.0); MEAN CORPUSCULAR HGB 27.7 pG CALC (26.0-32.0); MEAN CORPUSCULAR HGB CONC 31.4 g/dL CAL (32.0-36.0); NEUT# 6.27 thou/uL (2.00-7.15); RED BLOOD COUNT 4.87 mill/uL (4.20-5.60); RED CELL DISTRI WIDTH 18.6 % (11.5-15.5)
[2020-11-02 18:23] LABS: HEMOGLOBIN 13.5 g/dl (12.0-16.0)
[2020-11-02 18:34] LABS: ALBUMIN 4.1 g/dL (3.2-5.0); ALKALINE PHOSPHATASE 149 u/l (38-126); ANION GAP 19 (6-22 (CALC)); BILIRUBIN, TOTAL 0.7 mg/dL (0.0-1.4); BUN 8 mg/dL (7-17); BUN/CREATININE RATIO 9 (12-20 (CALC)); CARBON DIOXIDE 22 mmol/l (22-30); CHLORIDE 103 mmol/l (95-108); CREATININE 0.9 mg/dL (0.5-1.0); ETHYL ALCOHOL 135 mg/dl (0-30); GFR > 60 ML/MIN (>=60 (CALC)); GFR FOR AFR.AMER. > 60 ML/MIN (>=60 (CALC)); LIPASE 44 u/l (23-300); POTASSIUM 3.4 mmol/l (3.5-5.1); SGOT/AST 51 u/l (14-36); SODIUM 140 mmol/l (137-146); TOTAL PROTEIN 8.3 g/dL (6.3-8.2)
--- NOTE | 2020-11-02 19:07 | NUR ---
GAVE REPORT TO MARCELL
--- NOTE | 2020-11-02 19:12 | NUR ---
PT BACK FROM RADIOLOGY IVF RESTRATED AND REPOSITIONED FOR COMFORT, CALL WILHELM WITHIN REACH
--- NOTE | 2020-11-02 20:00 | NUR ---
PT AWARE OF NEED FOR URINE SPECIMEN PLACED ON BEDPAN, WILL CALL WHEN READY
--- NOTE | 2020-11-02 20:40 | NUR ---
PT RESTING IVF INFUSING NO COMPLAINTS OFFERED STATES FEELING BETTER THAN ON ARRIVAL, CALL WILHELM WITHIN REACH
--- NOTE | 2020-11-02 21:08 | NUR ---
LACTIC ACID OBTAINED AND PT STRAIGHT CATH'D EARLIER FOR URINE COLLECTION USING STERILE TECHNIQUE, PT TOLERATED WELL. CALL WILHELM WITHIN REACH
[2020-11-02 21:11] LABS: URINE BILIRUBIN - DIPSTICK NEGATIVE (NEGATIVE); URINE BLOOD DIPSTICK TRACE-INTACT (NEGATIVE); URINE COLOR YELLOW; URINE GLUCOSE - DIPSTICK 100 mg/dL (NEGATIVE); URINE KETONE TRACE mg/dL (NEGATIVE); URINE PH 6.5 (4.5-8.0); URINE PROTEIN - DIPSTICK 30 mg/dL (NEG-TRACE); URINE SPECIFIC GRAVITY 1.015; URINE UROBILINOGEN - DIPSTICK 0.2 E.U./dL (0.2)
[2020-11-02 21:16] LABS: URINE LEUK ESTERASE MODERATE (NEGATIVE); URINE NITRITE - DIPSTICK NEGATIVE (Negative)
[2020-11-02 21:29] LABS: URINE SQUAMOUS EPITHELIAL CELL FEW EPI/hpf (0-FEW); URINE WBC 50-100 WBC/hpf (0-5)
--- NOTE | 2020-11-02 22:58 | NUR ---
PT TOLERATED POTASSIUM W/O INCIDENT, AWARE OF PLANNED ADMISSION, STATES "I'M GLAD"
--- NOTE | 2020-11-02 23:07 | NUR ---
REPORT CALLED TO SATINDER ON MED SURG.
[2020-11-02 23:35] VITALS: BP 147/77
--- NOTE | 2020-11-02 23:36 | NUR ---
PT TRANSPORTED TO MED SURG VIA STRETCHER, ALL BELONGINGS SENT WITH PT AND RECORD OF BELONGINGS COMPLETED.
--- NOTE | 2020-11-02 23:45 | NUR ---
REPORT RECIVED FROM ER NURSE MARCELL. PT ARRIVED TO THE FLOOR VIA STRETCHER ESCORTED BY CONTINUOUS STILL OPERATOR. PT SHOWING SIGNS OF ANXIETY AND ALCOHOL WITHDRAWL. PT WAS ADMINSTERED LIBRIUM SHORTLY AFTER ARRIVING ON THE FLOOR. PT WAS RUNNING ST ON TELE IN THE ER, PT REMAINS ST AFTER ARRIVING TO THE FLOOR RUNNING 130'S ON TELE. INSTRCTED PT ON THE IMPORTANCE OF REGULATING HER BREATHING TO SLOW DOWN HER HEART RATE. PT INDICATED SHE TAKES METOPROLOL AT TRUDI TWICE DAILY. NEXT DOSE IS NOT ORDERED UNTIL TOMORROW AM AT 0900. ORDER RECIEVED FROM DR. LUCIO, GIVE 2.5MG X 1 DOSE, CHECK B/P AND PULSE IN 5 MIN, IF VS REMAIN STABLE MAY ADMINSTER AN ADDITIONAL DOSE OF METOPROLOL 2.5MG X2ND DOSE FOR A TOTAL OF 5MG METOPROLOL IV. SAFETY PRECAUTIONS IN PLACE, BED IN LOWEST POSITION, CALL LIGHT WITHIN REACH. WILL MONITOR
[2020-11-03 01:06] VITALS: BP 118/77
--- NOTE | 2020-11-03 01:10 | NUR ---
ADMINSTERED IV METOPROLOL PER ORDER. VS AFTER 5MIN FOLLOWING FIRST DOSE WERE 118/77 AND HER PULSE WAS 113. SECONDARY DOSE OF METOPROLOL WAS ADMINSTERED. PT INDICATED SHE FEELS BETTER, DENIES PALPITATIONS AT THIS TIME. BREATHING IS MORE EVEN AND REGULAR. WILL RECHECK VITAL SIGNS IN 30 MINS AND DOCUMENT ACCORDINGLY. WILL MONITOR
--- NOTE | 2020-11-03 01:30 | NUR ---
PT RESTING QIUETLY AT THIS TIME. ADMINSTERED PRN ATIVAN FOR PT'S ANXIETY AND ALCOHOL WITHDRAWL SYMPTOMS. RECHECK VITAL SIGNS APPROXIMATLY 30MIN FOLLOWING SECOND DOSE OF METOPROLOL, B/P 120/80 P 109. PT TOLERATING IV METOPROLOL WELL. SAFETY PRECAUTIONS IN PLACE, PT NEEDS ASSISTANCE USING THE BEDSIDE COMMODE. PT WILL CALL FOR ASSISTANCE. WILL MONITOR
[2020-11-03 04:00] VITALS: BP 118/73
--- NOTE | 2020-11-03 05:00 | NUR ---
PT RESTING BED WITH HER EYES CLOSED. TREMORS IN EXTREMITIES CONTINUE. PT HAS 2 LOOSE STOOLS THIS SHIFT, AND HAD MOMENTS OF INCONTINENCE DUE TO LOOSE STOOLING. FLUIDS CONTINUE AT 100ML/HR VIA IV. NO COMPLAINTS VOICED AT THIS TIME. DENIES PAIN. NO S/S OF DISTRESS NOTED. SAFETY PRECAUTIONS IN PLACE, WILL CONTINUE TO MONITOR.
[2020-11-03 05:35] LABS: IMMATURE GRANULOCYTES 0.4 % (0.0-5.0); MEAN CELL VOLUME 89.1 fL CALC (80.0-100.0); MEAN CORPUSCULAR HGB 27.9 pG CALC (26.0-32.0); MEAN CORPUSCULAR HGB CONC 31.3 g/dL CAL (32.0-36.0); NEUT# 4.4 thou/uL (2.00-7.15); RED BLOOD COUNT 4.05 mill/uL (4.20-5.60); RED CELL DISTRI WIDTH 18.5 % (11.5-15.5)
[2020-11-03 05:43] LABS: HEMATOCRIT 36.1 % (37.0-47.0); HEMOGLOBIN 11.3 g/dl (12.0-16.0)
[2020-11-03 05:59] LABS: ALKALINE PHOSPHATASE 111 u/l (38-126); ANION GAP 11 (6-22 (CALC)); BILIRUBIN, TOTAL 0.8 mg/dL (0.0-1.4); BUN 7 mg/dL (7-17); BUN/CREATININE RATIO 8 (12-20 (CALC)); CARBON DIOXIDE 21 mmol/l (22-30); CHLORIDE 106 mmol/l (95-108); CREATININE 0.8 mg/dL (0.5-1.0); GFR > 60 ML/MIN (>=60 (CALC)); GFR FOR AFR.AMER. > 60 ML/MIN (>=60 (CALC)); POTASSIUM 3.1 mmol/l (3.5-5.1); SGOT/AST 42 u/l (14-36); SODIUM 136 mmol/l (137-146)
[2020-11-03 06:08] LABS: ALBUMIN 2.8 g/dL (3.2-5.0); TOTAL PROTEIN 6.2 g/dL (6.3-8.2)
[2020-11-03 07:10] VITALS: BP 117/89
--- NOTE | 2020-11-03 07:10 | NUR ---
PATIENT RESTING IN BED AT THIS TIME. GERMINATION TESTING MANAGER DONE SEE INTERVENITONS. PATINET DENIES ANY PAIN AND STATES IT IS A "0" ON THE 0-10 PAIN SCALE. PATIENT DOES EXHIBIT SLIGHT TO MILD TREMORS AND CURRENTLY SCORES A "1" ON THE CIWA SCALE. TELE MONITOR IN PLACE AND BEING MONITORED BY ED. SIDERAILS ARE UP X 2 CALL LIGHT IS WITHIN REACH. RESPIRATIONS ARE NON-LABORED AND LUNG PANDYA ARE CLEAR. NO OTHER NEEDS AT THIS TIME,
--- NOTE | 2020-11-03 10:01 | NUR ---
1MG OF ATIVAN IV GIVEN AT THIS TIME. PATIENT EXHIBITING RESTLESSNESS AND STATES SHE NEEDS SOMETHING TO CALM DOWN. PATIENT AT THIS TIME STATED YESTERDAY I DRANK 1/2 PINT OF WHISKEY. PATIENT GIVEN ENCOURAGEMENT AND RELAXATION TIPS AT THIS TIME. PATIENT EXPERIENCING DIARREHA AT THIS TIME. PATIENT EDUCATED ON USING CALL LIGHT IF SHE NEEDS TO GET UP TO BEDSIDE COMMODE DUE TO ATIVAN. PATIENT VERBALIZES UNDERSTANDING.
[2020-11-03 11:06] VITALS: BP 127/77
--- NOTE | 2020-11-03 11:37 | NUR ---
PATIENT RESTING IN BED AT THIS TIME. PATIENT DENIES ANY PAIN AND EXHIBITS MILD ANXIETY. PATIENT WAS PREVIOUSLY MEDICATED. CIWA SCORE AT THIS TIME IS "2" ON THE CIWA SCALE. PATIENT SIDERAILS ARE UP X 2 AND PADDED DUE TO HISTORY OF SEIZURE PERCAUTIONS. PATIENT ALERT AND ORIENTED.
--- NOTE | 2020-11-03 14:55 | NUR ---
PATIENT HAS SLIGHT HAND TREMORS AT THIS TIME. 25MG OF LIBRIUM GIVEN. WILL CONTINUE TO MONITOR.
[2020-11-03 15:00] VITALS: BP 128/67
--- NOTE | 2020-11-03 15:55 | NUR ---
PATIENT LAYING IN BED AT THIS TIME. PATIENT STATED "I'M FEELING BETTER". PATIENT DOES EXHIBIT MILD TREMORS IN HANDS. PATIENT DENIES ANY PAIN AND OR NAUSEA OR VOMITING AT THIS TIME. SIDERAILS ARE UP AND PADDED FOR SEIZURE PERCAUTIONS. TELE MONITOR ON AND BEING MONITORED BY ED AT THIS TIME. CALL LIGHT IS WITHIN REACH.
[2020-11-03 18:52] VITALS: BP 126/83
--- NOTE | 2020-11-03 20:09 | NUR ---
PT MEDICATED ORDERS PROVIDE, MOD TREMORS OBSERVED AND PT REPORTS NAUSEA, NO EMESIS NOTED. SHE ALSO REPORTS SORE THROAT FROM VOMITING. PT MEDICATED W/ATIVAN AT THIS TIME. PT LOCX3, NEURO'S ARE INTACT. PT STATED THAT SHE TRIED EATING DINNER AND THAT IS WHAT MADE HER NAUSIOUS AGAIN. DISCUSSED DIET PLAN WITH PT, SHE PLANS TO LIMIT PO INTAKE TO CLEAR LIQUIDS FOR TONIGHT AND SEE IF IT IMPROVES. DENIES GINGERALE OR CHICKEN BROTH AT THIS TIME.
--- NOTE | 2020-11-03 22:15 | NUR ---
PHYSICIAN NOTIFIED OF PT VOMITING AND HAVING DRY HEAVES. NEW ORDERS RECEIVED.
--- NOTE | 2020-11-03 22:41 | NUR ---
PT MEDICATED FOR DRY HEAVES AND VOMITING. SHE STATES IT IS MAKING HER CHEST AND THROAT SORE FROM VOMITING SO HARD. IVF ARE RUNNING TO SITE IN RW/SITE APPEARS HEALTHY.
--- NOTE | 2020-11-03 23:15 | NUR ---
PT CALLED TO REPORT HER IV IS LEAKING. UPON ENTERING THE ROOM, PT IS UP ON BSC WITH IV TUBING UNDER HER AND BEING PULLED TIGHT. UPON ASSESSMENT, IV WAS ABLE TO BE REDRESSED AND NO LONGER APPEARS TO BE LEAKING, I ADVISED HER TO CALL ME IF SHE NOTICES IT LEAKING AGAIN, SHE VERBALIZED UNDERSTANDING. ASSISTED PT BACK TO BED AND LIGHTS TURNED LOW FOR HER COMFORT. SHE REPORTS FEELING MUCH BETTER, NO LONGER EXPERIENCING N/V AT THIS TIME.
[2020-11-04 00:35] VITALS: BP 134/83
--- NOTE | 2020-11-04 01:28 | NUR ---
PT MEDICATED W/IV ANTIBIOTIC THERAPY. ATTEMPTS WERE MADE TO MEDICATE PT WITH LIBRIUM, BUT SHE IS DRY HEAVING AT THIS TIME. I WILL WAIT A FEW MINUTES TO SEE IF IT PASSES AND SHE IS ABLE TO RECEIVE MEDICATION.
--- NOTE | 2020-11-04 01:59 | NUR ---
ED CALLED TO REPORT PT'S HR ELEVATED TO 132. UPON ENTERING THE ROOM, PT WAS OBSERVED UP ON SIDE OF THE BED HANGING OVER THE TRASHCAN HAVING DRY HEAVES. PT MEDICATED W/IV ATIVAN AT THIS TIME.
--- NOTE | 2020-11-04 02:51 | NUR ---
PT MEDICATED FOR VOMITING AND DRY HEAVES. SOCK FOLDER LEADS REPLACED AT THIS TIME.
--- NOTE | 2020-11-04 04:15 | NUR ---
LAB IN W/PT AT THIS TIME. PT IS RESTING, NO S/O DISTRESS AT THIS TIME.
[2020-11-04 05:44] LABS: HEMATOCRIT 34.8 % (37.0-47.0); HEMOGLOBIN 10.9 g/dl (12.0-16.0); MEAN CORPUSCULAR HGB 27.9 pG CALC (26.0-32.0); MEAN CORPUSCULAR HGB CONC 31.3 g/dL CAL (32.0-36.0); RED BLOOD COUNT 3.91 mill/uL (4.20-5.60); RED CELL DISTRI WIDTH 17.6 % (11.5-15.5)
[2020-11-04 06:09] LABS: ALKALINE PHOSPHATASE 109 u/l (38-126); ANION GAP 13 (6-22 (CALC)); BILIRUBIN, TOTAL 0.8 mg/dL (0.0-1.4); BUN 3 mg/dL (7-17); BUN/CREATININE RATIO 4 (12-20 (CALC)); CARBON DIOXIDE 23 mmol/l (22-30); CHLORIDE 102 mmol/l (95-108); CREATININE 0.6 mg/dL (0.5-1.0); GFR > 60 ML/MIN (>=60 (CALC)); GFR FOR AFR.AMER. > 60 ML/MIN (>=60 (CALC)); POTASSIUM 2.8 mmol/l (3.5-5.1); SGOT/AST 63 u/l (14-36); SODIUM 135 mmol/l (137-146); TOTAL PROTEIN 6.3 g/dL (6.3-8.2)
[2020-11-04 06:10] VITALS: BP 130/82
[2020-11-04 06:13] LABS: MAGNESIUM 1.8 mg/dL (1.6-2.3)
--- NOTE | 2020-11-04 06:33 | NUR ---
PT MEDICATED FOR VOMITING/NAUSEA.
--- NOTE | 2020-11-04 06:55 | NUR ---
REPORT RECEIVED FROM MELO ANTOINE
[2020-11-04 07:30] VITALS: BP 120/72
--- NOTE | 2020-11-04 08:25 | NUR ---
PT RESTING IN SEMI FOWLERS POSITION,A&O X3;VS OBTAINED AND ASSESSMENT COMPLETED;PT DENIES ANY CURRENT PAIN OR DISCOMFORTS;PT NAUSEOUS,PRN ZOFRAN 4MG IVP ADMINISTERED AT THIS TIME;RESPIRATIONS EVEN AND UNLABORED ON RA,CLEAR LUNG SOUNDS;ABDOMEN SOFT ON PALPATION AND ACTIVE IN ALL 4 QUADRANTS;WEAK PEDAL PULSES;SKIN INTACT;TELE MONITORING IN PLACE;#22G TO RIGHT THUMB INFUSING NS @ 100ML/HR,SITE APPEARS HEALTHY AND MAG IV PROVIDED AT THIS TIME PER ORDER;VISUAL TREMORS NOTED AND DRY HEAVING, PT MEDICATED WITH LIBRIUM 25MG PO;SEIZURE PRECAUTIONS IN PLACE;PT DENIES ANY ADDITIONAL NEEDS AND IS ENCOURAGED TO CALL FOR ASSISTANCE IF NEEDED;FALL PRECAUTIONS IN PLACE WITH BED IN THE LOWEST POSITION AND CALL LIGHT IN REACH;WILL CONTINUE TO MONITOR
--- NOTE | 2020-11-04 09:30 | NUR ---
IV SITE TO RIGHT THUMB REMOVED WITH CATHETER INTACT DUE TO INFILTRATION.
--- NOTE | 2020-11-04 09:50 | NUR ---
#22G STARTED TO RT FIFTH FINGER ON 1ST ATTEMPT, IV FLUIDS RE-STARTED PER ORDER. AT BEDSIDE DISCUSSING POC.
[2020-11-04 10:24] VITALS: BP 110/69
--- NOTE | 2020-11-04 11:35 | NUR ---
PT RESTING IN SEMI FOWLERS POSITION;RESPIRATIONS EVEN AND UNLABORED ON RA;PT DENIES ANY CURRENT PAIN OR DISCOMFORTS;TELE MONITORING IN PLACE;#22G TO RIGHT FIFTH DIGIT REMOVED DUE TO BEING DISLODGED BY PT WITH CATHETER INTACT;NEW #22G STARTED TO LEFT HAND ON 2ND ATTEMPT BY THIS WRITTER,PT TOLERATED WELL;PT DENIES ANY ADDITIONAL NEEDS;ENCOURAGED TO CALL FOR ASSISTANCE IF NEEDED;CALL LIGHT IN REACH;WILL CONTINUE TO MONITOR
[2020-11-04 14:40] VITALS: BP 117/82
--- NOTE | 2020-11-04 15:00 | NUR ---
PT RESTING ON THE SIDE OF THE BED;RESPIRATIONS EVEN AND UNLABORED ON RA;PT REPORTS LOWER BACK PAIN RATING 7/10 ON THE PAIN SCALE,PT MEDICATED WITH PRN TYLENOL 650MG PO AT THIS TIME;PT ALSO MEDICATED WITH PRN ZOFRAN 4MG IVP AND LIBRIUM 25MG PO;TELE MONITORING IN PLACE;BANANA BAG INFUSING TO LH WITH EASE PER ORDER;PT DENIES ANY ADDITIONAL NEEDS;ENCOURAGED TO CALL FOR ASSISTANCE IF NEEDED;CALL LIGHT IN REACH;WILL CONTINUE TO MONITOR
[2020-11-04 19:00] VITALS: BP 111/61
--- NOTE | 2020-11-04 20:00 | NUR ---
PHYSICAL ASSESMENT COMPLETE. PT CURRENTLY DENIES PAIN OR DISCOMFORT. SCHEDULED MEDICATIONS AND PRN MEDICATION ADMINISTERED, SEE E-MAR. PT DENIES ANY NEEDS AT THIS TIME. PLAN OF CARE REVIEWED, PT DENIES QUESTIONS, VERBALIZES UNDERSTANDING. ITEMS WITHIN REACH, BED LOCKED IN LOW POSITION W/ BEDRAILS UP X2. CALL WILHELM WITHIN REACH, AGREES TO CALL PRN.
[2020-11-05] VITALS (7 sets, daily range): BP systolic 114–130; BP diastolic 73–80
--- NOTE | 2020-11-05 | NUR ---
PT LAYING IN BED WITH EYES CLOSED, APPEARS TO BE SLEEPING, APPEARS COMFORTABLE AND IN NO DISTRESS. RESPIRATIONS REGULAR AND UNLABORED. ITEMS REMAIN WITHIN REACH, CALL WILHELM REMAINS WITHIN REACH. BED REMAINS LOCKED AND IN LOW POSITION WITH BEDRAILS UP X2. WILL CONTINUE TO MONITOR.
--- NOTE | 2020-11-05 03:55 | NUR ---
PT RESTING IN BED, NO SIGNS OF DISTRESS NOTED, RESP EVEN AND UNLABORED. PT VOICES NO NEEDS OR COMPLAINTS AT THIS TIME. CALL LIGHT IN REACH, CONTINUE TO MONITOR.
[2020-11-05 06:00] LABS: HEMATOCRIT 33.7 % (37.0-47.0); HEMOGLOBIN 10.5 g/dl (12.0-16.0); MEAN CELL VOLUME 90.1 fL CALC (80.0-100.0); MEAN CORPUSCULAR HGB 28.1 pG CALC (26.0-32.0); MEAN CORPUSCULAR HGB CONC 31.2 g/dL CAL (32.0-36.0); RED BLOOD COUNT 3.74 mill/uL (4.20-5.60); RED CELL DISTRI WIDTH 17.8 % (11.5-15.5)
--- NOTE | 2020-11-05 06:27 | NUR ---
PT FOUND EXISTING HER ROOM CONFUSED AND HULUCINATING. STATING THERE IS SOMETHING IN MY ROOM. REORIENTED PT AND BROUGHT HER BACK TO HER ROOM. ADMINISTERED ATIVAN AND MONITORED AND CONVERSED WITH HER FOR 15 MINUTES. PT UNDERSTOOD SHE EXPERIENCED A MOMENTT OF CONFUSION AND REASSURED ME SHE WAS JUST FINE NOW. WILL CONTINUE TO MONITOR.
[2020-11-05 06:35] LABS: ANION GAP 7 (6-22 (CALC)); BUN < 2 mg/dL (7-17); CARBON DIOXIDE 19 mmol/l (22-30); CHLORIDE 111 mmol/l (95-108); CREATININE 0.6 mg/dL (0.5-1.0); GFR > 60 ML/MIN (>=60 (CALC)); GFR FOR AFR.AMER. > 60 ML/MIN (>=60 (CALC)); MAGNESIUM 1.7 mg/dL (1.6-2.3); POTASSIUM 3.3 mmol/l (3.5-5.1); SODIUM 135 mmol/l (137-146)
--- NOTE | 2020-11-05 07:00 | NUR ---
PT REPORT RECEIVED FROM NIGHT NURSEJUANJO
--- NOTE | 2020-11-05 08:00 | NUR ---
PT WAS FOUND SITTING UP IN BED;PT IS ALERT AND ORIENTED TO SELF AND PLACE AT THIS TIME;VS AND ASSESSMENT WERE COMPLETED;PT HAS NO REPORTS OF PAIN AT THIS TIME;HEART SOUNDS ARE REGULAR IN RATE AND RHYTHM;LUNG SOUNDS ARE CLEAR;RESPIRATIONS ARE EVEN AND UNLABORED ON RA;TELE IS IN PLACE;#22G IV IN IS RUNNING NS@100 ML/HR;IV SITE IS FREE OF COMPLICATIONS AT THIS TIME;PT IS REPORTING NAUSEA AND WAS MEDICATED WITH ZOFRAN 4MG IV;MODERATE TREMORS NOTED TO HANDS WELL ANXIETY,FIDGETING AND SOME FEARFULNESS OBSERVED;PT APPEARS CONFUSED AT TIMES, BUT WITH VERBAL CUES, WILL REORIENT;SAFETY PRECAUTIONS IN PLACE;SEIZURE PRECAUTIONS IN PLAE;CALL LIGHT WITHIN REACH;BED IN LOWEST POSITION;WILL CONTINUE TO MONITOR
--- NOTE | 2020-11-05 12:00 | NUR ---
PT WAS FOUND WALKING AROUND ROOM;PT APPEARS FIDGETY AND RESTLESS;TALKED WITH PT AND SHE EXPRESSED HER NEEDS AND CONCERNS;PT WAS VERBALLY REASSURED AND COMFORTED AND NEEDS MET; PT HAS NO REPORTS OF PAIN OR NAUSEA AT THIS TIME;TELE IS IN PLACE;SAFETY PRECAUTIONS IN PLACE;SEIZURE PRECAUTIONS IN PLACE;CALL LIGHT WITHIN REACH;BED IN LOWEST POSITION;WILL CONTINUE TO MONITOR.
--- NOTE | 2020-11-05 16:00 | NUR ---
PT WAS FOUND SITTING ON SIDE OF BED;PT EXPRESSED NO NEEDS OR PAIN AT THIS TIME;TELE IS IN PLACE;#22G IV IN IS RUNNING MVI@100 ML/HR AT THIS TIME;IV SITE IS FREE OF COMPLICATIONS AT THIS TIME;SAFETY PRECAUTIONS IN PLACE;SEIZURE PRECAUTIONS IN PLACE;CALL LIGHT WITHIN REACH;BED IN LOWEST POSITION;WILL CONTINUE TO MONITOR.
--- NOTE | 2020-11-05 17:20 | NUR ---
PT WAS SEEN WALKING DOWN THE RANGEL WITH HER IV POLE VERY CONFUSED,SHORT OF BREATH WITH TREMORS;PT ESCORTED BACK TO ROOM;PT MEDICATED WITH ATIVAN 1MG IV WELL LIBRIUM 25MG PO;SAT WITH PT AND REASSURED HER AND ENCOURAGED HER TO EAT HER MEAL;PT WAS VISIBLY BETTER WHEN I LEFT THE ROOM;WILL CONTINUE TO MONITOR.
--- NOTE | 2020-11-05 19:36 | NUR ---
PTS PHYSICAL ASSESMENT COMPLETE. PT CURRENTLY DENIES PAIN OR DISCOMFORT. PT REMAINS CONFUSED AND AGITATED. SCHEDULED MEDICATIONS AND PRN MEDICATION ADMINISTERED, SEE E-MAR. WILL CONTINUE TO MONITOR BEHAVIOR. ITEMS WITHIN REACH, BED LOCKED IN LOW POSITION W/ BEDRAILS UP X2. CALL WILHELM WITHIN REACH, AGREES TO CALL PRN.
--- NOTE | 2020-11-05 23:43 | NUR ---
PT PULLED IV DURING A MOMENT OF CONFUSION AND AGITATION. PT REFUSING A NEW IV AT THIS TIME. WILL GIVE PT OPPORTUNITY TO CALM DOWN BEFORE ATTEMPING A NEW IV INSERTION. PREVIOUS IV SITE APPEARS HEALTHY WITH NO SWELLING OR INFLAMMATION.
--- NOTE | 2020-11-06 02:17 | NUR ---
PTS IV ANTIBIOTICS HELD. NO IV ACCESS GAINED AT THIS TIME.
--- NOTE | 2020-11-06 03:46 | NUR ---
PT CONFUSED AAND AGITATED. REMOVED NEW IV AND TELEMENTRY AND WAS FOUND IN THE SHOWER. AIDE WATCHED OVER PT WHILE SHE FINISHED HER SHOWER. PLACED BACK IN CLEAN BED. WILL CONTINUE TO MONITOR.
[2020-11-06 04:20] VITALS: BP 107/66
--- NOTE | 2020-11-06 07:35 | NUR ---
ASSESSMENT IS COMPLETED: IV SITE TAKEN OUT BY PT. HR IS REG,PULSES ARE STRONG X4,ABD IS SOFT WITH ACTIVE BS. BREATH SOUNDS ARE CLEAR BILATERALLY., PT IS DRESSED AND READY TO GO. WANTING TO GO TO THE BANK, AND OTHER PLACES. ENCOURAGED TO WAIT FOR THE DR AND NURSE PRACTIONER. VERBALIZED UNDERSTANDING.
[2020-11-06 07:44] VITALS: BP 128/74
[2020-11-06 08:42] LABS: BUN 3 mg/dL (7-17); BUN/CREATININE RATIO 5 (12-20 (CALC)); CHLORIDE 111 mmol/l (95-108); CREATININE 0.6 mg/dL (0.5-1.0); GFR > 60 ML/MIN (>=60 (CALC)); GFR FOR AFR.AMER. > 60 ML/MIN (>=60 (CALC)); POTASSIUM 3.9 mmol/l (3.5-5.1); SODIUM 133 mmol/l (137-146)
[2020-11-06 08:50] LABS: ANION GAP 13 (6-22 (CALC)); CARBON DIOXIDE 13 mmol/l (22-30)
[2020-11-06 09:14] VITALS: BP 128/74
[2020-11-06] MEDS ORDERED: PHENERGAN25 MG/TAB PO (09:34)
[2020-11-06] MEDS ORDERED: ZOFRAN4 MG/TAB PO (09:34)
[2020-11-06] MEDS ORDERED: PROTONIX40 MG PO (09:41)
--- NOTE | 2020-11-06 10:41 | NUR ---
PT ARRIVED VIA WC WITH STAFF. IV SITE IS FREE FROM REDNESS OR EDEMA.
--- NOTE | 2020-11-06 10:50 | NUR ---
Discharge instructions given. Patient verbalizes understanding of same. Discharged in stable condition via Wheelchair to *Other with *Other. All belongings sent with pt.
--- NOTE | 2020-11-06 10:50 | NUR ---
PT TAKEN DOWN STAIRS FOR A TAXI. NO DISTRESS NOTED. IV SITE WAS ALREADY TAKEN OUT BY PT. TELE TAKEN OFF DISCONTINUED.,
[2020-11-06] MEDS ORDERED: MACROBID100 M1 PO (10:57)
== END 2020-11-06 10:30 | disposition home or self-care (01) | DRG 897 ==
LOC: ED 16:37 → ED-I 21:25 → ED 21:36 → MS2 21:37
PROVIDERS: Family Medicine; Nurse Practitioner; Nurse Practitioner Family; ADMIT Internal Medicine; ATTEND Internal Medicine
DX: F10.131 Alcohol abuse with withdrawal delirium (principal); N39.0 Urinary tract infection, site not specified; E87.2 Acidosis; F10.129 Alcohol abuse with intoxication, unspecified; E87.6 Hypokalemia; E83.42 Hypomagnesemia; I10 Essential (primary) hypertension; G40.909 Epilepsy, unspecified, not intractable, without status epilepticus; F32.9 Major depressive disorder, single episode, unspecified; F41.9 Anxiety disorder, unspecified; I48.91 Unspecified atrial fibrillation; B96.1 Klebsiella pneumoniae [K. pneumoniae] as the cause of diseases classified elsewhere; Y90.6 Blood alcohol level of 120-199 mg/100 ml; Z86.16 Personal history of COVID-19; Z20.822 Contact with and (suspected) exposure to COVID-19
CPT/HCPCS: J1650; J2060; J3475; Q9967; S0164

== ENCOUNTER 2020-12-01 01:14 | Inpatient (IN) | payer OTHER ==
[~2020-12-01] VITALS: Ht 152.4 cm; Wt 56.0 kg
[~2020-12-01 01:14] MED LIST changes: +MACROBID100 M1 PO; +PHENERGAN25 MG/TAB PO; +PROTONIX40 MG PO
--- NOTE | 2020-12-01 01:14 | NUR ---
PT TO ROOM VIA EMS STRETCHER FOR BEDSIDE TRIAGE.
--- NOTE | 2020-12-01 01:50 | NUR ---
PT HAS IV ACCESS AND LABWORK COMPLETED, ALSO STATES THAT SHE SAT IN A HOT CARE TODAY FOR ABOUT 50 MINUTES, NO OTHER COMPLAINTS OFFERED.
[2020-12-01 02:07] LABS: IMMATURE GRANULOCYTES 0.9 % (0.0-5.0); MEAN CELL VOLUME 92.6 fL CALC (80.0-100.0); MEAN CORPUSCULAR HGB 29.5 pG CALC (26.0-32.0); MEAN CORPUSCULAR HGB CONC 31.9 g/dL CAL (32.0-36.0); NEUT# 5.86 thou/uL (2.00-7.15); RED BLOOD COUNT 4.74 mill/uL (4.20-5.60); RED CELL DISTRI WIDTH 16.7 % (11.5-15.5)
[2020-12-01 02:08] LABS: HEMATOCRIT 43.9 % (37.0-47.0)
[2020-12-01 02:12] LABS: ALKALINE PHOSPHATASE 133 u/l (38-126); AMYLASE 111 u/l (30-110); BILIRUBIN, TOTAL 0.5 mg/dL (0.0-1.4); BUN 6 mg/dL (7-17); BUN/CREATININE RATIO 7 (12-20 (CALC)); CHLORIDE 104 mmol/l (95-108); CREATININE 0.9 mg/dL (0.5-1.0); ETHYL ALCOHOL 133 mg/dl (0-30); GFR > 60 ML/MIN (>=60 (CALC)); GFR FOR AFR.AMER. > 60 ML/MIN (>=60 (CALC)); LIPASE 49 u/l (23-300); MAGNESIUM 1.9 mg/dL (1.6-2.3); SGOT/AST 51 u/l (14-36)
[2020-12-01 02:13] LABS: ALBUMIN 3.9 g/dL (3.2-5.0); ANION GAP 19 (6-22 (CALC)); CARBON DIOXIDE 21 mmol/l (22-30); POTASSIUM 2.7 mmol/l (3.5-5.1); SODIUM 141 mmol/l (137-146); TOTAL PROTEIN 8.3 g/dL (6.3-8.2)
--- NOTE | 2020-12-01 02:23 | NUR ---
IVF AND PROTONIX GTT INFUSING ORDERED. CALL [facility] WITHIN REACH.
--- NOTE | 2020-12-01 02:40 | NUR ---
PT AWARE OF PLANNED ADMISSION, COVID SWAB PERFORMED AND PT TOLERATED W/O INCIDENT.
--- NOTE | 2020-12-01 02:55 | NUR ---
CALL [facility] WITHIN REACH, NO NEW COMPLAINTS, WILL CONTINUE TO MONITOR.
--- NOTE | 2020-12-01 03:40 | NUR ---
PT HAS ANXIETY AT TIMES, NO NEW COMPLAINTS, SOME SHAKINESS NOTED, CONTINUES TO INTERMITTENTLY VOMITING
--- NOTE | 2020-12-01 04:44 | NUR ---
MEDICATED WITH ATIV[facility] ORDERED, PT STATES FEELING BETTER, BUT STILL CONTINUE TO HAVE OCCASIONAL N/V, CALL [facility] WITHIN REACH, IVF INFUSING ORDERED. PROTONIX GTT CONTINUES
--- NOTE | 2020-12-01 05:34 | NUR ---
REPORT CALLED TO [facility] ON [facility]
--- NOTE | 2020-12-01 05:42 | NUR ---
PT ARRIVE TO FLOOR VIA WHEELCHAIR ACCOMPAINED BY TOOLMAKER HELPER. PT ALERT AND ORIENTED. ACTIVELY VOMITING WHILE IN ROUTE. NO APPARENT DISTRESS NOTED. ALCOHOL BOTTLE WITH ABOUT QUARTER OF A BOTTLE FULL REMOVED FROM ROOM BY TOOLMAKER HELPER. CALL LIGHT WITHIN REACH. WILL CONTINUE TO MONITOR.
--- NOTE | 2020-12-01 05:43 | NUR ---
PT TRANSPORTED TO MED SURG VIA WHEELCHAIR, WITH TELE IN PLACE. ALL BELONGING SENT WITH PT.
[2020-12-01 06:01] VITALS: BP 117/75
[2020-12-01 07:15] VITALS: BP 119/70
--- NOTE | 2020-12-01 07:15 | NUR ---
PATIENT IN BED AT THIS TIME ALERT AND ORIENTED X 3 PATIENT EXHIBITS MILD SHAKING OF HANDS AND ARMS. NO NAUSEA AND OR VOMITING NOTED AT THIS TIME. CWIA SCORE IS A CURRENTLY A "5". LUNG PANDYA ARE CLEAR. IV PATENT IN RIGHT UPPER SHOULDER AT THIS TIME WITH A NORMAL SALINE BOLUS RUNNING IN A 200 MLS AN HOUR. SIDERAILS ARE UP X 2 CALL LIGHT IS WITHIN REACH. PATIENT DENIES ANY PAIN.
[2020-12-01 09:04] LABS: ANION GAP 15 (6-22 (CALC)); BUN 7 mg/dL (7-17); BUN/CREATININE RATIO 9 (12-20 (CALC)); CARBON DIOXIDE 19 mmol/l (22-30); CHLORIDE 111 mmol/l (95-108); CREATININE 0.8 mg/dL (0.5-1.0); GFR > 60 ML/MIN (>=60 (CALC)); GFR FOR AFR.AMER. > 60 ML/MIN (>=60 (CALC)); POTASSIUM 2.8 mmol/l (3.5-5.1); SODIUM 142 mmol/l (137-146)
[2020-12-01 10:30] VITALS: BP 112/71
--- NOTE | 2020-12-01 12:05 | NUR ---
PATIENT LAYING IN BED AT THIS TIME. PATIENT TREMORS ARE LESS AND PATIENT STATED "I FEEL BETTER THAN I DID THIS MORNING". PATIENT CWIA SCORE REMAINS A 5 AT THIS TIME. PATIENT GIVEN LIBRUM 25MG AT THIS TIME. PATIENT GIVEN MEDICATION EDUCATION AT THIS TIME AND PATIENT VERBALIZES UNDERSTANDING OF MEDICATION GIVNE. SIDERAILS ARE UP CALL LIGHT IS WITHIN REACH. TELE MONITOR REMAINS ON AND BEING MONITORED BY ED.
[2020-12-01 15:00] VITALS: BP 99/64
--- NOTE | 2020-12-01 16:05 | NUR ---
PATIENT IN BED AT THIS TIME. CIWA SCORE REMAINS 5. NO NAUSEA OR VOMITING NOTED AT THIS TIME. SIDERAILS REMAIN UP AT THIS TIME. CALL LIGHT IS WITHIN REACH TELE ON AND BEING MONITORED BY ED.
[2020-12-01 19:00] VITALS: BP 109/66
[2020-12-01 20:13] LABS: URINE BILIRUBIN - DIPSTICK NEGATIVE (NEGATIVE); URINE BLOOD DIPSTICK NEGATIVE (NEGATIVE); URINE COLOR YELLOW; URINE GLUCOSE - DIPSTICK NEGATIVE (NEGATIVE); URINE KETONE NEGATIVE (NEGATIVE); URINE PH 7.5 (4.5-8.0); URINE PROTEIN - DIPSTICK NEGATIVE (NEG-TRACE); URINE UROBILINOGEN - DIPSTICK 0.2 E.U./dL (0.2)
[2020-12-01 20:14] LABS: URINE LEUK ESTERASE LARGE (NEGATIVE); URINE NITRITE - DIPSTICK NEGATIVE (Negative)
[2020-12-01 20:27] LABS: URINE BACTERIA FEW hpf; URINE SQUAMOUS EPITHELIAL CELL FEW EPI/hpf (0-FEW); URINE WBC 20-50 WBC/hpf (0-5)
--- NOTE | 2020-12-01 21:22 | NUR ---
PT MEDICATED ORDERS PROVIDE AND ASSESSMENT COMPLETED AT THIS TIME. MODERATE TREMORS OBSERVED, DENIES SOB, PAIN, LOOSE STOOL/REPORTS EARLIER LOOSE STOOL X4, DENIES AUDITORY OR VISUAL DISTURBANCES AND PT IS ABLE TO SERIAL ADD. PT REPORTS FEELING BETTER AT THIS TIME.
--- NOTE | 2020-12-01 21:22 | NUR ---
PT AWAKE WITH MODERATE TREMORS VISIBLE UPON USING HANDS. PT IS ABLE BUT FINDS IT DIFFICULT TO HOLD A CUP WITHOUT ASSISTANCE. SHE DENIES RECENT STOOL OUTPUT TONIGHT, REPORTS MULTIPLE LOOSE STOOL EARLIER THIS DAY. SHE DENIES AUDITORY OR VISUAL DISTURBANCES AND IS ABLE TO DO SERIAL ADDITIONS. PT WAS MEDICATED AT THIS TIME ORDERS PROVIDE. SHE DENIES ANY OTHER NEEDS AT THIS TIME. CALL LIGHT IS AT SIDE AND PT ENCOURAGED TO CALL IF ANY NEEDS ARISE AND SHE WAS ALSO ASKED TO CALL FOR STANDBY ASSISTANCE GETTING TO BSC OR AMBULATING.
[2020-12-01 23:59] VITALS: BP 112/71
--- NOTE | 2020-12-02 00:09 | NUR ---
LIBRIUM ADMINSTERED AT THIS TIME. CALL LIGHT AT SIDE AND PT INSTRUCTED TO CALL TO AMBULATE TO RESTROOM, VERBALIZED UNDERSTANDING.
[2020-12-02 04:50] VITALS: BP 100/70
--- NOTE | 2020-12-02 04:59 | NUR ---
LAB IN WITH PT TO OBTAIN BLOOD. PT MEDICATED ORDERS PROVIDE. IVP CLEARED.
[2020-12-02 06:24] LABS: MEAN CELL VOLUME 96.2 fL CALC (80.0-100.0); MEAN CORPUSCULAR HGB 29.8 pG CALC (26.0-32.0); RED BLOOD COUNT 3.92 mill/uL (4.20-5.60); RED CELL DISTRI WIDTH 17.2 % (11.5-15.5)
[2020-12-02 06:37] LABS: HEMATOCRIT 37.7 % (37.0-47.0); HEMOGLOBIN 11.7 g/dl (12.0-16.0)
[2020-12-02 06:54] LABS: BUN 4 mg/dL (7-17); BUN/CREATININE RATIO 6 (12-20 (CALC)); CARBON DIOXIDE 18 mmol/l (22-30); CHLORIDE 114 mmol/l (95-108); CREATININE 0.7 mg/dL (0.5-1.0); GFR > 60 ML/MIN (>=60 (CALC)); GFR FOR AFR.AMER. > 60 ML/MIN (>=60 (CALC)); SODIUM 139 mmol/l (137-146)
[2020-12-02 06:58] LABS: ANION GAP 11 (6-22 (CALC)); MAGNESIUM 2.5 mg/dL (1.6-2.3); POTASSIUM 3.8 mmol/l (3.5-5.1)
--- NOTE | 2020-12-02 07:10 | NUR ---
REPORT RECEIVED FROM MELO ANTOINE
[2020-12-02 08:23] VITALS: BP 120/68
--- NOTE | 2020-12-02 08:30 | NUR ---
PT RESTING IN SEMI FOWLERS POSITION,A&O X3;VS OBTAINED AND ASSESSMENT COMPLETED;PT DENIES ANY CURRENT PAIN OR DISCOMFORTS,PAIN SCALE AND REPORTING EDUCATED;RESPIRATIONS EVEN AND UNLABORED ON RA,CLEAR LUNG SOUNDS;ABDOMEN SOFT ON PALPATION AND ACTIVE IN ALL 4 QUADRANTS;STRONG PEDAL PULSES;SKIN INTACT;TELE MONITORING IN PLACE;#22G TO RT SHOULDER INFUSING NS W/40MEQ OF POTASSIUM WITH EASE,SITE APPEARS HEALTHY;SEIZURE PRECAUTIONS IN PLACE;PT DENIES ANY ADDITIONAL NEEDS AT THIS TIME AND IS ENCOURAGED TO CALL FOR ASSISTANCE IF NEEDED;FALL PRECAUTIONS IN PLACE WITH BED IN THE LOWEST POSITION AND CALL LIGHT IN REACH;WILL CONTINUE TO MONITOR
--- NOTE | 2020-12-02 09:57 | NUR ---
AT BEDSIDE DISCUSSING POC.
[2020-12-02 10:56] VITALS: BP 105/81
--- NOTE | 2020-12-02 11:25 | NUR ---
PT RESTING IN SEMI FOWLERS POSITION;RESPIRATIONS EVEN AND UNLABORED ON RA;IV SITE TO RIGHT SHOULDER PATENT, IVF D/C PER ORDER AND TELE MONITORING REMOVED;PT DENIES ANY ADDITIONAL NEEDS AT THIS TIME;ENCOURAGED TO CALL FOR ASSISTANCE IF NEEDED;FALL PRECAUTIONS REMAIN IN PLACE WITH CALL LIGHT IN REACH;WILL CONTINUE TO MONITOR
--- NOTE | 2020-12-02 15:30 | NUR ---
PT RESTING IN SEMI FOWLERS POSITION;RESPIRATIONS EVEN AND UNLABORED ON RA;PT DENIES ANY CURRENT PAIN OR DISCOMFORTS;#22G TO RIGHT SHOULDER PATENT;PT ENCOURAGED TO CALL FOR ASSISTANCE IF NEEDED;CALL LIGHT IN REACH;WILL CONTINUE TO MONITOR
[2020-12-02 15:41] VITALS: BP 99/66
[2020-12-02 19:00] VITALS: BP 113/78
[2020-12-03] VITALS: BP 108/63
--- NOTE | 2020-12-03 01:59 | NUR ---
PATIENT CURRENTLY RESTING WITH EYES CLOSED. CIWA SCORE 4. CONTINUES WITH TREMORS. DENIES A/V DISTRUBANCES. ASSESSMENT COMPLETED. TELEMETRY REAPPLIED AFTER NEW ORDER RECEIVED. BED IN LOW POSITION. CALL LIGHT WITHIN REACH.
[2020-12-03 04:00] VITALS: BP 108/67
[2020-12-03 06:06] LABS: HEMOGLOBIN 10.8 g/dl (12.0-16.0); MEAN CELL VOLUME 96.4 fL CALC (80.0-100.0); MEAN CORPUSCULAR HGB 29.8 pG CALC (26.0-32.0); MEAN CORPUSCULAR HGB CONC 30.9 g/dL CAL (32.0-36.0); RED BLOOD COUNT 3.63 mill/uL (4.20-5.60); RED CELL DISTRI WIDTH 16.2 % (11.5-15.5)
[2020-12-03 06:29] LABS: ALKALINE PHOSPHATASE 74 u/l (38-126); ANION GAP 6 (6-22 (CALC)); BILIRUBIN, TOTAL 0.4 mg/dL (0.0-1.4); BUN 4 mg/dL (7-17); BUN/CREATININE RATIO 6 (12-20 (CALC)); CARBON DIOXIDE 19 mmol/l (22-30); CHLORIDE 115 mmol/l (95-108); CREATININE 0.7 mg/dL (0.5-1.0); GFR > 60 ML/MIN (>=60 (CALC)); GFR FOR AFR.AMER. > 60 ML/MIN (>=60 (CALC)); POTASSIUM 3.9 mmol/l (3.5-5.1); SGOT/AST 67 u/l (14-36); SODIUM 136 mmol/l (137-146)
[2020-12-03 06:30] LABS: ALBUMIN 2.2 g/dL (3.2-5.0); MAGNESIUM 1.6 mg/dL (1.6-2.3); TOTAL PROTEIN 5.3 g/dL (6.3-8.2)
--- NOTE | 2020-12-03 07:00 | NUR ---
RECIEVED REPORT FROM MELO LOPEZ
[2020-12-03 08:07] VITALS: BP 112/74
--- NOTE | 2020-12-03 08:07 | NUR ---
PT RSTING IN SEMI FOWLERS POSITION. PT IS A/O X3. ASSESSMWNT AND VITALS COMPLETED. BP 112/74, HR 97, O2 97% ON ROOM AIR. REPSIRATIONS ARE EVEN AND UNLABORED.LUNG SOUNS ARE CLEAR. BOWEL SOUNDS ARE ACTIVE. HEART RHYTHM ARE NORMAL WITH TELE IN PLACE. #22G ADAM INFILTRATED, NEW IV TO BE STARTED. SKIN INTACT. TREMORS NOTED. CIWA SCORE OF 4. PT COMPLAINS OF PAIN AND FREWUENCY WHEN URINATING. D TO BE NOTIFIED. PT DENIES OF ANY OTHER PAINS OR NEEDS AT THIS TIME. ALL SAFETY PRECAUTIONS ARE IN PLACE WITH SIE RAILS PADDED. PT INSTRUCTED ON CALLING FOR ASSIATNACE. PT VERBLAIZED UNDERSTANDING. ALL SAFETY PRECAUTIONS ARE IN PLACE WITH CALL LIGHT IN REACH. WILL CONTINUE TO MONITOR.
[2020-12-03 10:45] VITALS: BP 111/64
--- NOTE | 2020-12-03 11:31 | NUR ---
#22G IN ADAM REMOVED WITH CATHATER STILL INTACT. #22G IN RIGHT ANKLE/FOOT STARTED BY MELO LOVE. SITE REMAINS HEALTHY AND PATENT.
--- NOTE | 2020-12-03 12:58 | NUR ---
PT RESTING IN SEMI FOWLERSS POSITION. RESPIRATIONS ARE EVEN AND UNLABORED ON ROOM AIR. #22G IN RIGHT FOOT. TELE MONITORING IN PLACE. PT DENIES OF ANY PAINS OR DISCOMFORTS AT THIS TIME. ALL SAFETY PRECAUTIONS ARE IN PLACE WITH CALL LIGHT IN REACH. WILL CONTINUE TO MONITOR.
[2020-12-03 14:45] VITALS: BP 116/65
--- NOTE | 2020-12-03 16:15 | NUR ---
PT RESTING IN SEMI FOWLERS POSITION WITH VISITOR (EX BOYFRIEND)AT BEDSIDE. RESPIRATIONS ARE EVEN AND UNLABORED ON ROOM AIR. #22G IN RIGHT FOOT REMAINS HEALTHY AND PATENT. TELE MONITORING IN PLACE. PT DENIES OF ANY PAINS OR DISCOMFORTS AT THIS TIME. ALL SAFETY PRECAUTIONS ARE IN PLACE WITH CALL LIGHT IN REACH. ALL SAFETY PRECAUTIONS ARE IN PLACE WITH CALL LIGHT IN REACH. WILL CONTINUE TO MONITOR.
[2020-12-03 19:00] VITALS: BP 105/74
--- NOTE | 2020-12-03 19:05 | NUR ---
REPORT FROM MOY NORTON. ASSUMED PT CARE.
--- NOTE | 2020-12-03 20:11 | NUR ---
PT NOTED RESTING IN BED. PT WAKES EASILY. ALERT AND ORIENTED. NO APPARENT DISTRESS NOTED. PT DENIES ANY PAIN OR DISCOMFORT. DISCUSSED POC AND SAFETY PRECAUTIONS. IV SITE APPEARS HEALTHY, FLUSHED WELL. NO CURRENT WANTS OR NEEDS NOTED. CALL LIGHT WITHIN REACH. WILL CONTINUE TO MONITOR.
--- NOTE | 2020-12-03 21:05 | NUR ---
PT MEDICATED ORDERED. NO CURRENT WANTS OR NEEDS NOTED. PT DENIES ANY PAIN OR DISCOMFORT. NO APPARENT DISTRESS NOTED. SENIOR COMMUNICATIONS SPECIALIST IN PLACE. CALL LIGHT WITHIN REACH. WILL CONTINUE TO MONITOR.
[2020-12-04] VITALS: BP 90/56
--- NOTE | 2020-12-04 00:21 | NUR ---
PT MEDICATED ORDERED. IV ABT INFUSING WITHOUT DIFFICULTY. IV SITE APPEARS HEALTHY. NO CURRENT WANTS OR NEEDS. CALL LIGHT WITHIN REACH. WILL CONTINUE TO MONITOR.
[2020-12-04 04:00] VITALS: BP 101/68
--- NOTE | 2020-12-04 04:33 | NUR ---
NEUROSURGICAL PHYSICIAN ASSISTANT AT BEDSIDE TO COLLECT LABS.
[2020-12-04 04:51] LABS: HEMATOCRIT 34.7 % (37.0-47.0); HEMOGLOBIN 10.9 g/dl (12.0-16.0); MEAN CELL VOLUME 95.9 fL CALC (80.0-100.0); MEAN CORPUSCULAR HGB 30.1 pG CALC (26.0-32.0); MEAN CORPUSCULAR HGB CONC 31.4 g/dL CAL (32.0-36.0); RED BLOOD COUNT 3.62 mill/uL (4.20-5.60); RED CELL DISTRI WIDTH 15.8 % (11.5-15.5)
[2020-12-04 05:15] LABS: ANION GAP 6 (6-22 (CALC)); BUN 8 mg/dL (7-17); BUN/CREATININE RATIO 13 (12-20 (CALC)); CARBON DIOXIDE 20 mmol/l (22-30); CHLORIDE 113 mmol/l (95-108); CREATININE 0.6 mg/dL (0.5-1.0); GFR > 60 ML/MIN (>=60 (CALC)); GFR FOR AFR.AMER. > 60 ML/MIN (>=60 (CALC)); MAGNESIUM 1.2 mg/dL (1.6-2.3); POTASSIUM 3.7 mmol/l (3.5-5.1); SODIUM 135 mmol/l (137-146)
[2020-12-04 07:10] VITALS: BP 89/62
--- NOTE | 2020-12-04 07:10 | NUR ---
PATIENT LAYING IN BED AT THIS TIME. STARR DENEIS ANY NEEDS ROOF BOLTING COAL MINER DONE AT THIS TIME SEE INTERVENITONS. CWIA SCALE IS A "0" . PATIENT LUNG PANDYA REMAIN CLEAR. SIDERAILS ARE UP CALL LIGHT WITHIN REACH.
[2020-12-04 10:47] VITALS: BP 95/54
--- NOTE | 2020-12-04 12:03 | NUR ---
PATIENT SITTING AT BEDSIDE EATING LUNCH AT THIS TIME. SIDERAILS ARE UP X 2 CALL LIGHT IS WITHIN REACH. PATIENT DENIES ANY NEEDS. PATIENT STATES SHE HAS NO PAIN AT THIS TIME.
[2020-12-04] MEDS ORDERED: AMOXICILLIN500 MG PO (13:00)
--- NOTE | 2020-12-04 13:30 | NUR ---
PATIENT D/C AT THIS TIME. PATIENT VERBALIZES UNDERSTANDING OF D/C INSTRUCTIONS AT THIS TIME.
--- NOTE | 2020-12-04 13:51 | NUR ---
Discharge instructions given. Patient verbalizes understanding of same. Discharged in stable condition via Taxi to Home with *Other. All belongings sent with pt.
== END 2020-12-04 15:01 | disposition home or self-care (01) | DRG 897 ==
LOC: ED 01:14 → ED-I 02:26 → ED 02:50 → MS2 02:51
PROVIDERS: Nurse Practitioner; ADMIT Internal Medicine; ATTEND Internal Medicine
DX: F10.139 Alcohol abuse with withdrawal, unspecified (principal); E87.2 Acidosis; N39.0 Urinary tract infection, site not specified; E87.6 Hypokalemia; E83.42 Hypomagnesemia; F10.129 Alcohol abuse with intoxication, unspecified; I10 Essential (primary) hypertension; I48.91 Unspecified atrial fibrillation; K59.09 Other constipation; G40.909 Epilepsy, unspecified, not intractable, without status epilepticus; F32.9 Major depressive disorder, single episode, unspecified; F41.9 Anxiety disorder, unspecified; B95.2 Enterococcus as the cause of diseases classified elsewhere; Y90.6 Blood alcohol level of 120-199 mg/100 ml; Z98.1 Arthrodesis status; Z90.49 Acquired absence of other specified parts of digestive tract; Z86.16 Personal history of COVID-19; Z20.822 Contact with and (suspected) exposure to COVID-19
CPT/HCPCS: J2060; J3475; S0164

== ENCOUNTER 2021-03-10 11:53 | Inpatient (IN) | payer OTHER ==
[~2021-03-10] VITALS: Ht 152.4 cm; Wt 49.0 kg
[~2021-03-10 11:53] MED LIST changes: +AMOXICILLIN500 MG PO
--- NOTE | 2021-03-10 11:53 | NUR ---
PT TO ROOM VIA EMS STRETCHER.
--- NOTE | 2021-03-10 12:30 | NUR ---
UNABLE TO OBTAIN IV ACCESS. PA NOTIFIED.
[2021-03-10 13:15] LABS: HEMATOCRIT 36.3 % (37.0-47.0); HEMOGLOBIN 11.5 g/dl (12.0-16.0); IMMATURE GRANULOCYTES 0.1 % (0.0-5.0); MEAN CORPUSCULAR HGB 29.8 pG CALC (26.0-32.0); MEAN CORPUSCULAR HGB CONC 31.7 g/dL CAL (32.0-36.0); NEUT# 8.45 thou/uL (2.00-7.15); RED BLOOD COUNT 3.86 mill/uL (4.20-5.60); RED CELL DISTRI WIDTH 14.2 % (11.5-15.5)
[2021-03-10 13:36] LABS: ALKALINE PHOSPHATASE 83 u/l (38-126); CARBON DIOXIDE 18 mmol/l (22-30); ETHYL ALCOHOL 0 mg/dl (0-30); SODIUM 129 mmol/l (137-146)
[2021-03-10 13:41] LABS: BUN 30 mg/dL (7-17); BUN/CREATININE RATIO 14 (12-20 (CALC)); CREATININE 2.2 mg/dL (0.5-1.0); GFR 23 ML/MIN (>=60 (CALC)); GFR FOR AFR.AMER. 28 ML/MIN (>=60 (CALC))
[2021-03-10 13:42] LABS: ALBUMIN 3.2 g/dL (3.2-5.0); ANION GAP 22 (6-22 (CALC)); BILIRUBIN, TOTAL 0.8 mg/dL (0.0-1.4); CHLORIDE 92 mmol/l (95-108); POTASSIUM 2.6 mmol/l (3.5-5.1); SGOT/AST 406 u/l (14-36); TOTAL PROTEIN 6.6 g/dL (6.3-8.2)
[2021-03-10 15:24] LABS: URINE BLOOD DIPSTICK LARGE (NEGATIVE); URINE COLOR YELLOW; URINE GLUCOSE - DIPSTICK NEGATIVE (NEGATIVE); URINE KETONE 15 mg/dL (NEGATIVE); URINE PH 5.5 (4.5-8.0); URINE PROTEIN - DIPSTICK 100 mg/dL (NEG-TRACE)
[2021-03-10 15:25] LABS: URINE BILIRUBIN - DIPSTICK NEGATIVE (NEGATIVE); URINE LEUK ESTERASE MODERATE (NEGATIVE); URINE NITRITE - DIPSTICK NEGATIVE (Negative); URINE SQUAMOUS EPITHELIAL CELL FEW EPI/hpf (0-FEW); URINE WBC 20-50 WBC/hpf (0-5)
[2021-03-10 15:26] LABS: URINE BACTERIA MANY hpf
--- NOTE | 2021-03-10 15:49 | NUR ---
PATIENT BP 70/36. PATIENT HALLUCINATING AND GRABBING AT THINGS IN THE AIR. MD NOTIFIED AND IV FLUIDS INITIATED.
--- NOTE | 2021-03-10 16:15 | NUR ---
IV FLUIDS INFUSING PATIENT REMAINS RESTLESS WITH HALLUCINATIONS, WORD SALAD AND GARBLED SPEECH.
--- NOTE | 2021-03-10 17:34 | NUR ---
PATIENT REMAINS HYPOTENSIVE AT 70/34 IV FLUIDS INFUSING WITH USE OF PRESSURE BAG AND PATIENT IN REVERSE TRENDELEBERG POSITION. PER MD TO HOLD OLANZAPINE AT THIS TIME. PATIENT RESTING COMFORTABLY IN STRETCHER WITH EYES CLOSED. SIGNIFICANT OTHER AT BEDSIDE.
--- NOTE | 2021-03-10 17:57 | NUR ---
PATIENT PLACED ON 6L NC AT THIS TIME. SPO2 MAINTAINING 99% AT THIS TIME. PATIENT REMAINS DROWSY WITH SOME MOVEMENT TO ARMS AT TIMES.
--- NOTE | 2021-03-10 18:00 | NUR ---
PATIENT BP 100/50.
--- NOTE | 2021-03-10 18:15 | NUR ---
PATIENT RESTING IN STRETCHER IN NAD AND RESTING COMFORTABLY SPO2 98% ON 6L.
[2021-03-10 18:35] LABS: ACT PARTIAL THROMBO TIME 35.4 SECONDS (20.0-32.5); INTERNATIONAL NORMALIZED RATIO 1.1 RATIO (0.7-1.3); PROTHROMBIN TIME 11.2 SECONDS (9.0-12.5)
[2021-03-10] MEDS ORDERED: MECLIZINE25 MG PO (18:39)
[2021-03-10] MEDS ORDERED: [UNRECOGNIZED DRUG - OTHER] PO (18:39)
[2021-03-10] MEDS ORDERED: INDERAL 20MG TA20 MG PO (18:40)
--- NOTE | 2021-03-10 21:27 | NUR ---
RT AT BEDSIDE TO OBTAIN AN ACCURATE PULSE OX
--- NOTE | 2021-03-10 22:10 | NUR ---
RECIEVED REPORT FROM MELO BE. ASSUMED CARE OF PATIENT.
--- NOTE | 2021-03-10 23:43 | NUR ---
Reassessment of patient completed. No distress noted. PT APPEARS TO BE SLEEPING.
--- NOTE | 2021-03-11 00:46 | NUR ---
Reassessment of patient completed. No distress noted. PT SLEEPING, SITTER AT BEDSIDE.
--- NOTE | 2021-03-11 01:15 | NUR ---
PT RESTING. VSS. ..ON LEVOPHED DRIP. NO CHANGE IN PT STATUS
--- NOTE | 2021-03-11 04:30 | NUR ---
NO CHANGE. RESTING...HALLUCINATING. VSS.
[2021-03-11 06:04] LABS: HEMATOCRIT 34.1 % (37.0-47.0); HEMOGLOBIN 10.6 g/dl (12.0-16.0); IMMATURE GRANULOCYTES 0.2 % (0.0-5.0); MEAN CORPUSCULAR HGB 29.5 pG CALC (26.0-32.0); MEAN CORPUSCULAR HGB CONC 31.1 g/dL CAL (32.0-36.0); NEUT# 9.6 thou/uL (2.00-7.15); RED BLOOD COUNT 3.59 mill/uL (4.20-5.60); RED CELL DISTRI WIDTH 14.3 % (11.5-15.5)
[2021-03-11 06:15] LABS: ALKALINE PHOSPHATASE 77 u/l (38-126); BUN 21 mg/dL (7-17); CARBON DIOXIDE 19 mmol/l (22-30); POTASSIUM 2.9 mmol/l (3.5-5.1); PROTHROMBIN TIME 10.8 SECONDS (9.0-12.5); SGOT/AST 200 u/l (14-36); SODIUM 132 mmol/l (137-146)
[2021-03-11 06:16] LABS: ALBUMIN 2.2 g/dL (3.2-5.0); ANION GAP 9 (6-22 (CALC)); BILIRUBIN, TOTAL 0.3 mg/dL (0.0-1.4); BUN/CREATININE RATIO 19 (12-20 (CALC)); CHLORIDE 107 mmol/l (95-108); CREATININE 1.1 mg/dL (0.5-1.0); GFR 51 ML/MIN (>=60 (CALC)); GFR FOR AFR.AMER. > 60 ML/MIN (>=60 (CALC)); TOTAL PROTEIN 5.2 g/dL (6.3-8.2)
--- NOTE | 2021-03-11 07:00 | NUR ---
RECEIVED BEDSIDE REOPORT FROM JESSIE LAEJO. LEVOPHED AT 8MCG/MIN. K RIDER INFUSING WITHOUT DIFFICULTY. PT RESTING WITH EYES CLOSED, AWAKENS EASILY. SITTER AT BEDSIDE. BP 120/72 HEART RATE 116
--- NOTE | 2021-03-11 07:05 | NUR ---
LEVOPHED TITRATED DOWN 7MCG/MIN. BP 120/72
--- NOTE | 2021-03-11 08:15 | NUR ---
LEVOPHED TITRATED TO 6MCG/MIN BP 128/76
--- NOTE | 2021-03-11 10:45 | NUR ---
MD ELLIOTT VERBALIZED TO RN HECTOR THAT HE IS OK WITH THE BP LONG THE PATIENT HAVE A MAP OF 65 AND UP
[2021-03-11] MEDS ORDERED: ZOFRAN4 M1 PO (11:01)
[2021-03-11] MEDS ORDERED: PROTONIX40 M2 PO (11:01)
[2021-03-11] MEDS ORDERED: PROMETHAZINE HY25 M1 PO (11:02)
[2021-03-11] MEDS ORDERED: OMEPRAZOLE DR40 MG PO (11:09)
[2021-03-11] MEDS ORDERED: LOPRESSOR25 MG PO (11:14)
[2021-03-11] MEDS ORDERED: CENTRATEX PO (11:14)
[2021-03-11] MEDS ORDERED: LIBRIUM25 M1 PO (11:15)
[2021-03-11] MEDS ORDERED: VITAMIN B1100 M1 PO (11:16)
--- NOTE | 2021-03-11 21:36 | NUR ---
Reassessment of patient completed. No distress noted.
--- NOTE | 2021-03-12 02:39 | NUR ---
Reassessment of patient completed. SITTER AT BEDSIDE.
[2021-03-12 05:46] LABS: HEMATOCRIT 38.8 % (37.0-47.0); HEMOGLOBIN 12.3 g/dl (12.0-16.0); MEAN CELL VOLUME 91.7 fL CALC (80.0-100.0); MEAN CORPUSCULAR HGB 29.1 pG CALC (26.0-32.0); MEAN CORPUSCULAR HGB CONC 31.7 g/dL CAL (32.0-36.0); RED BLOOD COUNT 4.23 mill/uL (4.20-5.60); RED CELL DISTRI WIDTH 14.7 % (11.5-15.5)
[2021-03-12 06:05] LABS: ALBUMIN 2.4 g/dL (3.2-5.0); ALKALINE PHOSPHATASE 90 u/l (38-126); BUN 16 mg/dL (7-17); BUN/CREATININE RATIO 22 (12-20 (CALC)); CARBON DIOXIDE 17 mmol/l (22-30); CHLORIDE 109 mmol/l (95-108); CREATININE 0.7 mg/dL (0.5-1.0); GFR > 60 ML/MIN (>=60 (CALC)); GFR FOR AFR.AMER. > 60 ML/MIN (>=60 (CALC)); SGOT/AST 115 u/l (14-36); SODIUM 134 mmol/l (137-146); TOTAL PROTEIN 5.8 g/dL (6.3-8.2)
[2021-03-12 06:11] LABS: ANION GAP 12 (6-22 (CALC)); BILIRUBIN, TOTAL 0.5 mg/dL (0.0-1.4)
--- NOTE | 2021-03-12 11:06 | NUR ---
SITTER REMAINS BEDSIDE
--- NOTE | 2021-03-12 19:00 | NUR ---
REPORT TO CLERK TELEGRAPH SERVICE RN
[2021-03-13] VITALS (10 sets, daily range): BP systolic 88–132; BP diastolic 64–88
--- NOTE | 2021-03-13 01:00 | NUR ---
Reassessment of patient completed. No distress noted. RECIEVED REPORT FROM JODI Ponce RN, ASSUMED CARE OF PATIENT.
--- NOTE | 2021-03-13 02:18 | NUR ---
Reassessment of patient completed. No distress noted. SITTER AT BEDSIDE. PT APPEARS TO BE SLEEPING.
--- NOTE | 2021-03-13 03:22 | NUR ---
Reassessment of patient completed. No distress noted.
--- NOTE | 2021-03-13 04:22 | NUR ---
Reassessment of patient completed. No distress noted. SITTER AT BEDSIDE. PT APPEARS TO BE SLEEPING, RESPIRATION EVEN.
--- NOTE | 2021-03-13 06:06 | NUR ---
Reassessment of patient completed. No distress noted. Pt HOB elevated. Oral care done. Facial hygeine.
[2021-03-13 06:43] LABS: INTERNATIONAL NORMALIZED RATIO 1.1 RATIO (0.7-1.3); PROTHROMBIN TIME 11.6 SECONDS (9.0-12.5)
[2021-03-13 06:45] LABS: ALBUMIN 2.2 g/dL (3.2-5.0); ALKALINE PHOSPHATASE 89 u/l (38-126); BILIRUBIN, TOTAL 0.6 mg/dL (0.0-1.4); BUN 11 mg/dL (7-17); BUN/CREATININE RATIO 20 (12-20 (CALC)); CARBON DIOXIDE 18 mmol/l (22-30); CHLORIDE 107 mmol/l (95-108); CREATININE 0.6 mg/dL (0.5-1.0); GFR > 60 ML/MIN (>=60 (CALC)); GFR FOR AFR.AMER. > 60 ML/MIN (>=60 (CALC)); MAGNESIUM 1.4 mg/dL (1.6-2.3); SGOT/AST 58 u/l (14-36); SODIUM 135 mmol/l (137-146); TOTAL PROTEIN 5.5 g/dL (6.3-8.2)
[2021-03-13 06:46] LABS: ANION GAP 13 (6-22 (CALC)); HEMATOCRIT 32.9 % (37.0-47.0); HEMOGLOBIN 10.7 g/dl (12.0-16.0); MEAN CELL VOLUME 89.6 fL CALC (80.0-100.0); MEAN CORPUSCULAR HGB 29.2 pG CALC (26.0-32.0); MEAN CORPUSCULAR HGB CONC 32.5 g/dL CAL (32.0-36.0); POTASSIUM 2.7 mmol/l (3.5-5.1); RED BLOOD COUNT 3.67 mill/uL (4.20-5.60); RED CELL DISTRI WIDTH 15.1 % (11.5-15.5)
--- NOTE | 2021-03-13 07:05 | NUR ---
REPORT RECEIVED FROM LAW ALEJO. CARE ASSUMED OF PT. PT RESTING IN HOSPITAL BED WITH SITTER BEDSIDE. PT SLEEPING AT THIS TIME. PICC LINE INTACT WITH LEVOPHED INFUSING TO PORT @ 5 MCG.
--- NOTE | 2021-03-13 12:00 | NUR ---
PT 1200 MEDICATIONS PROVIDED, TOLERATED WELL. RESP EVEN AND UNLAB. SKIN WARM AND DRY. LEVOPHED INFUSING TO PICC LINE SITE @ 8MCG. SUPERVISOR PIPE FINISHING IN PLACE. SITTER IN OBSERVATION OF PT.
--- NOTE | 2021-03-13 14:00 | NUR ---
PATIENT RESTING IN STRETCHER WITH EYES CLOSED. SITTER REMAINS AT BEDSIDE.
--- NOTE | 2021-03-13 15:00 | NUR ---
PATIENT REFUSING GABAPENTIN AT THIS TIME. SHE IS DROWSY AND AWAKENS SLOWLY. SITTER REMAINS AT BEDSIDE.
--- NOTE | 2021-03-13 18:00 | NUR ---
IV ROCEPHIN INITIATED TO PICC LINE, INFUSING WITHOUT DIFF. GLOVE CUTTER IN PLACE. SITTER IN OBSERVATION OF PT.
--- NOTE | 2021-03-13 18:59 | NUR ---
Reassessment of patient completed. No distress noted. RECIEVED REPORT, ASSUMED CARE OF PATIENT.
--- NOTE | 2021-03-13 20:07 | NUR ---
PT REPOSITIONED. POTASSIUM REORDERED AND ADMINISTERED TO PATIENT. TOLERATED ORAL FLUID INTAKE. HOB ELEVATED BEFORE ADMIN OF FLUIDS AND MEDS.
--- NOTE | 2021-03-13 21:07 | NUR ---
Admission Note Report Given to: DIONICIO ALEJO Transported by: Wheelchair X Stretcher Transported with: X Nurse Transporter X Patent IV X O2 X Child Care Supervisor Location: X ICU MS2
--- NOTE | 2021-03-13 21:28 | NUR ---
rec'd to icu6 per bed from er hold. visual artist shows sinus tach hr 111. ivf infusing well. sitter @ bedside.
--- NOTE | 2021-03-13 22:30 | NUR ---
assisted to bsc then back to bed. kalpana fair,
--- NOTE | 2021-03-13 23:57 | NUR ---
eyes closed. no distress. cardiac cath technologist shows sinus tach hr 112.
[2021-03-14] VITALS (34 sets, daily range): BP systolic 77–123; BP diastolic 50–92
--- NOTE | 2021-03-14 02:00 | NUR ---
resting quietly. resps even & unlabored.
--- NOTE | 2021-03-14 04:30 | NUR ---
lab here. blood drawn.
[2021-03-14 05:45] LABS: HEMATOCRIT 35.2 % (37.0-47.0); HEMOGLOBIN 11.6 g/dl (12.0-16.0); IMMATURE GRANULOCYTES 0.7 % (0.0-5.0); MEAN CELL VOLUME 88.4 fL CALC (80.0-100.0); MEAN CORPUSCULAR HGB 29.1 pG CALC (26.0-32.0); NEUT# 5.42 thou/uL (2.00-7.15); RED BLOOD COUNT 3.98 mill/uL (4.20-5.60); RED CELL DISTRI WIDTH 15.5 % (11.5-15.5)
--- NOTE | 2021-03-14 05:49 | NUR ---
eyes closed. no distress. child monitor shows sinus tach 108.
[2021-03-14 05:54] LABS: ALBUMIN 2.2 g/dL (3.2-5.0); ALKALINE PHOSPHATASE 102 u/l (38-126); ANION GAP 11 (6-22 (CALC)); BILIRUBIN, TOTAL 0.5 mg/dL (0.0-1.4); BUN 8 mg/dL (7-17); BUN/CREATININE RATIO 14 (12-20 (CALC)); CARBON DIOXIDE 19 mmol/l (22-30); CHLORIDE 109 mmol/l (95-108); CREATININE 0.6 mg/dL (0.5-1.0); GFR > 60 ML/MIN (>=60 (CALC)); GFR FOR AFR.AMER. > 60 ML/MIN (>=60 (CALC)); MAGNESIUM 1.7 mg/dL (1.6-2.3); POTASSIUM 2.8 mmol/l (3.5-5.1); SGOT/AST 31 u/l (14-36); SODIUM 136 mmol/l (137-146); TOTAL PROTEIN 5.3 g/dL (6.3-8.2)
--- NOTE | 2021-03-14 06:43 | NUR ---
PT IS ON 4 LITER NASAL CANNULA WITH SATS OF 95%.
--- NOTE | 2021-03-14 07:40 | NUR ---
pt resting in bed with eyes closed; easily aroused; pt offers no complaints; assessment completed at this time; pt alert to person only; speech garbled/ hard to understand; denies pain; no n/v noted; resp even and unlabored; lungs clear; skin color wnl; o2 per nc at 4L; hr reg; strong pulses; edema noted to bilat hands; narrative writer unable to remove rings; st on monitor; abd soft with bs present; no bm noted per narrative writer; pt incont of lg yellow urine; pericare and linen change per staff; dual lumen picc line patent to manisha; levophed gtt infusing at 4mcg/min; no redness or edema noted at site; plan of care/ meds explained; increased observation for pt safety; call light within reach; will continue to monitor
--- NOTE | 2021-03-14 08:20 | NUR ---
pt resting in bed with eyes closed; no apparent distress noted; st on monitor; will continue to monitor
--- NOTE | 2021-03-14 08:45 | NUR ---
Dr Magdaleno present at bedside to assess pt and discuss plan of care
--- NOTE | 2021-03-14 10:01 | NUR ---
pt resting in bed with eyes closed; po fluids provided and tolerated well; st on monitor; iv intact and patent; call light within reach; will continue to monitor
--- NOTE | 2021-03-14 10:18 | NUR ---
PT REMAINS ON 4 LITER NASAL CANNULA, WITH SATS OF 93%-94%.
--- NOTE | 2021-03-14 11:25 | NUR ---
s/o Marco called this copywriter; passcode verified; update provided
--- NOTE | 2021-03-14 12:02 | NUR ---
awake in bed; fed per gold wheel blocker and polisher; no apparent distress noted; st on monitor; o2 per nc; call light within reach; will continue to monitor
--- NOTE | 2021-03-14 14:20 | NUR ---
awake in bed; st on monitor; no distress noted; iv intact and patent; levophed continues; o2 per nc; call light within reach; will continue to monitor
--- NOTE | 2021-03-14 16:02 | NUR ---
pt resting in bed with eyes closed; no apparent distress noted; resp even and unlabored; cpap intact and maintained; magaña to gravity; sb on monitor; call light within reach; will continue to monnitor
--- NOTE | 2021-03-14 16:07 | NUR ---
resting in bed with eyes closed; easily aroused; po fluids provided; iv intact and patent; call [facility] within reach; will continue to monitor
--- NOTE | 2021-03-14 17:45 | NUR ---
resting in bed with eyes closed; easily aroused; offers no complaints; iv intact and maintained; st on monitor; o2 per nc; levophed gtt continued at 3mcg/min; call light within reach
--- NOTE | 2021-03-14 19:19 | NUR ---
Dr Magdaleno called per magazine writer; incident reported
--- NOTE | 2021-03-14 19:40 | NUR ---
icd bag applied to lt wrist.
--- NOTE | 2021-03-14 19:40 | NUR ---
drowsy when awakened. speech garbled. difficult to keep pt awake. o2 cont per nc. cardiac exercise specialist shows sinus tach hr 105. ivf per manisha picc line. refused po intake. diaper in place. bed alarm cont. cloth mercerizing supervisor on floor & aware of pts fall.
--- NOTE | 2021-03-14 20:10 | NUR ---
called xray & requested 3v to be done @ bedside.
--- NOTE | 2021-03-14 21:30 | NUR ---
xray results rec'd. dr brower notified. orders rec'd. mold shop supervisor notified.
--- NOTE | 2021-03-14 21:40 | NUR ---
clearing supervisor here. volar splint applied per clearing supervisor.
[2021-03-15] VITALS (19 sets, daily range): BP systolic 80–125; BP diastolic 39–93
--- NOTE | 2021-03-15 00:01 | NUR ---
sitter reassigned to med surg floor. questioned sign hanger supervisor of another sitters availability. he said there was no replacement available. bed alarm conts.
--- NOTE | 2021-03-15 00:45 | NUR ---
attempting to get oob. incont of urine. assisted to bsc then back to bed. kalpana fair. bed alarm reactivated.
--- NOTE | 2021-03-15 02:00 | NUR ---
eyes closed. no distress. slip cover estimator shows sinus rhythm hr 98.
--- NOTE | 2021-03-15 03:45 | NUR ---
resting quietly @ pressent.
--- NOTE | 2021-03-15 06:13 | NUR ---
no c/o arm pain this shift.
[2021-03-15 06:24] LABS: ALBUMIN 2.1 g/dL (3.2-5.0); ALKALINE PHOSPHATASE 91 u/l (38-126); ANION GAP 11 (6-22 (CALC)); BILIRUBIN, TOTAL 0.4 mg/dL (0.0-1.4); BUN 5 mg/dL (7-17); BUN/CREATININE RATIO 11 (12-20 (CALC)); CARBON DIOXIDE 17 mmol/l (22-30); CHLORIDE 113 mmol/l (95-108); CREATININE 0.5 mg/dL (0.5-1.0); GFR > 60 ML/MIN (>=60 (CALC)); GFR FOR AFR.AMER. > 60 ML/MIN (>=60 (CALC)); MAGNESIUM 1.6 mg/dL (1.6-2.3); SGOT/AST 30 u/l (14-36); SODIUM 137 mmol/l (137-146); TOTAL PROTEIN 5.5 g/dL (6.3-8.2)
[2021-03-15 06:28] LABS: HEMATOCRIT 35.1 % (37.0-47.0); HEMOGLOBIN 10.8 g/dl (12.0-16.0); IMMATURE GRANULOCYTES 0.5 % (0.0-5.0); MEAN CORPUSCULAR HGB 28.9 pG CALC (26.0-32.0); MEAN CORPUSCULAR HGB CONC 30.8 g/dL CAL (32.0-36.0); NEUT# 3.68 thou/uL (2.00-7.15); RED BLOOD COUNT 3.74 mill/uL (4.20-5.60); RED CELL DISTRI WIDTH 16.3 % (11.5-15.5)
[2021-03-15 06:29] LABS: MEAN CELL VOLUME 93.9 fL CALC (80.0-100.0)
[2021-03-15 06:30] LABS: POTASSIUM 3.5 mmol/l (3.5-5.1)
--- NOTE | 2021-03-15 07:30 | NUR ---
ACCU CHECK DONE AT THIS TIME AND RESULTS ARE 69. PATIENT ALERT AND ORIENTED AND ORANGE JUICE AND SUGAR OFFERED AT THIS TIME. PATIENT DRANK WITHOUT DIFFICULTY WILL RECHECK ACCU CHECK IN 15 MINUTES.
--- NOTE | 2021-03-15 07:45 | NUR ---
PATIENT INCONTINENT OF URINE AT THIS TIME PATIENT STATED SHE COULDN'T HOLD IT. PATIENT ENCOURAGED TO USE CALL LIGHT. PATIENT CLEANED AT THIS TIME AND BED LINEN CHANGED. PATIENT ACCU CHECK RE-DONE AND RESULTS ARE 75. PATIENT DENIES ANY PAIN AT THIS THIS TIME. 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 PATIENT REMAINS ON A LEVO-DRIP AT THIS TIME AT 3MIC/KG 11.2 CC/HR. PATIENTS BP AT THIS TIME IS 119/68. PATIENT ALERT X 2 BUT WAS UNSURE OF THE DATE. PATIENT RESPIRTIONS ARE SHALLOW BUT CLEAR. LUNG PANDYA ARE CLEAR AT THIS TIME. PATIENT HAS VOLAR SPLINT ON LEFT WRIST DUE TO A FALL WHICH RESULTED IN A FRACTURE. SIDERAILS ARE UP X2 CALL LIGHT IS WITHIN REACH BED ALARM IN PLACE HOLLOCK MAKER READING ST HR AT 104 AT THIS TIME.
--- NOTE | 2021-03-15 08:08 | NUR ---
PT REMAINS ON 4 LITER NC SATS 93%
--- NOTE | 2021-03-15 08:15 | NUR ---
DR. RUBIO IN TO SEE PATIENT AT THIS TIME. DR. RUBIO DC'D LIBRIUM AND GABAPENTIN AT THIS TIME AND STATED TO TITRATE PATIENT'S LEV0-DRIP AT THIS TIME. LEVO-DRIP DROPPED TO 2MIC'S AT THIS TIME. BP IS 115/62. WILL CONTINUE TO MONITOR.
--- NOTE | 2021-03-15 08:50 | NUR ---
DR. LAWSON'S OFFICE CALL FOR CONSULT FOR FRACTUR OF LEFT WRIST. DR. LAWSON'S OFFICE STATED THEY DON'T ACCEPT PATIENTS ON [facility] AND DID NOT TAKE THE CONSULT AT THIS TIME. DR. RUBIO NOTIFIED AT THIS TIME.
--- NOTE | 2021-03-15 09:00 | NUR ---
PATIENT BP AT THIS TIME IS 109/63 ON 2MIC OF LEVO AT THIS TIME PATIENT RESTING AND DENIES ANY PAIN OR DISCOMFORT AT THIS TIME.
--- NOTE | 2021-03-15 10:15 | NUR ---
PATIENT BP AT THIS TIME DROPPED TO 89/62 HR 105 SPO2 ON 5 LITERS 89%. MOVED LEVO-DRIP BACK UP TO 3MICS AT THIS TIME. PATIENT REMAINS VERY DROWSY AND CONSTANT REMINDERS TO BREATH TO INCREASE PULSE OX. WILL CONTINUE TO MONITOR.
--- NOTE | 2021-03-15 10:16 | NUR ---
PATIENT O2 MOVED TO 5L AT THIST TIME SPO2 IS 81 AT THIS TIME. WILL CONTINUE TO MONITOR.
--- NOTE | 2021-03-15 10:30 | NUR ---
PATIENT HAS RIGHT UPPER DOUBLE LUMEN PICC LINE AND BOTH LINES FLUSH AND BLOOD RETURNED NOTED AT THIS TIME.
--- NOTE | 2021-03-15 10:46 | NUR ---
RESPIRATORY CALLED AT THIS TIME AND PATIENT PLACED ON A VENTI-MASK AT 6L/50% SOP2 AT THIS TIME WENT TO 98%. PATIENT REMAINS IN A CHAIR AT THIS TIME. WILL CONTINUE TO MONITOR.
--- NOTE | 2021-03-15 11:10 | NUR ---
RESPIRATORY MOVED PATIENT TO VENTI-MASK 15L/50% SPO2 IS 99% AT THIS TIME. PATIENT REMAINS UP IN CHAIR AT THIS TIME.
--- NOTE | 2021-03-15 11:15 | NUR ---
TITRATED LEVOPHED AT THIS TIME DOWN TO 2MIC/KG 7.5ML/HR. BP AT THIS TIME IS 107/70 WILL CONTINUE TO MONITOR.
--- NOTE | 2021-03-15 11:50 | NUR ---
PATIENT REMAINS UP IN CHAIR AT THIS TIME. PATIENT REMAINS ON A VENTI-MASK 15L/50% PER RESPIRATORY. PATIENT SP02 IS 98% VIA HAND HELD PULSE OX. BRIGIDONET'S PULSE OX IS AT TIME UNDETECTABLE. PATIENT IS NOT HAVING ANY SHORTNESS OF BREATH. PATIENT IS ALERT TO NAME BUT CONTINUES TO BE DROWSY. PATIENT LEVOPHED DRIP IS 2MIC/MIN AT 7.5ML/HR. AND CURRENT BP IS 90/79. CALL LIGHT IS WITHIN REACH AND WILL CONTINUE TO MONITOR.
--- NOTE | 2021-03-15 12:00 | NUR ---
BP AT THIS TIME DROPPED TO 80/50 SPO2 91% LEVOPHED DRIP MOVED TO 3MIC/MIN 11.5MLS/HR. PATIENT INCONTINENT OF URINE AT THIS TIME. PATIENT CLEANED AND ASSISTED BACK TO BED AT THIS TIME. WILL CONTNUE TO MONITOR BP
--- NOTE | 2021-03-15 12:00 | NUR ---
PATIENT CIWA SCORE AT THIS TIME IS "0" AND HAS REMAINED UNCHANGED AT THIS TIME.
--- NOTE | 2021-03-15 12:38 | NUR ---
PATIENT BP IS NOW 95/67 ON 3MIC OF LEVOPHED AT THIS TIME WILL CONTINUE TO MONITOR.
--- NOTE | 2021-03-15 13:05 | NUR ---
SPOKE TO CHERYL CRUZ REGARDING PULSE OX CONTROL BEING UP AND DOWN AND NOT CONTROLLED. CHERYL STATES SHE WOULD ORDER A STAT ABG AT THIS TIME. ORDER OBTAINED AND VERIFIED.
--- NOTE | 2021-03-15 14:00 | NUR ---
PATIENT REMAINS IN BED AT THIS TIME. UNABLE TO OBTAIN PULSE OX ON PATIENT COLOR IS GOOD RESPIRATIONS ARE UNLABORED AND 22 AT THIS TIME. PATIENT HAS A CURRENT BP READING OF 108/72 AND REMAINS ON 3MICS OF LEVOPHED. SIDERAILS ARE UP CALL LIGHT IS WITHIN REACH.
--- NOTE | 2021-03-15 14:15 | NUR ---
RESPIRATORY IN TO SEE PATEINT AND TURNED DOWN VENTI-MASKE TO 15L/40% AT THIS TIME.
--- NOTE | 2021-03-15 14:55 | NUR ---
Patient placed on 50% venti mask. Nurse unable to get good pulse ox reading due to poor perfusion, ABG drawn, reduced Fio2 to 40%.
--- NOTE | 2021-03-15 16:00 | NUR ---
PATIENT LAYING IN BED AT THIS TIME. BRIGIDOETN PULSE OX PLACED ON RIGHT TOE WITH SOCK AND SPO2 AT THIS TIME IS 93%. PATIENT IS CURRENTLY ON VENTI MASK AT 15L/40%. PATIENT AWAKENS WHEN NAME CALLED AND IS ORIENTED X 2 PATIENT CIWA SCALE REMAINS "0" AT THIS TIME. BP AT THIS TIME IS 109/60 AND PATIENT CONTINUES WIHT LEVOPEHD DRIP AT 3MCG/ML. PATIENT LEFT WRIST REMAINS IN A VOLAR SPLINT DUE TO WRIST FRACTURE AT THIS TIME. PATIENT CAN MOVE FINGERS IN LEFT HAND AND FINGERS ARE PINK AND NAILBEDS BLANCABLE. PATIENTS HANDS AND FEET ARE NOTABLY COOL TO TOUCH. PATIENT SIDERAILS ARE UP AND BED ALARM IS ON AT THIS TIME.
--- NOTE | 2021-03-15 17:05 | NUR ---
PATIENT UP TO BEDSIDE COMMODE AND URINATED 100ML OF CLEAR YELLOW URINE AT THIS TIME. PATIENT WALKED TO CHAIR WITH ASSISTANCE AND IN SITTING UP IN RECLINER AT THIS TIME. PATIENT CONTINUE TO HAVE VENTI-MASK ON AND SPO2 IS 90%. WILL CONTINUE TO MONITOR.
--- NOTE | 2021-03-15 18:21 | NUR ---
PATIENT ASSISTED BACK TO BED AT THIS TIME. SIDERAILS ARE UP X [address] LEFT ARM UP ON PILLOW AT THIS TIME. PATIENT REMAINS ON VENTI MASK AT 15L/40% WILL CONTINUE TO MONITOR.
--- NOTE | 2021-03-15 19:00 | NUR ---
RECIVED REPORT FROM NURSE ANTONETTE ASSUMED PATIENT CARE, PATIENT SEEN RESTING IN BED, WITH EYES CLOSED, PATIENT WEARING VENTI MASK ON 15LPM, CALL LIGHT AT REACH.
--- NOTE | 2021-03-15 20:00 | NUR ---
PATIENT ASLEEP AT THIS TIME, EASY TO AWAKEN, ALERT ORIENTED TO NAME AND MONTH, WITH DOUBLE LUMEN PICC ON ADAM NS WITH 40MEQ KCL @ 100CC/HR WITH LEVOPHED DRIP @ 3MCG/MIN BP 103/84 INFUSING WELL, HOOKED TO STATION [employer], LUNG SOUNDS CLEAR, ACTIVE BOWEL SOUNDS LBM 03/14, PATIENT HAS A SPLINT ON LEFT WRIST, PATIENT ON VENTURI MASK 15LPM BREATHING UNLABORED, PATIENT ALSO HAS MULITIPLE BRUISING ON RT HIP AND BUTTOCKS AND RT FOREHEAD, CIWA SCORE 0, REMAIN ON FULL LIQUID DIET GIVEN ORANGE JUICE EALIER TOLERATED, CALL LIGHT AT REACH.
--- NOTE | 2021-03-15 20:45 | NUR ---
PATIENT AWAKEN FOR ASSESSMENT, PATIENT STILL LETHARGIC, PATIENT ASSISTED TO BEDSIDE COMMODE USING TWO PERSON ASSIST, AND ASSISTED BACK IN BED.
--- NOTE | 2021-03-15 22:20 | NUR ---
RT ASSESSING PATIENT AT BEDSIDE PATIENT VENTI MASK DECREASED TO 9LPM @ 35% REMAINS @ 100% SPO2.
--- NOTE | 2021-03-15 22:30 | NUR ---
PATIENT REMOVES VENTIMASK SPO2 RANGE 98-100 % ON ROOM AIR. WILL CONTINUE TO MONITOR.
[2021-03-16] VITALS (19 sets, daily range): BP systolic 77–121; BP diastolic 49–77
--- NOTE | 2021-03-16 | NUR ---
PATIENT APPEARS TO BE SLEEPING, MONITOR SHOWS ST 120, SPO2 ON RA 99%.
--- NOTE | 2021-03-16 02:00 | NUR ---
PATIENT SLEEPING IN BED, MONITOR SHOWS ST 111.
--- NOTE | 2021-03-16 02:32 | NUR ---
0200 BP 121/73 LEVOPHED DRIP TITRATED DOWN TO 2MCG/MIN, WILL CONTINUE TO MONITORING.
--- NOTE | 2021-03-16 02:52 | NUR ---
BP 93/76 HR 118
--- NOTE | 2021-03-16 03:02 | NUR ---
SPO2 BACK AT 93% ON 30LPM FIO2 60%.
--- NOTE | 2021-03-16 03:22 | NUR ---
PATIENT BP 80/64, LEVOPHED DRIP INCREASED BACK TO 3MCG/MIN.
--- NOTE | 2021-03-16 04:10 | NUR ---
PICC LINE FLUSHED PER PROTOCOL NO BLOOD RETURN NOTED ON BOTH LUMEN
--- NOTE | 2021-03-16 04:19 | NUR ---
PATIENT HOLDING HEAD STATES IT HURTS TOUCHING BRUISE ON HER FOREHEAD PRN TYLENOL GIVEN AND ACCUCHEK DONE 75, ORANGE JUICE GIVEN.
[2021-03-16 06:31] LABS: ANION GAP 10 (6-22 (CALC)); BUN 3 mg/dL (7-17); BUN/CREATININE RATIO 8 (12-20 (CALC)); CARBON DIOXIDE 16 mmol/l (22-30); CHLORIDE 116 mmol/l (95-108); CREATININE 0.4 mg/dL (0.5-1.0); GFR > 60 ML/MIN (>=60 (CALC)); GFR FOR AFR.AMER. > 60 ML/MIN (>=60 (CALC)); SODIUM 137 mmol/l (137-146)
[2021-03-16 06:32] LABS: HEMATOCRIT 31.7 % (37.0-47.0); IMMATURE GRANULOCYTES 1.1 % (0.0-5.0); MEAN CELL VOLUME 91.9 fL CALC (80.0-100.0); MEAN CORPUSCULAR HGB CONC 31.5 g/dL CAL (32.0-36.0); NEUT# 6.41 thou/uL (2.00-7.15); RED BLOOD COUNT 3.45 mill/uL (4.20-5.60); RED CELL DISTRI WIDTH 16.6 % (11.5-15.5)
[2021-03-16 06:34] LABS: POTASSIUM 4.6 mmol/l (3.5-5.1)
--- NOTE | 2021-03-16 06:45 | NUR ---
REPORT RECEIVED FROM REPAIRER SWITCHGEAR RN. CARE ASSUMED.
--- NOTE | 2021-03-16 06:45 | NUR ---
REPORT RECEIVED FROM COORDINATOR HOTELS RN. CARE ASSUMED.
--- NOTE | 2021-03-16 07:30 | NUR ---
PATIENT RESTING IN BED AWAKE. PATIENT IS ALERT AND ORIENTED X2 TO NAME AND TIME. PATIENT IS UNAWARE O PLACE. REORIENTATION UNSUCCESSFUL AT THIS TIME. SHIFT ASSESSMENT COMPLETED AT THIS TIME. LEVOPHED TITRATED AT THIS TIME. SEE TITRATION CHARTING. IV PATENT X1. CALL LIGHT IN REACH. WILL CONTINUE TO MONITOR.
--- NOTE | 2021-03-16 08:45 | NUR ---
DR ELLIOTT AT BEDSIDE AT THIS TIME.PLAN OF CARE DISUCSSED.
--- NOTE | 2021-03-16 10:00 | NUR ---
PATIENT RESTING IN BED AWAKE. NO DISTRESS NOTED. CALL LIGHT IN REACH. WILL CONTINUE TO MONITOR.
--- NOTE | 2021-03-16 11:30 | NUR ---
PATIENT SET UP FOR NOON MEAL.
--- NOTE | 2021-03-16 12:00 | NUR ---
PATIENT RESTING IN BED AWAKE AND WATCHING TV. RESP ARE EVEN AND UNLABORED. NO DISTRESS NOTED. CALL LIGHT IN REACH. WILL CONTINUE OT MONITOT
--- NOTE | 2021-03-16 13:30 | NUR ---
PATIENT CLENAED UP AT THIS TIME. PATIENT TOLERATED WELL. WILL CONTINUE TO MONITOR.
--- NOTE | 2021-03-16 14:00 | NUR ---
PHONED MED SURG ALL ONFORMATION GIVEN FOR TRANSFER.
--- NOTE | 2021-03-16 14:14 | NUR ---
PATIENT TO GO TO ROOM 271 ON [facility]. REPORT CALLED TO JERE ON [facility]
--- NOTE | 2021-03-16 14:35 | NUR ---
PT ESCORTED TO FLOOR VIA BED BY [facility] ICU NURSE. BEDSIDE REPORT RECEIVED. PT NOT RESPONSIVE TO SPEACH. OPENS EYES AND GRUNTS AND RETURNS TO SLEEP. NO COMPLAINTS, WILL CONTINUE TO MONITORS.
--- NOTE | 2021-03-16 14:35 | NUR ---
PATIENT TO ROOM 271 VIA BED. JERE ALEJO AT BEDSIDE.
--- NOTE | 2021-03-16 20:00 | NUR ---
PATIENT RESTING IN BED AT THIS TIME WITH O2 VIA NASAL CANNULA INPLACE. PATIENT WITH EYES CLOSED. RESPONDS TO NAME AND THEN BACK TO SLEEP. MANUAL BP TAKEN AND WAS 90/70. TELE MONITOR IN PLACE-LAST READING WAS ST-118. PATIENT WITH PICC RIGHT UPPER ARM-DOUBLE LUMENS. FLUSHED PER PROTOCOL WITH NO BLOOD RETURN FROM EITHER PORT. CALL LIGHT IN REACH. WILL CONT TO MONITOR.
--- NOTE | 2021-03-16 23:56 | NUR ---
RESTING IN BED AT THIS TIME WITH EYES CLOSED. RESPS ARE EVEN AND UNLABORED. O2 VIA NASAL CANNULA IN PLACE. PATIENT WITH SPLINT TO LEFT ARM INTACT. FINGERS TO LEFT HAND ARE WARM TO TOUCH. TELE MONITOR REMAINS IN PLACE. OFFERED PATIENT PO FLUIDS BUT TAKING ON IN SMALL AMTS. CALL LIGHT IN REACH. WILL CONT TO MONITOR.
[2021-03-17] VITALS (7 sets, daily range): BP systolic 90–120; BP diastolic 7–75
--- NOTE | 2021-03-17 04:57 | NUR ---
PATIENT RESTING IN BED-GIVEN COMPLETE BED BATH AND LINEN CHANGE. PATIENT WITH 3 RINGS ON RIGHT HAND-HAND IS VERY SWOLLEN AND RINGS WERE REMOVED USING ELIJAH SOAP TO AID IN REMOVAL. RINGS WERE SECURED IN SECURITY ENVELOPE TO BE PLACED IN SAFE. PACKAGE WAS GIVEN TO GASTON COLLINS. TELE MONITOR IN PLACE-LAST READING WAS ST-112. DOUBLE LUMEN PICC TO RIGHT UPPER ARM INTACT. PATIENT SPEAKING OR MOANING AT TIMES BUT DOESN'T MAKE ANY SENSE. JUST RAMBLING ON AT THIS TIME. INCONT OF LARGE AMT OF URINE AND MODERATE AMT OF BROWN STOOL. PERICARE WAS GIVEN WITH SOAP AND WATER. PATIENT HAIR WAS ALSO WASH AND COMBED OUT. RIGHT HAND WAS ELEVATED ON PILLOWS. BED ALARM IN PLACE FOR PATIENT SAFETY. CALL LIGHT IN REACH. WILL CONT TO MONITOR.
[2021-03-17 06:18] LABS: HEMATOCRIT 26.6 % (37.0-47.0); HEMOGLOBIN 8.6 g/dl (12.0-16.0); MEAN CELL VOLUME 90.2 fL CALC (80.0-100.0); MEAN CORPUSCULAR HGB 29.2 pG CALC (26.0-32.0); MEAN CORPUSCULAR HGB CONC 32.3 g/dL CAL (32.0-36.0); RED BLOOD COUNT 2.95 mill/uL (4.20-5.60); RED CELL DISTRI WIDTH 16.6 % (11.5-15.5)
[2021-03-17 06:33] LABS: ANION GAP 12 (6-22 (CALC)); BUN 4 mg/dL (7-17); BUN/CREATININE RATIO 8 (12-20 (CALC)); CARBON DIOXIDE 16 mmol/l (22-30); CHLORIDE 112 mmol/l (95-108); CREATININE 0.5 mg/dL (0.5-1.0); GFR > 60 ML/MIN (>=60 (CALC)); GFR FOR AFR.AMER. > 60 ML/MIN (>=60 (CALC)); MAGNESIUM 1.2 mg/dL (1.6-2.3); POTASSIUM 4.4 mmol/l (3.5-5.1); SODIUM 135 mmol/l (137-146)
--- NOTE | 2021-03-17 08:00 | NUR ---
PT SLEEPING NOT EASILY AROUSED. PT ORIENTED TO SELF ONLY. PT DOES NOT SEEM TO BE IN ANY PAIN OR DISTRESS AT THIS TIME. VS AND ASSESSMENT COMPLETE. LUNG SOUNDS ARE CLEAR, ABDOMEN IS ROUND AND SOFT. BOWEL SOUNDS ACTIVE. PERIPHERAL PULSES PALPABLE. LEFT ARM FX, GOOD BLOOD FLOW TO FINGERS. BILATERAL EDEMA TO HANDS. PT BEDREST AT THIS TIME. PT REPOSITIONED AND OFFERED BREAKFAST. PT ATE VERY LITTLE BUT DRANK HER WATER AND A LITTLE GATORAIDE. SAFETY PRECAUTIONS IN PLACE, CALL LIGHT WITHIN PT REACH. WILL MONITOR PT CLOSELY
--- NOTE | 2021-03-17 10:51 | NUR ---
Patient underwent PT intervention today. Patient continues to act sluggish today, participated with Raghav MARTINEZ exercises in supine position doing hip and knee flexion and extension, hip adduction and abduction, and ankle pumps for 10 reps x 1-2 sets (patient kept both eyes half open during exercise protocol). Patient did log rolling bed mobility ADLs, rolling on each side with constant tactile cuing from PT to finish activity, didn't do sit to stand activity due to continued sluggish status.
--- NOTE | 2021-03-17 12:00 | NUR ---
PT SLEEPING. PT HAS NO NEEDS AT THIS TIME WILL CONTINUE TO MONITOR
--- NOTE | 2021-03-17 16:00 | NUR ---
PT SLEEPING, NO NEEDS AT THIS TIME WILL CONTINUE TO MONITOR
--- NOTE | 2021-03-17 17:01 | NUR ---
PT ASLEEP AND UNABLE TO WAKE FOR SESSION. BED ADJUSTED TO PROMOTE ALERTNESS AND ENGAGEMENT FOR PROPER EVAL. WILL TRY AGAIN TOMORROW.
--- NOTE | 2021-03-17 20:00 | NUR ---
PT RESTING COMFORTABLY IN BED WITH HER EYES CLOSED. LEFT WRIST AND FAOREARM REMAIN IN A CAST, CIRCULATION JEWELL UPPER EXTREMITY REMAINS INTACT. PT REMAINS ON 2L OF O2 VIA NC. SATURATIONS @ 99%. PT IS ON TELE RUNNING ST- 115. PT IS STABLE AT THIS TIME. BREATHING EVEN AND UNLABORED. NO CONCERNS VOICED. PT IS VERY SLUGGISH AND SLOW TO RESPOND. PT IS ALERT X 1 ONLY. PICC REMAINS TO ADAM, NO S/S OF INFECTION NOTED, BOTH LUMENS FLUSH EASILY. SAFETY PRECAUTIONS REMAIN IN PLACE, BED IN LOW POSITION, CALL LIGHT WITHIN REACH. WILL MONITOR
[2021-03-18] VITALS: BP 109/72
--- NOTE | 2021-03-18 | NUR ---
PT RESTING QUIETLY AT THIS TIME. BREATHING EVEN AND UNLABORED. DENIES PAIN. NO S/S OF DISTRESS. SAFETY PRECAUTIONS REMAIN IN PLACE, WILL CONTINUE TO MONITOR
[2021-03-18 04:00] VITALS: BP 106/73
--- NOTE | 2021-03-18 05:04 | NUR ---
PT RESTING WITH EYES CLOSED. NO ATTEMPTS TO GET OUT OF BED DURING THIS SHIFT, BED ALARM REMAINS ON. LAB AT BEDSIDE. SAFETY PRECAUTIONS IN PLACE, WILL MONITOR
[2021-03-18 05:47] LABS: HEMATOCRIT 25.9 % (37.0-47.0); HEMOGLOBIN 8.4 g/dl (12.0-16.0); MEAN CELL VOLUME 90.2 fL CALC (80.0-100.0); MEAN CORPUSCULAR HGB 29.3 pG CALC (26.0-32.0); MEAN CORPUSCULAR HGB CONC 32.4 g/dL CAL (32.0-36.0); RED BLOOD COUNT 2.87 mill/uL (4.20-5.60); RED CELL DISTRI WIDTH 16.2 % (11.5-15.5)
[2021-03-18 06:00] LABS: ALBUMIN 2.1 g/dL (3.2-5.0); ALKALINE PHOSPHATASE 76 u/l (38-126); ANION GAP 11 (6-22 (CALC)); BILIRUBIN, TOTAL 0.3 mg/dL (0.0-1.4); BUN 6 mg/dL (7-17); BUN/CREATININE RATIO 13 (12-20 (CALC)); CARBON DIOXIDE 18 mmol/l (22-30); CHLORIDE 110 mmol/l (95-108); CREATININE 0.4 mg/dL (0.5-1.0); GFR > 60 ML/MIN (>=60 (CALC)); GFR FOR AFR.AMER. > 60 ML/MIN (>=60 (CALC)); POTASSIUM 4.1 mmol/l (3.5-5.1); SGOT/AST 21 u/l (14-36); SODIUM 135 mmol/l (137-146); TOTAL PROTEIN 5.5 g/dL (6.3-8.2)
[2021-03-18 06:03] LABS: MAGNESIUM 1.6 mg/dL (1.6-2.3)
--- NOTE | 2021-03-18 08:00 | NUR ---
PT AWAKE AND TALKING. PT ALERT AND ORIENTED TO SELF PT DOES NOT KNOW WHERE SHE IS OR WHY. PT ABLE TO TELL ME HER NAME AND BIRTHDAY. VS AND ASSESSMENT COMPLETE. IV PATENT AND FLUSHED. SAFETY PRECAUTIONS MAINTAINED AND CALL LIGHT WITHIN PATIENTS REACH. WILL MONITOR PATIENT CLOSELY
--- NOTE | 2021-03-18 08:00 | NUR ---
PT AWAKE RESTING IN BED. PT DENIES PAIN OR DISCOMFORT. VS AND ASSESSMENT COMPLETE. HR NORMAL, RESPIRATIONS EVEN AND NONLABORED. PT SR ON TELE. RIGHT SIDE DRIFT INPROVING. IV PATENT AND FLUSHED. SAFETY PRECAUTIONS MAINTAINED AND CALL LIGHT WITHIN PATIENTS REACH. WILL MONITOR PATIENT CLOSELY
[2021-03-18 10:15] VITALS: BP 109/76
--- NOTE | 2021-03-18 12:00 | NUR ---
PT AWAKE AND UP TO BEDSIDE CHAIR. PT DENIES ANY NEEDS. SAFETY MEASURES MAINTAINED AND CHAIR ALARM ACTIVATED. WILL CONTINUE TO MONITOR PT CLOSELY. CALL LIGHT WITHIN REACH
--- NOTE | 2021-03-18 14:12 | NUR ---
PT ASLEEP IN SIDELYING. UNSUCCESSFUL ATTEMPT TO WAKE PATIENT. PT OBSERVED TO REPEATEDLY COVER HER FACE WITH L UE WHEN ASKED TO OPEN HER EYES. WILL ATTEMPT AGAIN TOMORROW.
[2021-03-18 15:00] VITALS: BP 116/72
--- NOTE | 2021-03-18 16:00 | NUR ---
PT RESTING IN BED. BED ALARM ACTIVATED. PT DENIES ANY NEEDS AT THIS TIME. WILL CONTINUE TO MONITOR PT CLOSELY SAFETY MEASURES MAINTAINED AND CALL LIGHT WITHIN PATIENTS REACH
--- NOTE | 2021-03-18 16:59 | NUR ---
Patient underwent PT intervention today. Patient did AAROM exercises for B LE doing hip flexion, hip adduction, hip abduction, hell slides, gluteal squeezes, and ankle pumps for 10 reps with constant verbal and tactile cuing. Patient partially participated with log rolling bed mobility ADLs, but patient ended up sleeping again after carrying out 4 attempts to finish activity (patient needed constant verbal and tactile cuing to help facilitate patient participation).
[2021-03-18 19:00] VITALS: BP 96/62
--- NOTE | 2021-03-18 20:00 | NUR ---
PT RESTING COMFORTABLY IN BED. NO COMPLAINTS VOICED. PT IS MUCH MORE ALERT AND AWARE OF HER SURROUNDINGS AND SITUATIONS TODAY. ASSESSMENTS COMPLETED, PLEASE SEE DOCUMENTATION. PICC TO ADAM REMAINS, FLUSHES EASILY. DENIES PAIN AT THIS TIME. SAFETY PRECAUTIONS IN PLACE, BED ALARM ON, BED IN LOW POSITION, CALL LIGHT WITHIN REACH. WILL MONITOR
[2021-03-19] VITALS (7 sets, daily range): BP systolic 87–134; BP diastolic 54–78
--- NOTE | 2021-03-19 | NUR ---
PT CONTINUES TO REST QUIETLY. NO COMPLAINTS VOICED AT THIS TIME. PT ON RA AT THIS TIME, O2 SATURATION 97%. NO S/S OF DISTRESS NOTED. SAFETY PRECAUTIONS REMAIN IN PLACE. WILL MONITOR
--- NOTE | 2021-03-19 04:01 | NUR ---
PT RESTING QUIETLY, NO COMPLAINTS VOICED. BREATHING EVEN AND UNLABORED. NO S/S OF DISTRESS NOTED. SAFETY PRECAUTIONS REMAIN IN PLACE, WILL MONITOR
[2021-03-19 06:03] LABS: HEMATOCRIT 25.1 % (37.0-47.0); MEAN CELL VOLUME 90.9 fL CALC (80.0-100.0); MEAN CORPUSCULAR HGB CONC 31.9 g/dL CAL (32.0-36.0); RED BLOOD COUNT 2.76 mill/uL (4.20-5.60); RED CELL DISTRI WIDTH 16.1 % (11.5-15.5)
[2021-03-19 06:08] LABS: ANION GAP 10 (6-22 (CALC)); BUN 6 mg/dL (7-17); BUN/CREATININE RATIO 14 (12-20 (CALC)); CARBON DIOXIDE 20 mmol/l (22-30); CHLORIDE 108 mmol/l (95-108); CREATININE 0.4 mg/dL (0.5-1.0); GFR > 60 ML/MIN (>=60 (CALC)); GFR FOR AFR.AMER. > 60 ML/MIN (>=60 (CALC)); MAGNESIUM 1.3 mg/dL (1.6-2.3); POTASSIUM 3.3 mmol/l (3.5-5.1); SODIUM 135 mmol/l (137-146)
--- NOTE | 2021-03-19 07:10 | NUR ---
REPORT RECEIVED FROM ERROL MARCH
--- NOTE | 2021-03-19 08:05 | NUR ---
PT RESTING IN SEMI FOWLERS POSITION,ALERT TO PERSON ONLY AND DROWSY;VS OBTAINED AND ASSESSMENT COMPLETED;PT DENIES ANY CURRENT PAIN OR DISCOMFORTS,PAIN SCALE AND REPORTING EDUCATED;RESPIRATIONS EVEN AND UNLABORED ON RA,CLEAR LUNG SOUNDS;ABDOMEN SOFT ON PALPATION AND ACTIVE IN ALL 4 QUADRANTS;STRONG PEDAL PULSES;SKIN INTACT;SPLINT TO LEFT ARM CDI;ADAM DL PICCLINE FLUSHED AND PATENT, NO BLOOD RETURN NOTED;TELE MONITORING IN PLACE;ACCUCHECK 77, NO COVERAGE NEEDED;PT REMAINS NPO AT THIS TIME;PT DENIES ANY ADDITIONAL NEEDS AND IS ENCOURAGED TO CALL FOR ASSISTANCE IF NEEDED;FALL PRECAUTIONS IN PLACE WITH BED IN THE LOWEST POSITION AND BED ALARM ON FOR SAFETY;CALL LIGHT IN REACH;WILL CONTINUE TO MONITOR
--- NOTE | 2021-03-19 08:57 | NUR ---
PT TRANSPORTED TO RADIOLOGY VIA WC ACCOMPANIED BY OT STAFF MEMBER.
--- NOTE | 2021-03-19 09:29 | NUR ---
PT RETURNED TO MED/SURG ROOM 271 IN STABLE CONDITION VIA WC, PT RE-POSITIONED INTO RECLINER AT THIS TIME;BED ALARM IN PLACE;CALL LIGHT IN REACH;WILL CONTINUE TO MONITOR
--- NOTE | 2021-03-19 09:57 | NUR ---
AT BEDSIDE DISCUSSING POC.
--- NOTE | 2021-03-19 10:25 | NUR ---
Patient underwent PT intervention today. Patient did seated B LE AAROM exercises today doing hip flexion, hip adduction, hip abduction, hamstring curls, knee extension, gluteal squeezes, and ankle pumps for 10 reps x 2 sets with constant verbal and tactile cuing. Patient also did sit to stand push off transfer ADLs (1 to 2 reps) with cinstant verbal and tactile cuing to help decrease fall risks and trick movements.
--- NOTE | 2021-03-19 12:20 | NUR ---
PT OOB RESTING IN RECLINER;RESPIRATIONS EVEN AND UNLABORED ON RA;PT DENIES ANY CURRENT PAIN OR NEEDS;TELE MONITORING IN PLACE;ADAM PICCLINE INFUSING IV MAG AT THIS TIME;PT DENIES ANY ADDITIONAL NEEDS AND IS ENCOURAGED TO CALL FOR ASSISTANCE IF NEEDED;FALL PRECAUTIONS REMAIN IN PLACE WITH BED ALARM ON FOR SAFETY AND CALL LIGHT IN REACH;WILL CONTINUE TO MONITOR
--- NOTE | 2021-03-19 12:22 | NUR ---
LAB AT BEDSIDE
[2021-03-19 12:40] LABS: HEMOGLOBIN 9.9 g/dl (12.0-16.0); IMMATURE GRANULOCYTES 0.5 % (0.0-5.0); MEAN CELL VOLUME 90.4 fL CALC (80.0-100.0); MEAN CORPUSCULAR HGB 28.8 pG CALC (26.0-32.0); MEAN CORPUSCULAR HGB CONC 31.8 g/dL CAL (32.0-36.0); NEUT# 3.53 thou/uL (2.00-7.15); RED BLOOD COUNT 3.44 mill/uL (4.20-5.60)
[2021-03-19 12:45] LABS: HEMATOCRIT 31.1 % (37.0-47.0)
[2021-03-19 13:04] LABS: ALKALINE PHOSPHATASE 101 u/l (38-126); ANION GAP 11 (6-22 (CALC)); BUN 5 mg/dL (7-17); BUN/CREATININE RATIO 12 (12-20 (CALC)); CALCULATED LDLCHOLESTEROL 85 mg/dL (62-129 (CALC)); CARBON DIOXIDE 20 mmol/l (22-30); CHLORIDE 106 mmol/l (95-108); CHOLESTEROL HDL RATIO 5.5 (<4.4 (CALC)); CREATININE 0.4 mg/dL (0.5-1.0); GFR > 60 ML/MIN (>=60 (CALC)); GFR FOR AFR.AMER. > 60 ML/MIN (>=60 (CALC)); HDL CHOLESTEROL 26 mg/dL (>=40); POTASSIUM 3.2 mmol/l (3.5-5.1); SODIUM 135 mmol/l (137-146); TOTAL CHOLESTEROL 142 mg/dl (0-199); TOTAL TRIGLYCERIDES 155 mg/dl (30-149); VLDL CHOLESTROL 31 mg/dl (2-49 (CALC))
[2021-03-19 13:14] LABS: BILIRUBIN, TOTAL 0.5 mg/dL (0.0-1.4); MAGNESIUM 2.5 mg/dL (1.6-2.3); SGOT/AST 37 u/l (14-36); TOTAL PROTEIN 7.4 g/dL (6.3-8.2)
--- NOTE | 2021-03-19 14:08 | NUR ---
ARNIE SOUNDING UPON ENTERING ROOM, PT FOUND ON FLOOR. FALL UNWITNESS. PT REPORTS HITTING HEAD. C/O OF HEADACHE. PT ASSITED BACK INTO BED BY THIS SOUND INSTALLATION WORKER AND Janis GONZALES LPN. DR ELLIOTT NOTIFIED. VERBAL ORDER OBTAINED FOR CT OF HEAD WITH NO CONTRAST STAT.
--- NOTE | 2021-03-19 14:21 | NUR ---
PT TRANSPORTED TO [facility] AT THIS TIME VIA BED ACCOMPANIED BY LYDIA FELDER AND KAITY BRIZUELA.
--- NOTE | 2021-03-19 14:35 | NUR ---
PT RETURNED TO MED/SURG ROOM 271 IN STABLE CONDITION VIA HOSPITAL BED ACCOMPANIED BY LYDIA FELDER;FALL PRECAUTIONS IN PLACE WITH BED IN THE LOWEST POSITION AND BED ALARM ON FOR SAFETY;CALL LIGHT IN REACH;WILL CONTINUE TO MONITOR
--- NOTE | 2021-03-19 15:20 | NUR ---
PT APPEARS TO BE SLEEPING IN SEMI FOWLERS POSITION;RESPIRATIONS EVEN AND UNLABORED ON RA;NO S/S OF DISTRESS NOTED;TELE MONITORING IN PLACE;ADAM DL PICCLINE PATENT INFUSING ABX, LIPIDS AND TPN PER ORDER WITH EASE;ALL SAFETY PRECAUTIONS IN PLACE WITH BED IN THE LOWEST POSITION AND BED ALARM ON FOR SAFETY;CALL LIGHT IN REACH;WILL CONTINUE TO MONITOR
--- NOTE | 2021-03-19 19:14 | NUR ---
JAIMIE RECEIVED FROM ERROL MEDINA.
[2021-03-20] VITALS: BP 93/62
[2021-03-20 03:50] VITALS: BP 96/60
--- NOTE | 2021-03-20 04:57 | NUR ---
RESTING QUIETLY, EYES OPEN. RACK PRODUCTION WORKER AT BEDSIDE DRAWING MORNING LABS. PATIENT TOLERATING WELL.
--- NOTE | 2021-03-20 05:01 | NUR ---
LATE ENTRY 03/19 @ 2034. PATIENT RESTING IN BED. ALERT AND ORIENTED TO SELF. ASSISTED TO BSC, TOLERATED WELL. ACTIVATED BED ALARM UPON RETURN TO BED. DOES NOT APPEAR TO BE IN PAIN OR DISTRESS. CALL LIGHT IN REACH, INSTRUCTED TO CALL FOR ASSISTED. PATIENT REQUIRES VERBAL REINFORCEMENT.
--- NOTE | 2021-03-20 05:07 | NUR ---
LATE ENTRY 03/20 2300. PATIENT RESTLESS, CONTINUOUSLY ATTEMPTING TO GET OUT OF BED. ALARM CONTINUOUSLY SOUNDING. ATIVAN IV GIVEN AT THIS TIME.
[2021-03-20 05:27] LABS: HEMATOCRIT 25.7 % (37.0-47.0); HEMOGLOBIN 8.1 g/dl (12.0-16.0); MEAN CELL VOLUME 90.8 fL CALC (80.0-100.0); MEAN CORPUSCULAR HGB 28.6 pG CALC (26.0-32.0); MEAN CORPUSCULAR HGB CONC 31.5 g/dL CAL (32.0-36.0); RED BLOOD COUNT 2.83 mill/uL (4.20-5.60); RED CELL DISTRI WIDTH 15.7 % (11.5-15.5)
--- NOTE | 2021-03-20 05:28 | NUR ---
BED ALARM SOUNDS OFF. PATIENT SITTING AT FOOT OF BED WANTING TO USE BSC. LEFT ARM SPLINT UNRAVELING. ADAM DOUBLE LUMEN PICC DISLODGED, CATHETER INTACT. PATIENT ASSISTED TO BSC AND BACK TO BED AGAIN. LEFT ARM SPLINT RE-APPLIED. DR. ELLIOTT INFORMED OF INCIDENT, NO ORDERS GIVEN STATES HE WILL SEE PATIENT THIS MORNING.
[2021-03-20 05:58] LABS: ANION GAP 9 (6-22 (CALC)); BUN 7 mg/dL (7-17); BUN/CREATININE RATIO 16 (12-20 (CALC)); CARBON DIOXIDE 22 mmol/l (22-30); CHLORIDE 108 mmol/l (95-108); CREATININE 0.4 mg/dL (0.5-1.0); GFR > 60 ML/MIN (>=60 (CALC)); GFR FOR AFR.AMER. > 60 ML/MIN (>=60 (CALC)); POTASSIUM 3.2 mmol/l (3.5-5.1); SODIUM 135 mmol/l (137-146)
[2021-03-20 06:25] LABS: MAGNESIUM 1.6 mg/dL (1.6-2.3)
[2021-03-20 08:00] VITALS: BP 101/61; BP 91/63; BP 96/63
--- NOTE | 2021-03-20 08:13 | NUR ---
PT AWAKE AND RESTING IN BED. PT DENIES ANY PAIN OR DISCOMFORT. VS AND ASSESSMENT COMPLETE. LUNGS CLEAR. ABDOMENT FLAT, SOFT AND NONTENDER. PERIPHERAL PULSES PALPABLE. IV INTACT, FLUSHED AND PATENT. BED ALARM ACTIVATED, SITTER AT DOOR. SAFETY PRECAUTIONS IN PLACE. WILL MONITOR PT CLOSELY
[2021-03-20 10:50] VITALS: BP 101/65
--- NOTE | 2021-03-20 12:00 | NUR ---
PT AWAKE. PT IS CONFUSED. SITTER AT PATIENTS DOOR. PT HAS NO IV. NO SIGNS OF PAIN OR DISTRESS AT THIS TIME
[2021-03-20 14:10] VITALS: BP 100/67
--- NOTE | 2021-03-20 14:55 | NUR ---
Patient wasn't seen for PT intervention today (patient was sound asleep and PT wasn't able to wake her up).
--- NOTE | 2021-03-20 16:00 | NUR ---
PT RESTING IN BED SITTER AT PATIENTS DOOR. NO NEEDS AT THIS TIME. WILL CONTINUE TO MONITOR. BED ALARM ACTIVATED
--- NOTE | 2021-03-20 19:15 | NUR ---
PATIENT TRYING TO GET UP FROM CHAIR. UP TO BSC FOR SMALL LOOSE BROWN BOWEL MOVEMENT X1 ASSIST. NO IN BED. BED ALARM ON AND ACTIVATED. BED IN LOWEST POSITION. CALL LIGHT WITHIN REACH.
--- NOTE | 2021-03-20 19:24 | NUR ---
JAIMIE RECEIVED FROM IRAIS ALEJO
[2021-03-20 19:50] VITALS: BP 96/66
--- NOTE | 2021-03-20 20:25 | NUR ---
PATIENT RESTING IN BED EYES CLOSED. AROUSABLE TO VOICE. PATIENT DROWSY, NONVERBAL BEHAVIOR DOES NOT DISPLAY SIGNS OF DISTRESS. VSS. PATIENT HAS SITTER. CALL LIGHT WITHIN REACH, REQUIRES RE-EDUCATION.
--- NOTE | 2021-03-20 20:54 | NUR ---
PATIENT WAKE PULLING AT SPLINT DRESSING, REDIRECTED MULTIPLE TIMES. PULLING ON TELEMETRY, REDIRECTED.
--- NOTE | 2021-03-20 21:43 | NUR ---
PATIENT PULLED TELEMETRY OFF AND TRYING TO GET OOB. PATIENT REDIRECT. TELEMETRY PUT BACK IN PLACE.
--- NOTE | 2021-03-21 01:59 | NUR ---
RESTING QUIETLY EYES CLOSED. SITTER PRESENT. CALL LIGHT WITHIN REACH
[2021-03-21 04:55] VITALS: BP 112/66
--- NOTE | 2021-03-21 05:34 | NUR ---
RESTING COMFORTABLY IN BED. SITTER AT BEDSIDE.
[2021-03-21 06:20] LABS: HEMATOCRIT 31.2 % (37.0-47.0); HEMOGLOBIN 9.7 g/dl (12.0-16.0); MEAN CELL VOLUME 92.6 fL CALC (80.0-100.0); MEAN CORPUSCULAR HGB 28.8 pG CALC (26.0-32.0); MEAN CORPUSCULAR HGB CONC 31.1 g/dL CAL (32.0-36.0); RED BLOOD COUNT 3.37 mill/uL (4.20-5.60); RED CELL DISTRI WIDTH 15.6 % (11.5-15.5)
[2021-03-21 06:38] LABS: ALBUMIN 2.5 g/dL (3.2-5.0); ALKALINE PHOSPHATASE 67 u/l (38-126); ANION GAP 11 (6-22 (CALC)); BILIRUBIN, TOTAL 0.3 mg/dL (0.0-1.4); BUN 6 mg/dL (7-17); BUN/CREATININE RATIO 14 (12-20 (CALC)); CARBON DIOXIDE 20 mmol/l (22-30); CHLORIDE 109 mmol/l (95-108); CREATININE 0.5 mg/dL (0.5-1.0); GFR > 60 ML/MIN (>=60 (CALC)); GFR FOR AFR.AMER. > 60 ML/MIN (>=60 (CALC)); MAGNESIUM 1.4 mg/dL (1.6-2.3); POTASSIUM 3.7 mmol/l (3.5-5.1); SGOT/AST 24 u/l (14-36); SODIUM 136 mmol/l (137-146); TOTAL PROTEIN 6.3 g/dL (6.3-8.2)
[2021-03-21 07:30] VITALS: BP 109/69
--- NOTE | 2021-03-21 07:30 | NUR ---
PT NOTED RESTING IN BED. NO APPARENT DISTRESS NOTED. RESPIRATIONS EVEN AND UNLABORED. SITTER AT BEDSIDE, BED ALARM ON FOR SAFETY. SPLINT TO L ARM CDI. PT WAKES EASILY, A&O X2. JUICE PROVIDED FOR BS OF 77 AT THIS TIME. ENCOURAGED PT TO EAT BREAKFAST. CALL LIGHT WITHIN REACH. WILL CONTINUE TO MONITOR.
--- NOTE | 2021-03-21 09:31 | NUR ---
MULTIPLE ATTEMPTS TO RESTART IV WITHOUT SUCCESS. NOTIFIED CHERYL CRUZ AT THIS TIME.
--- NOTE | 2021-03-21 10:16 | NUR ---
MULTIPLE ATTEMPTS TO RESTART IV WITHOUT SUCCESS. NOTIFIED CHERYL CRUZ AT THIS TIME.
--- NOTE | 2021-03-21 10:48 | NUR ---
PHYSICIAN AT BEDSIDE TO DISCUSS POC.
[2021-03-21 10:57] VITALS: BP 119/71
--- NOTE | 2021-03-21 14:08 | NUR ---
PT RESTING IN BED. NO APPARENT DISTRESS NOTED. RESPIRATIONS EVEN AND UNLABORED. SITTER REMAINS AT BEDSIDE AND BED ALARM IN PLACE FOR SAFETY. CALL LIGHT WITHIN REACH. WILL CONTINUE TO MONITOR.
[2021-03-21 14:16] VITALS: BP 111/73
--- NOTE | 2021-03-21 16:15 | NUR ---
nurse notified of patient accucheck is 77
--- NOTE | 2021-03-21 16:15 | NUR ---
PT RESTLESS PICKING AT SPLINT ON ARM. ATTEMPTED TO REDIRECT PT SEVERAL TIMES. ASSISTED PT WITH REPOSITIONING IN BED. ENSURE CLEAR PROVIDED AT THIS TIME. SONNT BS 77. CALL LIGHT WITHIN REACH. SITTER REMAINS AT BEDSIDE. WILL CONTINUE TO MONITOR.
[2021-03-21 19:28] VITALS: BP 101/60
--- NOTE | 2021-03-21 20:00 | NUR ---
PATIENT IS AWAKE AND ALERT WITH CONFUSION. PLEASANT. RESPIRATIONS UNLBORED. HR REG. ON TELEMETRY. NO VAD. SITTER AT BEDSIDE. VITAL SIGNS TAKEN. ASSESSMENT COMPLETED AND CHARTED. BED IN LOW POSITION. CALL LIGHT WITHIN REACH. BED ALARM ACTIVATED.
--- NOTE | 2021-03-22 00:04 | NUR ---
PATIENT RESTING QUIETLY. CALM. NO COMPLAINTS. SITTER AT BEDSIDE. BED IN LOW POSITION. CALL LIGHT WITHIN REACH. BED ALARM ACTIVATED.
--- NOTE | 2021-03-22 04:47 | NUR ---
RESTING QUIETLY. SITTER AT BEDSIDE. NO ACUTE DISTRESS NOTED. BED ALARM ACTIVATED.
[2021-03-22 05:23] LABS: HEMOGLOBIN 8.4 g/dl (12.0-16.0); MEAN CELL VOLUME 91.8 fL CALC (80.0-100.0); MEAN CORPUSCULAR HGB 28.6 pG CALC (26.0-32.0); MEAN CORPUSCULAR HGB CONC 31.1 g/dL CAL (32.0-36.0); RED BLOOD COUNT 2.94 mill/uL (4.20-5.60); RED CELL DISTRI WIDTH 15.5 % (11.5-15.5)
[2021-03-22 05:50] LABS: ANION GAP 10 (6-22 (CALC)); BUN 8 mg/dL (7-17); BUN/CREATININE RATIO 14 (12-20 (CALC)); CARBON DIOXIDE 21 mmol/l (22-30); CHLORIDE 106 mmol/l (95-108); CREATININE 0.6 mg/dL (0.5-1.0); GFR > 60 ML/MIN (>=60 (CALC)); GFR FOR AFR.AMER. > 60 ML/MIN (>=60 (CALC)); MAGNESIUM 1.4 mg/dL (1.6-2.3); POTASSIUM 3.3 mmol/l (3.5-5.1); SODIUM 134 mmol/l (137-146)
--- NOTE | 2021-03-22 07:00 | NUR ---
RECIEVED REPORT MELO LOPEZ
--- NOTE | 2021-03-22 07:05 | NUR ---
PT'S BLOOD SUGAR WAS 79 @0700 GAVE HER GRAPE JUICE PER NURSE
[2021-03-22 07:37] VITALS: BP 91/57
--- NOTE | 2021-03-22 07:37 | NUR ---
PT RESTING IN SEMI FOWLERS POSITION. PT IS A/O X2 WITH CONFUSION. ASSESSMENT AND VITALS COMPLETED. BP 91/57, HR 99, O2 99% ON ROOM AIR. RESPIRATIONS ARE EVEN AND UNLABORED WITH NO DISTRESS NOTED. LUNG SOUNDS ARE CLEAR. HEART RHYTHM NORMAL WITH TELE IN PLACE, SR PER ER MONITRING. BOWEL SOUNDS ARE ACTIVE. NO IV, MD AWARE. SPLINT OF LEFT ARM NOTED. SKIN INTACT. BRUISING TO LEFT FOREHEAD NOTED. PT DENIES OF ANY PAINS OR DISCOMFORTS AT THIS TIME. ALL SAFETY PRECAUTIONS ARE IN PLACE WITH CALL LIGHT IN REACH.SITTER AT BEDSIDE. WILL CONTINUE TO MONITOR.
--- NOTE | 2021-03-22 09:00 | NUR ---
ORAL MEDICATIONS TOLERATED WELL BY PATIENT. REASSESSMENT OF ACCUCHEK RESULTING IN 93. PT ASSITED TO BSC AND INTO CHAIR BY POWER SAW OPERATOR AND COLORIST FORMULATOR.
--- NOTE | 2021-03-22 09:52 | NUR ---
Pt seen this am for treatment. She was in bed with sitter present and awake. LE exercise perfomed in supine 2 x 10 reps, including heelslides, SAQ, hip abd, ankle DF 2 x 10 reps, bridging x 10 reps. Pt refused getting OOB, stated she would get up with nursing later. AMPAC unchanged.
--- NOTE | 2021-03-22 10:22 | NUR ---
DR ELLIOTT AND CHA,ANSHEILA AT BEDSIDE
--- NOTE | 2021-03-22 10:40 | NUR ---
ACCUCHECK REUSLTING IN 76.ASYMPTOMATIC. ORANGE JUICE WITH SUGAR PROVIDED. PT FINISHED AT THIS TIME. PT ENCOURAGED TO EAT LUNCH. PT VERBALIZED UNDERSTANDING. WILL CONTINUE TO MONITOR
[2021-03-22 10:50] VITALS: BP 97/59
--- NOTE | 2021-03-22 10:50 | NUR ---
PT TRANSPORTED TO [facility] FOR [facility] SWALLOW ACCOMPAINED BY ERIK PHYSICAL THERAPIST VIA WHEELCHAIR IN STABLE CONDITION.
--- NOTE | 2021-03-22 12:00 | NUR ---
PT ARRIVED BACK TO [facility] ROOM 271 VIA WHEELCHAIR. PT ASSISTED BACK INTO CHAIR. LUNCH TRAY ACCOMIDATED FOR PT. PT ENCOURAGED TO EAT DUE TO LOW BLOOD SUGAR. PT REMAINS A/O X2. RESPIRATIONS ARE EVEN AND UNLABORED. TELE MONITORING IN PLACE. PT DENIES OF ANY PAINS OR DISCOMFORTS AT THIS TIME. ALL SAFETY PRECAUTIONS ARE IN PLACE WITH CALL LIGHT IN REACH.SITTER AT BEDSIDE WILL CONTINUE TO MONITOR
--- NOTE | 2021-03-22 12:14 | NUR ---
REASSESSMENT OF BLOOD SUGAR RESULTING IN 101.
[2021-03-22 14:55] VITALS: BP 100/55
--- NOTE | 2021-03-22 16:06 | NUR ---
BRIANA CALL FOR UPDATE. PASSCODE PROVIDED.
--- NOTE | 2021-03-22 16:33 | NUR ---
PT SITTING UP IN RECYLINER. RESPIRATIONS ARE EVEN AND UNLABORED WITH NO DISTRESS NOTED ON ROOM AIR. NO IV MD YOLY AWARE. TELE MONITORING IN PLACE. PT DENIES OF ANY PAINS OR DISCOMFORTS. ALL SAFETY PRECAUTIONS ARE IN PLACE WITH CALL LIGHT IN REACH. SITTER AT BEDSIDE. WILL CONTINUE TO MONITOR
--- NOTE | 2021-03-22 17:16 | NUR ---
EM RECEIVED IN BED, REQUIRED MIN A TO STAND FROM EOB AND WALK TO SINK. SHE COMPLETED TOOTHBRUSHING IN STANDING BUT HAS SIGNIFICANTLY DECREASED ENDURANCE, LEADING TO QUICKLY FATIGUING. PT WAS OBSERVED TO HAVE SOILED GOWN, AND CLINICIAN COMPLETED DRESSING IN STANDING TO CHANGE ROBE FOR A CLEAN ONE. PT REPORTED THAT SHE WAS GOING TO COLLAPSE AFTER 2.5 MINS OF STANDING AND WAS ESCORTED TO BED. DIGIT MOBILITY Lorelei COMPLETED TO PREVENT CONTRACTURES AND DECREASE EDEMA. PT NOTED TO BE INCREASINGLY EDEMATOUS ON POSTERIOR ASPECT OF METACARPALS AND WAS INSTRUCTED IN POSITIONING AND ICE APPLICATION TO DECREASE FURTHER INCIDENCES OF SWELLING.
--- NOTE | 2021-03-22 17:30 | NUR ---
PT UP OUT OF CHAIR, SITTER AT CHAIR. PT STATES "I AM LEAVING." BRANCH LOGISTICS SUPERVISOR INFORMED PT THAT DC WAS NOT ORDERED AND SHE IS NOT MEDICALLY STABLE.PT IS A/O X2 AND UNSTEADY GAIT NOTED. PT ASSISTED TO CHAIR. WANTING TO SPEAK TO DONALD. DONALD TO BE CALLED.
--- NOTE | 2021-03-22 17:57 | NUR ---
PT CONTINUE TO STATE SHE IS LEAVING. PT REMAINS A/O X2 AND UNSTEADY ON FEET. DONALD CALLED, STATED HE WAS NOT PICKING HER UP. VAMP THROATER INFORMED PT THAT WOULD BE IN THE MORNING TO SPEAK TO HER. PT REFUSES STATING SHE IS LEAVING. VAMP THROATER INFORMED PT THAT DONALD IS NOT PICKING HER UP AND A TAXI IS NOT BEING CALLED. PT ASSISTED BACK INTO BED. BED AND CHAIR ALARM PLACED. PT DENIES OF ANY NEEDS AT THIS TIME. ALL SAFETY PRCAUTIONS ARE IN PLACE WITH CALL LIGHT IN REACH. SITTER AT BEDSIDE.
[2021-03-22 19:03] VITALS: BP 106/68
--- NOTE | 2021-03-22 19:55 | NUR ---
PT ASSESSMENT COMPLETED. SHE DENIES PAIN/N/V/D. REPORTS LOOSE STOOL 1X YESTERDAY. WHEN ASKED HOW SHE IS FEELING SHE RESPONDED "SAD" WHEN ASKED WHAT WAS MAKING HER SAD AND IF SHE WANTED TO TALK ABOUT IT SHE JUST DIDN'T RESPOND. LUNG SOUNDS ARE CLEAR, NO NOTED EDEMA, PT PARTIALLY UNCOOPERATIVE WITH ASSESSMENT CAUSING LIMITS TO ASSESSMENT. WILL ATTEMPT FOR FURTHER ASSESSMENT LATER. SHE WOULD NOT ANSWER LOC QUESTIONS, REMAINED NON-VERBAL AT THAT POINT. SITTER IS AT BEDSIDE ALONG WITH PORTABLE ALARM AND BED ALARM. PT DOES APPEAR CALM AT THIS TIME. FRIEND DONALD CALLED TO CHECK ON HER, DID NOT ASK TO SPEAK WITH PT.
--- NOTE | 2021-03-22 21:10 | NUR ---
PT MEDICATED ORDERS PROVIDE. PT APPEARS CALM, LOC TO SELF. SITTER AT BEDSIDE. LIQUIDS THICKENED AT THIS TIME AND AIDES MADE AWARE OF NEED FOR THINKENED LIQUIDS.
--- NOTE | 2021-03-22 23:46 | NUR ---
Pt medicated for pain 4/10 in left arm. She denies any other needs. PO fluids thickened. sitter at bedside, alarms on.
[2021-03-23 00:06] VITALS: BP 103/72
--- NOTE | 2021-03-23 02:25 | NUR ---
Pt appears to be sleeping at this time. Bed alarms are on x2 and sitter at bedside.
[2021-03-23 03:52] VITALS: BP 105/65
--- NOTE | 2021-03-23 04:33 | NUR ---
PT APPEARS TO BE SLEEPING AT THIS TIME. RESP EVEN AND NON-LABORED. SITTER AT SIDE AND ALARMS X2.
--- NOTE | 2021-03-23 05:51 | NUR ---
HEAD OF PRECISION TARGETING CALLED TO REPORT THAT PT APPEARS AGITATED AND IS SITTING ON THE SIDE OF THE BED TRYING TO CALL "EMERGENCY." UPON ENTERING THE ROOM, PT WAS SITTING ON THE SIDE OF THE BED. WHEN ASKED IF SOMETHING WAS WRONG SHE RESPONDED, I AM TRYING TO CALL EMERGENCY. I ASKED WHY, SHE REPLIED "BECAUSE MY LIFE IS IN DANGER." I ASKED HER WHAT IS MAKING HER FEEL THIS WAY, SHE REPLIED "YOU ALL ARE TRYING TO KILL ME." I ASSURED HER THAT WE WERE NOT IN ANY WAY TRYING TO HARM HER, ONLY HELP HER. SHE IS FIDGETING WITH CELL PHONE. I ASKED IF SHE WAS HAVING ANY PAIN, SHE REPLIED "YES IN MY ARM," PT MEDICATED WITH TYLENOL AT THIS TIME. SHE REMAINS ON SIDE OF THE BED WITH ALARM ON AND SITTER AT BEDSIDE.
--- NOTE | 2021-03-23 05:55 | NUR ---
PT IS PUSHING CALL LIGHT OVER AND OVER STATING "I AM CALLING EMERGENCY." NO PT APPEARS CONFUSED OF CIRCUMSTANCES AT THIS TIME. ATTEMPTS TO REORIENT HER TO NO AVAIL.
[2021-03-23 06:04] LABS: HEMATOCRIT 29.8 % (37.0-47.0); HEMOGLOBIN 9.2 g/dl (12.0-16.0); MEAN CELL VOLUME 92.8 fL CALC (80.0-100.0); MEAN CORPUSCULAR HGB 28.7 pG CALC (26.0-32.0); MEAN CORPUSCULAR HGB CONC 30.9 g/dL CAL (32.0-36.0); RED BLOOD COUNT 3.21 mill/uL (4.20-5.60); RED CELL DISTRI WIDTH 15.6 % (11.5-15.5)
--- NOTE | 2021-03-23 06:15 | NUR ---
patient refused her accucheck. nurse notified.
[2021-03-23 06:21] LABS: ANION GAP 10 (6-22 (CALC)); BUN 7 mg/dL (7-17); BUN/CREATININE RATIO 11 (12-20 (CALC)); CARBON DIOXIDE 20 mmol/l (22-30); CHLORIDE 108 mmol/l (95-108); CREATININE 0.6 mg/dL (0.5-1.0); GFR > 60 ML/MIN (>=60 (CALC)); GFR FOR AFR.AMER. > 60 ML/MIN (>=60 (CALC)); MAGNESIUM 1.3 mg/dL (1.6-2.3); POTASSIUM 3.9 mmol/l (3.5-5.1); SODIUM 134 mmol/l (137-146)
--- NOTE | 2021-03-23 07:00 | NUR ---
RECIEVED REPORT FROM MELO ANTOINE. PT ATTEMPTED TO GET UP OUT OF BED. STATING " I AM LEAVING!" PT ASSISTED BACK INTO BED BY WINTERIZER. SITTER AT BEDSIDE
--- NOTE | 2021-03-23 07:20 | NUR ---
PT SLEEPING IN LOW FOWLERS POSITION. RESPIRATIONS ARE EVEN AND UNLABORED WITH NO DISTRSS NOTED. TELE MONITORING IN PLACE. SLINT TO LEFT ARM NOTED.PT TO BE LEFT SLEEPING DUE TO INCREASE AGITATION. ALL SAFETY PRECAUTIONS ARE IN PLACE WITH CALL LIGHT IN REACH. SITTER AT SIDE. WILL CONTINUE TO MONITOR.
[2021-03-23 08:14] VITALS: BP 106/61
--- NOTE | 2021-03-23 08:14 | NUR ---
PT AWAKE RESTING IN SEMI FOWLERS POSITION. PT IS A/O X3 WITH CONFUSION.PT UNABLE TO NAME HOSPITAL BUT ABLE TO [facility]. ASSESSMENT AND VITALS COMPLETED. BP 106/61, HR 99, O2 99% ON ROOM AIR. RESPIRATIONS ARE EVEN AND UNLABORED. LUNG SOUNDS ARE CLEAR. HEART RHYTHM NORMAL. BOWEL SOUNDS ARE ACTIVE. NO IV SITE, MD AWARE. SLINT TO LEFT ARM REMAINS. BRUISING TO RIGHT FOREHEAD NOTED. PT COMPLAINS OF 10/10 LEFT ARM PAIN. TYLENOL UNAVAIBLE AT THIS TIME. NEW ORDER TO BE OBTAINED. SKIN INTACT. PT REQUEST FOR [facility] TO BE CALLED TO PICK PT UP. NO [facility] AT FILE. PT REMAINS IN BED, ALL SAFETY PRECAUTIONS ARE IN PLACE WITH CALL LIGHT IN REACH. BED AND CHAIR ALARM ACTIVE WITH SITTER AT BEDSIDE. WILL CONTINUE TO MONITOR.
--- NOTE | 2021-03-23 09:21 | NUR ---
PHYSICAL THERAPY AT BEDSIDE
--- NOTE | 2021-03-23 09:28 | NUR ---
DR RUBIO AND CHA,ANRP AT BEDSIDE
--- NOTE | 2021-03-23 09:37 | NUR ---
PT MEDIATED WITH PAIN MEDICATION AT THIS TIME. PT TOELRATED WELL. PT REQUEST TO WALK. PT ADIVSED TO STAY IN BED DUE TO RECIEVING PAIN MEDICATION. PT VERBALIZED UNDERSTANDING. ALL SAFETY PRECAUTIONS ARE IN PLACE WITH CALL LIGHT IN REACH. WILL CONTINUE TO MONITOR
--- NOTE | 2021-03-23 10:30 | NUR ---
PT REFUSING VITALS AND ACCUCHECK AT THIS TIME. WILL ATTEMPT ONCE PT IS MORE CALM.
--- NOTE | 2021-03-23 10:41 | NUR ---
PT ATTEMPTING TO GET UP OUT OF BED. PT STATING THAT THE BONNIE HOW CAME IN THIS MORNING BROUGHT HIS FATHER AND MOLESTED HER. PT REORIENTED PT BACK TO PLACE AND TIME. ELECTRIC STOVE INSTALLER INFORMED PT THAT SHE HAS NOT BEEN MOLESTED AND THE FEMALE SITTER HAS BEEN AT BEDSIDE ALL MORNING. PT CONTINUE TO YELL SHE HAS BEEN MOLESTED AND REQUEST TO GO OUTSIDE. PT INFORMED SHE IS NOT GOING OUTSIDE. PT ASSISTED BACK INTO BED.ALL SAFETY PRECAUTIONS ARE IN PLACE WITH CALL LIGHT IN REACH. BED/CHAIR ALARM ACTIVE WITH SITTER AT BEDSIDE.
--- NOTE | 2021-03-23 10:59 | NUR ---
OT AT BEDSIDE
[2021-03-23] MEDS ORDERED: MAGOX 400400 MG PO (11:26)
[2021-03-23] MEDS ORDERED: ULTRAM50 M1 PO ×2 (11:34→11:35)
[2021-03-23] MEDS ORDERED: LEVAQUIN750 M1 PO (11:37)
--- NOTE | 2021-03-23 11:40 | NUR ---
COVID SWAB COLLECTED. PT INFORMED OF DC TO [facility]. PT VERBALIZED UNDERSTANDING. PT AGREED TO ACCHCHECK, RESUTLING IN 70. ORANGE JUICE AND LUNCH PROVIDED. PT REMAINS ASYMPTOMATIC. ALL SAFETY PRECAUTIONS ARE IN PLACE WITH CALL LIGHT IN REACH AND SITTER AT BEDSIDE
--- NOTE | 2021-03-23 11:58 | NUR ---
Patient underwent PT intervention today. Patient did B LE seated AROM exercises doing hip flexion, hip adduction, hip abduction, hamstring curls, knee extension, and ankle pumps for 20 reps with verbal and tactile cuing to help decrease trick movements and fall risks. Patient participated with log rolling bed mobility and sit to stand push off transfer ADLs with verbal and tactile cuing to help decrease trick movements and fall risks (1 to 3 reps). Patient also did gait training with CGA x 1 covering 15 feet x 2 reps with constant verbal and tactile cuing on level surface to help decrease fall risks.
--- NOTE | 2021-03-23 12:00 | NUR ---
REASSESSMENT OF ACCUCHEK REUSLTING IN 118
--- NOTE | 2021-03-23 13:03 | NUR ---
HOME MEDICAITIONS RECIEVED FROM PHARMACY. RINGS RECIEVED FROM [facility]AF[facility], PLACED IN PT DC PACKET. BOTH TO BE SENT WITH PT UPON DC.
[2021-03-23 14:50] VITALS: BP 116/66
--- NOTE | 2021-03-23 14:52 | NUR ---
PT EDUCATED ON DC INSTRUCTIONS AND NEW MEDICATIONS. PT VERBALIZED UNDERSTANDING. TRANSPORTATION MAINTENANCE SPECIALIST INFORMED THAT TRANSPORTATION IS DELAYED FOR 2 TO 2.5 HOURS. PT NOTIFIED. TELE MONITORING REMAINS IN PLACE. ALL SAFETY PRECAUTIONS ARE IN PLACE WITH CALL LIGHT IN REACH.SITTER AT BEDSIDE. WILL CONTINUE TO MONITOR
--- NOTE | 2021-03-23 16:37 | NUR ---
EM RECEIVED IN BED, I ROLLED TO SIDE TO COMPLETE SITTING AT BEDSIDE. EM'S ARM HAND ASSESSED AND RE-WRAPPED WITH HEMANT BANDAGE TO PROMOTE LYMPHATIC DRAINAGE. EM EXPRESSED NEED USE THE RESTROOM FOR BLADDER EMPTYING AND FUNCTIONALLY AMBULATED WITH CGA FOR SAFTEY. THEN, PT INSTRUCTED IN COMPLETING HANDWASHING WITH ONLY ONE HAND. SHE EXPRESSED FRUSTRATION AND REFUSAL WHEN ASKED TO RETURN TO BED, CLAIMING SHE WANTED TO LEAVE HOSPITAL. THROUGHOUT SESSION, EM DEMONSTRATED BOUTS OF DELIRIUM, SUGGESTIVE OF ALCOHOL WITHDRAWAL DELIRUM, BASED ON PATIENT'S HX.
--- NOTE | 2021-03-23 16:42 | NUR ---
PT COMPLAINS OF 10/10 PAIN IN LEFT WRIST, PT MEDICATED WITH ULTRAM RESPIRATIONS ARE EVEN AND UNLABORED WITH NO DISTRESS NOTED.ICE APPLIED. TELE MONITORING REMAINS IN PLACE. PT DENIES OF ANY OTHER PAINS OR DISCOMFORTS. ALL SAFETY PRECAUTIONS ARE IN PLACE WITH CALL LIGHT IN REACH. SITTER AT BEDSIDE. WILL CONTINUE TO MONITOR.
--- NOTE | 2021-03-23 18:32 | NUR ---
DONALD CALLED TO INFORM OF DC INSTRUCTIONS. NO ANSWER. VOICE MAIL LEFT TO INFORM OF PT BEING DC.
--- NOTE | 2021-03-23 18:33 | NUR ---
Discharge instructions given. Patient verbalizes understanding of same. Discharged in stable condition via Medical Transport to *Other with staff. All belongings sent with pt. PT DC TO [facility] IN STABLE CONDITION VIA [facility] WITH ALL DC INSTRUCTIONS AND PERSONAL BELONGINGS INCLUDING HOME MEDICATIONS AND JEWLRY.
--- NOTE | 2021-03-23 18:41 | NUR ---
REPORT GIVEN TO HELEN AT [facility]
== END 2021-03-23 18:35 | DRG 896 ==
LOC: ED 11:53 → ED-I 18:37 → ICU 18:37 → MS2 03-16 14:40
PROVIDERS: Hospitalist; Nurse Practitioner; Physician Assistant Surgical; ADMIT Internal Medicine; ATTEND Internal Medicine
PROC: 05H933Z Insertion of Infusion Device into Right Brachial Vein, Percutaneous Approach (ICD-10-PCS; principal; 2021-03-10)
PROC: 2W3DX1Z Immobilization of Left Lower Arm using Splint (ICD-10-PCS; 2021-03-14)
DX: F10.231 Alcohol dependence with withdrawal delirium (principal); G93.41 Metabolic encephalopathy; S52.502A Unspecified fracture of the lower end of left radius, initial encounter for closed fracture; J69.0 Pneumonitis due to inhalation of food and vomit; N39.0 Urinary tract infection, site not specified; E87.1 Hypo-osmolality and hyponatremia; N17.9 Acute kidney failure, unspecified; E16.2 Hypoglycemia, unspecified; E86.0 Dehydration; E83.42 Hypomagnesemia; E87.6 Hypokalemia; I95.9 Hypotension, unspecified; I10 Essential (primary) hypertension; I48.91 Unspecified atrial fibrillation; G40.909 Epilepsy, unspecified, not intractable, without status epilepticus; F32.9 Major depressive disorder, single episode, unspecified; F41.9 Anxiety disorder, unspecified; B96.20 Unspecified Escherichia coli [E. coli] as the cause of diseases classified elsewhere; W19.XXXA Unspecified fall, initial encounter; Y92.239 Unspecified place in hospital as the place of occurrence of the external cause; Z86.16 Personal history of COVID-19; Z20.822 Contact with and (suspected) exposure to COVID-19
CPT/HCPCS: J1650; J2060; J3475; S0164; S0166

== ENCOUNTER 2021-04-21 15:14 | Emergency (ER) | payer OTHER ==
[~2021-04-21] VITALS: Ht 152.4 cm; Wt 48.6 kg
[~2021-04-21 15:14] MED LIST changes: +CENTRATEX PO; +INDERAL 20MG TA20 MG PO; +LEVAQUIN750 M1 PO; +MAGOX 400400 MG PO; +MECLIZINE25 MG PO; +OMEPRAZOLE DR40 MG PO; +PROMETHAZINE HY25 M1 PO; +PROTONIX40 M2 PO; +ULTRAM50 M1 PO; +VITAMIN B1100 M1 PO; +ZOFRAN4 M1 PO; +[UNRECOGNIZED DRUG - OTHER] PO
[2021-04-21 16:29] LABS: HEMATOCRIT 29.7 % (37.0-47.0); HEMOGLOBIN 9.2 g/dl (12.0-16.0); IMMATURE GRANULOCYTES 0.1 % (0.0-5.0); MEAN CELL VOLUME 92.8 fL CALC (80.0-100.0); MEAN CORPUSCULAR HGB 28.8 pG CALC (26.0-32.0); NEUT# 3.8 thou/uL (2.00-7.15); RED BLOOD COUNT 3.2 mill/uL (4.20-5.60); RED CELL DISTRI WIDTH 14.7 % (11.5-15.5)
[2021-04-21 16:50] LABS: INTERNATIONAL NORMALIZED RATIO 0.9 RATIO (0.7-1.3); PROTHROMBIN TIME 9.7 SECONDS (9.0-12.5)
[2021-04-21 16:51] LABS: ALKALINE PHOSPHATASE 48 u/l (38-126); BILIRUBIN, TOTAL 0.3 mg/dL (0.0-1.4); BUN 13 mg/dL (7-17); BUN/CREATININE RATIO 15 (12-20 (CALC)); CHLORIDE 104 mmol/l (95-108); CREATININE 0.9 mg/dL (0.5-1.0); ETHYL ALCOHOL 0 mg/dl (0-30); GFR > 60 ML/MIN (>=60 (CALC)); GFR FOR AFR.AMER. > 60 ML/MIN (>=60 (CALC)); LIPASE 205 u/l (23-300); MAGNESIUM 1.6 mg/dL (1.6-2.3); POTASSIUM 3.8 mmol/l (3.5-5.1); SGOT/AST 25 u/l (14-36); SODIUM 135 mmol/l (137-146); TOTAL PROTEIN 6.9 g/dL (6.3-8.2)
[2021-04-21 16:55] LABS: ALBUMIN 3.2 g/dL (3.2-5.0); ANION GAP 9 (6-22 (CALC)); CARBON DIOXIDE 26 mmol/l (22-30)
[2021-04-21 18:08] LABS: URINE BILIRUBIN - DIPSTICK NEGATIVE (NEGATIVE); URINE BLOOD DIPSTICK SMALL (NEGATIVE); URINE COLOR YELLOW; URINE GLUCOSE - DIPSTICK NEGATIVE (NEGATIVE); URINE KETONE NEGATIVE (NEGATIVE); URINE LEUK ESTERASE TRACE (NEGATIVE); URINE PROTEIN - DIPSTICK NEGATIVE (NEG-TRACE); URINE UROBILINOGEN - DIPSTICK 0.2 E.U./dL (0.2)
[2021-04-21 18:15] LABS: URINE NITRITE - DIPSTICK NEGATIVE (Negative)
[2021-04-21 18:24] LABS: URINE AMORPH SEDIMENT FEW hpf (NONE-FEW); URINE BACTERIA RARE hpf; URINE SQUAMOUS EPITHELIAL CELL FEW EPI/hpf (0-FEW)
[2021-04-21 19:10] VITALS: BP 96/58
== END 2021-04-21 19:10 | disposition home or self-care (01) ==
LOC: ED 15:14
DX: R55 Syncope and collapse (principal); G40.909 Epilepsy, unspecified, not intractable, without status epilepticus; F10.10 Alcohol abuse, uncomplicated; F32.A Depression, unspecified; F41.9 Anxiety disorder, unspecified; I48.91 Unspecified atrial fibrillation; J38.00 Paralysis of vocal cords and larynx, unspecified; Z86.16 Personal history of COVID-19; Z20.822 Contact with and (suspected) exposure to COVID-19

== ENCOUNTER 2021-05-08 12:51 | Emergency (ER) | payer OTHER ==
[~2021-05-08] VITALS: Ht 152.4 cm; Wt 45.0 kg
[2021-05-08 14:29] LABS: HEMATOCRIT 30.8 % (37.0-47.0); HEMOGLOBIN 10.5 g/dl (12.0-16.0); IMMATURE GRANULOCYTES 0.2 % (0.0-5.0); MEAN CORPUSCULAR HGB CONC 34.1 g/dL CAL (32.0-36.0); NEUT# 11.22 thou/uL (2.00-7.15); RED BLOOD COUNT 3.62 mill/uL (4.20-5.60); RED CELL DISTRI WIDTH 14.5 % (11.5-15.5)
[2021-05-08 14:32] LABS: MEAN CELL VOLUME 85.1 fL CALC (80.0-100.0)
[2021-05-08 15:13] LABS: BUN 14 mg/dL (7-17); BUN/CREATININE RATIO 15 (12-20 (CALC)); CHLORIDE 97 mmol/l (95-108); CREATININE 0.9 mg/dL (0.5-1.0); ETHYL ALCOHOL 22 mg/dl (0-30); GFR > 60 ML/MIN (>=60 (CALC)); GFR FOR AFR.AMER. > 60 ML/MIN (>=60 (CALC)); LIPASE 61 u/l (23-300); MAGNESIUM 1.7 mg/dL (1.6-2.3); POTASSIUM 4.1 mmol/l (3.5-5.1); SODIUM 138 mmol/l (137-146)
[2021-05-08 15:23] LABS: ALBUMIN 4.7 g/dL (3.2-5.0); ALKALINE PHOSPHATASE 75 u/l (38-126); ANION GAP 31 (6-22 (CALC)); BILIRUBIN, TOTAL 1.5 mg/dL (0.0-1.4); CARBON DIOXIDE 14 mmol/l (22-30); SGOT/AST 50 u/l (14-36); TOTAL PROTEIN 8.8 g/dL (6.3-8.2)
[2021-05-08] MEDS ORDERED: PROTONIX40 M2 PO (19:43)
[2021-05-08] MEDS ORDERED: ZOFRAN4 MG/TAB PO (19:43)
[2021-05-08 20:23] VITALS: BP 122/60
== END 2021-05-08 20:25 | disposition home or self-care (01) ==
LOC: ED 12:51 → ED-I 18:00 → ED 20:25
PROVIDERS: Family Medicine
DX: K29.20 Alcoholic gastritis without bleeding (principal); F10.20 Alcohol dependence, uncomplicated; I48.91 Unspecified atrial fibrillation; F32.A Depression, unspecified; F41.9 Anxiety disorder, unspecified; G40.909 Epilepsy, unspecified, not intractable, without status epilepticus; J38.00 Paralysis of vocal cords and larynx, unspecified; Z90.49 Acquired absence of other specified parts of digestive tract; Z86.16 Personal history of COVID-19
CPT/HCPCS: Q9967

== ENCOUNTER 2021-07-14 09:30 | Observation (INO) | payer OTHER ==
[~2021-07-14] VITALS: Ht 152.4 cm; Wt 47.6 kg
--- NOTE | 2021-07-14 09:30 | NUR ---
PATIENT TO ROOM VIA EMS STRETCHER.
[2021-07-14 12:21] LABS: HEMOGLOBIN 11.8 g/dl (12.0-16.0); IMMATURE GRANULOCYTES 0.3 % (0.0-5.0); NEUT# 16.83 thou/uL (2.00-7.15); RED BLOOD COUNT 4.07 mill/uL (4.20-5.60); RED CELL DISTRI WIDTH 13.2 % (11.5-15.5)
[2021-07-14 12:25] LABS: HEMATOCRIT 38.1 % (37.0-47.0); MEAN CELL VOLUME 93.6 fL CALC (80.0-100.0)
[2021-07-14 12:29] LABS: ALKALINE PHOSPHATASE 95 u/l (38-126); AMYLASE 152 u/l (30-110); BUN 19 mg/dL (7-17); BUN/CREATININE RATIO 14 (12-20 (CALC)); CHLORIDE 101 mmol/l (95-108); CREATININE 1.3 mg/dL (0.5-1.0); GFR 42 ML/MIN (>=60 (CALC)); GFR FOR AFR.AMER. 51 ML/MIN (>=60 (CALC)); LIPASE 83 u/l (23-300); SODIUM 141 mmol/l (137-146); TOTAL PROTEIN 8.2 g/dL (6.3-8.2)
[2021-07-14 12:30] LABS: POTASSIUM 3.2 mmol/l (3.5-5.1)
[2021-07-14 12:31] LABS: ALBUMIN 4.5 g/dL (3.2-5.0); ANION GAP 36 (6-22 (CALC)); BILIRUBIN, TOTAL 1.1 mg/dL (0.0-1.4); SGOT/AST 43 u/l (14-36)
[2021-07-14 12:32] LABS: CARBON DIOXIDE 7 mmol/l (22-30)
--- NOTE | 2021-07-14 13:21 | NUR ---
PT RESTING QUIETLY, RESPS EVEN AND UNLABORED, VSS, MONITORS ATTACHED. REPORTS FEELING BETTER.
--- NOTE | 2021-07-14 15:06 | NUR ---
PT TOLERATING PO FLUIDS WITHOUT C/O NAUSEA OR VOMITING
--- NOTE | 2021-07-14 16:00 | NUR ---
REPORT CALLED TO PEARL ALEJO.
--- NOTE | 2021-07-14 16:15 | NUR ---
MEDICATED WITH TYLENOL 650MG PO FOR C/O 11/09 HEADACHE
--- NOTE | 2021-07-14 16:45 | NUR ---
TO ICU VIA STRETCHER, MONITOR ATTACHED.
--- NOTE | 2021-07-14 16:50 | NUR ---
Admission Note Report Given to: Transported by: Wheelchair X Stretcher Transported with: X Nurse Transporter X Patent IV O2 X Airplane Dispatcher Location: X ICU MS2
[2021-07-14 17:06] VITALS: BP 144/113
--- NOTE | 2021-07-14 17:32 | NUR ---
PT TO ROOM PER STRETCHER, PT UP TO BEDSIDE COMMODE, VERY SHAKY, BUT STATES THAT IS HER NORMAL SINCE SHE STOPPED DRINKING SEVERAL DAYS AGO. STATES SHE HAS BEEN HAVING SOME STRESS LATELY. STATES LIVES WITH HER BOYFRIEND AND THEY ARE NOT GETTING ALONG. PT APPEARS TO BE ANXIOUS, BUT CALMY ANSWERS QUESTIONS. DENIES ANY CHEST PAIN OR SOB, STATES HAS SOME UPPER RIGHT QUAD PAIN BUT HASNT VOMITED FOR ABOUT 8 HOURS, HAD NORMAL BM THIS AM, PT ABLE TO MAEW, IS AT THIS TIME WATCHING TV, ADVISED ABOUT CLEAR LIQUID DIET, TO SEE HOW SHE TOLERATES TODAY. PT VOICES UNDERSTANDING.
[2021-07-14 17:58] LABS: URINE BLOOD DIPSTICK SMALL (NEGATIVE); URINE COLOR YELLOW; URINE GLUCOSE - DIPSTICK NEGATIVE (NEGATIVE); URINE KETONE >=80 mg/dL (NEGATIVE); URINE LEUK ESTERASE NEGATIVE (NEGATIVE); URINE PROTEIN - DIPSTICK 30 mg/dL (NEG-TRACE); URINE SPECIFIC GRAVITY >=1.030; URINE UROBILINOGEN - DIPSTICK 0.2 E.U./dL (0.2)
[2021-07-14 18:15] VITALS: BP 141/113
[2021-07-14 18:19] LABS: URINE BACTERIA MODERATE hpf; URINE BILIRUBIN - DIPSTICK NEGATIVE (NEGATIVE); URINE NITRITE - DIPSTICK NEGATIVE (Negative); URINE RBC 0-2 RBC/hpf (0-5); URINE SQUAMOUS EPITHELIAL CELL FEW EPI/hpf (0-FEW)
--- NOTE | 2021-07-14 19:38 | NUR ---
PT RESTING IN BED, NO SIGNS OF DISTRESS NOTED, RESP EVEN AND UNLABORED. PT ALERT AND ORIENTED X3, DISCUSSED POC, CIWA SCALE 6 AT THIS TIME. PT C/O NECK PAIN STATES FROM,"NECK SURGERY 6YRS AGO". PT MEDICATED PER AUG. 2L NC, PICC LINE TO ADAM ARM CIRCUM. 24 CM, M.V.I INFUSING. PT PLACED ON SEIZURE PRECAUTIONS. ASSESSMENT REVIEW COMPLETED AT THIS TIME. CALL LIGHT IN REACH, SAFETY PRECAUTIONS IN PLACE, CONTINUE TO MONITOR.
--- NOTE | 2021-07-14 21:00 | NUR ---
PT RESTLESS IN BED, LYING CROSSWAYS IN BED, ASSISTED PT TO REPOSITION IN BED, BED ALARM PLACED FOR SAFETY, PT DENIES ANY NEEDS OR COMPLAINTS AT THIS TIME, CALL LIGHT IN REACH,CONTINUE TO MONITOR.
--- NOTE | 2021-07-14 23:33 | NUR ---
PT RESTING IN BED EASILY AROUSED TO VERBAL STIMULI, PT MEDICATED PER MAR, BED ALARM FOR SAFETY, CALL LIGHT IN REACH,CONTINUE TO MONITOR.
[2021-07-15] VITALS (16 sets, daily range): BP systolic 83–119; BP diastolic 48–69
--- NOTE | 2021-07-15 04:56 | NUR ---
PT ASSISTED TO BSC, ACCIDENTLY VOIDED ON FLOOR, ASSISTED PT WITH LINEN CHANGE AND CLEANED UP FLOOR. BED ALARM FOR SAFETY, CALL LIGHT IN REACH,CONTINUE TO MONITOR.
[2021-07-15 06:09] LABS: MEAN CELL VOLUME 92.6 fL CALC (80.0-100.0); MEAN CORPUSCULAR HGB 29.4 pG CALC (26.0-32.0); MEAN CORPUSCULAR HGB CONC 31.8 g/dL CAL (32.0-36.0); RED BLOOD COUNT 2.82 mill/uL (4.20-5.60); RED CELL DISTRI WIDTH 13.1 % (11.5-15.5)
[2021-07-15 06:25] LABS: HEMATOCRIT 26.1 % (37.0-47.0); HEMOGLOBIN 8.3 g/dl (12.0-16.0)
[2021-07-15 06:36] LABS: BUN 14 mg/dL (7-17); BUN/CREATININE RATIO 13 (12-20 (CALC)); CHLORIDE 111 mmol/l (95-108); CREATININE 1.1 mg/dL (0.5-1.0); GFR 51 ML/MIN (>=60 (CALC)); GFR FOR AFR.AMER. > 60 ML/MIN (>=60 (CALC)); MAGNESIUM 1.6 mg/dL (1.6-2.3); SODIUM 138 mmol/l (137-146)
[2021-07-15 06:39] LABS: POTASSIUM 2.7 mmol/l (3.5-5.1)
[2021-07-15 06:47] LABS: ANION GAP 11 (6-22 (CALC)); CARBON DIOXIDE 19 mmol/l (22-30)
--- NOTE | 2021-07-15 06:54 | NUR ---
PT REPORT RECEIVED, PT RESTING QUIETLY ON BED, VITAL SIGNS STABLE, DENIES ANY PAIN OR NAUSEA/VOMITING. STATES DOESNT FEEL SHAKY. IS ON CELL PHONE TALKING TO BOYFRIEND AT THIS TIME.
--- NOTE | 2021-07-15 08:30 | NUR ---
PT REMAINS RESTING QUIETLY WATCHING TV, NO COMPLAINTS AT THIS TIME, VITAL SIGNS STABLE. PT DOES NOT APPEAR SHAKY YESTERDAY.
--- NOTE | 2021-07-15 10:30 | NUR ---
PT UP TO BATHROOM WITH MINIMAL ASSISTANCE. TALKING ON PHONE, DOES NOT VOICE ANY COMPLAINTS.
--- NOTE | 2021-07-15 12:50 | NUR ---
PT BACK UP TO BEDSIDE COMMODE. DID ON OWN, REMINDED PT TO USE CALL LIGHT ANY TIME SHE WANTED TO GET UP FOR FALL PRECAUTIONS, PT VOICES UNDERSTANDING. BOYFRIEND AT BEDSIDE
--- NOTE | 2021-07-15 18:14 | NUR ---
PT RESTING QUIETLY ON BED WATCHING TV. NO COMPLAINTS, NO PAIN, VITAL SIGNS REMAIN STABLE
--- NOTE | 2021-07-15 19:00 | NUR ---
REPORT RECEIVED FROM Rocky BURGOS RN, CARE OF PT ASSUMED AT THIS TIME.
--- NOTE | 2021-07-15 19:30 | NUR ---
WARM BLANKET PROVIDED.
--- NOTE | 2021-07-15 22:22 | NUR ---
Lindsey THOMPSON MADE AWARE OF CTA RESULTS, OCCLUDED L-MCA AND L-ICA. ORDERS ARE FOR SUPPORTIVE CARE. PERMISSIVE HTN UP TO 220mmHg. BIPAP OR VAPOTHERM TOLERATED IF NEEDED TO MAINTAIN SPO2 >88%.
[2021-07-16] VITALS (10 sets, daily range): BP systolic 105–126; BP diastolic 60–81
--- NOTE | 2021-07-16 03:05 | NUR ---
PT REQUEST BATHROOM. PT ASSISTED UP TO BSC. PT NOTED TO BE URINARY INCONTINENT IN BED. LINEN CHANGE COMPLETED WHILE PT ON BSC.
--- NOTE | 2021-07-16 03:57 | NUR ---
PT ASSISTED UP TO [facility] TO VOID AND BACK TO BED.
--- NOTE | 2021-07-16 04:15 | NUR ---
AM LABS COLLECTED VIA PICC W/O DIFFICULTY.
[2021-07-16 05:27] LABS: HEMATOCRIT 28.7 % (37.0-47.0); HEMOGLOBIN 9.3 g/dl (12.0-16.0); IMMATURE GRANULOCYTES 0.2 % (0.0-5.0); MEAN CELL VOLUME 90.3 fL CALC (80.0-100.0); MEAN CORPUSCULAR HGB 29.2 pG CALC (26.0-32.0); MEAN CORPUSCULAR HGB CONC 32.4 g/dL CAL (32.0-36.0); NEUT# 6.56 thou/uL (2.00-7.15); RED BLOOD COUNT 3.18 mill/uL (4.20-5.60)
[2021-07-16 05:35] LABS: ANION GAP 8 (6-22 (CALC)); BUN 8 mg/dL (7-17); BUN/CREATININE RATIO 11 (12-20 (CALC)); CARBON DIOXIDE 20 mmol/l (22-30); CHLORIDE 115 mmol/l (95-108); CREATININE 0.8 mg/dL (0.5-1.0); GFR > 60 ML/MIN (>=60 (CALC)); GFR FOR AFR.AMER. > 60 ML/MIN (>=60 (CALC)); MAGNESIUM 1.8 mg/dL (1.6-2.3); POTASSIUM 2.9 mmol/l (3.5-5.1); SODIUM 139 mmol/l (137-146)
--- NOTE | 2021-07-16 07:00 | NUR ---
PATIENT RESTING IN BED AT THIS TIME. GRANULATOR MACHINE OPERATOR DONE SEE INTERVENTIONS. PATIENT IS ALERT TO NAME AND PLACE AND DAY AT THIS TIME AND CIWA SCORE IS A 3 CURRENTLY. LUNG FILEDS ARE CLEAR AND PATINETS SPO2 IS 99% ON ROOM AIR. ERECTING CRANE OPERATOR IS CURRENTLY READING S/R AT 96. PATIENT PRESENTS WITHOUT ANY EDEMA AND ALL PULSES ARE STRONG. PATIENT HAS RIGHT UPPER PICC LINE INTACT AT THIS TIME. PATIENT DENIES ANY NEEDS CURRENTLY SIDERAILS ARE UP X 3 AND PATIENT IS BEING MONITORED CLOSELY. WILL CONTINUE TO MONITOR.
--- NOTE | 2021-07-16 08:30 | NUR ---
DR. RUBIO IN TO SEE PATIENT AT THIS TIME. PATIENT PER DR. RUBIO CAN BE MOVED TO MED/SURG WITH TELE TODAY. WILL CALL AND GET BED.
--- NOTE | 2021-07-16 09:13 | NUR ---
PRELIMINARY BLOOD CX SHOWS GRAM POSITIVE COCCI IN 1/4 VIALS. REPORTED TO CHERYL. NO NEW ORDERS. WILL F/U WITH FINAL RESULTS.
--- NOTE | 2021-07-16 10:56 | NUR ---
PATIENT SITTING UP IN BED AT THIS TIME. STARR HAS BEEN GIVEN INFORMATION ABOUT BEING TRANSFERED TO MED/SURG ON TELE MONIOTR. PATIENT IS ALERT X 3 AND SIDERAILS REMAIN UP X 3 AT THIS TIME. WILL CONTINUE TO MONITOR.
--- NOTE | 2021-07-16 11:30 | NUR ---
PATIENT SITTING UP IN BED EATING LUNCH AT THIS TIME. PATINET IS ALERT AND ORIENTED TO NAME, PLACE, DAY AT THIS TIME. CIWA SCALE IS DOWN FROM 3 TO 2 PATIENT STILL REMAINS SENSETIVE TO LIGHT. PATIENT SHOWS NO ANXIETY AT THIS TIME AND OR AGITATION. SELF CONTAINED BEHAVIOR UNIT TEACHER RECORDS S/R AT 91 BPM. SPO2 IS 98% ON ROOM AIR AT THIS TIME. SIDERAILS ARE UP X 2 CALL LIGHT WITHIN REACH.
--- NOTE | 2021-07-16 13:16 | NUR ---
PATIENT TRANSFERED TO [facility] AT THIS TIME VIA WHEELCHAIR. REPORT GIVEN TO NURSE LOVE AT THIS TIME.
--- NOTE | 2021-07-16 16:15 | NUR ---
ZOFIA BENNETT HAS VISITED PT IN ROOM, VERY CONCERNED ABOUT HER MCFP PROGNOSIS. PT AT REST IN THE BED, NO ACUTE DISTRESS NOTED.
--- NOTE | 2021-07-16 19:00 | NUR ---
REPORT RECEIVED FROM DAYSIAFT NURSEIVAN VIA SBAR FORMAT. FOUND PATIENT A&OX3, FORGETFUL OF TIME, SITTER AT BEDSIDE FOR FALL PRECAUTIONS, PATIENT IS DROWSY, NO PAIN OR NEEDS REPORTED, UNSTEADY GAIT NOTED WHEN UP TO BSC, SAFETY MEASURES IN PLACE, WILL FOLLOW UP CLOSELY, CALL WILHELM AT REACH, SITTER AT BEDSIDE.
--- NOTE | 2021-07-16 20:44 | NUR ---
PT UP TO BSC, X1 ASSIST, UNSTEADY GAIT NOTED, SITTER AT BEDSIDE, VOIDED ONLY, PT IS DROWSY, DENIES ANY PAIN, ALERT AND ORIENTED X3, CALL WILHELM AT REACH. WILL FOLLOW UP CLOSELY.
[2021-07-17] VITALS: BP 108/21
--- NOTE | 2021-07-17 00:52 | NUR ---
MEDICATED WITH TYLENOL FOR TEMPORAL TEMP 100.0 F; WILL RECHECK IN AN HOUR. REMOVED BLANKETS; ADJUSTED AC IN THE ROOM TO COOLER, AND PLACED AN ICE PACK IN FOREHEAD, SITTER AT BEDSIDE. WILL FOLLOW UP CLOSELY.
[2021-07-17 03:53] VITALS: BP 97/63
--- NOTE | 2021-07-17 04:31 | NUR ---
PATIENT IS RESTING IN BED, NO COMPLAINTS VOICED, SITTER AT BEDSIDE, CIWA SCORE ZERO, TEMPORAL TEMP RECHECK 98.1
--- NOTE | 2021-07-17 06:50 | NUR ---
REPORT GIVEN TO DAYSHIFT NURSE VIA SBAR FORMAT; PT IS STABLE.
--- NOTE | 2021-07-17 08:00 | NUR ---
REPORT RECEIVED FROM MELO TRUONG. PT RESTING IN BED. SITTER AT BS. VSS. CALL LIGHT WITHIN REACH. INSTRUCTED PT TO CALL FOR ASSISTANCE, VERBALIZES UNDERSTANDING. DENIES NEEDS OR CONCERNS. WILL CONTINUE TO MONITOR.
[2021-07-17 08:04] LABS: HEMATOCRIT 33.1 % (37.0-47.0); HEMOGLOBIN 10.4 g/dl (12.0-16.0); IMMATURE GRANULOCYTES 0.1 % (0.0-5.0); MEAN CELL VOLUME 92.5 fL CALC (80.0-100.0); MEAN CORPUSCULAR HGB 29.1 pG CALC (26.0-32.0); MEAN CORPUSCULAR HGB CONC 31.4 g/dL CAL (32.0-36.0); NEUT# 7.09 thou/uL (2.00-7.15); RED BLOOD COUNT 3.58 mill/uL (4.20-5.60); RED CELL DISTRI WIDTH 13.5 % (11.5-15.5)
[2021-07-17 08:43] VITALS: BP 98/62
[2021-07-17 09:16] LABS: ANION GAP 9 (6-22 (CALC)); BUN 7 mg/dL (7-17); BUN/CREATININE RATIO 12 (12-20 (CALC)); CARBON DIOXIDE 19 mmol/l (22-30); CHLORIDE 115 mmol/l (95-108); CREATININE 0.6 mg/dL (0.5-1.0); GFR > 60 ML/MIN (>=60 (CALC)); GFR FOR AFR.AMER. > 60 ML/MIN (>=60 (CALC)); MAGNESIUM 1.6 mg/dL (1.6-2.3); SODIUM 139 mmol/l (137-146)
[2021-07-17 09:22] LABS: POTASSIUM 3.8 mmol/l (3.5-5.1)
--- NOTE | 2021-07-17 12:00 | NUR ---
PT GIVEN LIBRIUM AT THIS TIME. SITTER REMAINS AT BS. PT CIWA IS 0. VSS. CALL LIGHT WITHIN REACH. DENIES NEEDS OR CONCERNS. WILL CONTINUE TO MONITOR.
[2021-07-17 14:03] VITALS: BP 102/62
--- NOTE | 2021-07-17 16:00 | NUR ---
PT SITTING IN BED AWAKE AND WATCHING TV. VSS. DENIES PAIN, SOB OR DISCOMFORT. REPORTS INCONTINENCE WHEN ATTEMPTING TO GET TO THE BSC, REQUIRING COMPLETE LINEN CHANGE. PT ADMITS TO BURNING WITH URINATION ALSO. MD AWARE, AND ON ABX THERAPY FOR UTI.
--- NOTE | 2021-07-17 17:03 | NUR ---
NOTIFIED OF CIWA SCORE BEING 0. ORDERS FOR LIBRIUM CHANGED FROM SCHEDULED TO PRN ADMINISTRATION.
[2021-07-17 18:28] VITALS: BP 126/80
--- NOTE | 2021-07-17 19:00 | NUR ---
REPORT RECEIVED FROM DAYSHIFT NURSE VIA SBAR FORMAT. FOUND PATIENT STABLE AND GETTING UP TO BSC, VOIDED ONLY, INCONTINENCE OF URINE, NO PAIN REPORTED, DUAL LUMEN PICC, ADAM IN PLACE, NO S/S OF INFILTRATION NOTED, FLUIDS INFUSING AT 80ML/HR NS W 40MEQ OF KCL. WILL MONITOR CLOSELY, CALL WILHELM AT REACH, SITTER AT BEDSIDE.
--- NOTE | 2021-07-17 21:25 | NUR ---
MEDICATED PT WITH PM MEDICATIONS, PATIENT IS ALERT AND ORIENTED X3, FORGETFUL OF TIME, PLEASANT AND CALM AT THIS TIME, NO S/S OF DISTRESS NOTED, RESP ARE EVEN AND UNLABORED, VSS, SITTER AT BEDSIDE, FOR SAFETY, PT GETS UP TO BSC FREQUENTLY, INCONTINENT OF URINE, WEARS A PAD, UNSTEADY GAIT. WILL FOLLOW UP WITH FREQUENTLY ROUNDINGS.
--- NOTE | 2021-07-18 00:06 | NUR ---
PATIENT IS RESTING IN BED, NO PAIN OR NEEDS REPORTED, SITTER AT BEDSIDE, NO S/S OF DISTRESS, WILL FOLLOW UP CLOSELY, CALL WILHELM AT REACH, SAFETY MEASURES IN PLACE.
[2021-07-18 00:29] VITALS: BP 90/62
[2021-07-18 04:04] VITALS: BP 106/79
--- NOTE | 2021-07-18 04:51 | NUR ---
PATIENT IS RESTING IN BED, NO PAIN OR NEEDS REPORTED, CALM AND COOPERATIVE AT THIS TIME, NO BM'S REPORTED, VOIDED ONLY, INCONTINENCE OF URINE, WEARS PAD. RESP ARE EVEN AND UNLABORED ON ROOM AIR, SAFETY MEASURES IN PLACE, CIWA ZERO, WILL FOLLOW UP CLOSELY, SITTER AT BEDSIDE.
--- NOTE | 2021-07-18 05:30 | NUR ---
FLUSHED PICC LINE PER HOSPITAL PROTOCOL; FLUSHES WELL, NO BLOOD RETURN. SITTER AT BEDSIDE, PATIENT REPORTED X1 BM LAST NIGHT. VOIDED MULTIPLE TIMES. CALM AND PLEASANT AT THIS TIME. AWAKE, TALKACTIVE.
[2021-07-18 06:29] LABS: ANION GAP 8 (6-22 (CALC)); BUN 9 mg/dL (7-17); BUN/CREATININE RATIO 14 (12-20 (CALC)); CARBON DIOXIDE 19 mmol/l (22-30); CHLORIDE 115 mmol/l (95-108); CREATININE 0.7 mg/dL (0.5-1.0); GFR > 60 ML/MIN (>=60 (CALC)); GFR FOR AFR.AMER. > 60 ML/MIN (>=60 (CALC)); MAGNESIUM 1.4 mg/dL (1.6-2.3); SODIUM 138 mmol/l (137-146)
[2021-07-18 06:35] LABS: HEMOGLOBIN 10.3 g/dl (12.0-16.0); MEAN CELL VOLUME 92.2 fL CALC (80.0-100.0); MEAN CORPUSCULAR HGB 28.8 pG CALC (26.0-32.0); MEAN CORPUSCULAR HGB CONC 31.2 g/dL CAL (32.0-36.0); RED BLOOD COUNT 3.58 mill/uL (4.20-5.60); RED CELL DISTRI WIDTH 13.7 % (11.5-15.5)
[2021-07-18 07:20] VITALS: BP 110/72
--- NOTE | 2021-07-18 07:20 | NUR ---
PATINET LAYING IN BED AWAKE AND ALERT X 2 SIDERAILS ARE PADDED AND UP SITTER AT BEDSIDE. TUMBLING MACHINE OPERATOR DONE SEE INTERVENTIONS CIWA SCALE RESULTED IN "0" AT THIS TIME. TELE MONITOR IN PLACE WILL CONTINUE TO MONITOR.
[2021-07-18 08:29] VITALS: BP 110/72
[2021-07-18] MEDS ORDERED: KEFLEX500 MG PO (11:18)
[2021-07-18] MEDS ORDERED: KLOR-CON M2020 MEQ PO (11:18)
[2021-07-18] MEDS ORDERED: MAGOX 400400 MG PO (11:19)
--- NOTE | 2021-07-18 12:06 | NUR ---
PATIENT SITTING UP IN CHAIR AT THIS TIME. PATIENT HAS SITTER IN ROOM PICC LINE PATENT AND 4GM OF MAG IV INFUSING AT THIS TIME. PATIENT IS ON TELE AND BEING MONITORED BY ED WILL CONTINUE TO MONITOR.
--- NOTE | 2021-07-18 13:20 | NUR ---
MANDI D/C'D AT THIS TIME. PICC LINE REMOVED AND TIP INTACT. D/C INSTRUCTIONS GONE OVER WIHT PATIENT AND PATINETS CAREGIVER. PATIENT AND CAREGIVER VERBALIZES UNDERSTANDING OF D/C INSTRUCTION. TELE MONITOR REMOVED AND JANNA IN ED NOTIFIED.
== END 2021-07-18 13:45 | disposition home or self-care (01) ==
LOC: ED 09:30 → ED-I 14:22 → ED 14:33 → ICU 14:34 → MS2 07-16 13:19
PROVIDERS: Emergency Medicine; Nurse Practitioner; ADMIT Internal Medicine; ATTEND Internal Medicine
DX: F10.139 Alcohol abuse with withdrawal, unspecified (principal); N39.0 Urinary tract infection, site not specified; K29.20 Alcoholic gastritis without bleeding; N17.9 Acute kidney failure, unspecified; D72.829 Elevated white blood cell count, unspecified; I95.9 Hypotension, unspecified; E86.0 Dehydration; E87.2 Acidosis; E87.6 Hypokalemia; E83.42 Hypomagnesemia; G40.909 Epilepsy, unspecified, not intractable, without status epilepticus; F32.A Depression, unspecified; F41.9 Anxiety disorder, unspecified; I10 Essential (primary) hypertension; I48.91 Unspecified atrial fibrillation; K59.09 Other constipation; R78.81 Bacteremia; B96.20 Unspecified Escherichia coli [E. coli] as the cause of diseases classified elsewhere; Y90.0 Blood alcohol level of less than 20 mg/100 ml; Z90.49 Acquired absence of other specified parts of digestive tract; Z98.1 Arthrodesis status; Z86.16 Personal history of COVID-19; Z20.822 Contact with and (suspected) exposure to COVID-19
CPT/HCPCS: G0378; J1650; J2060; J3475; S0164

== ENCOUNTER 2021-07-25 23:13 | Emergency (ER) | payer OTHER ==
[~2021-07-25] VITALS: Ht 152.4 cm; Wt 50.0 kg
[~2021-07-25 23:13] MED LIST changes: +KLOR-CON M2020 MEQ PO
[2021-07-26 00:09] LABS: HEMOGLOBIN 12.2 g/dl (12.0-16.0); IMMATURE GRANULOCYTES 0.4 % (0.0-5.0); MEAN CELL VOLUME 95.7 fL CALC (80.0-100.0); MEAN CORPUSCULAR HGB 29.5 pG CALC (26.0-32.0); MEAN CORPUSCULAR HGB CONC 30.8 g/dL CAL (32.0-36.0); NEUT# 4.87 thou/uL (2.00-7.15); RED BLOOD COUNT 4.14 mill/uL (4.20-5.60); RED CELL DISTRI WIDTH 14.6 % (11.5-15.5)
[2021-07-26 00:10] LABS: HEMATOCRIT 39.6 % (37.0-47.0)
[2021-07-26 00:26] LABS: ALBUMIN 3.9 g/dL (3.2-5.0); ALKALINE PHOSPHATASE 69 u/l (38-126); AMYLASE 133 u/l (30-110); ANION GAP 14 (6-22 (CALC)); BUN 10 mg/dL (7-17); BUN/CREATININE RATIO 13 (12-20 (CALC)); CARBON DIOXIDE 20 mmol/l (22-30); CHLORIDE 108 mmol/l (95-108); CREATININE 0.8 mg/dL (0.5-1.0); GFR > 60 ML/MIN (>=60 (CALC)); GFR FOR AFR.AMER. > 60 ML/MIN (>=60 (CALC)); LIPASE 126 u/l (23-300); POTASSIUM 4.2 mmol/l (3.5-5.1); SGOT/AST 26 u/l (14-36); SODIUM 138 mmol/l (137-146); TOTAL PROTEIN 8.1 g/dL (6.3-8.2)
[2021-07-26 00:43] LABS: BILIRUBIN, TOTAL 0.4 mg/dL (0.0-1.4)
[2021-07-26] MEDS ORDERED: ANUCORT-HC25 MG RE (00:46)
[2021-07-26] MEDS ORDERED: ONDANSETRON4 MG PO (00:46)
[2021-07-26] MEDS ORDERED: LOMOTIL2.5 MG PO (00:48)
[2021-07-26 02:12] LABS: URINE BILIRUBIN - DIPSTICK NEGATIVE (NEGATIVE); URINE BLOOD DIPSTICK NEGATIVE (NEGATIVE); URINE COLOR YELLOW; URINE GLUCOSE - DIPSTICK NEGATIVE (NEGATIVE); URINE KETONE NEGATIVE (NEGATIVE); URINE LEUK ESTERASE NEGATIVE (NEGATIVE); URINE PH 6.5 (4.5-8.0); URINE PROTEIN - DIPSTICK NEGATIVE (NEG-TRACE); URINE SPECIFIC GRAVITY <=1.005; URINE UROBILINOGEN - DIPSTICK 0.2 E.U./dL (0.2)
[2021-07-26 02:17] LABS: URINE NITRITE - DIPSTICK NEGATIVE (Negative)
[2021-07-26 04:34] VITALS: BP 124/80
== END 2021-07-26 04:50 | disposition home or self-care (01) ==
LOC: ED 23:13
PROVIDERS: Emergency Medicine
DX: R19.7 Diarrhea, unspecified (principal); K64.8 Other hemorrhoids; G40.909 Epilepsy, unspecified, not intractable, without status epilepticus; F10.10 Alcohol abuse, uncomplicated; F32.A Depression, unspecified; F41.9 Anxiety disorder, unspecified; I48.91 Unspecified atrial fibrillation; Z86.16 Personal history of COVID-19; Z20.822 Contact with and (suspected) exposure to COVID-19

== ENCOUNTER 2021-09-07 14:19 | Inpatient (IN) | payer OTHER ==
[~2021-09-07] VITALS: Ht 152.4 cm; Wt 43.0 kg
[2021-09-07] VITALS (9 sets, daily range): BP systolic 105–133; BP diastolic 61–93
[~2021-09-07 14:19] MED LIST changes: +ANUCORT-HC25 MG RE; +LOMOTIL2.5 MG PO
[2021-09-07] MEDS ORDERED: CARAFATE1 GM PO (15:12)
[2021-09-07 16:22] LABS: HEMOGLOBIN 10.4 g/dl (12.0-16.0); IMMATURE GRANULOCYTES 0.2 % (0.0-5.0); MEAN CELL VOLUME 95.9 fL CALC (80.0-100.0); MEAN CORPUSCULAR HGB 30.4 pG CALC (26.0-32.0); MEAN CORPUSCULAR HGB CONC 31.7 g/dL CAL (32.0-36.0); NEUT# 6.97 thou/uL (2.00-7.15); RED BLOOD COUNT 3.42 mill/uL (4.20-5.60); RED CELL DISTRI WIDTH 14.9 % (11.5-15.5)
[2021-09-07 16:24] LABS: HEMATOCRIT 32.8 % (37.0-47.0)
[2021-09-07 16:31] LABS: GFR 51 ML/MIN (>=60 (CALC)); GFR FOR AFR.AMER. > 60 ML/MIN (>=60 (CALC))
[2021-09-07 16:39] LABS: ALBUMIN 3.2 g/dL (3.2-5.0); ALKALINE PHOSPHATASE 85 u/l (38-126); BILIRUBIN, TOTAL 0.4 mg/dL (0.0-1.4); BUN 11 mg/dL (7-17); BUN/CREATININE RATIO 11 (12-20 (CALC)); CHLORIDE 109 mmol/l (95-108); GFR 57 ML/MIN (>=60 (CALC)); GFR FOR AFR.AMER. > 60 ML/MIN (>=60 (CALC)); LIPASE 64 u/l (23-300); POTASSIUM 3.4 mmol/l (3.5-5.1); TOTAL PROTEIN 6.6 g/dL (6.3-8.2)
[2021-09-07 16:40] LABS: ANION GAP 26 (6-22 (CALC)); CARBON DIOXIDE 13 mmol/l (22-30); SGOT/AST 137 u/l (14-36); SODIUM 145 mmol/l (137-146)
[2021-09-07 21:16] LABS: TSH, 3RD GENERATION 0.3 uIU/mL (0.47 - 4.68)
[2021-09-07 22:12] LABS: INTERNATIONAL NORMALIZED RATIO 1.1 RATIO (0.7-1.3)
[2021-09-08 06:58] LABS: BUN 12 mg/dL (7-17); BUN/CREATININE RATIO 11 (12-20 (CALC)); CHLORIDE 109 mmol/l (95-108); CREATININE 1.1 mg/dL (0.5-1.0); GFR 51 ML/MIN (>=60 (CALC)); GFR FOR AFR.AMER. > 60 ML/MIN (>=60 (CALC)); MAGNESIUM 1.5 mg/dL (1.6-2.3); SODIUM 143 mmol/l (137-146)
[2021-09-08 07:00] LABS: ANION GAP 14 (6-22 (CALC)); CARBON DIOXIDE 23 mmol/l (22-30); POTASSIUM 2.5 mmol/l (3.5-5.1)
[2021-09-08 11:41] LABS: URINE BILIRUBIN - DIPSTICK NEGATIVE (NEGATIVE); URINE BLOOD DIPSTICK TRACE-INTACT (NEGATIVE); URINE CLARITY SL CLOUDY; URINE COLOR YELLOW; URINE GLUCOSE - DIPSTICK NEGATIVE (NEGATIVE); URINE KETONE 40 mg/dL (NEGATIVE); URINE LEUK ESTERASE NEGATIVE (Negative); URINE NITRITE - DIPSTICK POSITIVE (Negative); URINE PH 6.5 (4.5-8.0); URINE PROTEIN - DIPSTICK TRACE mg/dL (NEG-TRACE); URINE UROBILINOGEN - DIPSTICK 0.2 E.U./dL (0.2)
[2021-09-08 11:49] LABS: URINE RBC 0-2 RBC/hpf (0-5)
[2021-09-08 11:51] LABS: URINE BACTERIA FEW hpf; URINE SQUAMOUS EPITHELIAL CELL FEW EPI/hpf (0-FEW)
[2021-09-09] VITALS (64 sets, daily range): BP systolic 77–130; BP diastolic 38–94
[2021-09-09 06:31] LABS: HEMATOCRIT 27.1 % (37.0-47.0); HEMOGLOBIN 8.7 g/dl (12.0-16.0); MEAN CELL VOLUME 96.1 fL CALC (80.0-100.0); MEAN CORPUSCULAR HGB 30.9 pG CALC (26.0-32.0); MEAN CORPUSCULAR HGB CONC 32.1 g/dL CAL (32.0-36.0); RED BLOOD COUNT 2.82 mill/uL (4.20-5.60); RED CELL DISTRI WIDTH 14.7 % (11.5-15.5)
[2021-09-09 06:35] LABS: ALKALINE PHOSPHATASE 57 u/l (38-126); BILIRUBIN, TOTAL 0.3 mg/dL (0.0-1.4); BUN 9 mg/dL (7-17); BUN/CREATININE RATIO 11 (12-20 (CALC)); CARBON DIOXIDE 23 mmol/l (22-30); CHLORIDE 114 mmol/l (95-108); CREATININE 0.8 mg/dL (0.5-1.0); GFR > 60 ML/MIN (>=60 (CALC)); GFR FOR AFR.AMER. > 60 ML/MIN (>=60 (CALC)); SGOT/AST 41 u/l (14-36); SODIUM 138 mmol/l (137-146)
[2021-09-09 07:03] LABS: ALBUMIN 2.2 g/dL (3.2-5.0); ANION GAP 3 (6-22 (CALC)); MAGNESIUM 1.9 mg/dL (1.6-2.3); POTASSIUM 2.4 mmol/l (3.5-5.1); TOTAL PROTEIN 5.1 g/dL (6.3-8.2)
[2021-09-09 12:48] LABS: POTASSIUM 3.2 mmol/l (3.5-5.1)
[2021-09-10] VITALS (86 sets, daily range): BP systolic 45–182; BP diastolic 24–134
[2021-09-10 06:54] LABS: HEMOGLOBIN 8.5 g/dl (12.0-16.0); MEAN CELL VOLUME 96.8 fL CALC (80.0-100.0); MEAN CORPUSCULAR HGB 30.5 pG CALC (26.0-32.0); MEAN CORPUSCULAR HGB CONC 31.5 g/dL CAL (32.0-36.0); RED BLOOD COUNT 2.79 mill/uL (4.20-5.60); RED CELL DISTRI WIDTH 14.9 % (11.5-15.5)
[2021-09-10 07:20] LABS: ALBUMIN 2.4 g/dL (3.2-5.0); BUN 10 mg/dL (7-17); CARBON DIOXIDE 23 mmol/l (22-30); CHLORIDE 112 mmol/l (95-108); CREATININE 0.7 mg/dL (0.5-1.0); GFR > 60 ML/MIN (>=60 (CALC)); GFR FOR AFR.AMER. > 60 ML/MIN (>=60 (CALC)); SODIUM 139 mmol/l (137-146)
[2021-09-10 07:22] LABS: MAGNESIUM 1.3 mg/dL (1.6-2.3); POTASSIUM 3.6 mmol/l (3.5-5.1)
[2021-09-11] VITALS: BP 78/52
[2021-09-11 02:00] VITALS: BP 86/54
[2021-09-11 04:00] VITALS: BP 95/59
[2021-09-11 05:42] LABS: HEMATOCRIT 28.4 % (37.0-47.0); HEMOGLOBIN 8.9 g/dl (12.0-16.0); MEAN CELL VOLUME 98.3 fL CALC (80.0-100.0); MEAN CORPUSCULAR HGB 30.8 pG CALC (26.0-32.0); MEAN CORPUSCULAR HGB CONC 31.3 g/dL CAL (32.0-36.0); RED BLOOD COUNT 2.89 mill/uL (4.20-5.60); RED CELL DISTRI WIDTH 15.2 % (11.5-15.5)
[2021-09-11 05:49] LABS: ANION GAP 6 (6-22 (CALC)); BUN 10 mg/dL (7-17); BUN/CREATININE RATIO 17 (12-20 (CALC)); CARBON DIOXIDE 24 mmol/l (22-30); CHLORIDE 110 mmol/l (95-108); CREATININE 0.6 mg/dL (0.5-1.0); GFR > 60 ML/MIN (>=60 (CALC)); GFR FOR AFR.AMER. > 60 ML/MIN (>=60 (CALC)); POTASSIUM 3.4 mmol/l (3.5-5.1); SODIUM 136 mmol/l (137-146)
[2021-09-11 05:59] LABS: MAGNESIUM 2.1 mg/dL (1.6-2.3)
[2021-09-11 06:00] VITALS: BP 102/71
[2021-09-11 08:00] VITALS: BP 109/72
[2021-09-11 10:00] VITALS: BP 100/66
== END 2021-09-11 12:00 | disposition home or self-care (01) | DRG 897 ==
LOC: ED 14:19 → ED-I 18:01 → ED 18:18 → ICU 18:19
PROVIDERS: Family Medicine; ADMIT Internal Medicine; ATTEND Hospitalist
PROC: 02HV33Z Insertion of Infusion Device into Superior Vena Cava, Percutaneous Approach (ICD-10-PCS; principal; 2021-09-07)
DX: F10.231 Alcohol dependence with withdrawal delirium (principal); E87.2 Acidosis; E87.6 Hypokalemia; E83.42 Hypomagnesemia; E83.39 Other disorders of phosphorus metabolism; R19.7 Diarrhea, unspecified; I10 Essential (primary) hypertension; G40.909 Epilepsy, unspecified, not intractable, without status epilepticus; D64.9 Anemia, unspecified; K70.10 Alcoholic hepatitis without ascites; F32.A Depression, unspecified; F41.9 Anxiety disorder, unspecified; I48.91 Unspecified atrial fibrillation; J38.00 Paralysis of vocal cords and larynx, unspecified; Z90.49 Acquired absence of other specified parts of digestive tract; Z86.16 Personal history of COVID-19; Z20.822 Contact with and (suspected) exposure to COVID-19
CPT/HCPCS: J1650; J2060; J3475; Q9967; S0164

== ENCOUNTER 2021-10-06 09:09 | Inpatient (IN) | payer OTHER ==
[2021-10-06] VITALS (27 sets, daily range): BP systolic 53–124; BP diastolic 36–98
[~2021-10-06] VITALS: Ht 152.4 cm; Wt 57.0 kg
[2021-10-06 10:26] LABS: HEMATOCRIT 32.8 % (37.0-47.0); HEMOGLOBIN 10.3 g/dl (12.0-16.0); IMMATURE GRANULOCYTES 0.1 % (0.0-5.0); MEAN CELL VOLUME 96.8 fL CALC (80.0-100.0); MEAN CORPUSCULAR HGB 30.4 pG CALC (26.0-32.0); MEAN CORPUSCULAR HGB CONC 31.4 g/dL CAL (32.0-36.0); NEUT# 8.49 thou/uL (2.00-7.15); RED BLOOD COUNT 3.39 mill/uL (4.20-5.60); RED CELL DISTRI WIDTH 14.2 % (11.5-15.5)
[2021-10-06 10:37] LABS: URINE BLOOD DIPSTICK TRACE-INTACT (NEGATIVE); URINE COLOR YELLOW; URINE GLUCOSE - DIPSTICK NEGATIVE (NEGATIVE); URINE KETONE 40 mg/dL (NEGATIVE); URINE LEUK ESTERASE NEGATIVE (NEGATIVE); URINE PH 6.5 (4.5-8.0); URINE PROTEIN - DIPSTICK 30 mg/dL (NEG-TRACE); URINE SPECIFIC GRAVITY 1.025; URINE UROBILINOGEN - DIPSTICK 0.2 E.U./dL (0.2)
[2021-10-06 10:39] LABS: URINE NITRITE - DIPSTICK NEGATIVE (Negative)
[2021-10-06 10:42] LABS: URINE BILIRUBIN - DIPSTICK NEGATIVE (NEGATIVE)
[2021-10-06 10:45] LABS: BUN 9 mg/dL (7-17); BUN/CREATININE RATIO 9 (12-20 (CALC)); CHLORIDE 103 mmol/l (95-108); ETHYL ALCOHOL 238 mg/dl (0-30); GFR 57 ML/MIN (>=60 (CALC)); GFR FOR AFR.AMER. > 60 ML/MIN (>=60 (CALC)); LIPASE 57 u/l (23-300); POTASSIUM 2.9 mmol/l (3.5-5.1); SODIUM 142 mmol/l (137-146)
[2021-10-06 10:47] LABS: URINE SQUAMOUS EPITHELIAL CELL RARE EPI/hpf (0-FEW)
[2021-10-06 10:48] LABS: ALKALINE PHOSPHATASE 91 u/l (38-126); ANION GAP 26 (6-22 (CALC)); BILIRUBIN, TOTAL 0.5 mg/dL (0.0-1.4); CARBON DIOXIDE 16 mmol/l (22-30); SGOT/AST 109 u/l (14-36); TOTAL PROTEIN 7.7 g/dL (6.3-8.2)
[2021-10-07] VITALS (49 sets, daily range): BP systolic 68–120; BP diastolic 37–89
[2021-10-07 05:51] LABS: HEMATOCRIT 28.7 % (37.0-47.0); MEAN CELL VOLUME 98.3 fL CALC (80.0-100.0); MEAN CORPUSCULAR HGB 30.8 pG CALC (26.0-32.0); MEAN CORPUSCULAR HGB CONC 31.4 g/dL CAL (32.0-36.0); RED BLOOD COUNT 2.92 mill/uL (4.20-5.60); RED CELL DISTRI WIDTH 14.3 % (11.5-15.5)
[2021-10-07 06:09] LABS: ALKALINE PHOSPHATASE 61 u/l (38-126); BILIRUBIN, TOTAL 0.7 mg/dL (0.0-1.4); BUN 8 mg/dL (7-17); BUN/CREATININE RATIO 10 (12-20 (CALC)); CHLORIDE 109 mmol/l (95-108); CREATININE 0.8 mg/dL (0.5-1.0); GFR > 60 ML/MIN (>=60 (CALC)); GFR FOR AFR.AMER. > 60 ML/MIN (>=60 (CALC)); POTASSIUM 2.8 mmol/l (3.5-5.1); SGOT/AST 70 u/l (14-36); SODIUM 135 mmol/l (137-146)
[2021-10-07 06:10] LABS: ALBUMIN 2.5 g/dL (3.2-5.0); ANION GAP 6 (6-22 (CALC)); CARBON DIOXIDE 23 mmol/l (22-30); MAGNESIUM 1.5 mg/dL (1.6-2.3); TOTAL PROTEIN 5.5 g/dL (6.3-8.2)
[2021-10-08] VITALS (39 sets, daily range): BP systolic 53–130; BP diastolic 34–99
[2021-10-08 03:42] LABS: ANION GAP 7 (6-22 (CALC)); BUN 9 mg/dL (7-17); BUN/CREATININE RATIO 13 (12-20 (CALC)); CARBON DIOXIDE 23 mmol/l (22-30); CHLORIDE 109 mmol/l (95-108); CREATININE 0.7 mg/dL (0.5-1.0); GFR > 60 ML/MIN (>=60 (CALC)); GFR FOR AFR.AMER. > 60 ML/MIN (>=60 (CALC)); POTASSIUM 3.3 mmol/l (3.5-5.1); SODIUM 136 mmol/l (137-146)
[2021-10-08 03:43] LABS: HEMATOCRIT 32.7 % (37.0-47.0); HEMOGLOBIN 10.3 g/dl (12.0-16.0); MEAN CORPUSCULAR HGB 30.6 pG CALC (26.0-32.0); MEAN CORPUSCULAR HGB CONC 31.5 g/dL CAL (32.0-36.0); RED BLOOD COUNT 3.37 mill/uL (4.20-5.60); RED CELL DISTRI WIDTH 14.1 % (11.5-15.5)
[2021-10-09] VITALS (20 sets, daily range): BP systolic 87–137; BP diastolic 47–89
[2021-10-09 05:28] LABS: MEAN CELL VOLUME 98.4 fL CALC (80.0-100.0); MEAN CORPUSCULAR HGB 30.6 pG CALC (26.0-32.0); MEAN CORPUSCULAR HGB CONC 31.1 g/dL CAL (32.0-36.0); RED BLOOD COUNT 2.55 mill/uL (4.20-5.60); RED CELL DISTRI WIDTH 14.2 % (11.5-15.5)
[2021-10-09 05:54] LABS: ANION GAP 7 (6-22 (CALC)); BUN 6 mg/dL (7-17); BUN/CREATININE RATIO 10 (12-20 (CALC)); CARBON DIOXIDE 19 mmol/l (22-30); CHLORIDE 114 mmol/l (95-108); CREATININE 0.6 mg/dL (0.5-1.0); GFR > 60 ML/MIN (>=60 (CALC)); GFR FOR AFR.AMER. > 60 ML/MIN (>=60 (CALC)); POTASSIUM 3.1 mmol/l (3.5-5.1); SODIUM 137 mmol/l (137-146)
[2021-10-09 05:58] LABS: MAGNESIUM 1.4 mg/dL (1.6-2.3)
[2021-10-09 06:43] LABS: HEMOGLOBIN 7.8 g/dl (12.0-16.0)
[2021-10-09 06:44] LABS: HEMATOCRIT 25.1 % (37.0-47.0)
[2021-10-10] VITALS (26 sets, daily range): BP systolic 66–117; BP diastolic 48–96
[2021-10-10 05:47] LABS: HEMATOCRIT 24.2 % (37.0-47.0); HEMOGLOBIN 7.7 g/dl (12.0-16.0); MEAN CORPUSCULAR HGB 31.2 pG CALC (26.0-32.0); MEAN CORPUSCULAR HGB CONC 31.8 g/dL CAL (32.0-36.0); RED BLOOD COUNT 2.47 mill/uL (4.20-5.60); RED CELL DISTRI WIDTH 14.5 % (11.5-15.5)
[2021-10-10 06:06] LABS: ANION GAP 3 (6-22 (CALC)); BUN 8 mg/dL (7-17); BUN/CREATININE RATIO 14 (12-20 (CALC)); CHLORIDE 111 mmol/l (95-108); CREATININE 0.6 mg/dL (0.5-1.0); GFR > 60 ML/MIN (>=60 (CALC)); GFR FOR AFR.AMER. > 60 ML/MIN (>=60 (CALC)); MAGNESIUM 1.7 mg/dL (1.6-2.3); POTASSIUM 3.3 mmol/l (3.5-5.1); SODIUM 134 mmol/l (137-146)
[2021-10-10 06:07] LABS: CARBON DIOXIDE 23 mmol/l (22-30)
[2021-10-10 11:58] LABS: URINE BILIRUBIN - DIPSTICK NEGATIVE (NEGATIVE); URINE BLOOD DIPSTICK SMALL (NEGATIVE); URINE CLARITY SL CLOUDY; URINE COLOR YELLOW; URINE GLUCOSE - DIPSTICK NEGATIVE (NEGATIVE); URINE KETONE NEGATIVE (NEGATIVE); URINE LEUK ESTERASE LARGE (Negative); URINE NITRITE - DIPSTICK NEGATIVE (Negative); URINE PH 6.5 (4.5-8.0); URINE PROTEIN - DIPSTICK NEGATIVE (NEG-TRACE); URINE UROBILINOGEN - DIPSTICK 0.2 E.U./dL (0.2)
[2021-10-10 12:04] LABS: URINE BACTERIA FEW hpf; URINE SQUAMOUS EPITHELIAL CELL FEW EPI/hpf (0-FEW); URINE WBC 20-50 WBC/hpf (0-5)
[2021-10-11] VITALS (15 sets, daily range): BP systolic 85–112; BP diastolic 49–69
[2021-10-11 05:43] LABS: HEMATOCRIT 24.1 % (37.0-47.0); HEMOGLOBIN 7.6 g/dl (12.0-16.0); MEAN CELL VOLUME 99.2 fL CALC (80.0-100.0); MEAN CORPUSCULAR HGB 31.3 pG CALC (26.0-32.0); MEAN CORPUSCULAR HGB CONC 31.5 g/dL CAL (32.0-36.0); RED BLOOD COUNT 2.43 mill/uL (4.20-5.60); RED CELL DISTRI WIDTH 15.1 % (11.5-15.5)
[2021-10-11 05:59] LABS: ANION GAP 5 (6-22 (CALC)); BUN 12 mg/dL (7-17); BUN/CREATININE RATIO 19 (12-20 (CALC)); CARBON DIOXIDE 25 mmol/l (22-30); CHLORIDE 109 mmol/l (95-108); CREATININE 0.6 mg/dL (0.5-1.0); GFR > 60 ML/MIN (>=60 (CALC)); GFR FOR AFR.AMER. > 60 ML/MIN (>=60 (CALC)); MAGNESIUM 1.4 mg/dL (1.6-2.3); POTASSIUM 3.4 mmol/l (3.5-5.1); SODIUM 136 mmol/l (137-146)
== END 2021-10-11 13:30 | disposition home or self-care (01) | DRG 897 ==
LOC: ED 09:09 → ED-I 13:20 → ED 13:45 → ICU 13:46
PROVIDERS: Family Medicine; ADMIT Internal Medicine; ATTEND Internal Medicine
PROC: 0T9B70Z Drainage of Bladder with Drainage Device, Via Natural or Artificial Opening (ICD-10-PCS; principal; 2021-10-06)
PROC: 05HM33Z Insertion of Infusion Device into Right Internal Jugular Vein, Percutaneous Approach (ICD-10-PCS; 2021-10-06)
DX: F10.231 Alcohol dependence with withdrawal delirium (principal); E87.6 Hypokalemia; E83.42 Hypomagnesemia; E83.51 Hypocalcemia; I48.91 Unspecified atrial fibrillation; I10 Essential (primary) hypertension; D63.8 Anemia in other chronic diseases classified elsewhere; F41.9 Anxiety disorder, unspecified; F32.A Depression, unspecified; G40.909 Epilepsy, unspecified, not intractable, without status epilepticus; J38.00 Paralysis of vocal cords and larynx, unspecified; Z90.49 Acquired absence of other specified parts of digestive tract; Z86.16 Personal history of COVID-19; Z78.1 Physical restraint status; Z20.822 Contact with and (suspected) exposure to COVID-19
CPT/HCPCS: J1650; J2060; J3475; Q9967; S0164

== ENCOUNTER 2021-11-05 08:07 | Observation (INO) | payer OTHER ==
[2021-11-05] VITALS (12 sets, daily range): BP systolic 109–152; BP diastolic 56–91
[~2021-11-05] VITALS: Ht 152.4 cm; Wt 50.0 kg
[2021-11-05 09:09] LABS: ALKALINE PHOSPHATASE 76 u/l (38-126); AMYLASE 135 u/l (30-110); BILIRUBIN, TOTAL 0.7 mg/dL (0.0-1.4); BUN 18 mg/dL (7-17); BUN/CREATININE RATIO 19 (12-20 (CALC)); CHLORIDE 106 mmol/l (95-108); ETHYL ALCOHOL 189 mg/dl (0-30); GFR 57 ML/MIN (>=60 (CALC)); GFR FOR AFR.AMER. > 60 ML/MIN (>=60 (CALC)); LIPASE 115 u/l (23-300); MAGNESIUM 1.4 mg/dL (1.6-2.3); SGOT/AST 52 u/l (14-36); SODIUM 139 mmol/l (137-146)
[2021-11-05 09:10] LABS: IMMATURE GRANULOCYTES 0.1 % (0.0-5.0); MEAN CORPUSCULAR HGB 32.6 pG CALC (26.0-32.0); MEAN CORPUSCULAR HGB CONC 30.6 g/dL CAL (32.0-36.0); NEUT# 10.12 thou/uL (2.00-7.15); RED BLOOD COUNT 3.68 mill/uL (4.20-5.60); RED CELL DISTRI WIDTH 16.7 % (11.5-15.5)
[2021-11-05 09:19] LABS: ALBUMIN 4.7 g/dL (3.2-5.0); ANION GAP 27 (6-22 (CALC)); CARBON DIOXIDE 10 mmol/l (22-30); POTASSIUM 4.2 mmol/l (3.5-5.1); TOTAL PROTEIN 9.4 g/dL (6.3-8.2)
[2021-11-05 09:30] LABS: HEMATOCRIT 39.2 % (37.0-47.0); MEAN CELL VOLUME 106.5 fL CALC (80.0-100.0)
[2021-11-05 09:56] LABS: INTERNATIONAL NORMALIZED RATIO 0.9 RATIO (0.7-1.3); PROTHROMBIN TIME 9.4 SECONDS (9.0-12.5)
[2021-11-05] MEDS ORDERED: HYDROXYZ HCL25 MG PO (11:19)
[2021-11-05 11:27] LABS: URINE BILIRUBIN - DIPSTICK NEGATIVE (NEGATIVE); URINE BLOOD DIPSTICK SMALL (NEGATIVE); URINE COLOR YELLOW; URINE GLUCOSE - DIPSTICK NEGATIVE (NEGATIVE); URINE KETONE 15 mg/dL (NEGATIVE); URINE LEUK ESTERASE TRACE (NEGATIVE); URINE PROTEIN - DIPSTICK 100 mg/dL (NEG-TRACE); URINE SPECIFIC GRAVITY >=1.030; URINE UROBILINOGEN - DIPSTICK 0.2 E.U./dL (0.2)
[2021-11-05 11:30] LABS: URINE NITRITE - DIPSTICK NEGATIVE (Negative)
[2021-11-05 11:31] LABS: URINE BACTERIA MANY hpf; URINE RBC 0-2 RBC/hpf (0-5); URINE WBC 20-50 WBC/hpf (0-5)
[2021-11-06 00:35] VITALS: BP 110/72
[2021-11-06 04:15] VITALS: BP 119/86
[2021-11-06 08:00] VITALS: BP 119/70
[2021-11-06 11:00] VITALS: BP 116/61
[2021-11-06] MEDS ORDERED: ONDANSETRON4 MG PO (11:34)
[2021-11-06] MEDS ORDERED: LIBRIUM25 M1 PO (11:35)
== END 2021-11-06 13:45 | disposition home or self-care (01) ==
LOC: ED 08:07 → ED-I 10:50 → ED 11:06 → MS2 11:07
PROVIDERS: ADMIT Internal Medicine; ATTEND Internal Medicine
DX: F10.239 Alcohol dependence with withdrawal, unspecified (principal); F10.229 Alcohol dependence with intoxication, unspecified; E87.2 Acidosis; E86.0 Dehydration; E83.42 Hypomagnesemia; E87.6 Hypokalemia; G40.909 Epilepsy, unspecified, not intractable, without status epilepticus; I48.91 Unspecified atrial fibrillation; F41.9 Anxiety disorder, unspecified; F32.A Depression, unspecified; J38.00 Paralysis of vocal cords and larynx, unspecified; R82.71 Bacteriuria; Y90.6 Blood alcohol level of 120-199 mg/100 ml; Z20.822 Contact with and (suspected) exposure to COVID-19
CPT/HCPCS: G0378; J1650; J2060; J3475; S0164

== ENCOUNTER 2021-12-19 09:34 | Inpatient (IN) | payer OTHER ==
[2021-12-19] VITALS (11 sets, daily range): BP systolic 96–136; BP diastolic 58–82
[~2021-12-19] VITALS: Ht 152.4 cm; Wt 65.0 kg
[~2021-12-19 09:34] MED LIST changes: +HYDROXYZ HCL25 MG PO
--- NOTE | 2021-12-19 09:48 | NUR ---
PATIENT ROOMED VIA EMS. CONNECTED TO MONITOR AND MD BEDSIDE UPON ARRIVAL.
[2021-12-19 10:05] LABS: HEMATOCRIT 38.5 % (37.0-47.0); HEMOGLOBIN 12.5 g/dl (12.0-16.0); MEAN CELL VOLUME 99.2 fL CALC (80.0-100.0); MEAN CORPUSCULAR HGB 32.2 pG CALC (26.0-32.0); MEAN CORPUSCULAR HGB CONC 32.5 g/dL CAL (32.0-36.0); NEUT# 4.35 thou/uL (2.00-7.15); RED BLOOD COUNT 3.88 mill/uL (4.20-5.60); RED CELL DISTRI WIDTH 13.7 % (11.5-15.5)
[2021-12-19 10:16] LABS: ALBUMIN 4.6 g/dL (3.2-5.0); ALKALINE PHOSPHATASE 68 u/l (38-126); BILIRUBIN, TOTAL 0.9 mg/dL (0.0-1.4); BUN 10 mg/dL (7-17); BUN/CREATININE RATIO 11 (12-20 (CALC)); CHLORIDE 105 mmol/l (95-108); CREATININE 0.9 mg/dL (0.5-1.0); ETHYL ALCOHOL 20 mg/dl (0-30); GFR FOR AFR.AMER. > 60 ML/MIN (>=60 (CALC)); GFR OTHER RACES > 60 ML/MIN (>=60 (CALC)); LIPASE 96 u/l (23-300); MAGNESIUM 1.4 mg/dL (1.6-2.3); POTASSIUM 4.2 mmol/l (3.5-5.1); SGOT/AST 47 u/l (14-36); SODIUM 138 mmol/l (137-146); TOTAL PROTEIN 8.8 g/dL (6.3-8.2)
[2021-12-19 10:19] LABS: ANION GAP 21 (6-22 (CALC)); CARBON DIOXIDE 16 mmol/l (22-30)
--- NOTE | 2021-12-19 11:53 | NUR ---
INVENTORY OF PATIENT BELONGINGS FORMAL SHEET UNAVAILABLE -CLOTHES -SHOES -GLASSES -2 RINGS -1 WATCH -PURSE -CELL PHONE AND PHLEBOTOMY SERVICES TECHNICIAN -WALLET WITNESSED BY MELO NAVA
--- NOTE | 2021-12-19 12:37 | NUR ---
PATIENT TRANSPORTED TO MED SURG REPORT GIVEN TO SMOOTH
[2021-12-19 14:11] LABS: URINE BLOOD DIPSTICK MODERATE (NEGATIVE); URINE COLOR YELLOW; URINE GLUCOSE - DIPSTICK NEGATIVE (NEGATIVE); URINE KETONE 40 mg/dL (NEGATIVE); URINE PROTEIN - DIPSTICK TRACE mg/dL (NEG-TRACE); URINE SPECIFIC GRAVITY >=1.030
[2021-12-19 14:14] LABS: URINE BILIRUBIN - DIPSTICK NEGATIVE (NEGATIVE); URINE LEUK ESTERASE MODERATE (NEGATIVE); URINE NITRITE - DIPSTICK POSITIVE (Negative)
[2021-12-19 14:19] LABS: URINE AMORPH SEDIMENT MANY hpf (NONE-FEW); URINE BACTERIA MANY hpf; URINE SQUAMOUS EPITHELIAL CELL FEW EPI/hpf (0-FEW)
--- NOTE | 2021-12-19 19:47 | NUR ---
PATIENT SITTING UP IN BED-AWAKE ALERT AND SHAKEY. STATES THAT SHE WANTS TO QUIT DRINKING. PATIENT UP TO THE BSC AND IS VOIDING QS AND HAVING LOOSE BROWN STOOLS. IV SITE TO LEFT UPPER ARM IN PLACE WITH BANANA BAG INFUSING ORDERED AT 125CC/HR, TELE MONITOR IN [id number]. O2 SAT IS 97% ON ROOM AIR. LUNGS ARE CLEAR, ABD IS SOFT WITH ACTIVE BS. NO PERIPHERAL EDEMA NOTED. PULSES ARE PALPABLE. PATIENT WAS GIVEN SOME INFORMATION REGUARDING COMMUNITY RESOURCES SUCH LOCAL AA MEETING WELL AVAILABILITY FOR MEETINGS ON ZOOM. SAFETYY PRECAUTIONS REINFORCED. CALL LIGHT IN REACH. WILL CONT TO MONITOR.
[2021-12-20] VITALS (13 sets, daily range): BP systolic 85–124; BP diastolic 47–85
--- NOTE | 2021-12-20 00:15 | NUR ---
PATIENT UP AND DOWN TO THE BSC-CONT TO HAVE LOOSE BROWN STOOLS WITH YELLOW URINE. BACK IN BED AT THIS TIME-STILL VERY SHAKEY AND UNSTEADY ON HER FEET. VS ARE STABLE. CIWA IS 12. MEDICATED WITH ATIVAN 1MG IVP FOR ANXIETY AND WITHDRAWL. IVF NS PATENT AND INFUSING VIA LEFT UPPER ARE AT 50CC/HR. TELE MONITOR IN PLACE-RUNNING SR-80'S AT THIS TIME. BED ALARM IN PLACE FOR PATIENT SAFETY. CALL LIGHT IN REACH. WILL CONT TO MONITOR.
--- NOTE | 2021-12-20 03:37 | NUR ---
PATIENT SITTING UP IN TAKING OFF TELE BOX-STATES THAT SHE IS TRYING TO FIX THEM BECAUSE THEY CAME OFF. ASSISTED PATIENT TO CHANGE INTO HOSPITAL GOWN AND TELE [id number]. VS TAKEN AND RECORDED. IVF NS PATENT AND INFUSING VIA LEF UPPER ARM SITE AT 50CC/HR. SITE REMAINS HEALTHY AT THIS TIME. STILL VERY SHAKEY AND UNSTEADY ON HER FEET. UP TO THE BSC TO VOID AND SCANT AMT OF LOOSE BROWN STOOL. BED ALARM IN PLACE FOR PATIENT SAFETY. CALL LIGHT IN REACH. WILL CONT TO MONITOR.
[2021-12-20 05:26] LABS: HEMATOCRIT 32.9 % (37.0-47.0); MEAN CORPUSCULAR HGB 31.6 pG CALC (26.0-32.0); MEAN CORPUSCULAR HGB CONC 31.6 g/dL CAL (32.0-36.0); NEUT# 2.4 thou/uL (2.00-7.15); RED BLOOD COUNT 3.29 mill/uL (4.20-5.60); RED CELL DISTRI WIDTH 13.6 % (11.5-15.5)
--- NOTE | 2021-12-20 05:26 | NUR ---
RESPONDED TO PATIENT ROOM TO FIND TELE ELCTRODES OFF-REAPPLIED AND PATIENT STATES THAT SHE SEES SOMEONE BEHIND THE COUCH AND HEARS SOMEONE WELL. REACCESSED CIWA AND WAS 20. TREMORS ARE SEVERE AND VERY UNSTEADY ON HER FEET. IVF PATENT AND INFUSING VIA LEFT UPPER ARM SITE AT 50CC/HR. BED ALARM IN PLACE FOR PATIENT SAFETY. SPOKE TO DR. RUBIO AND NEW UPDATED ORDERS [id number]. WILL MEDICATE SOON PROFILED ON EMAR. WILL CONT TO DYANA.
[2021-12-20 05:32] LABS: HEMOGLOBIN 10.4 g/dl (12.0-16.0)
[2021-12-20 05:39] LABS: BUN 13 mg/dL (7-17); BUN/CREATININE RATIO 15 (12-20 (CALC)); CHLORIDE 108 mmol/l (95-108); CREATININE 0.9 mg/dL (0.5-1.0); GFR FOR AFR.AMER. > 60 ML/MIN (>=60 (CALC)); GFR OTHER RACES > 60 ML/MIN (>=60 (CALC)); MAGNESIUM 1.6 mg/dL (1.6-2.3); SODIUM 137 mmol/l (137-146)
[2021-12-20 05:44] LABS: ANION GAP 11 (6-22 (CALC)); CARBON DIOXIDE 22 mmol/l (22-30)
--- NOTE | 2021-12-20 06:01 | NUR ---
PATIENT RESTING IN BED AND WAS MEDICATEDC WITH ATIVAN 1MG IVP FOR CIWA OF 20. IVF NS PATENT AND INFUSING VIA LEFT UPPER ARM SITE AT 50CC/HR. TELE MONITOR IN PLACE-WITH LAST READING SR-84. BED ALARM IN PLACE FOR PATIENT SAFETY. CALL LIGHT IN REACHW. WILL CONT TO MONITOR.
--- NOTE | 2021-12-20 08:00 | NUR ---
PTN BED; ALERT TO SELF. PUT TELEMETRY IN PLACE; FOUND TELE ON BEDSIDE TABLE. EVEN AND UNLABORED RESPIRATIONS; CLEAR LUNG SOUNDS UPON AUSCULTATION. IV SITE HEALTHY AND PATENT. AVTIVE BOWEL SOUNDS X4 QUADRANTS. UPON ENTERING THE ROOM PT WAS HAVING AUDITORY HALLUCINATIONS. REORIENTED PT TO PLACE AND TIME. BED ALARM AND SAFETY PRECAUTIONS IN PLACE WITH CALL LIGHT IN REACH.
--- NOTE | 2021-12-20 08:15 | NUR ---
Patient is screened for PT intervention and no needs are identified at this time
--- NOTE | 2021-12-20 08:30 | NUR ---
PT RESTLESS AND WITH REPETITIVE MOTIONS TO BILAT ARMS AND LEGS. PT TALKS ABOUT " A DOG POOPING AND I NEED TO CLEAN IT UP" PT HAD A BM ON THE FLOOR PT HAD PULLED IV, DAVID GONZALEZ APRN AUTHORIZED ATIVAN 1MG TO BE GIVEN IM NOW. PT MEDICATED ORDERED. RESTING IN BED.
--- NOTE | 2021-12-20 08:40 | NUR ---
PT PULLED OUT IV; FOUND BY AIDE. PT HAD BM; PT ASSISTED TO SHOWER BY AIDE. BANANA BAG, CEFTRIAXONE ORDERED BY DANISH HERNANDEZ. NEW IV PLACE BY ER NURSE; #22 RIGTH WRIST, WITH GOOD BLOOD RETURN. PT TOLERATED WELL. PICCLINE ORDER BY DANISH HERNANDEZ. BED ALARM AND SAFETY PRECAUTIONS IN PLACE WITH CALL LIGHT IN REACH.
--- NOTE | 2021-12-20 10:42 | NUR ---
PT IN RADIOLOGY FOR PICC LINE PLACEMENT.
--- NOTE | 2021-12-20 11:01 | NUR ---
PT BACK FROM RADIOLOGY.
[2021-12-20 12:15] LABS: TSH, 3RD GENERATION 2.29 uIU/mL (0.47 - 4.68)
--- NOTE | 2021-12-20 12:36 | NUR ---
PT IN BED HAVING LUNCH. TELEMETRY IN PLACE. SAFETY PRECAUTIONS IN PLACE WITH CALL LIGHT IN PLACE.
--- NOTE | 2021-12-20 13:21 | NUR ---
pt taken to ICU per Kim's orders. bedside report given to
--- NOTE | 2021-12-20 15:16 | NUR ---
PT HAS BEEN TRANSFERRED TO ICU-8. PT IS AWAKE, ALERT, ORIENTED X 1. SHE IS HAVING HALLUCINATIONS, SPEAKING TO PEOPLE NOT THERE, PT IS FIDGETTY, NEEDS REMINDERS TO NOT TOUCH LINES. BENJAMIN HAS CALLED FOR AN UPDATE.
--- NOTE | 2021-12-20 18:14 | NUR ---
PT CONTINUES CONFUSED, SHAKY. PT AWARE THAT SHE NEEDS TO STAY IN BED, BUT SOMETIMES SEEN TRYING TO GET OOB TO USE BSC. PT ABLE TO FEED HERSELF.
--- NOTE | 2021-12-20 19:11 | NUR ---
RECEIVED REPORT FROM IVAN CARLTON RN. PT RESTING IN BED WITH EYES CLOSED, REGULAR CHEST RISE AND FALL, NO SIGN OF ACUTE DISTRESS. LAST SET OF VITALS TAKEN AT 1900 STABLE, WNL. SEE VS FLOWSHEET. IVF BANANA BAG INFUSING AT PRESCRIBED RATE, IV SITE WITHOUT REDNESS, EDEMA, OR STREAKING, DRESSING CDI. SPO2> 98%. BED IS AT IT LOWEST, LOCKED POSITION WITH SIDE RAILS UP X2. PATIENTS BELONGINGS AT BEDSIDE. CALL LIGHT IN REACH.
--- NOTE | 2021-12-20 21:46 | NUR ---
PT STILL CONFUSED AND TRYING TO GET OUT OF BED. CALLING OUT TO FAMILY MEMBERS NOT PRESENT. WILL GIVE HER PRN MEDICATION AVAILABLE TO CALM ANXIETY. BED ALRAM IS ACTIVATED. CALL LIGHT WITHIN REACH.
--- NOTE | 2021-12-20 22:55 | NUR ---
SOFT RESTRAITSAPPLIED AT 2255. 2 FINGER LOOSENESS VERIFIED. CIRCULATION VERIFIED. CALL WILHELM PLACED WITHIN REACH.
--- NOTE | 2021-12-20 23:30 | NUR ---
CONTACTED DR LINDER CONCERNING PT INCREASED AGITATION AND AGGRESIVENESS. PT UNABLE TO FOLLOW SIMPLE COMMANDS; REMOVING MONITOR CABLES; ATTEMPTING TO REMOVE IV LINE; ATTEMPTING TO GET OUT OF BED. PT ORDERS PLACED PER DR LINDER. CALL WILHELM PLACED WITHIN REACH.
[2021-12-21] VITALS (227 sets, daily range): BP systolic 72–164; BP diastolic 40–125
--- NOTE | 2021-12-21 | NUR ---
PT RESTING IN BED AT THIS TIME. NO CHANGES IN PT STATUS SINCE PREVIOUS ASSESSMENT. PTS CALL LIGHT AND PERSONAL BELONGINGS WITHIN REACH. WILL CONTINUE TO MONITOR.
--- NOTE | 2021-12-21 00:57 | NUR ---
PT REMAIN AGITATED AND NON COMPLIANT. pT PLACED ON ATIVAN DRIP PER HOSPITAL PROTOCOL.
--- NOTE | 2021-12-21 01:20 | NUR ---
ATIVAN DRIP STARTED. PT HAS RASS OF -3.
--- NOTE | 2021-12-21 02:58 | NUR ---
PT CONTINUES TO ACT AGGRESSIVELY. PULLING ON HER RESTRAITS, KICKING, SCREAMING AND UNABLE/WILLING TO FOLLOW COMMANDS. DR LINDER CONTACTED. ORDERS GIVEN FOR 5 ML ZYPREXA IM. PT REPOSSITIONED AND RESTRAITS VERIFIED FOR SKIN CONDITION AND GOOD CIRCULATION.
--- NOTE | 2021-12-21 03:00 | NUR ---
PT CONTINUES TO ACT AGGRESSIVELY. PULLING ON HER RESTRAITS, KICKING, SCREAMING AND UNWILLING TO FOLLOW COMMANDS. DR LINDER CONTACTED. ORDERS GIVEN FOR 5 MG ZYPREXA IM. PT REPOSSITIONED AND RESTRAITS VERIFIED FOR SKIN CONDITION AND CIRCULATION.
--- NOTE | 2021-12-21 04:00 | NUR ---
PT ALERT ORIENTED AND FOLLOWING COMMANDS. NO CHANGES FROM PREVIOUS ASSESSMENT. WILL CONTINUE TO MONITOR CLOSELY. CALL LIGHT AND PERSONAL BELONGINGS WITHIN REACH.
--- NOTE | 2021-12-21 04:07 | NUR ---
PT GIVEN A COMPLETE BED BATH AND JASEN CARE. BED LINEN CHANGED. PT WAS COOPERATIVE. RESTRAITS PLACED AND CIRCULATION VERIFIED. BED ALARM ACTIVATED. CALL WILHELM WITHIN REACH.
--- NOTE | 2021-12-21 06:12 | NUR ---
PATIENT RESTING IN BED AT THIS TIME WITH EYES CLOSED. ATIVAN DRIP RUNNING. RESPS ARE EVEN AND UNLABORED. RESTRAITS IN PLACE; VERIFIED SKIN SKIN CONDITION AND GOOD CIRCULATION. CALL LIGHT IN REACH.
--- NOTE | 2021-12-21 07:13 | NUR ---
Bedside report received. Patient is resting with a congestion cough. Patient is not able to have an appropriate conversion due to drowsiness. Restraints checked for patients safety and no skin issues. Will continue to monitor.
[2021-12-21 07:44] LABS: HEMATOCRIT 32.8 % (37.0-47.0); HEMOGLOBIN 10.3 g/dl (12.0-16.0); MEAN CELL VOLUME 102.2 fL CALC (80.0-100.0); MEAN CORPUSCULAR HGB 32.1 pG CALC (26.0-32.0); MEAN CORPUSCULAR HGB CONC 31.4 g/dL CAL (32.0-36.0); NEUT# 2.72 thou/uL (2.00-7.15); RED BLOOD COUNT 3.21 mill/uL (4.20-5.60); RED CELL DISTRI WIDTH 13.4 % (11.5-15.5)
[2021-12-21 07:57] LABS: BUN 7 mg/dL (7-17); BUN/CREATININE RATIO 10 (12-20 (CALC)); CARBON DIOXIDE 21 mmol/l (22-30); CHLORIDE 117 mmol/l (95-108); CREATININE 0.7 mg/dL (0.5-1.0); GFR FOR AFR.AMER. > 60 ML/MIN (>=60 (CALC)); GFR OTHER RACES > 60 ML/MIN (>=60 (CALC)); MAGNESIUM 1.5 mg/dL (1.6-2.3); SODIUM 142 mmol/l (137-146)
[2021-12-21 07:59] LABS: ANION GAP 7 (6-22 (CALC)); POTASSIUM 3.1 mmol/l (3.5-5.1)
--- NOTE | 2021-12-21 08:30 | NUR ---
Rounded with MD. Per MD hold PO meds due to drowsiness and possible aspiration. Abnormal electrolytes replaced.
--- NOTE | 2021-12-21 13:04 | NUR ---
Patient is restless and anxious trying to take of restraints. Lorazepam gtt has been increased to 8mg/hr. Patients roommate was given an update on her status. Restraints and skin check done. Provided oral hydration to patient.
--- NOTE | 2021-12-21 14:16 | NUR ---
Treatment held today, per nursing pt not appropriate at this time.
--- NOTE | 2021-12-21 18:09 | NUR ---
PATIENT CONTINUES TO GET OUT OF THE RESTRAINTS. ZYPREXA WAS GIVEN IM. WILL CONTINUE TO MONITOR AND REDIRECT PATIENT FOR SAFETY.
--- NOTE | 2021-12-21 19:31 | NUR ---
RECEIVED REPORT FROM Dmitry HYDE RN. PT RESTING IN BED WITH EYES OPENED, REGULAR CHEST RISE AND FALL, NO SIGN OF ACUTE DISTRESS. LAST SET OF VITALS TAKEN AT 1900 STABLE, WNL. SEE VS FLOWSHEET. IVF INFUSING AT PRESCRIBED RATE, IV SITE WITHOUT REDNESS, EDEMA, OR STREAKING, DRESSING CDI. PT CURRENTLY RUNNING ATIVAN DRIP. PT BREATHING ON ROOM AIR @ SPO2> 98%. RESTRAITS ARE IN PLACE WITH GOOD CIRCULATION. BED IS PADDED FOR SEIZURE PRECAUTIONS. BED IS AT IT LOWEST, LOCKED POSITION WITH SIDE RAILS UP X2. PATIENTS BELONGINGS AT BEDSIDE. CALL LIGHT IN REACH.
--- NOTE | 2021-12-21 21:27 | NUR ---
PT'S BRIEF/BED CHANGED. PT GIVEN A DRINK. RESTRAITS TIED. VERIFIED GOOD CIRCULATION. CALL WILEHLM WITHIN REACH.
[2021-12-22] VITALS (96 sets, daily range): BP systolic 111–144; BP diastolic 66–98
[2021-12-22 05:41] LABS: MEAN CELL VOLUME 101.4 fL CALC (80.0-100.0); MEAN CORPUSCULAR HGB 31.9 pG CALC (26.0-32.0); MEAN CORPUSCULAR HGB CONC 31.4 g/dL CAL (32.0-36.0); RED BLOOD COUNT 3.45 mill/uL (4.20-5.60); RED CELL DISTRI WIDTH 13.2 % (11.5-15.5)
[2021-12-22 06:06] LABS: ANION GAP 10 (6-22 (CALC)); BUN 4 mg/dL (7-17); BUN/CREATININE RATIO 6 (12-20 (CALC)); CARBON DIOXIDE 18 mmol/l (22-30); CHLORIDE 118 mmol/l (95-108); CREATININE 0.6 mg/dL (0.5-1.0); GFR FOR AFR.AMER. > 60 ML/MIN (>=60 (CALC)); GFR OTHER RACES > 60 ML/MIN (>=60 (CALC)); MAGNESIUM 1.7 mg/dL (1.6-2.3); POTASSIUM 3.1 mmol/l (3.5-5.1); SODIUM 143 mmol/l (137-146)
--- NOTE | 2021-12-22 08:17 | NUR ---
PT SEEN SEDATED AT REST IN THE BED, ATIVAN AT 8 MG HOURLY. SHE DOES OPEN HER EYES AND INTERACT FOR SECONDS AT A TIME, THEN BACK TO REST. NO DISTRESS, NO ACTING OUT AT THIS TIME.
--- NOTE | 2021-12-22 11:00 | NUR ---
PT WITH ATIVAN DRIP AT 8 MG/HR, SEEN AT REST IN THE BED IN NO DISTRESS. PT ROUSED ENOUGH TO BE ABLE TO GIVE AM PILLS.
--- NOTE | 2021-12-22 11:44 | NUR ---
Spoke with nursing prior to treatment, pt on ativan drip per nurse and very sleepy. Pt open eyes to stimulation, pt in supine legs in position and restraints in place. Pt performed AAROM/PROM x 4 extremities with restraints reapplied to UEs. BP 116/86, HR 81, 02sats 100% A- Pt unable to cooperate with mobilities skills at this time due to medical status. AMPAC unchanged from eval and will dependent on pts status. P- Will continue to follow and begin mobility when appropriate.
--- NOTE | 2021-12-22 14:00 | NUR ---
ATIVAN DRIP AT 4 MG/HR, PT REMAINS SEDATED BUT ROUSABLE. NO DISTRESS, NO ARRHYTHMIAS. PT AWAKE ENOUGH TO PICK A FEW BITES FROM [facility].
--- NOTE | 2021-12-22 16:53 | NUR ---
ATIVAN NOW AT 3 MG/HR, PT LIGHTLY SEDATED. BENJAMIN AT BEDSIDE AT THIS TIME.
--- NOTE | 2021-12-22 20:00 | NUR ---
PT DROWSY BUT ALERT ENOUGHT TO ANSWER QUESTIONS APPROPRIATELY. STILL CONTINUES TO HAVE CONVERSATIONS WITH PERSONS THAT ARE NOT IN THE ROOM. MILD TREMORS. ATTEMPTS TO GET OUT OF BED PERIODICALLY TO LEAVE, BUT IS EASILY REORIENTED AND COOPERATIVE. PTS VITAL SIGNS ARE WITHIN NORMAL LIMITS. CALL LIGHT AND PERSONAL BELONGINGS ARE WITHIN REACH. PT BEING CLOSELY MONITORED.
--- NOTE | 2021-12-22 22:00 | NUR ---
NO CHANGE FROM PTS INITIAL ASSESSMENT. ATIVAN DRIP HAS BEEN D/C'D. PT SHOWS NO SIGNS OF DISTRESS. PT WAS INCONTINENT AFTER BEING ASKED IF SHE NEEDED TO USE THE BEDPAN. JASEN CARE COMPLETED. VITAL SIGNS ARE WITHIN NORMAL LIMITS. CALL LIGHT AND PERSONAL BELONGINGS ARE WITHIN REACH. PT BEING CLOSELY MONITORED.
[2021-12-23] VITALS (18 sets, daily range): BP systolic 114–143; BP diastolic 64–97
--- NOTE | 2021-12-23 | NUR ---
PT SLEEPING AT THIS TIME. CALLING OUT TO PERSONS THAT ARE NOT HERE/IN THE ROOM PERIODICALLY. EASILY REORIENTED AND GOES BACK TO SLEEP. VITAL SIGNS WITHIN NORMAL LIMITS. PT SHOWS NO SIGNS OF DISTRESS. PT DENIES PAIN. CALL LIGHT AND PERSONAL BELONINGS WTIHIN HER REACH. WILL CONTINUE TO MONITOR.
--- NOTE | 2021-12-23 02:00 | NUR ---
NO CHANGE IN PTS STATUS SINCE PREVIOUS ASSESSMENT. PT OFFERED WATER AND BEDPAN. PT ANSWERING QUESTIONS APPROPRIATELY AND IS QUITE PLEASENT. SHOWING NO SIGNS OF DISTRESS. VITAL SIGNS ARE WITHIN NORMAL LIMITS. CALL LIGHT AND PERSONAL BELONGINGS WITHIN REACH. WILL CONTINUE TO MONITOR CLOSELY.
--- NOTE | 2021-12-23 04:00 | NUR ---
NO CHANGE IS PTS STATUS SINCE PREVIOUS ASSESSMENT - PT CONTINUES TO SLEEP. COMPLETE BED BATH DONE. PT WAS ABLE TO ASSIST WITH TURNS AND BATH. CALL LIGHT AND SAFETY PRECAUTIONS ARE IN PLACE. WILL CONTINUE TO CLOSELY MONITOR.
[2021-12-23 05:35] LABS: HEMATOCRIT 35.4 % (37.0-47.0); HEMOGLOBIN 11.2 g/dl (12.0-16.0); MEAN CORPUSCULAR HGB 31.6 pG CALC (26.0-32.0); MEAN CORPUSCULAR HGB CONC 31.6 g/dL CAL (32.0-36.0); RED BLOOD COUNT 3.54 mill/uL (4.20-5.60); RED CELL DISTRI WIDTH 13.3 % (11.5-15.5)
[2021-12-23 05:47] LABS: ANION GAP 9 (6-22 (CALC)); BUN 5 mg/dL (7-17); BUN/CREATININE RATIO 8 (12-20 (CALC)); CARBON DIOXIDE 18 mmol/l (22-30); CHLORIDE 118 mmol/l (95-108); CREATININE 0.7 mg/dL (0.5-1.0); GFR FOR AFR.AMER. > 60 ML/MIN (>=60 (CALC)); GFR OTHER RACES > 60 ML/MIN (>=60 (CALC)); MAGNESIUM 1.4 mg/dL (1.6-2.3); POTASSIUM 3.5 mmol/l (3.5-5.1); SODIUM 142 mmol/l (137-146)
--- NOTE | 2021-12-23 08:00 | NUR ---
PT SEEN AT REST IN THE BED, ATIVAN DRIP AND BANANA BAG HAVE BEEN DISCONTINUED AT THIS TIME. NO DISTRESS, NO EVIDENCE OF DTs WHILE AT REST.
--- NOTE | 2021-12-23 08:27 | NUR ---
Patient upp to the bathroom, assist +1, unsteady gate, patient placed in recliner chair for breakfast, awake and alert, no c/o pain or disccomfort, no s/s of distress noted, respirations even and unlabored.
--- NOTE | 2021-12-23 10:16 | NUR ---
PT AMBULATORY WITH STANDBY ASSIST X 1 TO BR, THEN AROUND UNIT. MENTATION IS IMPROVED SINCE YESTERDAY, ALTHOUGH SHE IS CONFUSED AT TIMES. PHYSICAL THERAPY AT BEDSIDE NOW.
--- NOTE | 2021-12-23 12:00 | NUR ---
Pt resting in bed, sleeping but wakes easily to stimulation. Nursing reported pt walking earlier with them. She was cooperative, performed Active/gentle manual resist ex to both legs including heelslide, SAQ, SLR, bridging, hip abd/add x 10 reps. Pt moved supine to and from sit with use of bed rail and SBA. Gait with PET TRAINING INSTRUCTOR in min assist x 300'. Pt was left in supine with callbell/tray/phone in reach. BP 133/90, HR 92-92, 02sats 91-92%. A- Pt more alert, able to participate in therapy. Gait unsteady. [facility] 16 P- will follow and continue to progress mobility skills/balance.
[2021-12-23] MEDS ORDERED: KEFLEX500 MG PO (12:35)
--- NOTE | 2021-12-23 13:31 | NUR ---
PT HAS HAD DIARRHEA INCONTINENCE WHILE AMBULATING TO BR WITH ASSIST. VISITOR BENJAMIN HAS COME TO VISIT, DISCUSSES PLAN OF CARE REGARDING HELP FOR ALCOHOL ABUSE. INFORMATION PROVIDED BY NURSE AND ALSO CASE MGMT ARACELI. PT TO BE TRANSFERRED TO M/S THIS AFTERNOON.
--- NOTE | 2021-12-23 14:40 | NUR ---
PT RESTING IN SEMI FOWLERS POSITION. PT REPORT RECIEVED FROM IVAN ALEJO . A/OX2 ASSESSMENT AND VS COMPLETED. WITH SOME CONFUSION. HEART RHYTHM NORMAL WITH TELE IN PLACE. RESPIRATIONS EVEN AND UNLABORED. RA IV SIT NOTED /PICC LINE DOUBLE LUMEN INFUSING WITH BANANA BAG. 75ML/HR. BOWEL SOUNDS ACTIVE. NO WOUNDS NOTED. PT DENIES ADDITIONAL NEEDS AT THE TIME ALL SAFETY PRECAUTIONS IN PLACE WITH CALL LIGHT IN REACH. BED ALARM ACTIVE
--- NOTE | 2021-12-23 16:23 | NUR ---
PATIENT RESTING IN BED, AWAKE. A&O. NURSE TECH IN ROOM, ASSISTED PATIENT TO THE RESTROOM. NO SIGNS OF DISTRESS OR PAIN NOTED OR VERBALIZED AT THIS TIME. BED SIDE TABLE AND CALL LIGHT WITHIN REACH.
--- NOTE | 2021-12-23 19:00 | NUR ---
PATIENT RESTING IN BED AT THIS TIME. PATIENT ALERT TO NAME AND PLACE CIWA SCORE IS A 4 DUE TO NOTICABLE TREMORS IN HANDS. PATIENT DENIES PAIN AND TELE READING SINUS RHYTHM AT THIS TIME SIDERAILS ARE UP X 2 CALL LIGHT IS WITHIN REACH SIDERAILS ARE UP X 2 CALL LIGHT WITHIN REACH BED ALARM ENGAGED.
--- NOTE | 2021-12-23 23:31 | NUR ---
PATIENT IN BED AT THIS TIME SIDERAILS ARE UP CALL LIGHT WITHIN REACH AND BED ALARM ENGAGED. TELE MONITOR IN PLACE WILL CONTINUE TO MONTIOR.
--- NOTE | 2021-12-24 03:34 | NUR ---
PATIENT RESTING IN BED WITH EYES CLOSED AT THIS TIME. PATIENT RESPIRATIONS EASY AND UNLABORED AT THIS TIME. SIDERAILS ARE UP X 2 AND CALL LIGHT IS WITHIN REACH. TELE MONITOR IN PLACE AND BEING MONITORED BY ED.
[2021-12-24 03:57] VITALS: BP 136/83
[2021-12-24 05:12] LABS: HEMATOCRIT 31.9 % (37.0-47.0); HEMOGLOBIN 10.3 g/dl (12.0-16.0); MEAN CELL VOLUME 96.7 fL CALC (80.0-100.0); MEAN CORPUSCULAR HGB 31.2 pG CALC (26.0-32.0); MEAN CORPUSCULAR HGB CONC 32.3 g/dL CAL (32.0-36.0); RED BLOOD COUNT 3.3 mill/uL (4.20-5.60); RED CELL DISTRI WIDTH 13.3 % (11.5-15.5)
[2021-12-24 05:29] LABS: ANION GAP 9 (6-22 (CALC)); BUN 9 mg/dL (7-17); BUN/CREATININE RATIO 15 (12-20 (CALC)); CARBON DIOXIDE 21 mmol/l (22-30); CHLORIDE 115 mmol/l (95-108); CREATININE 0.6 mg/dL (0.5-1.0); GFR FOR AFR.AMER. > 60 ML/MIN (>=60 (CALC)); GFR OTHER RACES > 60 ML/MIN (>=60 (CALC)); MAGNESIUM 1.6 mg/dL (1.6-2.3); POTASSIUM 3.2 mmol/l (3.5-5.1); SODIUM 141 mmol/l (137-146)
[2021-12-24 07:09] VITALS: BP 104/62
--- NOTE | 2021-12-24 08:00 | NUR ---
A/OX3 , DENIES PAIN AT THIS TIME. 2MM PERRL. CLEAR LUNGS. ACTIVE BOWEL SOUNDS. SOFT NON TENDER ABDOMEN. STRONG PULSES. WEAK HAND REHAB TECHNICIAN. NO ARM OR LEG DRIFTS. VITALS SIGNS STABLE. JOSE WATSON. SAFETY MEASURES IN PLACE. CALL LIGHT IN REACH. WILL CONTINUE TO MONITOR PER HOSPITAL'S POLICY.
[2021-12-24 09:05] VITALS: BP 104/62
--- NOTE | 2021-12-24 11:30 | NUR ---
PATIENT'S BOYFRIEND DONALD CAME UP STATED HE WANTS HER IN A ETOH PROGRAM TO GET HER HELP. STATED WE CANT FORCE HER TO DO ANYTHING SHE DOESNT WANT TO BUT WE PROVIDED INFOMATION ABOUT DIFFERENT PROGRAMS TO HELP, AGAIN, MUCH LIKE EVERY OTHER VISIT. DONALD STATED OK BUT SHE WILL JUST DRINK AGAIN AND COME RIGHT BACK TO YOU GUYS IF YOU SEND HER HOME TODAY. EDUCATION PROVIDED AGAIN. HE REQUESTED TO SPEAK FURTHER WITH CASE MANAGMENT.
--- NOTE | 2021-12-24 12:01 | NUR ---
Attempted treatment this am but pt refuseed stating she was leaving in less than 1 hour, waiting for her ride.
--- NOTE | 2021-12-24 12:15 | NUR ---
SPOKE TO [id number] ABOUT D/C PAPERWORK, DONALD REQUESTED TO KEEP IT QUIET ABOUT THE ETOH PROGRAM HE WANTS TO SEND HER TO, INFORMED BOTH OF THEM AGAIN BECAUSE IT IS DEALING WITH THE PATIENT'S WELL BEING THAT SHE WILL NEED TO BE THE ONE TO AGREE TO THIS ALL, YOU CANT FORCE HER TO DO WHAT HE WANTS HE TO DO. DONALD SEEMED UPSET AGAIN AND SAID "WHATEVER ILL FIGURE OUT WHAT TO DO WITH HER LATER, SHE WILL BE BACK HERE".
== END 2021-12-24 13:12 | disposition home or self-care (01) | DRG 897 ==
LOC: ED 09:34 → MS2 10:50 → ED 11:25 → ED-I 11:25 → ED 11:26 → ED-I 11:26 → ICU 12-20 13:20 → MS2 12-23 14:52
PROVIDERS: Internal Medicine; Nurse Practitioner; ADMIT Internal Medicine; ATTEND Hospitalist
PROC: 05HB33Z Insertion of Infusion Device into Right Basilic Vein, Percutaneous Approach (ICD-10-PCS; principal; 2021-12-20)
DX: F10.231 Alcohol dependence with withdrawal delirium (principal); N39.0 Urinary tract infection, site not specified; E86.0 Dehydration; E83.42 Hypomagnesemia; E87.6 Hypokalemia; I10 Essential (primary) hypertension; G40.909 Epilepsy, unspecified, not intractable, without status epilepticus; R19.7 Diarrhea, unspecified; F32.A Depression, unspecified; F41.9 Anxiety disorder, unspecified; K59.09 Other constipation; Y90.1 Blood alcohol level of 20-39 mg/100 ml; Z78.1 Physical restraint status; Z20.822 Contact with and (suspected) exposure to COVID-19
CPT/HCPCS: J1650; J2060; J3475; S0166

== ENCOUNTER 2022-04-15 13:45 | Inpatient (IN) | payer OTHER ==
[2022-04-15] VITALS (14 sets, daily range): BP systolic 94–124; BP diastolic 50–81
[~2022-04-15] VITALS: Ht 152.4 cm; Wt 50.0 kg
[2022-04-15 14:29] LABS: IMMATURE GRANULOCYTES 0.2 % (0.0-5.0); MEAN CELL VOLUME 93.8 fL CALC (80.0-100.0); MEAN CORPUSCULAR HGB 29.9 pG CALC (26.0-32.0); MEAN CORPUSCULAR HGB CONC 31.9 g/dL CAL (32.0-36.0); NEUT# 9.54 thou/uL (2.00-7.15); RED BLOOD COUNT 4.38 mill/uL (4.20-5.60); RED CELL DISTRI WIDTH 13.4 % (11.5-15.5)
[2022-04-15 14:42] LABS: HEMOGLOBIN 13.1 g/dl (12.0-16.0)
[2022-04-15 14:43] LABS: HEMATOCRIT 41.1 % (37.0-47.0)
[2022-04-15 14:54] LABS: ALBUMIN 4.7 g/dL (3.2-5.0); BILIRUBIN, TOTAL 0.6 mg/dL (0.0-1.4); CREATININE 1.6 mg/dL (0.5-1.0); POTASSIUM 3.6 mmol/l (3.5-5.1); TOTAL PROTEIN 8.6 g/dL (6.3-8.2)
[2022-04-15 18:07] LABS: URINE BLOOD DIPSTICK TRACE-INTACT (NEGATIVE); URINE COLOR YELLOW; URINE GLUCOSE - DIPSTICK NEGATIVE (NEGATIVE); URINE KETONE 40 mg/dL (NEGATIVE); URINE LEUK ESTERASE TRACE (NEGATIVE); URINE PROTEIN - DIPSTICK 30 mg/dL (NEG-TRACE); URINE SPECIFIC GRAVITY 1.025; URINE UROBILINOGEN - DIPSTICK 0.2 E.U./dL (0.2)
[2022-04-15 18:09] LABS: URINE BILIRUBIN - DIPSTICK NEGATIVE (NEGATIVE); URINE NITRITE - DIPSTICK NEGATIVE (Negative)
[2022-04-15 18:12] LABS: URINE BACTERIA MANY hpf; URINE RBC 0-2 RBC/hpf (0-5); URINE SQUAMOUS EPITHELIAL CELL FEW EPI/hpf (0-FEW); URINE WBC 20-50 WBC/hpf (0-5)
[2022-04-16] VITALS (9 sets, daily range): BP systolic 119–133; BP diastolic 73–83
[2022-04-16 05:34] LABS: MEAN CELL VOLUME 92.5 fL CALC (80.0-100.0); MEAN CORPUSCULAR HGB 30.8 pG CALC (26.0-32.0); MEAN CORPUSCULAR HGB CONC 33.3 g/dL CAL (32.0-36.0); RED BLOOD COUNT 3.18 mill/uL (4.20-5.60); RED CELL DISTRI WIDTH 13.3 % (11.5-15.5)
[2022-04-16 05:43] LABS: ALKALINE PHOSPHATASE 68 u/l (38-126); BUN 21 mg/dL (7-17); BUN/CREATININE RATIO 20 (12-20 (CALC)); CHLORIDE 99 mmol/l (95-108); GFR FOR AFR.AMER. > 60 ML/MIN (>=60 (CALC)); GFR OTHER RACES 57 ML/MIN (>=60 (CALC)); MAGNESIUM 1.4 mg/dL (1.6-2.3); POTASSIUM 3.2 mmol/l (3.5-5.1); SGOT/AST 52 u/l (14-36)
[2022-04-16 05:49] LABS: HEMATOCRIT 29.4 % (37.0-47.0); HEMOGLOBIN 9.8 g/dl (12.0-16.0)
[2022-04-16 06:00] LABS: SODIUM 135 mmol/l (137-146)
[2022-04-16 06:01] LABS: ALBUMIN 3.6 g/dL (3.2-5.0); ANION GAP 20 (6-22 (CALC)); BILIRUBIN, TOTAL 1.1 mg/dL (0.0-1.4); CARBON DIOXIDE 19 mmol/l (22-30); TOTAL PROTEIN 6.4 g/dL (6.3-8.2)
[2022-04-17] VITALS (8 sets, daily range): BP systolic 96–122; BP diastolic 62–78
[2022-04-17 06:04] LABS: HEMATOCRIT 30.8 % (37.0-47.0); IMMATURE GRANULOCYTES 0.2 % (0.0-5.0); MEAN CELL VOLUME 93.3 fL CALC (80.0-100.0); MEAN CORPUSCULAR HGB 30.3 pG CALC (26.0-32.0); MEAN CORPUSCULAR HGB CONC 32.5 g/dL CAL (32.0-36.0); NEUT# 3.38 thou/uL (2.00-7.15); RED BLOOD COUNT 3.3 mill/uL (4.20-5.60); RED CELL DISTRI WIDTH 13.1 % (11.5-15.5)
[2022-04-17 06:21] LABS: ALBUMIN 3.3 g/dL (3.2-5.0); ALKALINE PHOSPHATASE 72 u/l (38-126); BILIRUBIN, TOTAL 0.8 mg/dL (0.0-1.4); BUN 12 mg/dL (7-17); BUN/CREATININE RATIO 16 (12-20 (CALC)); CHLORIDE 101 mmol/l (95-108); CREATININE 0.8 mg/dL (0.5-1.0); GFR FOR AFR.AMER. > 60 ML/MIN (>=60 (CALC)); GFR OTHER RACES > 60 ML/MIN (>=60 (CALC)); POTASSIUM 2.7 mmol/l (3.5-5.1); SGOT/AST 47 u/l (14-36); SODIUM 138 mmol/l (137-146); TOTAL PROTEIN 6.3 g/dL (6.3-8.2)
[2022-04-17 06:25] LABS: ANION GAP 14 (6-22 (CALC)); CARBON DIOXIDE 26 mmol/l (22-30); MAGNESIUM 2.4 mg/dL (1.6-2.3)
[2022-04-18 00:33] VITALS: BP 104/62
[2022-04-18 04:26] VITALS: BP 113/78
[2022-04-18 05:18] LABS: HEMATOCRIT 31.2 % (37.0-47.0); HEMOGLOBIN 9.9 g/dl (12.0-16.0); IMMATURE GRANULOCYTES 0.2 % (0.0-5.0); MEAN CELL VOLUME 95.1 fL CALC (80.0-100.0); MEAN CORPUSCULAR HGB 30.2 pG CALC (26.0-32.0); MEAN CORPUSCULAR HGB CONC 31.7 g/dL CAL (32.0-36.0); NEUT# 2.34 thou/uL (2.00-7.15); RED BLOOD COUNT 3.28 mill/uL (4.20-5.60)
[2022-04-18 05:36] LABS: ANION GAP 12 (6-22 (CALC)); BUN 11 mg/dL (7-17); BUN/CREATININE RATIO 15 (12-20 (CALC)); CARBON DIOXIDE 23 mmol/l (22-30); CHLORIDE 107 mmol/l (95-108); CREATININE 0.8 mg/dL (0.5-1.0); GFR FOR AFR.AMER. > 60 ML/MIN (>=60 (CALC)); GFR OTHER RACES > 60 ML/MIN (>=60 (CALC)); SODIUM 138 mmol/l (137-146)
[2022-04-18 05:44] LABS: POTASSIUM 3.8 mmol/l (3.5-5.1)
[2022-04-18 06:45] VITALS: BP 113/78
[2022-04-18 08:07] VITALS: BP 117/74
[2022-04-18] MEDS ORDERED: CHLORDIAZEPOXID25 M1 PO (10:30)
[2022-04-18] MEDS ORDERED: VITAMIN B-1100 M1 PO (10:30)
[2022-04-18] MEDS ORDERED: FOLIC ACID1 M1 PO (10:30)
[2022-04-18 14:34] VITALS: BP 136/77
== END 2022-04-18 14:05 | disposition home or self-care (01) | DRG 897 ==
LOC: ED 13:45 → ED-I 14:45 → ED 15:53 → MS2 15:54
PROVIDERS: Nurse Practitioner; ADMIT Internal Medicine; ATTEND Internal Medicine
PROC: 05HM33Z Insertion of Infusion Device into Right Internal Jugular Vein, Percutaneous Approach (ICD-10-PCS; principal; 2022-04-16)
DX: F10.239 Alcohol dependence with withdrawal, unspecified (principal); N39.0 Urinary tract infection, site not specified; F10.229 Alcohol dependence with intoxication, unspecified; E83.42 Hypomagnesemia; E87.6 Hypokalemia; E83.51 Hypocalcemia; I10 Essential (primary) hypertension; I48.91 Unspecified atrial fibrillation; G40.909 Epilepsy, unspecified, not intractable, without status epilepticus; F32.A Depression, unspecified; F41.9 Anxiety disorder, unspecified; Y90.8 Blood alcohol level of 240 mg/100 ml or more; Z90.49 Acquired absence of other specified parts of digestive tract; Z87.440 Personal history of urinary (tract) infections; Z86.16 Personal history of COVID-19; Z20.822 Contact with and (suspected) exposure to COVID-19
CPT/HCPCS: J1650; J3475; S0164

== ENCOUNTER 2022-05-09 21:48 | Observation (INO) | payer OTHER ==
[2022-05-09] VITALS (8 sets, daily range): BP systolic 121–148; BP diastolic 82–97
[~2022-05-09] VITALS: Ht 152.4 cm; Wt 48.0 kg
[~2022-05-09 21:48] MED LIST changes: +CHLORDIAZEPOXID25 M1 PO
[2022-05-09 22:49] LABS: HEMATOCRIT 34.2 % (37.0-47.0); HEMOGLOBIN 10.8 g/dl (12.0-16.0); IMMATURE GRANULOCYTES 0.2 % (0.0-5.0); MEAN CELL VOLUME 96.1 fL CALC (80.0-100.0); MEAN CORPUSCULAR HGB 30.3 pG CALC (26.0-32.0); MEAN CORPUSCULAR HGB CONC 31.6 g/dL CAL (32.0-36.0); NEUT# 1.94 thou/uL (2.00-7.15); RED BLOOD COUNT 3.56 mill/uL (4.20-5.60); RED CELL DISTRI WIDTH 13.9 % (11.5-15.5)
[2022-05-09 23:00] LABS: ALBUMIN 3.9 g/dL (3.2-5.0); ALKALINE PHOSPHATASE 84 u/l (38-126); BUN 10 mg/dL (7-17); BUN/CREATININE RATIO 11 (12-20 (CALC)); CHLORIDE 112 mmol/l (95-108); CREATININE 0.9 mg/dL (0.5-1.0); ETHYL ALCOHOL 263 mg/dl (0-30); GFR FOR AFR.AMER. > 60 ML/MIN (>=60 (CALC)); GFR OTHER RACES > 60 ML/MIN (>=60 (CALC)); POTASSIUM 3.8 mmol/l (3.5-5.1); SGOT/AST 60 u/l (14-36); TOTAL PROTEIN 7.4 g/dL (6.3-8.2)
[2022-05-09 23:04] LABS: ANION GAP 21 (6-22 (CALC)); BILIRUBIN, TOTAL 0.3 mg/dL (0.0-1.4); CARBON DIOXIDE 17 mmol/l (22-30); SODIUM 146 mmol/l (137-146)
[2022-05-10] VITALS (14 sets, daily range): BP systolic 109–144; BP diastolic 66–98
[2022-05-10 05:24] LABS: HEMATOCRIT 29.8 % (37.0-47.0); HEMOGLOBIN 9.5 g/dl (12.0-16.0); IMMATURE GRANULOCYTES 0.2 % (0.0-5.0); MEAN CELL VOLUME 95.8 fL CALC (80.0-100.0); MEAN CORPUSCULAR HGB 30.5 pG CALC (26.0-32.0); MEAN CORPUSCULAR HGB CONC 31.9 g/dL CAL (32.0-36.0); NEUT# 3.8 thou/uL (2.00-7.15); RED BLOOD COUNT 3.11 mill/uL (4.20-5.60); RED CELL DISTRI WIDTH 13.9 % (11.5-15.5)
[2022-05-11 00:14] VITALS: BP 114/71
[2022-05-11 04:31] VITALS: BP 128/76
[2022-05-11 05:58] LABS: HEMATOCRIT 29.6 % (37.0-47.0); HEMOGLOBIN 9.4 g/dl (12.0-16.0); MEAN CELL VOLUME 95.8 fL CALC (80.0-100.0); MEAN CORPUSCULAR HGB 30.4 pG CALC (26.0-32.0); MEAN CORPUSCULAR HGB CONC 31.8 g/dL CAL (32.0-36.0); RED BLOOD COUNT 3.09 mill/uL (4.20-5.60); RED CELL DISTRI WIDTH 13.9 % (11.5-15.5)
[2022-05-11 06:13] LABS: ALKALINE PHOSPHATASE 61 u/l (38-126); ANION GAP 8 (6-22 (CALC)); BUN 6 mg/dL (7-17); BUN/CREATININE RATIO 8 (12-20 (CALC)); CARBON DIOXIDE 19 mmol/l (22-30); CHLORIDE 114 mmol/l (95-108); CREATININE 0.7 mg/dL (0.5-1.0); GFR FOR AFR.AMER. > 60 ML/MIN (>=60 (CALC)); GFR OTHER RACES > 60 ML/MIN (>=60 (CALC)); POTASSIUM 3.2 mmol/l (3.5-5.1); SGOT/AST 33 u/l (14-36); SODIUM 139 mmol/l (137-146)
[2022-05-11 06:14] LABS: ALBUMIN 2.6 g/dL (3.2-5.0); BILIRUBIN, TOTAL 0.9 mg/dL (0.0-1.4); MAGNESIUM 1.3 mg/dL (1.6-2.3); TOTAL PROTEIN 5.4 g/dL (6.3-8.2)
[2022-05-11 06:34] VITALS: BP 119/64
[2022-05-11] MEDS ORDERED: ONDANSETRON4 MG PO (11:05)
[2022-05-11] MEDS ORDERED: CHLORDIAZEPOXID25 M1 PO (11:06)
[2022-05-11 11:09] VITALS: BP 116/74
[2022-05-11 16:33] VITALS: BP 112/48
== END 2022-05-11 17:55 | disposition home or self-care (01) ==
LOC: ED 21:48 → ED-I 05-10 00:16 → ED 05-10 00:30 → ICU 05-10 00:31 → MS2 05-10 01:33
PROVIDERS: Emergency Medicine; ADMIT Internal Medicine; ATTEND Internal Medicine
DX: F10.229 Alcohol dependence with intoxication, unspecified (principal); F10.239 Alcohol dependence with withdrawal, unspecified; E87.29 Other acidosis; E16.2 Hypoglycemia, unspecified; I10 Essential (primary) hypertension; F41.9 Anxiety disorder, unspecified; E46 Unspecified protein-calorie malnutrition; F32.A Depression, unspecified; G62.9 Polyneuropathy, unspecified; E83.42 Hypomagnesemia; K59.09 Other constipation; E87.6 Hypokalemia; Y90.8 Blood alcohol level of 240 mg/100 ml or more; Z20.822 Contact with and (suspected) exposure to COVID-19
CPT/HCPCS: G0378; J1650; J3475

== ENCOUNTER 2022-11-03 07:57 | Inpatient (IN) | payer OTHER ==
[~2022-11-03] VITALS: Ht 160 cm; Wt 58.0 kg
[2022-11-03] VITALS (99 sets, daily range): BP systolic 97–129; BP diastolic 52–82
[~2022-11-03 07:57] MED LIST changes: +POT CHLORIDE10 ME5 PO
[2022-11-03 20:46] LABS: ALKALINE PHOSPHATASE 60 u/l (38-126); BUN 5 mg/dL (8-23); BUN/CREATININE RATIO 8 (12-20 (CALC)); CARBON DIOXIDE 20 mmol/l (22-30); CHLORIDE 110 mmol/l (95-108); CREATININE 0.6 mg/dL (0.5-1.0); GFR FOR AFR.AMER. > 60 ML/MIN (>=60 (CALC)); GFR OTHER RACES > 60 ML/MIN (>=60 (CALC)); SGOT/AST 37 u/l (9-36); SODIUM 138 mmol/l (137-146); TOTAL PROTEIN 6.1 g/dL (6.3-8.2)
[2022-11-03 20:49] LABS: ALBUMIN 3.1 g/dL (3.2-5.0); ANION GAP 10 (6-22 (CALC)); BILIRUBIN, TOTAL 0.8 mg/dL (0.02-1.3); POTASSIUM 2.4 mmol/l (3.5-5.1)
[2022-11-04] VITALS (63 sets, daily range): BP systolic 36–123; BP diastolic 17–86
[2022-11-04 05:30] LABS: BUN 4 mg/dL (8-23); BUN/CREATININE RATIO 6 (12-20 (CALC)); CARBON DIOXIDE 20 mmol/l (22-30); CHLORIDE 112 mmol/l (95-108); CREATININE 0.6 mg/dL (0.5-1.0); GFR FOR AFR.AMER. > 60 ML/MIN (>=60 (CALC)); GFR OTHER RACES > 60 ML/MIN (>=60 (CALC)); SODIUM 141 mmol/l (137-146)
[2022-11-04 05:31] LABS: ANION GAP 12 (6-22 (CALC)); MAGNESIUM 2.6 mg/dL (1.6-2.3)
[2022-11-05] VITALS (8 sets, daily range): BP systolic 86–101; BP diastolic 43–64
[2022-11-05 05:35] LABS: HEMATOCRIT 28.2 % (37.0-47.0); HEMOGLOBIN 8.6 g/dl (12.0-16.0); MEAN CELL VOLUME 97.9 fL CALC (80.0-100.0); MEAN CORPUSCULAR HGB 29.9 pG CALC (26.0-32.0); MEAN CORPUSCULAR HGB CONC 30.5 g/dL CAL (32.0-36.0); RED BLOOD COUNT 2.88 mill/uL (4.20-5.60); RED CELL DISTRI WIDTH 14.9 % (11.5-15.5)
[2022-11-05 06:04] LABS: ALBUMIN 2.8 g/dL (3.2-5.0); ALKALINE PHOSPHATASE 66 u/l (38-126); ANION GAP 7 (6-22 (CALC)); BILIRUBIN, TOTAL 0.3 mg/dL (0.02-1.3); BUN 7 mg/dL (8-23); BUN/CREATININE RATIO 10 (12-20 (CALC)); CARBON DIOXIDE 17 mmol/l (22-30); CHLORIDE 116 mmol/l (95-108); CREATININE 0.7 mg/dL (0.5-1.0); GFR FOR AFR.AMER. > 60 ML/MIN (>=60 (CALC)); GFR OTHER RACES > 60 ML/MIN (>=60 (CALC)); MAGNESIUM 1.3 mg/dL (1.6-2.3); POTASSIUM 3.8 mmol/l (3.5-5.1); SGOT/AST 36 u/l (9-36); SODIUM 136 mmol/l (137-146); TOTAL PROTEIN 5.8 g/dL (6.3-8.2)
[2022-11-06 00:02] VITALS: BP 101/58
[2022-11-06 03:30] VITALS: BP 88/57
[2022-11-06 05:01] LABS: BASO% 0.1 % (0-3); EOS% 3.8 % (0-8); IMMATURE GRANULOCYTES 0.1 % (0.0-5.0); LYMPH% 26.1 % (15-41); MEAN CELL VOLUME 103.5 fL CALC (80.0-100.0); MEAN CORPUSCULAR HGB 30.6 pG CALC (26.0-32.0); MEAN CORPUSCULAR HGB CONC 29.6 g/dL CAL (32.0-36.0); MONO% 8.1 % (2-13); NEUT# 5.83 thou/uL (2.00-7.15); NEUT% 61.8 % (42-76); RED BLOOD COUNT 3.46 mill/uL (4.20-5.60)
[2022-11-06 05:11] LABS: HEMATOCRIT 35.8 % (37.0-47.0); HEMOGLOBIN 10.6 g/dl (12.0-16.0)
[2022-11-06 05:25] LABS: ANION GAP 10 (6-22 (CALC)); BUN 7 mg/dL (8-23); BUN/CREATININE RATIO 11 (12-20 (CALC)); CARBON DIOXIDE 15 mmol/l (22-30); CHLORIDE 115 mmol/l (95-108); CREATININE 0.6 mg/dL (0.5-1.0); GFR FOR AFR.AMER. > 60 ML/MIN (>=60 (CALC)); GFR OTHER RACES > 60 ML/MIN (>=60 (CALC)); MAGNESIUM 1.6 mg/dL (1.6-2.3); POTASSIUM 4.3 mmol/l (3.5-5.1); SODIUM 137 mmol/l (137-146)
[2022-11-06 06:16] VITALS: BP 110/55
[2022-11-06 11:16] VITALS: BP 93/47
[2022-11-06 14:22] VITALS: BP 98/60
[2022-11-06 14:39] VITALS: BP 98/60
== END 2022-11-06 14:44 | disposition home or self-care (01) | DRG 897 ==
LOC: ED 07:57 → ED-I 11:50 → ED 12:55 → ICU 12:56 → MS2 11-04 14:10
PROVIDERS: Internal Medicine; ADMIT Internal Medicine; ATTEND Internal Medicine
DX: F10.231 Alcohol dependence with withdrawal delirium (principal); R56.9 Unspecified convulsions; E87.6 Hypokalemia; E83.42 Hypomagnesemia; I10 Essential (primary) hypertension; G62.9 Polyneuropathy, unspecified; F41.9 Anxiety disorder, unspecified; F32.A Depression, unspecified; K59.09 Other constipation; Z87.19 Personal history of other diseases of the digestive system; Z90.49 Acquired absence of other specified parts of digestive tract
CPT/HCPCS: J2060; J3475; S0164

== ENCOUNTER 2022-11-24 19:25 | Inpatient (IN) | payer OTHER ==
[2022-11-24] VITALS (12 sets, daily range): BP systolic 87–124; BP diastolic 54–82
[~2022-11-24] VITALS: Ht 160 cm; Wt 48.0 kg
[2022-11-24 21:12] LABS: HEMATOCRIT 32.6 % (37.0-47.0); HEMOGLOBIN 10.5 g/dl (12.0-16.0); LYMPH% 27.1 % (15-41); MEAN CELL VOLUME 92.9 fL CALC (80.0-100.0); MEAN CORPUSCULAR HGB 29.9 pG CALC (26.0-32.0); MEAN CORPUSCULAR HGB CONC 32.2 g/dL CAL (32.0-36.0); MONO% 9.3 % (2-13); NEUT# 3.15 thou/uL (2.00-7.15); NEUT% 63.6 % (42-76); RED BLOOD COUNT 3.51 mill/uL (4.20-5.60); RED CELL DISTRI WIDTH 17.1 % (11.5-15.5)
[2022-11-24 21:17] LABS: BILIRUBIN, TOTAL 0.4 mg/dL (0.02-1.3); BUN 12 mg/dL (8-23); BUN/CREATININE RATIO 13 (12-20 (CALC)); CREATININE 0.9 mg/dL (0.5-1.0); GFR FOR AFR.AMER. > 60 ML/MIN (>=60 (CALC)); GFR OTHER RACES > 60 ML/MIN (>=60 (CALC)); SODIUM 141 mmol/l (137-146)
[2022-11-24 21:18] LABS: ALBUMIN 3.8 g/dL (3.2-5.0); ALKALINE PHOSPHATASE 130 u/l (38-126); ANION GAP 20 (6-22 (CALC)); CARBON DIOXIDE 23 mmol/l (22-30); CHLORIDE 101 mmol/l (95-108); POTASSIUM 3.3 mmol/l (3.5-5.1); SGOT/AST 182 u/l (9-36); TOTAL PROTEIN 7.5 g/dL (6.3-8.2)
[2022-11-25] VITALS (27 sets, daily range): BP systolic 84–113; BP diastolic 46–67
[2022-11-25] MEDS ORDERED: NEURONTIN300 MG PO (05:50)
[2022-11-25] MEDS ORDERED: CYMBALTA60 MG PO (05:52)
[2022-11-25] MEDS ORDERED: MIRTAZAPINE30 M2 PO (06:19)
[2022-11-25] MEDS ORDERED: HYDROXYZ HCL50 MG PO (06:19)
[2022-11-25] MEDS ORDERED: PANTOPRAZOLE SO40 M1 PO (06:21)
[2022-11-25] MEDS ORDERED: CHLORDIAZEPOXID25 M1 PO (12:38)
== END 2022-11-25 13:22 | disposition home or self-care (01) | DRG 897 ==
LOC: ED 19:25 → ED-I 23:45 → ED 11-25 00:19 → MS2 11-25 00:20
PROVIDERS: Emergency Medicine; ADMIT Internal Medicine; ATTEND Internal Medicine
DX: F10.229 Alcohol dependence with intoxication, unspecified (principal); K70.10 Alcoholic hepatitis without ascites; I10 Essential (primary) hypertension; F32.A Depression, unspecified; F41.9 Anxiety disorder, unspecified; K59.09 Other constipation; K64.9 Unspecified hemorrhoids; E87.6 Hypokalemia; Y90.8 Blood alcohol level of 240 mg/100 ml or more; Z20.822 Contact with and (suspected) exposure to COVID-19
CPT/HCPCS: J2060

== ENCOUNTER 2022-12-03 14:20 | Inpatient (IN) | payer OTHER ==
[~2022-12-03] VITALS: Ht 152.4 cm; Wt 45.6 kg
[2022-12-03] VITALS (83 sets, daily range): BP systolic 100–143; BP diastolic 44–95
[~2022-12-03 14:20] MED LIST changes: +MIRTAZAPINE30 M2 PO
--- NOTE | 2022-12-03 14:20 | NUR ---
MANDI CAME TO ED VIA EMS FOR ANXIETY AND N/V, UPON ARRIVAL PATIENT C/O SOB AND CP. PATIENT STATES THAT SHE DOES HAS HX OF ANXIETY. PATIENT DID BRING ALL HER MEDICATIONS AND CLAIMED THAT SHE DID NOT TAKE ANY MEDICATION TODAY. LAST TIME SHE TOOK ANY OF HER MEDICATION WAS LAST NIGHT. EKG, IV, FLUIDS, COMPLETED AND PLACED PATIENT ON MONITOR.
[2022-12-03] MEDS ORDERED: FOLIC ACID1 MG PO (15:20)
--- NOTE | 2022-12-03 15:20 | NUR ---
PATIENT SLEEPING IN BED. HEART RATE STILL ELEVATED. FLUIDS STILL GOING. MEDICATIONS HAVE BEEN GIVEN.
[2022-12-03 15:34] LABS: BASO% 0.1 % (0-3); HEMATOCRIT 33.6 % (37.0-47.0); HEMOGLOBIN 11.1 g/dl (12.0-16.0); IMMATURE GRANULOCYTES 0.1 % (0.0-5.0); LYMPH% 6.1 % (15-41); MEAN CELL VOLUME 91.1 fL CALC (80.0-100.0); MEAN CORPUSCULAR HGB 30.1 pG CALC (26.0-32.0); MONO% 10.6 % (2-13); NEUT# 7.4 thou/uL (2.00-7.15); NEUT% 83.1 % (42-76); RED BLOOD COUNT 3.69 mill/uL (4.20-5.60); RED CELL DISTRI WIDTH 17.4 % (11.5-15.5)
[2022-12-03 15:46] LABS: ALBUMIN 3.8 g/dL (3.2-5.0); ALKALINE PHOSPHATASE 133 u/l (38-126); BUN 17 mg/dL (8-23); BUN/CREATININE RATIO 14 (12-20 (CALC)); CHLORIDE 96 mmol/l (95-108); CREATININE 1.2 mg/dL (0.5-1.0); ETHYL ALCOHOL 85 mg/dl (0-30); GFR FOR AFR.AMER. 55 ML/MIN (>=60 (CALC)); GFR OTHER RACES 46 ML/MIN (>=60 (CALC)); SGOT/AST 159 u/l (9-36); TOTAL PROTEIN 7.7 g/dL (6.3-8.2)
[2022-12-03 15:50] LABS: SODIUM 133 mmol/l (137-146)
[2022-12-03 15:51] LABS: ANION GAP 24 (6-22 (CALC)); BILIRUBIN, TOTAL 0.9 mg/dL (0.02-1.3); CARBON DIOXIDE 15 mmol/l (22-30); POTASSIUM 2.1 mmol/l (3.5-5.1)
--- NOTE | 2022-12-03 16:32 | NUR ---
PATIENT IS AOX4. STATES THAT THE N/V HAS GOTTEN BETTER. NO NEEDS AT THIS TIME.
--- NOTE | 2022-12-03 17:16 | NUR ---
PATIENT HEART WENT UP AGAIN. PATIENT'S ANXIETY IS STARTING UP AGAIN. MD AWARE
--- NOTE | 2022-12-03 17:33 | NUR ---
PATIENT IS NEEDING POTASSIUM BUT THE ORDER IS NOT CORRECT. STILL WORKING ON CORRECTING IT
--- NOTE | 2022-12-03 18:21 | NUR ---
GOT POTASSIUM ORDER IS IN AFTER DISCUSSING IT WITH PHARMACY. POTASSIUM STARTED.
--- NOTE | 2022-12-03 20:00 | NUR ---
DR HOLT CALLED AND WANTED THE PATIENT TO URINATE OR STRAIGHT CATH PATIENT. PT WAS ABLE TO GET UP TO THE BEDSIDE [facility] STANDBY ASSIST. 600ML DARK KAMALA URINE WITH FOUL SMELL. SENT SAMPLE TO LAB. PT CONTINUES TO DRY HEAVE. PROVIDER MADE AWARE.
[2022-12-03 20:22] LABS: URINE BILIRUBIN - DIPSTICK NEGATIVE (NEGATIVE); URINE BLOOD DIPSTICK SMALL (NEGATIVE); URINE COLOR YELLOW; URINE GLUCOSE - DIPSTICK NEGATIVE (NEGATIVE); URINE KETONE TRACE mg/dL (NEGATIVE); URINE LEUK ESTERASE TRACE (NEGATIVE); URINE NITRITE - DIPSTICK NEGATIVE (Negative); URINE PROTEIN - DIPSTICK 30 mg/dL (NEG-TRACE); URINE SPECIFIC GRAVITY 1.015; URINE UROBILINOGEN - DIPSTICK 0.2 E.U./dL (0.2)
[2022-12-03 20:39] LABS: URINE BACTERIA MANY hpf; URINE SQUAMOUS EPITHELIAL CELL FEW EPI/hpf (0-FEW)
--- NOTE | 2022-12-03 21:37 | NUR ---
PT IS BEGINING TO FEEL RESTLESS AND ALL OVER CRAMPING. DENIES HALLUCINATIONS. SLIGHT TREMORS NOTED AT THIS TIME.HEADACHE 09/09
--- NOTE | 2022-12-03 21:56 | NUR ---
REPORT CALLED TO FLOOR. PT TO ROOM 269
--- NOTE | 2022-12-03 23:29 | NUR ---
RECEIVED PT FROM ED AT APPROX 22:15. PT DROWSY, TRANSFERRED TO BED FROM STRETCHER WITH 3 ASSISTS. IV FLUIDS INFUSING RT HAND. ON TELEMETRY. HR 120 SINUS TACH. TREMULOUS, HAVING DRY HEAVES. BED ALARM IS ON. CALL LIGHT IN REACH.
[2022-12-04] VITALS (42 sets, daily range): BP systolic 67–145; BP diastolic 48–101
--- NOTE | 2022-12-04 01:32 | NUR ---
PT WAS GIVEN LIBRIUM AFTER RECEIVED FROM ER FOR CIWA SCORE OF 14. PT IS SLEEPING WELL AT THIS TIME. ON TEL NSR HR88. BED ALARM ON. CALL LIGHT IN REACH
--- NOTE | 2022-12-04 03:13 | NUR ---
PT SLEEPING AT PRESENT. OOB EARLIER TO BATHROOM. HAD LOOSE STOOL. URINE HAS A FOUL ODOR. TOOK SIPS OF H20 AND SODA. IV FLUIDS INFUSING AT 100CC/HR. BED ALARM IS ON. CALL LIGHT IN REACH
[2022-12-04 05:51] LABS: HEMATOCRIT 31.8 % (37.0-47.0); HEMOGLOBIN 9.9 g/dl (12.0-16.0); MEAN CELL VOLUME 95.8 fL CALC (80.0-100.0); MEAN CORPUSCULAR HGB 29.8 pG CALC (26.0-32.0); MEAN CORPUSCULAR HGB CONC 31.1 g/dL CAL (32.0-36.0); RED BLOOD COUNT 3.32 mill/uL (4.20-5.60); RED CELL DISTRI WIDTH 17.9 % (11.5-15.5)
[2022-12-04 06:23] LABS: ALBUMIN 3.1 g/dL (3.2-5.0); ALKALINE PHOSPHATASE 109 u/l (38-126); BILIRUBIN, TOTAL 1.2 mg/dL (0.02-1.3); BUN 14 mg/dL (8-23); BUN/CREATININE RATIO 14 (12-20 (CALC)); CARBON DIOXIDE 18 mmol/l (22-30); CHLORIDE 107 mmol/l (95-108); GFR FOR AFR.AMER. > 60 ML/MIN (>=60 (CALC)); GFR OTHER RACES 56 ML/MIN (>=60 (CALC)); SGOT/AST 146 u/l (9-36); SODIUM 134 mmol/l (137-146); TOTAL PROTEIN 6.7 g/dL (6.3-8.2)
[2022-12-04 06:42] LABS: ANION GAP 11 (6-22 (CALC)); MAGNESIUM 1.1 mg/dL (1.6-2.3); POTASSIUM 2.4 mmol/l (3.5-5.1)
--- NOTE | 2022-12-04 07:00 | NUR ---
BEDSIDE SHIFT REPORT, PT SLEEPING SOUNDLY, BREATHING EVEN AND NON-LABORED, TELE MONITOR IN PLACE, IVF 0.9 NS INFUSING @ 100 ML/HR TO SITE IN RW, CALL WILHELM IN REACH AND BED LOCKED IN LOWEST POSITION.
--- NOTE | 2022-12-04 07:27 | NUR ---
[employer] SECRETARY CALLED REPORTING HR SUSTAINING IN 120'S, ON ASSESSMENT PT SITTING UP AT BEDSIDE DRY HEAVING AND VOMITTING, MD NOTIFIED OF CONDITION AND NURSE AWAITING ORDERS AT THIS TIME, WILL CONTINUE TO MONITOR.
--- NOTE | 2022-12-04 09:14 | NUR ---
PT VERY LETHARGIC AT THIS TIME, BOTH IV NOT WORKING AND HAD TO BE REMOVED, VOMITTING UP BLOOD AT THIS TIME, MD NOTIFIED.
--- NOTE | 2022-12-04 11:00 | NUR ---
PT VOMITTING BLOOD AND HAVING BLOODY DIARRHEA AT THIS TIME, INCONTINENT OF STOOLS. ORDERS IN PLACE AT THIS TIME.
--- NOTE | 2022-12-04 11:37 | NUR ---
DR LOCKHART NOTIFIED OF LAB (PROCAL) AND INABILITY TO OBTAIN PERIPHERAL LINE, SAID TO PLACE CENTRAL LINE IF OR MD ABLE TO DO PROCEDURE, AWAITING RESPONSE FROM OR MD AT THIS TIME.
[2022-12-04 11:43] LABS: HEMATOCRIT 29.4 % (37.0-47.0); HEMOGLOBIN 9.2 g/dl (12.0-16.0)
--- NOTE | 2022-12-04 13:41 | NUR ---
PT SAT ON COMMODE, IOS ARCHITECT WITNESSED HER FALLING OVER FORWARD AND CALLED FOR ASSIST, ON ENTERING ROOM NURSE OBSERVED PT'S EYES ROLLING OVER, CALLED RAPID AND LIFTED PT BACK INTO BED WITH IOS ARCHITECT'S ASSISTANCE. PT SUDDENLY REGAINED NORMALCY, ORIENTED, ANSWERED QUESTIONS APPROPRIATELY AND ABLE TO DO ROM ON COMMANDS. VITAL SIGNS IN NORMAL RANGE, BLOOD GLUCOSE NORMAL DOCUMENTED. MANAGER PE JENNY ADVISED TO ORDER CBC. EKG ALSO DONE.
[2022-12-04 13:56] LABS: BASO% 0.3 % (0-3); EOS% 0.1 % (0-8); HEMATOCRIT 25.4 % (37.0-47.0); HEMOGLOBIN 7.8 g/dl (12.0-16.0); IMMATURE GRANULOCYTES 0.2 % (0.0-5.0); LYMPH% 13.4 % (15-41); MEAN CELL VOLUME 96.6 fL CALC (80.0-100.0); MEAN CORPUSCULAR HGB 29.7 pG CALC (26.0-32.0); MEAN CORPUSCULAR HGB CONC 30.7 g/dL CAL (32.0-36.0); NEUT# 7.04 thou/uL (2.00-7.15); RED BLOOD COUNT 2.63 mill/uL (4.20-5.60); RED CELL DISTRI WIDTH 17.9 % (11.5-15.5)
[2022-12-04 14:08] LABS: CREATININE 1.2 mg/dL (0.5-1.0); POTASSIUM 2.6 mmol/l (3.5-5.1)
--- NOTE | 2022-12-04 15:40 | NUR ---
CALLED [facility] AT [phone] SPOKE TO EVELYNE. GAVE INFORMATION TO EVELYNE ABOUT THIS PT. STATED I NEED TO FAX A FACESHEET TO [phone].
--- NOTE | 2022-12-04 16:45 | NUR ---
female pt received to ICU bed 1 via bed accompanied MS staff x2; bedside report received from Melida Mulligan RN; assessment completed at this time; pt alert and oriented; admits to pain to back and neck rating 8/10; nausea noted; NO vomiting noted at this time; resp even and unlabored; lungs clear; skin color pale; ra; hr reg; strong pulses; no edema noted; st on monitor; abd soft/ distended with bs present; small dk red/bloody stool noted; pericare provided; brief placed; no urine to inspect at this time; TLC patent to right groin with brisk blood return; no redness or edema noted at site; #20 infiltrated to left foot, catheter removed with tip intact; bruising noted to upper extremities; plan of care/ meds/ transfer/ transfusion explained; pt agree with plan of care; headline writer remains at bedside
--- NOTE | 2022-12-04 16:50 | NUR ---
1650- NS bolus infusing for hypotension; bp currently 90/61; consent for blood transfusion obtained; 1706- 1st unit of prbcs verified at bedside as per protocol; transfusion began; s/sx of potential reaction explained; hand sign writer remains at bedside 1717- Dr Trimble called this hand sign writer; update provided; pt appears comfortable/ stable at this time; sbp 90s; st on monitor; blood tranfusing; #22 started to left foot per D MELO Izaguirre; abt to infuse; 1736- Dr Trimble called this hand sign writer; update provided; Dr Chowdary informs this hand sign writer of package collector acceptaance, awaiting hospital bed assignment; MD informed pt current on bed with lg liquid bloody stool noted; resp kessler, she is stable; resp even and unlabored; o2 sat upper 90s; no vomiting of blood at this time; hand sign writer remains at bedside
--- NOTE | 2022-12-04 16:50 | NUR ---
PT CONDITION WORSENING BY HYPOTENSION, DECREASING HEMOGLOBIN AND PERSISTENT VOMITTING AND DIARRHEA OF DARK RED BLOOD. MD NOTIFIED AND GARE ORDERS FOR TRANSFUSION, TX TO ICU AND TX OUT OF FACILITY. ORDERS PROCEDDED AND PT TRANSFERRED IN BED TO ICU, MELO RIOS RECEIVED PT.
--- NOTE | 2022-12-04 18:20 | NUR ---
awake in bed; tech writer remains at bedside; no apparent distress noted; iv's intact and patent; no redness or edema noted at site; transfusion continue/ no s/sx of reaction noted; st on monitor; call light within reach; tech writer remains at bedside
--- NOTE | 2022-12-04 18:47 | NUR ---
Dr Trimble called this telegraphic typewriter operator chief; updated; pt appears very stable and comfortable at this time; bp 110/81; st 102; NO resp distress noted; no vomiting of blood since arrival to ICU; awaiting bed assignment;
--- NOTE | 2022-12-04 19:00 | NUR ---
REPORT RECIEVED FROM OFF GOING NURSE. ASSESSMENT COMPLETED. PATIENT NOTED LYING IN BED WITH NO ACUTE DISTRESS NOTED. WILL CONTINUE TO MONITOR.
--- NOTE | 2022-12-04 19:06 | NUR ---
1st unit of prbcs completed; pt tolerated well; bedside report given;
--- NOTE | 2022-12-04 19:19 | NUR ---
CALL RECEIVED FROM LAB, BLOOD HAS BEEN CROSS MATCHED, NOTIFIED ICU STAFF Janine PARK LPN. CALL BACK TO LAB NOTIFYING THEM OF CURRENT PATIENT LOCATION.
--- NOTE | 2022-12-04 19:23 | NUR ---
SPOKE WITH [facility]. PATIENT WAS ACCEPTED BY DR. JUICE RODAS, ICU BED 5C03A.
--- NOTE | 2022-12-04 19:25 | NUR ---
Dr Trimble called per television writer; update provided; cont to await bed assignment; MD to call MELO Cadena for updates
--- NOTE | 2022-12-04 19:35 | NUR ---
UNIT OF BLOOD STARTED. VSS TEMP 97.8, PULSE OX 96%, RESP 17, BP 121/83. WILL CONTINUE TO MONITOR.
--- NOTE | 2022-12-04 19:50 | NUR ---
BLOOD STILL GOING, NO REACTION NOTED. NO ACUTE DISTRESS NOTED. VS TEMP 97.9, RR: 13, BP 122/87.
--- NOTE | 2022-12-04 20:20 | NUR ---
BLOOD NOTED STILL TRANSFUSING AT THIS TIME. NO SS OF REACTION NOTED. NO ACUTE DISTRESS NOTED. PATIENT PLACED ON BED JIMENEZ, BLACK TARRY STOOL NOTED. VS T: 97.9, HR 109, RR: 18, BP: 128/87. WILL CONTINUE TO MONITOR.
--- NOTE | 2022-12-04 20:50 | NUR ---
TRANSPORTATION AT BED SIDE. BLOOD COMPLETED AT THIS TIME. NO SS OF ACUTE DISTRESS NOTED. NO REACTION NOTED. VS: HR: 103, TEMP: 97.8, RR: 18, BP 132/93.
--- NOTE | 2022-12-04 21:15 | NUR ---
PATIENT TRANSFERRED TO [facility] VIA STRETCHER, VIA POSITIVE TRANSPORT.
--- NOTE | 2022-12-04 21:45 | NUR ---
REPORT GIVEN TO WIDELY NURSE AT [facility].
== END 2022-12-04 21:15 | disposition short-term general hospital (02) | DRG 378 ==
LOC: ED 14:20 → MS2 21:07 → ICU 12-04 16:40
PROVIDERS: Family Medicine; ADMIT Internal Medicine; ATTEND Internal Medicine
PROC: 30233N1 Transfusion of Nonautologous Red Blood Cells into Peripheral Vein, Percutaneous Approach (ICD-10-PCS; principal; 2022-12-04)
PROC: 30233N1 Transfusion of Nonautologous Red Blood Cells into Peripheral Vein, Percutaneous Approach (ICD-10-PCS; 2022-12-04)
DX: K92.0 Hematemesis (principal); D62 Acute posthemorrhagic anemia; F10.239 Alcohol dependence with withdrawal, unspecified; K92.1 Melena; R50.9 Fever, unspecified; R00.0 Tachycardia, unspecified; E87.6 Hypokalemia; E83.51 Hypocalcemia; E83.42 Hypomagnesemia; F10.229 Alcohol dependence with intoxication, unspecified; K70.10 Alcoholic hepatitis without ascites; Y90.4 Blood alcohol level of 80-99 mg/100 ml; I10 Essential (primary) hypertension; F32.A Depression, unspecified; F41.9 Anxiety disorder, unspecified; K59.09 Other constipation; R82.71 Bacteriuria
CPT/HCPCS: J2060; J2354; J3475; P9016; S0164

== ENCOUNTER 2022-12-12 19:40 | Emergency (ER) | payer OTHER ==
[~2022-12-12] VITALS: Ht 152.4 cm; Wt 49.8 kg
[2022-12-12 22:21] LABS: HEMATOCRIT 23.9 % (37.0-47.0); HEMOGLOBIN 7.5 g/dl (12.0-16.0); IMMATURE GRANULOCYTES 0.6 % (0.0-5.0); MEAN CELL VOLUME 96.4 fL CALC (80.0-100.0); MEAN CORPUSCULAR HGB 30.2 pG CALC (26.0-32.0); MEAN CORPUSCULAR HGB CONC 31.4 g/dL CAL (32.0-36.0); RED BLOOD COUNT 2.48 mill/uL (4.20-5.60)
[2022-12-12 22:30] VITALS: BP 74/46
[2022-12-12 22:35] LABS: PLATELET COUNT 390 thou/uL (130-400)
[2022-12-12 22:36] LABS: MANUAL DIFFERENTIAL YES
[2022-12-12 22:38] LABS: CREATININE 1.5 mg/dL (0.5-1.0)
[2022-12-12 22:44] LABS: BAND 34 % (0-8)
[2022-12-12 22:45] VITALS: BP 79/48
[2022-12-12 22:57] LABS: ALBUMIN 1.9 g/dL (3.2-5.0); BILIRUBIN, TOTAL 0.3 mg/dL (0.02-1.3); POTASSIUM 3.2 mmol/l (3.5-5.1); TOTAL PROTEIN 4.4 g/dL (6.3-8.2)
[2022-12-12 23:00] VITALS: BP 83/58
[2022-12-12 23:00] LABS: INTERNATIONAL NORMALIZED RATIO 1.7 RATIO (0.7-1.3); PROTHROMBIN TIME 16.2 SECONDS (9.0-12.5)
[2022-12-12 23:16] VITALS: BP 95/65
[2022-12-13] VITALS (12 sets, daily range): BP systolic 62–108; BP diastolic 40–72
== END 2022-12-13 01:52 | disposition short-term general hospital (02) ==
LOC: ED 19:40
PROVIDERS: Emergency Medicine
DX: K92.2 Gastrointestinal hemorrhage, unspecified (principal); D64.9 Anemia, unspecified; A04.72 Enterocolitis due to Clostridium difficile, not specified as recurrent; I95.9 Hypotension, unspecified; D72.829 Elevated white blood cell count, unspecified; F41.9 Anxiety disorder, unspecified; F32.A Depression, unspecified; F10.10 Alcohol abuse, uncomplicated; Z87.19 Personal history of other diseases of the digestive system
CPT/HCPCS: P9016; S0164

== ENCOUNTER 2023-01-10 13:22 | Emergency (ER) | payer OTHER ==
[~2023-01-10] VITALS: Ht 152.4 cm; Wt 49.9 kg
[2023-01-10 13:42] VITALS: BP 100/70
[2023-01-10 14:00] VITALS: BP 104/66
[2023-01-10] MEDS ORDERED: MAGNESIUM OXID400 M1 (14:07)
[2023-01-10] MEDS ORDERED: KLOR-CON M15 PO (14:09)
[2023-01-10 14:21] LABS: BASO% 0.2 % (0-3); EOS% 5.2 % (0-8); IMMATURE GRANULOCYTES 0.2 % (0.0-5.0); LYMPH% 52.3 % (15-41); MEAN CELL VOLUME 96.4 fL CALC (80.0-100.0); MEAN CORPUSCULAR HGB 29.4 pG CALC (26.0-32.0); MEAN CORPUSCULAR HGB CONC 30.5 g/dL CAL (32.0-36.0); MONO% 10.9 % (2-13); NEUT# 1.87 thou/uL (2.00-7.15); NEUT% 31.2 % (42-76); RED BLOOD COUNT 3.91 mill/uL (4.20-5.60); RED CELL DISTRI WIDTH 16.3 % (11.5-15.5)
[2023-01-10 14:22] LABS: HEMATOCRIT 37.7 % (37.0-47.0); HEMOGLOBIN 11.5 g/dl (12.0-16.0)
[2023-01-10 14:36] LABS: CREATININE 1.6 mg/dL (0.5-1.0)
[2023-01-10 14:44] VITALS: BP 96/64
[2023-01-10 14:52] LABS: ALBUMIN 3.6 g/dL (3.2-5.0); BILIRUBIN, TOTAL 0.5 mg/dL (0.02-1.3); POTASSIUM 4.5 mmol/l (3.5-5.1); TOTAL PROTEIN 8.3 g/dL (6.3-8.2)
[2023-01-10 15:00] VITALS: BP 103/63
[2023-01-10 18:23] VITALS: BP 103/63
== END 2023-01-10 18:30 | disposition home or self-care (01) ==
LOC: ED 13:22
PROVIDERS: Family Medicine
DX: R19.7 Diarrhea, unspecified (principal); F32.A Depression, unspecified; F41.9 Anxiety disorder, unspecified

== ENCOUNTER 2023-01-25 10:28 | Emergency (ER) | payer OTHER ==
[2023-01-25] VITALS (37 sets, daily range): BP systolic 38–130; BP diastolic 13–90
[~2023-01-25] VITALS: Ht 152.4 cm; Wt 49.8 kg
[~2023-01-25 10:28] MED LIST changes: +KLOR-CON M15 PO; +MAGNESIUM OXID400 M1
[2023-01-25 11:12] LABS: BASO% 0.2 % (0-3); EOS% 0.4 % (0-8); HEMATOCRIT 35.9 % (37.0-47.0); HEMOGLOBIN 11.4 g/dl (12.0-16.0); IMMATURE GRANULOCYTES 0.2 % (0.0-5.0); LYMPH% 32.9 % (15-41); MEAN CELL VOLUME 95.2 fL CALC (80.0-100.0); MEAN CORPUSCULAR HGB 30.2 pG CALC (26.0-32.0); MEAN CORPUSCULAR HGB CONC 31.8 g/dL CAL (32.0-36.0); MONO% 5.9 % (2-13); NEUT# 3.4 thou/uL (2.00-7.15); NEUT% 60.4 % (42-76); RED BLOOD COUNT 3.77 mill/uL (4.20-5.60); RED CELL DISTRI WIDTH 15.6 % (11.5-15.5)
[2023-01-25 11:14] LABS: ALBUMIN 4.2 g/dL (3.2-5.0); ALKALINE PHOSPHATASE 153 u/l (38-126); BUN 15 mg/dL (8-23); BUN/CREATININE RATIO 17 (12-20 (CALC)); CHLORIDE 107 mmol/l (95-108); CREATININE 0.9 mg/dL (0.5-1.0); ETHYL ALCOHOL 216 mg/dl (0-30); GFR FOR AFR.AMER. > 60 ML/MIN (>=60 (CALC)); GFR OTHER RACES > 60 ML/MIN (>=60 (CALC)); LIPASE 136 u/l (23-300); SGOT/AST 68 u/l (9-36); SODIUM 145 mmol/l (137-146); TOTAL PROTEIN 8.9 g/dL (6.3-8.2)
[2023-01-25 11:15] LABS: POTASSIUM 3.4 mmol/l (3.5-5.1)
[2023-01-25 11:16] LABS: ANION GAP 26 (6-22 (CALC)); BILIRUBIN, TOTAL 0.8 mg/dL (0.02-1.3); CARBON DIOXIDE 15 mmol/l (22-30)
[2023-01-25 19:47] LABS: URINE BILIRUBIN - DIPSTICK NEGATIVE (NEGATIVE); URINE COLOR YELLOW; URINE GLUCOSE - DIPSTICK 250 mg/dL (NEGATIVE); URINE KETONE 15 mg/dL (NEGATIVE)
[2023-01-25 19:48] LABS: URINE BLOOD DIPSTICK NEGATIVE (NEGATIVE); URINE LEUK ESTERASE TRACE (NEGATIVE); URINE NITRITE - DIPSTICK POSITIVE (Negative); URINE PH 6.5 (4.5-8.0); URINE PROTEIN - DIPSTICK 30 mg/dL (NEG-TRACE); URINE UROBILINOGEN - DIPSTICK 0.2 E.U./dL (0.2)
[2023-01-25 19:52] LABS: URINE BACTERIA MANY hpf; URINE SQUAMOUS EPITHELIAL CELL FEW EPI/hpf (0-FEW)
== END 2023-01-25 21:15 | disposition home or self-care (01) ==
LOC: ED 10:28
PROVIDERS: Family Medicine
DX: R11.2 Nausea with vomiting, unspecified (principal); I10 Essential (primary) hypertension; K70.10 Alcoholic hepatitis without ascites; F10.229 Alcohol dependence with intoxication, unspecified; E83.42 Hypomagnesemia; R82.71 Bacteriuria; F32.A Depression, unspecified; F41.9 Anxiety disorder, unspecified; Y90.7 Blood alcohol level of 200-239 mg/100 ml
CPT/HCPCS: J3475; S0164